=== PATIENT | male | born 1960 | race Caucasian/White ===

== ENCOUNTER 2021-09-08 14:36 | Inpatient (IN) ==
--- NOTE | 2021-09-08 15:16 | Emergency Department Note ---
History of Present Illness General Chief complaint: Shortness of Breath/Dyspnea Stated complaint: PAIN IN BACK AND NECK,SOB Time Seen by Provider: 09/08/21 14:50 Source: patient and family (Sister who is at the bed) Mode of arrival: ambulatory Limitations: no limitations History of Present Illness Maximum Pain Intensity: 8 This patient is a 60-year-old male who has a very complex medical history in the last year, comes in with continuing neck and back pain and weakness after having back surgery additionally he has felt short of breath over the last week. his sister is at the bedside and said that he had back surgery April 2020 and then in November 2020 and [facility]. Since the back surgery he has been weak and in a wheelchair and unable to use his legs. He said they wanted to operate on his neck as he has had weakness in his arms from his neck right greater than left this is been chronic. They have an appointment to see Dr. Chávez but is not till January. They have not yet seen Dr. Chávez. He says when he bends his neck down that causes his legs to get numb. This is been chronic. Prior to the surgery he was healthy and walking and since then he is in a wheelchair. He says that the last week he has felt a little more short of breath is sister says it seems like he has hard time talking because of breathing. 2 or 3 weeks ago was hospitalized and do boys for pneumonia. He never really fully recovered it sounds like. He was diagnosed with blood clots in his right leg and started on Eliquis 5 mg twice daily. He denies any chest pain. He has had a nonproductive cough at times no fever. He has not had the COVID vaccine. He has not had known Covid or exposure. No nausea vomiting diarrhea. He has no lower extremity edema beyond baseline. No history of cardiac disease or pulmonary disease prior. Home Medications Medication Instructions Recorded Confirmed Type apixaban 5 mg tablet (Eliquis) 5 mg PO BID 09/08/21 09/08/21 History Allergies Allergy/AdvReac Type Severity Reaction Status Date / Time No Known Allergies Allergy Unverified 09/08/21 16:28 Past Med/Surg History Social History Smoking Status: Former smoker Feels Safe at Home: Yes Immunizations: Past medical historyback surgeries and problems since. Denies cardiac disease, pulmonary disease, PE, diabetes. He does a history of DVT and is on Eliquis Social history he is not a smoker he has a history. He lives with his mother who takes care of him along with a friend. He is followed by Dr. Almendarez at [facility] Review of Systems A total of 10 systems reviewed and were otherwise negative Physical Exam Vital Signs Vital Signs - 24 hr 09/08/21 14:38 09/08/21 15:36 09/08/21 17:00 Temperature 36.8 C Temperature Source Temporal Artery Scan Pulse Rate 112 H Pulse Rate [Right Finger] 101 H Pulse Rhythm [Right Finger] Regular Pulse Strength [Right Finger] Normal Respiratory Rate 18 20 Respiratory Effort / Characteristics Non-Labored Respiratory Depth Normal Respiratory Pattern Regular Blood Pressure 187/89 H Blood Pressure Mean 121 Blood Pressure Position Sitting Pulse Oximetry 95 98 Oxygen Delivery Method Room Air Room Air Room Air Sepsis Recent Fever Within 48 Hours No Sepsis New/Unexplained Change in Mental Status No Sepsis Action Taken by Nursing No Action Required General: Well developed well nourished ill-appearing older male who appears in no acute distress, breathing comfortably on room air. Normal speech when he talks he does seem mildly short of breath HEENT: Normal cephalic atraumatic. Pupils are equal round and reactive to light. Extraocular movements are intact. Oropharynx is pink with moist mucous membranes. No swelling of the mouth lips or tongue. Neck: Supple with a midline trachea. No meningeal signs or stiffness, no JVD or bruits. No Stridor. Chest: Clear to auscultation bilaterally exception of some diminished breath sounds in the left base compared to the right. No wheezes or rhonchi. No increased work of breathing. Crackles or subcutaneous air. Heart: Regular rate and rhythm without murmurs or gallops. Abdomen: Soft nontender, nondistended without rebound guarding or rigidity. Extremities: No cyanosis clubbing. He does have bilateral lower extremity edema which he says is Spine/Back. Non tender to palpation. No CVA tenderness Skin: Good turgor without rashes. Neurologic exam: Cranial nerves two through 12 are intact. Does have weakness in the upper extremities which is very mild on the left and mild to moderate on the right. He tells me this has been this way for a long time. The lower extremities have weakness in both legs and he has minimal movement in the ankles and feet. Course Administered Medications Discontinued Medications Ioversol (Optiray 320 125ml) 120 ml IV ONCE ONE Stop: 09/08/21 16:57 Last Admin: 09/08/21 16:59 Dose: 120 ml Documented by: [id number] Medical Decision Making Differential Diagnosis Weakness, neurologic disorder, spinal stenosis or spinal disorder, PE, cardiac disease, infection, electrolyte or metabolic abnormality, postop complication Medical Records Attestation: I reviewed the patient's medical records. Home Medications Current Medication List: was personally reviewed by me Laboratory Data Attestation: I reviewed the patient's lab results. Result diagrams: 09/08/21 15:35 09/08/21 15:35 Lab Results 09/08/21 09/08/21 09/08/21 Range/Units 15:35 15:35 15:35 WBC 10.15 (4.8-10.8) K/uL RBC 5.37 (4.7-6.1) M/uL Hgb 15.0 (14.0-18.0) g/dL Hct 46.0 (42-52) % MCV 85.7 (80-100) fL MCH 27.9 (25-34) pg MCHC 32.6 (32-36) g/dL RDW Std Deviation 46.7 H (36.4-46.3) fL RDW Coeff of Daivna 14.9 H (11.5-14.5) % Plt Count 171 (130-400) K/uL MPV 12.2 H (7.4-10.4) fL Immature Gran % (Auto) 0.2 % Neut % (Auto) 86.3 % Lymph % (Auto) 7.6 % Blair % (Auto) 5.7 % Eos % (Auto) 0.1 % Baso % (Auto) 0.1 % Neut # (Auto) 8.76 H (1.4-6.5) K/uL Lymph # (Auto) 0.77 L (1.2-3.4) K/uL Blair # (Auto) 0.58 (0.11-0.59) K/uL Eos # (Auto) 0.01 (0-0.5) K/uL Baso # (Auto) 0.01 (0-0.2) K/uL Immature Gran # (Auto) 0.02 (0.00-0.02) K/uL PT 11.8 (9.0-12.0) Seconds INR 1.1 (0.9-1.1) APTT 32.2 H (21.0-31.0) Seconds PTT Ratio 1.2 Sodium 136 (136-145) mmol/L Potassium 4.0 (3.5-5.1) mmol/L Chloride 97 L (98-107) mmol/L Carbon Dioxide 28 (21-32) mmol/L Anion Gap 11 (3-11) BUN 6 (6-23) mg/dl Creatinine 0.30 L (0.6-1.4) mg/dl Est Cr Clr Drug Dosing Not Reportable Est GFR ( Amer) > 150.0 ml/min Est GFR (Non-Af Amer) 146.3 ml/min BUN/Creatinine Ratio 20.0 (10-20) Glucose 95 (70-99(Fasting)) mg/dl Lactate (0.4-2.0) mmol/L Calcium 9.5 (8.5-10.1) mg/dl Total Bilirubin 0.9 (0.2-1.0) mg/dl AST 13 (13-39) U/L ALT 12 (7-52) U/L Alkaline Phosphatase 113 H (34-104) U/L Troponin I < 0.03 (0-0.04) ng/ml B-Natriuretic Peptide (0-100) pg/ml Total Protein 7.9 (6.0-8.3) gm/dl Albumin 4.2 (3.4-5.0) gm/dl Globulin 3.7 (2.5-4.0) gm/dl Albumin/Globulin Ratio 1.1 (0.9-2) Lipase 5 L (11-82) U/L SARS-CoV-2, RNA, NAAT (NEGATIVE) 09/08/21 09/08/21 09/08/21 Range/Units 15:35 15:35 15:35 WBC (4.8-10.8) K/uL RBC (4.7-6.1) M/uL Hgb (14.0-18.0) g/dL Hct (42-52) % MCV (80-100) fL MCH (25-34) pg MCHC (32-36) g/dL RDW Std Deviation (36.4-46.3) fL RDW Coeff of Davina (11.5-14.5) % Plt Count (130-400) K/uL MPV (7.4-10.4) fL Immature Gran % (Auto) % Neut % (Auto) % Lymph % (Auto) % Blair % (Auto) % Eos % (Auto) % Baso % (Auto) % Neut # (Auto) (1.4-6.5) K/uL Lymph # (Auto) (1.2-3.4) K/uL Blair # (Auto) (0.11-0.59) K/uL Eos # (Auto) (0-0.5) K/uL Baso # (Auto) (0-0.2) K/uL Immature Gran # (Auto) (0.00-0.02) K/uL PT (9.0-12.0) Seconds INR (0.9-1.1) APTT (21.0-31.0) Seconds PTT Ratio Sodium (136-145) mmol/L Potassium (3.5-5.1) mmol/L Chloride (98-107) mmol/L Carbon Dioxide (21-32) mmol/L Anion Gap (3-11) BUN (6-23) mg/dl Creatinine (0.6-1.4) mg/dl Est Cr Clr Drug Dosing Est GFR ( Amer) ml/min Est GFR (Non-Af Amer) ml/min BUN/Creatinine Ratio (10-20) Glucose (70-99(Fasting)) mg/dl Lactate 0.8 (0.4-2.0) mmol/L Calcium (8.5-10.1) mg/dl Total Bilirubin (0.2-1.0) mg/dl AST (13-39) U/L ALT (7-52) U/L Alkaline Phosphatase (34-104) U/L Troponin I (0-0.04) ng/ml B-Natriuretic Peptide 34 (0-100) pg/ml Total Protein (6.0-8.3) gm/dl Albumin (3.4-5.0) gm/dl Globulin (2.5-4.0) gm/dl Albumin/Globulin Ratio (0.9-2) Lipase (11-82) U/L SARS-CoV-2, RNA, NAAT POSITIVE A* (NEGATIVE) Imaging Data Attestation: I personally reviewed and interpreted this imaging study as follows: My Impression: Chest x-ray-there is an effusion on the left face with likely infiltrate Radiologist's Impression: Chest X-Ray 09/08/21 15:07 SINGLE VIEW CHEST CLINICAL HISTORY: Atypical chest pain. Dyspnea. FINDINGS: An AP, portable, upright chest radiograph is obtained. No prior studies are available for comparison at the time of dictation. The examination is degraded by portable technique and patient rotation. The heart is top normal for projection noting atherosclerotic calcification of the thoracic aorta. There is a layering left pleural effusion with left basilar consolidation. Atelectasis is noted at the right lung base. No pneumothorax is seen. The bony thorax is grossly intact. IMPRESSION: Layering left pleural effusion with left basilar consolidation. ACT 112: Negative or not required by law. Electronically signed by: Jeremi Levy M.D. 09/08/2021 4:09 PM Chest CTA 09/08/21 15:08 CT ANGIOGRAM OF THE CHEST CLINICAL HISTORY: Atypical chest pain. COMPARISON STUDY: Chest x-ray dated 09/08/2021. TECHNIQUE: Following the IV administration of 120 cc of Optiray 320, CT an giogram of the chest was performed from the upper abdomen to the thoracic inlet utilizing the pulmonary embolus protocol. Images are reviewed in the axial, sagittal, and coronal planes. 3-D MIPS images are created and assessed. IV contrast was administered without complication. A dose lowering technique was utilized adhering to the principles of ALARA. There is streak artifact from the arms which could not elevated above the chest as well as motion artifact. CT DOSE: 772.71 mGy.cm FINDINGS: Thyroid: Imaged portions of the thyroid gland are normal in size and attenuation. Thoracic aorta: The thoracic aorta is normal in caliber and demonstrates standard 3-vessel arch anatomy. No dissection is seen. Pulmonary vasculature: The pulmonary trunk is normal in caliber. There are no filling defects identified in main, lobar, or segmental pulmonary branches to suggest pulmonary embolus. Heart: The heart is normal in size and without pericardial effusion. The coronary arteries are densely calcified. Lungs and pleural spaces: Mild emphysematous change is seen at the apices. There is dense airspace consolidation and volume loss throughout the left lower lobe. The left upper lobe is clear. Minimal patchy groundglass consolidation is seen in the right lower lobe. No pleural effusion is identified. Secretions are seen throughout the trachea and in the left mainstem bronchus. There is opacification of the left lower lobe airways. Mediastinum: There are mildly enlarged mediastinal nodes which measure up to 16 mm in short axis. Sybil: Enlarged left hilar nodes measure up to 14 mm in short axis. No right hilar adenopathy is seen. Axillae: There is no axillary lymphadenopathy. Upper abdomen: The pancreas is atrophic with evidence of chronic pancreatitis. Partially visualized upper abdominal viscera is within normal limits. Skeletal structures: No lytic or blastic bony lesions are seen. There are healed left-sided rib fractures. IMPRESSION: 1. There is no evidence of pulmonary embolus in the main, lobar, or segmental pulmonary arteries. 2. Emphysema. 3. There is dense airspace consolidation throughout the left lower lobe with mild volume loss and opacification of the left lower lobe airways. The appearance is typical for pneumonia/aspiration pneumonitis. Clinical correlation will be required and radiographic follow-up to resolution is recommended. 4. Minimal patchy groundglass consolidation is seen at the right lung base, also likely on an infectious/inflammatory basis. 5. No pleural effusion is identified. 6. Advanced coronary artery calcification. 7. Mildly enlarged mediastinal and hilar lymph nodes are likely reactive. 8. Additional findings as above. ACT 112: Negative or not required by law. Electronically signed by: Jeremi Levy M.D. 09/08/2021 5:43 PM ECG Data Attestation: I personally reviewed and interpreted this ECG as follows: Indication: + SOB/dyspnea Rate (beats per minute): 100 Rhythm: + normal sinus ECG Intervals/blocks: + Normal QRS, + Normal QT and + Normal [place] ECG [place]: + Normal ECG ST segments: + Normal ST segments ECG Findings: + Poor R wave progression; no PACs or no PVCs Comparison ECG Date: no prior available MDM Narrative This patient comes in as described above. He has a very complex past and no records available for evaluation acutely. I did attempt to get some old records from his recent [place] his hospitalization and have the executive secretary working on that. He has stable vital signs. I most concerned about his respiratory status today. I did a cardiac/pulmonary work-up. He does have a lot of weakness in his arms and legs which she has been chronic. It sounds like the thinking is this is a postop complication related spine but I am also concerned it could be an underlying neurologic disorder given the limited information I have. IV access was established multiple blood testing was obtained as well as chest x- ray and EKG. Also I did Covid testing. His EKG does not suggest acute coronary syndrome or arrhythmia. His chest x-ray does show likely effusion with an infiltrate in the left base. His white count is not elevated nor is his lactic acid elevated however. His Covid test did come back positive. The patient d enies that he has had a Covid test that was positive for Covid. I do think he needs to be admitted/observe for his respiratory issues. He also has ongoing issues with weakness that have been attributed to his neck and back but he may need further work-up without as well to rule out neurologic or other etiologies. We did manage to receive the discharge summary from 2 boys. The patient was in the hospital from July 22 to July 24. He was treated for community- acquired pneumonia with possible aspiration. He was negative for Covid. He had a DVT in the right femoral vein and was started on Eliquis. Apparently they also suspected a PE on his CT also did have obstruction of the main bronchus with fluid. This was thought to be from aspiration. He was started on Augmentin. CAT scan came back tonight with a findings consistent with pneumonia. I did give him Zosyn 4.5 g IV. I do think he needs to be admitted for further treatment and evaluation. I have consulted the [facility] hospitalist to see him in ER for these. Impression & Plan COVID, Pleural effusion, Weakness, SOB (shortness of breath), Pneumonia Discharge Plan Visit Data Chief Complaint: Shortness of Breath/Dyspnea Stated Complaint: PAIN IN BACK AND NECK,SOB ED Provider: Romero Schilling Discharge Problem: COVID, Pleural effusion, Weakness, SOB (shortness of breath), Pneumonia Forms Stand Alone Forms: My [facility] Prescriptions Prescriptions: No Action Eliquis 5 mg tablet 5 mg PO BID RF: 0 Referrals Referrals: PCP,NO [Physician] -
[2021-09-08 15:52] LABS: Basophils # (auto) 0.01 K/uL (0-0.2); Basophils % (auto) 0.1 %; Eosinophils # (auto) 0.01 K/uL (0-0.5); Eosinophils % (auto) 0.1 %; Immature Granulocytes # (auto) 0.02 K/uL (0.00-0.02); Immature Granulocytes % (auto) 0.2 %; Lymphocytes # (auto) 0.77 K/uL (1.2-3.4); Lymphocytes % (auto) 7.6 %; Mean Corpuscular Hemoglobin 27.9 pg (25-34); Mean Corpuscular Hgb Conc 32.6 g/dL (32-36); Mean Corpuscular Volume 85.7 fL (80-100); Mean Platelet Volume 12.2 fL (7.4-10.4); Monocytes # (auto) 0.58 K/uL (0.11-0.59); Monocytes % (auto) 5.7 %; Neutrophils # (auto) 8.76 K/uL (1.4-6.5); Neutrophils % (auto) 86.3 %; Platelet Count 171 K/uL (130-400); RDW Coefficient of Variation 14.9 % (11.5-14.5); RDW Standard Deviation 46.7 fL (36.4-46.3); Red Blood Count 5.37 M/uL (4.7-6.1); White Blood Count 10.15 K/uL (4.8-10.8)
[2021-09-08 16:04] LABS: INR 1.1 (0.9-1.1); Partial Thromboplastin Ratio 1.2; Partial Thromboplastin Time 32.2 Seconds (21.0-31.0); Prothrombin Time 11.8 Seconds (9.0-12.0)
--- NOTE | 2021-09-08 16:10 | XRay Report ---
SINGLE VIEW CHEST CLINICAL HISTORY: Atypical chest pain. Dyspnea. FINDINGS: An AP, portable, upright chest radiograph is obtained. No prior studies are available for c omparison at the time of dictation. The examination is degraded by portable technique and patient rot ation. The heart is top normal for projection noting atherosclerotic calcification of the thoracic a tigist. There is a layering left pleural effusion with left basilar consolidation. Atelectasis is noted at the right lung base. No pneumothorax is seen. The bony thorax is grossly intact. IMPRESSION: Layering left pleural effusion with left basilar consolidation. ACT 112: Negative or not required by law. Electronically signed by: Jeremi Levy M.D. 09/08/2021 4:09 PM
--- NOTE | 2021-09-08 16:11 | Electrocardiogram Report ---
Test Reason : Blood Pressure : / mmHG Vent. Rate : 100 BPM Atrial Rate : 100 BPM P-R Int : 190 ms QRS Dur : 108 ms QT Int : 362 ms P-R-T Axes : 058 011 055 degrees QTc Int : 466 ms Normal sinus rhythm Possible Left atrial enlargement Abnormal ECG No previous ECGs available Confirmed by Matti Barnes ([id number]) on 09/08/2021 4:10:45 PM Referred By: ER Confirmed By:Umer Barnes
[2021-09-08 16:16] LABS: Troponin I < 0.03 ng/ml (0-0.04)
[2021-09-08 16:29] LABS: Alanine Aminotransferase 12 U/L (7-52); Albumin Globulin Ratio 1.1 (0.9-2); Albumin Level 4.2 gm/dl (3.4-5.0); Alkaline Phosphatase 113 U/L (34-104); Anion Gap 11 (3-11); Aspartate Aminotransferase 13 U/L (13-39); Bilirubin,Total 0.9 mg/dl (0.2-1.0); Blood Urea Nitrogen 6 mg/dl (6-23); Calcium 9.5 mg/dl (8.5-10.1); Carbon Dioxide 28 mmol/L (21-32); Chloride 97 mmol/L (98-107); Est GFR (African American) > 150.0 ml/min; Est GFR (Non-African American) 146.3 ml/min; Globulin 3.7 gm/dl (2.5-4.0); Glucose 95 mg/dl (70-99(Fasting)); Lipase 5 U/L (11-82); Sodium 136 mmol/L (136-145); Total Protein 7.9 gm/dl (6.0-8.3)
[2021-09-08] MEDS ORDERED: OPTIRAY 320 125ml IV ONE (16:56)
--- NOTE | 2021-09-08 17:45 | CT Scan Report ---
CT ANGIOGRAM OF THE CHEST CLINICAL HISTORY: Atypical chest pain. COMPARISON STUDY: Chest x-ray dated 09/08/2021. TECHNIQUE: Following the IV administration of 120 cc of Optiray 320, CT angiogram of the chest was pe rformed from the upper abdomen to the thoracic inlet utilizing the pulmonary embolus protocol. Images are reviewed in the axial, sagittal, and coronal planes. 3-D MIPS images are created and assessed. I V contrast was administered without complication. A dose lowering technique was utilized adhering to the principles of ALARA. There is streak artifact from the arms which could not elevated above the c hest as well as motion artifact. CT DOSE: 772.71 mGy.cm FINDINGS: Thyroid: Imaged portions of the thyroid gland are normal in size and attenuation. Thoracic aorta: The thoracic aorta is normal in caliber and demonstrates standard 3-vessel arch anato my. No dissection is seen. Pulmonary vasculature: The pulmonary trunk is normal in caliber. There are no filling defects identif ied in main, lobar, or segmental pulmonary branches to suggest pulmonary embolus. Heart: The heart is normal in size and without pericardial effusion. The coronary arteries are densel y calcified. Lungs and pleural spaces: Mild emphysematous change is seen at the apices. There is dense airspace co nsolidation and volume loss throughout the left lower lobe. The left upper lobe is clear. Minimal pat len groundglass consolidation is seen in the right lower lobe. No pleural effusion is identified. Se cretions are seen throughout the trachea and in the left mainstem bronchus. There is opacification of the left lower lobe airways. Mediastinum: There are mildly enlarged mediastinal nodes which measure up to 16 mm in short axis. Sybil: Enlarged left hilar nodes measure up to 14 mm in short axis. No right hilar adenopathy is seen. Axillae: There is no axillary lymphadenopathy. Upper abdomen: The pancreas is atrophic with evidence of chronic pancreatitis. Partially visualized u pper abdominal viscera is within normal limits. Skeletal structures: No lytic or blastic bony lesions are seen. There are healed left-sided rib fract ures. IMPRESSION: 1. There is no evidence of pulmonary embolus in the main, lobar, or segmental pulmonary arteries. 2. Emphysema. 3. There is dense airspace consolidation throughout the left lower lobe with mild volume loss and opa cification of the left lower lobe airways. The appearance is typical for pneumonia/aspiration pneumon itis. Clinical correlation will be required and radiographic follow-up to resolution is recommended. 4. Minimal patchy groundglass consolidation is seen at the right lung base, also likely on an infecti ous/inflammatory basis. 5. No pleural effusion is identified. 6. Advanced coronary artery calcification. 7. Mildly enlarged mediastinal and hilar lymph nodes are likely reactive. 8. Additional findings as above. ACT 112: Negative or not required by law. Electronically signed by: Jeremi Levy M.D. 09/08/2021 5:43 PM
[2021-09-08] MEDS ORDERED: PIPERACILLIN/TAZOBACTAM 4.5 GM/120 ML BAG IV ONE (17:47)
[2021-09-08] MEDS ORDERED: PIPERACILL/TAZOBAC CONSULT ACTIVE PRN ×2 (17:47→21:03)
--- NOTE | 2021-09-08 18:11 | History & Physical Report ---
Date of Service September 08, 2021 Assessment & Plan (1) COVID: Plan: Patient tested positive for Covid there is some description of some mild groundglass opacities seen in the right lung base he is not hypoxic. First symptoms: ~09/01/2021 First tested: in our system 09/08/2021 Vaccinated: No CT scan shows some groundglass right lower lobe however it shows a lobar infiltrate left lower lobe which is more consistent with bacterial infection or aspiration Admission date: 09/08/2021 Admission O2 requirement: None Admission CRP: 12.66 Dexamethasone course started: 09/08/2021 Remdesivir Not indicated Remdesivir contraindication: Not with hypoxia (2) Pneumonia: Plan: Patient reportedly with aspiration pneumonitis during his last hospitalization where he was evaluated by speech therapy and felt not to be at risk, was discharged with 3 weeks of Augmentin therapy on July 24, 2021. CT report dictated in the discharge summary during that hospitalization suggest that the right mainstem bronchus showed air-fluid levels and opacified the entire bronchial tree on the right as well as portions of the upper and middle lobes with concern for aspiration. Now his issues are on the left which does not continue to rule out aspiration CT chest PE protocol 09/08/2021 shows no PE, emphysema is present, dense airspace consolidation throughout the left lower lobe with mild volume loss and opacification of the left lower lobe appearance is typical for pneumonia or even aspiration pneumonitis. There is mild groundglass opacification in the right lung base no pleural effusion mildly enlarged mediastinal and hilar lymph nodes are likely reactive per the CT read of Dr. Levy Given the lobar nature of this the patient was started on Zosyn by the emergency room physicians will be continued on the same however the groundglass opacities is also concerning for Covid viral pneumonia however the patient is not significantly hypoxic but will be monitored and considered for remdesivir therapy. Will be started on dexamethasone Patient given mucolytic's valve may consider doing some nif testing in case some of his weakness is cervical and his diaphragm is impaired in causing him inability to cough (3) Lower extremity weakness: Plan: Reportedly with spinal surgery in [facility] with Dr. Alvarado in April 2020 in November 2020 this was on his upper lumbar lower thoracic spine by the gauge of the scar. Will attempt to get records from [facility] Given patient's complete lack of ability to move his right leg and lack of reflexes concerned that this may be prolonged. Patient denies having sphincter issues or incontinence Given the upper and lower extremities being worse and then possibly some respiratory status being worsen with preserved sensation could be concern for something like ALS. Will have a neurology consultation. Pending TSH pending random cortisol. The patient does not feel he can lay flat for MRI of his neck we will get a CT scan of his neck and hopefully improve his pulmonary status to the point where he can lay flat safely or at least perform the test when there is more daytime support in case he becomes worsened with his respiratory status We will have neurology evaluation for neurological exam understanding he is Covid positive We will consult Dr. Chávez with orthopedic spine surgery (4) DVT prophylaxis: Plan: Patient with a history of recent superficial femoral vein DVT and pulmonary embolisms in July 2021 PEs were documented to be concerned with the left upper lobe segmented and subsegmental pulmonary artery as well as posteriorly directed right upper lobe subsegmental pulmonary artery branch Will transition temporarily to heparin from his apixaban in case lumbar puncture or neuro spine surgery is indicated Plan: Patient is a full code as confirmed by he and his sister in the room History of Present Illness Primary Care Provider: Roberto Carlos Quinonez DO 60-year-old male who presents to [facility] with shortness of breath exacerbated over the last week. Found to be Covid positive and the patient has not been vaccinated. Patient was recently discharged from [facility] July 24 after being treated for community-acquired pneumonia possibly aspiration. In our emergency department he has what appears to be a left lower lobe lobar pneumonia despite his Covid positive status. Patient denies any GI symptoms at home loss of taste or smell and denies any recent Covid exposures. During his previous admission he also developed a right superficial femoral vein DVT and is chronically anticoagulated with Eliquis. The family is present with him and the real concern from the family was progressive neck and back weakness after reportedly having spinal surgery April 2020 and then again in November 2020. Since that time the patient's been wheelchair-bound unable to use his legs to bear weight. Allergies Allergy/AdvReac Type Severity Reaction Status Date / Time No Known Allergies Allergy Unverified 09/08/21 16:28 Home Medications Medication Instructions Recorded Confirmed Type apixaban 5 mg tablet (Eliquis) 5 mg PO BID 09/08/21 09/08/21 History Past Med/Surg History Medical History (Updated 09/08/21 @ 18:06 by Tyshawn Garcia MD) DVT prophylaxis Lower extremity weakness Social History Smoking Status: Former smoker Feels Safe at Home: Yes Review of Systems Review of Systems: Moderate respiratory distress and fatigue no headache, no visual changes no speech or swallowing issues, denies coughing with eating is short of breath and has a weak cough no abdominal pain, nausea or vomiting, diarrhea or constipation no dysuria, hematuria or frequency no focal joint pain or swelling back pain with position at the apex of his previous scar, CVA tenderness or radicular pain no bruising, bleeding or rashes b/l leg weakness and are weakness, weak cough and sob, claims gross sensation is intact no complaints of anxiety or depression.. Physical Exam Physical Exam: The patient appeared chronically ill and in moderate respiratory discress Vital signs as documented. Head exam is normocephalic atraumatic Neck is without JVD, thyromegaly, or carotid bruits. Lungs are diminished throughout and absent at the left base Cardiac exam, Rhythm is regular.. No murmurs, rubs or gallops. Abdominal exam reveals normal bowel sounds, soft non tender, no masses Extremities are nonedematous and both pedal pulses are present Neurologic exam is alert and oriented x3 cannot raise elbows more than 45 degrees, right arm is weakened 3.5/5 left is 4/5, legs cannot lift or move right leg, left leg can raise off bed but cannot move toes, intrinsic hand muscles are weak R>L Skin is without bruises or rashes, sugical wound is tender Psychologically is without concerns for anxiety or depression.. Results & Data Results & Data ([facility]) Vital Signs (Past 12 Hours) Vital Signs Temp Pulse Pulse Resp BP Pulse Ox 09/08/21 17:00 101 H 20 98 09/08/21 14:38 98.2 F 112 H 18 187/89 H 95 PG Care Time/CCT Total # of Minutes Spent Total Time Spent with Patient: Total time spent is greater than 50% in coordination of care (as documented) at patient's floor/unit and/or counseling patient: Coding Level of Care Code 93778 Initial Inpt Care Lvl 3 Diagnoses COVID U07.1 Pneumonia J18.9 Laterality: left Lung location: lower lobe of lung Pneumonia type: due to unspecified organism DVT prophylaxis Z29.9 Lower extremity weakness R29.898 (1) Pneumonia Laterality: left Lung location: lower lobe of lung Pneumonia type: due to unspecified organism Qualified Code(s): J18.9 - Pneumonia, unspecified organism
[2021-09-08] MEDS ORDERED: ONDANSETRON INJ 2 MG/ML 2 ML VIAL IV PRN (21:03)
[2021-09-08] MEDS ORDERED: ALUMINUM/MAGNESIUM SUSP 30 ML UDC PO PRN (21:03)
[2021-09-08] MEDS ORDERED: ACETAMINOPHEN 325 MG TAB PO PRN (21:03)
[2021-09-08] MEDS ORDERED: Heparin IV Adult Wt-Based Standard *NO* Bolus Protocol IV SCH (21:03)
[2021-09-08 21:46] LABS: Eosinophils # (auto) 0.04 K/uL (0-0.5); Eosinophils % (auto) 0.5 %; Hematocrit (blood only) 41.7 % (42-52); Hemoglobin 13.8 g/dL (14.0-18.0); Immature Granulocytes # (auto) 0.02 K/uL (0.00-0.02); Immature Granulocytes % (auto) 0.3 %; Lymphocytes # (auto) 1.11 K/uL (1.2-3.4); Lymphocytes % (auto) 14.8 %; Mean Corpuscular Hemoglobin 28.2 pg (25-34); Mean Corpuscular Volume 85.1 fL (80-100); Monocytes # (auto) 0.72 K/uL (0.11-0.59); Monocytes % (auto) 9.6 %; Neutrophils # (auto) 5.62 K/uL (1.4-6.5); Neutrophils % (auto) 74.8 %; Platelet Count 168 K/uL (130-400); RDW Coefficient of Variation 14.8 % (11.5-14.5); RDW Standard Deviation 46.2 fL (36.4-46.3); White Blood Count 7.51 K/uL (4.8-10.8)
[2021-09-08 21:58] LABS: INR 1.1 (0.9-1.1); Partial Thromboplastin Ratio 1.2
[2021-09-08 22:28] LABS: Mean Corpuscular Hgb Conc 33.1 g/dL (32-36)
[2021-09-08] MEDS: guaiFENesin 600 MG TABCR PO SCH (23:15)
[2021-09-08] MEDS: HEPARIN SODIUM/DEXTROSE 25,000 UNITS/500 ML BAG IV SCH (23:15)
[2021-09-08] MEDS: PIPERACILLIN/TAZOBACTAM 3.375 GM in DEXTROSE 5% 100 ML IV SCH (23:15)
[2021-09-08] MEDS: dexAMETHasone 6 MG in SYRINGE 0 ML IV SCH (23:15)
[2021-09-09 06:10] LABS: Anion Gap 10 (3-11); BUN Creatinine Ratio 29.6 (10-20); Blood Urea Nitrogen 8 mg/dl (6-23); C Reactive Protein 15.85 mg/dl (0-0.5); Calcium 9.4 mg/dl (8.5-10.1); Carbon Dioxide 27 mmol/L (21-32); Chloride 99 mmol/L (98-107); Creatinine Clr Calc Pharmacy 313.8 ml/min; Est GFR (African American) > 150.0 ml/min; Est GFR (Non-African American) > 150.0 ml/min; Glucose 130 mg/dl (70-99(Fasting)); Partial Thromboplastin Ratio 1.8; Potassium 4.2 mmol/L (3.5-5.1); Sodium 136 mmol/L (136-145)
[2021-09-09 06:16] LABS: Partial Thromboplastin Time 49.4 Seconds (21.0-31.0)
[2021-09-09] MEDS: guaiFENesin 600 MG TABCR PO SCH (08:41)
[2021-09-09] MEDS: dexAMETHasone 6 MG in SYRINGE 0 ML IV SCH (08:41)
[2021-09-09] MEDS: PIPERACILLIN/TAZOBACTAM 3.375 GM in DEXTROSE 5% 100 ML IV SCH ×3 (08:41→23:30)
--- NOTE | 2021-09-09 09:21 | Neurology Consultation ---
Date of Consultation September 09, 2021 Assessment & Plan (1) Weakness: This patient has significant generalized weakness which has been present for at least the past 1 to 2 years and has been getting progressively worse per history. His legs are especially weak although he does have a mild to moderate degree of symmetric upper extremity weakness as well. He does have some distal atrophy of the hands. His deep tendon reflexes are markedly reduced throughout. He does not have any obvious myelopathic signs on examination. He does not have obvious bulbar findings such as ptosis, diplopia, dysarthria or dysphagia. I suspect this patient has a severe peripheral neuropathy which by history has been present for at least the past 1 to 2 years and has been getting progressively worse. 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 Motor neuron disease or ALS is possible although he does not have obvious bulbar signs or symptoms and does not have fasciculations or obvious upper motor neuron findings on examination. Likewise, a cervical spinal myelopathy is possible, but again, he does not have myelopathic findings such as hyperreflexia on examination and does not have associated sensory loss. Acquired myopathy as well as neuromuscular junction disorders such as myasthenia gravis could also be considered. He does not have muscle pain. Again, he does not have ptosis, ophthalmoplegia or other bulbar symptoms that would otherwise be typically seen in myasthenia gravis. Lambert-Eaton myasthenic syndrome may not be excluded. Would recommend inpatient imaging including MRI of the brain, cervical spine, thoracic spine, and lumbar spine. The study should be done with and without gadolinium enhancement. Additional labs such as CK, aldolase, acetylcholine receptor antibodies (binding, blocking, and modulating), and PQ type voltage- gated calcium channel antibodies (for Lambert-Eaton) should be obtained. Would also check Lyme, B12, RPR. Patient will need an outpatient for limb EMG with repetitive stimulation as well. Would consider obtaining a lumbar puncture after completion of the above imaging. Would look for albumin no cytologic dissociation which is often seen in patients with CIDP (as well as GBS all the patient's clinical history is more chronic rather than subacute.) History of Present Illness Reason for Consultation: Quadriparesis Requesting Physician: Tyshawn Garcia MD Attending Physician: Tyshawn Garcia MD History of Present Illness The patient is a 60-year-old male with a chief complaint of progressive generalized weakness beginning 1 to 2 years ago. Currently nonambulatory, barely able to move either lower limb. Denies experiencing any associated numbness. Has developed weakness and clumsiness of the hands and upper limbs as well. No associated ptosis, diplopia, dysphagia, or dysarthria. History notable for low back pain with radicular symptoms to the right lower extremity for which he underwent 2 spinal surgeries, one in April 2020, another in November 2020. The surgeries have been done at [facility].There is apparently some concern regarding whether or not he may have cervical spinal stenosis as well and has an appointment with Dr. Chávez [facility], this coming January. He denies significant neck pain or headache currently. He was hospitalized a few weeks ago at an outside facility for pneumonia. Looks like he has now tested positive for COVID-19 although symptoms probably began on September 01, 2021. He is currently receiving antimicrobial therapy although there is some concern for Covid viral pneumonia, yet he is not hypoxic. He was started on dexamethasone. Allergies Allergy/AdvReac Type Severity Reaction Status Date / Time No Known Allergies Allergy Unverified 09/08/21 16:28 Home Medications Medication Instructions Recorded Confirmed Type apixaban 5 mg tablet (Eliquis) 5 mg PO BID 09/08/21 09/08/21 History Patient History Medical History (Updated 09/08/21 @ 18:06 by Tyshawn Garcia MD) DVT prophylaxis Lower extremity weakness Social History Smoking Status: Former smoker Do You Dip or Chew Tobacco: Yes; Tobacco Cessation Education Requested by Patient: No Hx Alcohol Use: No Hx Substance Use: No Preferred Language: Irish Communication Ability: Impaired Fashion Artist Required: No Beliefs That Will Affect Care: None Current Living Situation: Parent Current Living Situation Comment: home with caregiver Other Information That Helps Us Care for You: No Feels Safe at Home: Yes Assistive Devices: None Review of Systems Constitutional: no fever and no chills Eyes: no blind spots and no diplopia Ear, Nose, Mouth, Throat: no ear pain and no hearing loss Respiratory: + cough Cardiovascular: no chest pain and no palpitations Gastrointestinal: no constipation and no diarrhea/loose stools Genitourinary: no urinary incontinence or no urinary urgency Musculoskeletal: no muscle weakness and no muscle atrophy Integumentary: no rash and no lesions Neurologic: as per Subjective / HPI, + gait abnormality and + generalized weakness; no loss of sensation, no tremor(s), no headache(s), no confusion and no memory loss Psychiatric: no behavioral changes, no depression, no abnormal sleep pattern and no anxiety Hematologic / Lymphatic: no easy bruising and no lymphadenopathy Exam (Neuro) Constitutional: well developed and well nourished; no acute distress Eyes: normal visual bobo by confrontation, PERRL, normal accommodation and EOM intact bilaterally; no fundoscopic abnormality, no nystagmus and no papilledema Cardiovascular: Vessels: normal carotid upstroke; no carotid bruit Neurologic: Oriented to:: Person, Place and Time Memory: Short Term Intact and Remote Intact Attention: Span Intact and Concentration Intact Language: Naming Objects and Repeating Phrases Speech Fluency: negative Dysarthria Speech Aphasia: negative Aphasia Fund of Knowledge: Current Events, Past History and Vocabulary Cranial Nerves: Normal II (Visual bobo full to confrontation, visual acuity normal), III, IV, (Pupils equal round reactive to light and accommodation, eye movements normal), V (Facial sensation intact), VII (There is no facial droop or weakness), VIII (Hearing intact), IX, X (Palate elevates to midline), XI (Shoulder shrug intact) and XII (Tongue protrudes to midline) Motor Strength: Quadripelgia (Legs much weaker than arms.); negative Normal Lower Extremities, Normal Upper Extremities or Pronator Drift Motor Tone: Normal Lower Extremities and Normal Upper Extremities Muscle Bulk/Involuntary Movements: No Involuntary Movements and Muscle Atrophy Sensation: Light Touch Intact, Pain/Temperature Intact, Vibration Intact and Proprioception Intact Coordination: Normal, Finger-Nose Abnormal and Heel- Jung Abnormal Deep Tendon Reflexes: Rt Triceps: 2+, Lt Triceps: 2+, Rt Biceps: 2+, Lt Biceps: 2+, Rt Brachioradialis: 1+, Lt Brachioradialis: 1+, Rt Patellar: 1+, Lt Patellar: 1+, Rt Ankle: 0 and Lt Ankle: 0 Special Tests: negative Babinski Present Details: Patient is profoundly weak in general, especially the legs, unable to lift either leg up out of the bed. Right leg does seem weaker than the left. He is able to grasp eating utensils and lift his arms out of the bed against gravity, nonetheless, does have at least moderate, symmetric upper extremity weakness. No obvious bulbar weakness observed. Results & Data ([facility]) Vital Signs (Past 12 Hours) Vital Signs Temp Pulse Resp BP Pulse Ox Pulse Ox 09/09/21 08:36 37.1 C 86 18 133/86 96 09/09/21 07:28 80 20 98 09/09/21 03:14 36.6 C 76 18 131/85 96 09/08/21 22:54 36.7 C 96 H 18 155/101 H 96 09/08/21 21:17 36.8 C 92 H 16 150/96 H 96 09/08/21 21:03 96 Laboratory Results WBC 7.51, hemoglobin 13.8, hematocrit 41.7, MCV 85.1, platelet count 168, sodium 136, potassium 4.2, BUN 8, creatinine 0.27, glucose 130, calcium 9.4, C-reactive protein 15.85, TSH 0.880. SARS-CoV-2 RNA positive. Diagnostic Findings CTA of the chest negative for pulmonary embolism. There is evidence of emphysema as well as opacification within the left lower lobe airways consistent with pneumonia/aspiration pneumonitis. Patchy groundglass consolidation seen at the right lung base. Electrocardiogram reveals sinus rhythm, possible left atrial enlargement. Coding Level of Care Code 16930 Initial Inpt Care Lvl 3 Diagnoses Weakness R53.1
[2021-09-09 11:02] LABS: Lyme Ab IgG w/WB Rflx Negative (Negative); Lyme Ab IgM w/WB Rflx Negative (Negative)
--- NOTE | 2021-09-09 13:25 | Hospitalist Progress Note ---
Date of Service September 09, 2021 Assessment & Plan (1) COVID: Plan: Acute hypoxic respiratory failure 2/2 Covid pneumonia with superimposed suspected aspiration pneumonia Covid positive 09/08/2021 First day of symptoms: Approximately 09/01/2021 Vaccination status: Unvaccinated Baseline kidney function: wnl <1 Admitting kidney function: wnl <1 AST/ALT: Normal on admission CXR:Layering left pleural effusion with left basilar consolidation. - CTA: There is no evidence of pulmonary embolus in the main, lobar, or segmental pulmonary arteries. Emphysema. There is dense airspace consolidation throughout the left lower lobe with mild volume loss and opacification of the left lower lobe airways. The appearance is typical for pneumonia/aspiration pneumonitis. Clinical correlation will be required and radiographic follow-up to resolution is recommended. Minimal patchy groundglass consolidation is seen at the right lung base, also likely on an infectious/inflammatory basis. No pleural effusion is identified. Advanced coronary artery calcification. Mildly enlarged mediastinal and hilar lymph nodes are likely reactive.. CRP: 12.66 on admission, uptrending to 15.85 next day Continue dexamethasone x10-day course Remdesivir: Not indicated at this time Baricitinib: Not indicated at this time,not on high flow (2) Pneumonia: Plan: Aspiration pneumonia Patient with history of aspiration pneumonitis, was evaluated by speech therapy with intact swallow mechanics at that time Did complete 3 weeks of Augmentin therapy 08/13/2021 Discharge summary indicating right mainstem bronchus with air-fluid levels and right tree opacification as well as portions of the upper and middle lobes with concern for aspiration. Findings above are left-sided CT PE as above Started on Zosyn for pneumonia coverage due to dense consolidation, patient has had progressed hypoxia today and will continue on aspirin dimension Continue guaifenesin 1200 mg twice daily Today's evening dose of guaifenesin held, converted to guaifenesin/codeine with Tessalon to help improve cough and hopefully allow patient to complete MRI as noted below Given strength concerns can consider negative inspiratory force testing if concern for diaphragmatic weakness - +Flutter, incentive karolyn (3) Lower extremity weakness: Plan: Progressive lower extremity weakness, bilateral Progressive 1-2 years of symptoms. report started in the right leg distally and moved proximally and then involved left leg. Has had 2 spinal surgeries at [facility] with Dr. Alvarado, first in April 2020 and second in November 2020. Records pending from [facility] Neurology consulted. CK, aldolase, ACTH, PQ calcium antibodies, Lyme, B12, RPR ordered and pending. MRI with contrast of brain and C/T/L-spine recommended and ordered. Patient has had difficulty tolerating this due to cough. Trial antitussives and see if tolerance improved, otherwise obtain this when respiratory status/cough permits. 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 Appreciate neurology recommendations Spine consulted on admission, also pending records from [facility] (4) DVT prophylaxis: Plan: History of femoral vein DVT and PE 07/2021. By report PE in the left upper lobe, subsegmental pulmonary artery, right upper lobe subsegmental pulmonary artery branch - CTA as above on admit. Repeat dopplers not performed at this time. Converted from apixaban to heparin GTT to help facilitate lumbar puncture/spinal procedure if gated during admission Plan: Patient is a full code as confirmed by he and his sister in the room Admission and Anticipated Discharge Date Admission Date: September 08, 2021 Subjective Patient is seen at the bedside. On initial visit in morning with neurology, on revisit at MRI, seen shortly after lunchtime. The time bedside assessment he reports he continues to have a dry nonproductive cough, but feels like he is able to bring sputum up a little bit higher than before, but still not spit out. He is not short of breath at rest. Is on 3 L nasal cannula oxygen. Denies fever, chills, sweats. Reports his Covid symptoms began a week and 1/2 to 2 weeks ago, cough is unchanged from yesterday. He denies chest pain, chest pressure overnight. Denies leg pain. Reports he gets some foot neuropathy which she was told was normal at prior doctor's visits. Does note an extended history of progressive lower extremity weakness. He notes this started in the right leg with foot drop and progressed to falls and proximal leg strength, and to his left leg. He has had 2 spinal surgeries related to this in his lumbar back performed at [facility]. He reports he was not sure if this initially helped with his symptoms on the right leg, second surgery did not help at all. He has been wheelchair-bound for the last year. He did not know any viral illness or prodrome before symptoms started. Denies family history of similar symptoms. Reports a sensation is intact. No deficits of his upper extremities/arms. Was taken for MRI, reports his cough is distant throughout the day and when laying flat, and limited his ability to have the MRI completed earlier. Review of Systems Review of Systems: All systems reviewed & are unremarkable except as noted in Subjective Physical Exam Physical Exam: General: A&Ox3. NAD. Cooperative. HEENT: Atraumatic, normocephalic. Pulm: CTAB A&P. -wheezes, -rales, -rhonchi. Symmetrical chest rise. No increase in work of breathing. No respiratory distress. Cardiac: RRR, -mrg. Radial pulses intact and symmetrical. Abdominal: Nontender, nondistended, soft. BS present. Extremities: Sensation intact to soft touch in upper and lower extremities bilaterally without deficit or asymmetry. 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 Significantly impaired lower extremity strength bilaterally. Unable to elevate leg to antigravity bilaterally, assisted st rength testing right leg with increased weakness compared to the left. PT and radial pulses intact and symmetrical. Results & Data Results & Data ([facility]) Vital Signs (Past 12 Hours) Vital Signs Temp Pulse Pulse Resp BP Pulse Ox 09/09/21 08:36 37.1 C 86 18 133/86 96 09/09/21 07:28 80 20 98 09/09/21 07:00 75 09/09/21 03:14 36.6 C 76 18 131/85 96 PG Care Time/CCT Total # of Minutes Spent Total Time Spent with Patient: Total time spent is greater than 50% in coordination of care (as documented) at patient's floor/unit and/or counseling patient: Coding Level of Care Code 00587 Subseq Hosp Care Lvl 3 Diagnoses COVID U07.1 Pneumonia J18.9 Laterality: left Lung location: lower lobe of lung Pneumonia type: due to unspecified organism Lower extremity weakness R29.898 DVT prophylaxis Z29.9 (1) Pneumonia Laterality: left Lung location: lower lobe of lung Pneumonia type: due to unspecified organism Qualified Code(s): J18.9 - Pneumonia, unspecified organism
[2021-09-09] MEDS: BENZONATATE 100 MG CAPSULE PO SCH ×2 (14:52→19:51)
[2021-09-09] MEDS: HEPARIN SODIUM/DEXTROSE 25,000 UNITS/500 ML BAG IV SCH (15:55)
[2021-09-09 23:20] LABS: Rapid Plasma Reagin Nonreactive (Nonreactive)
[2021-09-10 06:42] LABS: Basophils # (auto) 0.01 K/uL (0-0.2); Basophils % (auto) 0.1 %; Eosinophils # (auto) 0.02 K/uL (0-0.5); Eosinophils % (auto) 0.2 %; Hematocrit (blood only) 42.6 % (42-52); Hemoglobin 13.9 g/dL (14.0-18.0); Immature Granulocytes # (auto) 0.03 K/uL (0.00-0.02); Immature Granulocytes % (auto) 0.4 %; Lymphocytes # (auto) 1.37 K/uL (1.2-3.4); Lymphocytes % (auto) 17.1 %; Mean Corpuscular Hemoglobin 28.1 pg (25-34); Mean Corpuscular Hgb Conc 32.6 g/dL (32-36); Mean Corpuscular Volume 86.1 fL (80-100); Mean Platelet Volume 12.5 fL (7.4-10.4); Monocytes # (auto) 0.73 K/uL (0.11-0.59); Monocytes % (auto) 9.1 %; Neutrophils # (auto) 5.86 K/uL (1.4-6.5); Neutrophils % (auto) 73.1 %; Platelet Count 236 K/uL (130-400); RDW Coefficient of Variation 14.9 % (11.5-14.5); RDW Standard Deviation 46.9 fL (36.4-46.3); Red Blood Count 4.95 M/uL (4.7-6.1); White Blood Count 8.02 K/uL (4.8-10.8)
[2021-09-10 06:52] LABS: Partial Thromboplastin Ratio 1.5; Partial Thromboplastin Time 40.3 Seconds (21.0-31.0)
[2021-09-10 07:13] LABS: Alanine Aminotransferase 10 U/L (7-52); Albumin Level 3.7 gm/dl (3.4-5.0); Alkaline Phosphatase 85 U/L (34-104); Anion Gap 8 (3-11); Aspartate Aminotransferase 11 U/L (13-39); BUN Creatinine Ratio 35.1 (10-20); Bilirubin,Total 0.4 mg/dl (0.2-1.0); Blood Urea Nitrogen 13 mg/dl (6-23); C Reactive Protein 8.06 mg/dl (0-0.5); Calcium 9.4 mg/dl (8.5-10.1); Carbon Dioxide 31 mmol/L (21-32); Chloride 100 mmol/L (98-107); Est GFR (African American) > 150.0 ml/min; Est GFR (Non-African American) 134.2 ml/min; Globulin 3.6 gm/dl (2.5-4.0); Glucose 112 mg/dl (70-99(Fasting)); Potassium 3.9 mmol/L (3.5-5.1); Sodium 139 mmol/L (136-145); Total Protein 7.3 gm/dl (6.0-8.3)
[2021-09-10] MEDS: HEPARIN SODIUM/DEXTROSE 25,000 UNITS/500 ML BAG IV SCH ×3 (08:28→23:21)
[2021-09-10] MEDS: guaiFENesin 600 MG TABCR PO SCH ×2 (08:32→21:20)
[2021-09-10] MEDS: BENZONATATE 100 MG CAPSULE PO SCH ×3 (08:32→21:21)
[2021-09-10] MEDS: dexAMETHasone 6 MG in SYRINGE 0 ML IV SCH (08:32)
[2021-09-10] MEDS: PIPERACILLIN/TAZOBACTAM 3.375 GM in DEXTROSE 5% 100 ML IV SCH ×3 (08:38→23:14)
--- NOTE | 2021-09-10 10:36 | Neurology Progress Note ---
Date of Service September 10, 2021 Assessment & Plan (1) Weakness: Plan: Severe generalized weakness, especially the legs. 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 Motor neuron disease possible although does not have bulbar symptoms, fasciculations, or upper motor neuron findings on examination. Likewise, spinal myelopathy possible as well, although again, does not have hyperreflexia or significant sensory loss on examination. Would still recommend MRI of the brain and spine although this testing will need to wait until patient's coughing has improved. He will need an outpatient four limb EMG with repetitive stimulation. Await results of labs for myasthenia, Lambert-Eaton, etc. After completion of neuro imaging, would consider lumbar puncture to evaluate for albumino-cytologic dissociation. Patient's weakness is chronic, and again, he is currently admitted with COVID-19 pneumonia. Work-up of his underlying neuromuscular disease could be considered somewhat secondary in the context of his Covid infection. Nonetheless, I would still like him to have brain and spinal imaging completed during his current admission if possible. Admission and Anticipated Discharge Date Admission Date: September 08, 2021 Subjective Follow-up for weakness No significant change in patient's generalized weakness, legs much greater than arm, right leg greater than left. No significant associated sensory loss. Denies significant neck or spinal pain. Denies headache. Ongoing cough in the context of COVID-19 pneumonia. Unable to tolerate MRI due to persistent cough, unable to lie still. Continues to deny other symptoms such as headache, ptosis, diplopia, dysarthria, dysphagia. Review of Systems Eyes: no blind spots and no diplopia Respiratory: + cough Neurologic: + generalized weakness; no tremor(s), no headache(s) and no memory loss Results & Data ([facility]) Vital Signs (Past 12 Hours) Vital Signs Temp Pulse Pulse Resp BP Pulse Ox Pulse Ox 09/10/21 07:35 18 99 09/10/21 04:04 96 09/10/21 04:03 36.3 C L 82 20 120/73 98 09/10/21 01:46 82 09/10/21 00:05 36.5 C 78 18 120/81 95 Laboratory Results WBC 8.02, hemoglobin 13.9, hematocrit 42.6, MCV 86.1, platelet count 236, sodium 139, potassium 3.9, BUN 13, creatinine 0.37, glucose 112, calcium 9.4, AST 11, ALT 10, total CK 107, C-reactive protein 8.06, aldolase pending, vitamin B12 842, TSH 0.880, acetylcholine receptor blocking, binding, and modulating antibodies are pending, RPR nonreactive, Lyme disease screening negative, anti- PQ type voltage-gated calcium channel antibody testing pending. Exam (Neuro) Neurologic: Oriented to:: Person, Place and Time Attention: Span Intact and Concentration Intact Speech Fluency: negative Dysarthria or Dysfluency Fund of Knowledge: Current Events, Past History and Vocabulary Cranial Nerves: Normal II, III, IV, and VII Motor Strength: negative Normal Lower Extremities or Normal Upper Extremities Muscle Bulk/Involuntary Movements: No Involuntary Movements and Muscle Atrophy Coordination: Finger-Nose Abnormal and Heel-Jung Abnormal Coding Level of Care Code 45645 Subseq Hosp Care Lvl 2 Diagnoses Weakness R53.1
--- NOTE | 2021-09-10 12:57 | Hospitalist Progress Note ---
Date of Service September 10, 2021 Assessment & Plan (1) COVID: Plan: Acute hypoxic respiratory failure 2/2 Covid pneumonia with superimposed suspected aspiration pneumonia Covid positive 09/08/2021 First day of symptoms: Approximately 09/01/2021 Vaccination status: Unvaccinated Baseline kidney function: wnl <1 Admitting kidney function: wnl <1 AST/ALT: Normal on admission CXR:Layering left pleural effusion with left basilar consolidation. - CTA: There is no evidence of pulmonary embolus in the main, lobar, or segmental pulmonary arteries. Emphysema. There is dense airspace consolidation throughout the left lower lobe with mild volume loss and opacification of the left lower lobe airways. The appearance is typical for pneumonia/aspiration pneumonitis. Clinical correlation will be required and radiographic follow-up to resolution is recommended. Minimal patchy groundglass consolidation is seen at the right lung base, also likely on an infectious/inflammatory basis. No pleural effusion is identified. Advanced coronary artery calcification. Mildly enlarged mediastinal and hilar lymph nodes are likely reactive.. CRP: 12.66 on admission, uptrending to 15.85 next day downtrending Continue dexamethasone x10-day course Remdesivir: Not indicated at this time Baricitinib: Not indicated at this time,not on high flow Oxygen level downtrending slightly today, symptomatically slightly improved. Continue current management (2) Pneumonia: Plan: Aspiration pneumonia Patient with history of aspiration pneumonitis, was evaluated by speech therapy with intact swallow mechanics at that time Did complete 3 weeks of Augmentin therapy 08/13/2021 Discharge summary indicating right mainstem bronchus with air-fluid levels and right tree opacification as well as portions of the upper and middle lobes with concern for aspiration. Findings above are left-sided CT PE as above Started on Zosyn for pneumonia coverage due to dense consolidation, patient has had progressed hypoxia today and will continue on aspirin dimension Continue guaifenesin 1200 mg twice daily Continue Tessalon, codeine switch back to guaifenesin tablets twice daily Given strength concerns can consider negative inspiratory force testing if concern for diaphragmatic weakness - +Flutter, incentive karolyn (3) Lower extremity weakness: Plan: Progressive lower extremity weakness, bilateral Progressive 1-2 years of symptoms. report started in the right leg distally and moved proximally and then involved left leg. Has had 2 spinal surgeries at [facility] with Dr. Alvarado, first in April 2020 and second in November 2020. Records pending from [place] [facility] consulted. CK, aldolase, ACTH, PQ calcium antibodies, Lyme, B12, RPR ordered and pending. MRI with contrast of brain and C/T/L-spine recommended and ordered. Patient has had difficulty tolerating this due to cough. Trial anti tussives and see if tolerance improved, otherwise obtain this when respiratory status/cough permits. 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 Appreciate neurology recommendations 09/10: Patient unable to tolerate MRI due to cough. Given comorbidity would treat conservatively for Covid, if symptomatically improves would reassess and attempt MRI at that point. 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 By report PE in the left upper lobe, subsegmental pulmonary artery, right upper lobe subsegmental pulmonary artery branch - CTA as above on admit. Repeat dopplers not performed at this time. Converted from apixaban to heparin GTT to help facilitate lumbar puncture/spinal procedure if gated during admission Plan: Patient is a full code as confirmed by he and his sister in the room Admission and Anticipated Discharge Date Admission Date: September 08, 2021 Subjective Seen the bedside this morning.. Patient feels a little bit better, and oxygen levels have come down slightly from yesterday but overall remains fatigued with persistent cough. He continues with unchanged weakness from prior. Denies nausea, vomiting, diarrhea, constipation, difficulty breathing, chest pain, chest pressure. Is intermittently short of breath with cough. Finds the flutter valve very helpful in helping to expectorate sputum. Was not able to tolerate MRI last night, conservative treatment of Covid and may reattempt if patient symptomatically improves. Discussed with neurology, will defer LP at this time in lieu of wanting to pursue imaging prior, but if patient will likely be stable for discharge prior to MRI feasibly being able to be done could consider CT head followed by LP prior to discharge at that point. Review of Systems Review of Systems: All systems reviewed & are unremarkable except as noted in Subjective Physical Exam Physical Exam: General: A&Ox3. NAD. Cooperative. HEENT: Atraumatic, normocephalic. Pulm: CTAB A&P. -wheezes, -rales, -rhonchi. Symmetrical chest rise. No increase in work of breathing. No respiratory distress. Cardiac: RRR, -mrg. Radial pulses intact and symmetrical. Abdominal: Nontender, nondistended, soft. BS present. Extremities: Sensation intact to soft touch in upper and lower extremities bilaterally without deficit or asymmetry. Upper extremity strength to retail branch manager, finger flexion/extension, elbow flexion/extension, shoulder flexion/extension 4/5 and symmetrical. Significantly impaired lower extremity strength bilaterally. Unable to elevate legs to antigravity bilaterally, assisted strength testing right leg with increased weakness compared to the left. PT and radial pulses intact and symmetrical. Results & Data Results & Data ([facility]) Vital Signs (Past 12 Hours) Vital Signs Temp Pulse Pulse Resp BP Pulse Ox Pulse Ox 09/10/21 12:01 36.4 C L 94 H 16 157/104 H 96 09/10/21 07:35 18 99 09/10/21 07:00 87 09/10/21 04:04 96 09/10/21 04:03 36.3 C L 82 20 120/73 98 09/10/21 01:46 82 PG Care Time/CCT Total # of Minutes Spent Total Time Spent with Patient: Total time spent is greater than 50% in coordination of care (as documented) at patient's floor/unit and/or counseling patient: Coding Level of Care Code 65546 Subseq Hosp Care Lvl 3 Diagnoses COVID U07.1 Pneumonia J18.9 Laterality: left Lung location: lower lobe of lung Pneumonia type: due to unspecified organism Lower extremity weakness R29.898 DVT prophylaxis Z29.9 (1) Pneumonia Laterality: left Lung location: lower lobe of lung Pneumonia type: due to unspecified organism Qualified Code(s): J18.9 - Pneumonia, unspecified organism
[2021-09-10 15:04] LABS: Partial Thromboplastin Ratio 1.5; Partial Thromboplastin Time 40.7 Seconds (21.0-31.0)
[2021-09-10 23:00] LABS: Partial Thromboplastin Ratio 1.5; Partial Thromboplastin Time 42.1 Seconds (21.0-31.0)
[2021-09-11 06:43] LABS: Partial Thromboplastin Ratio 1.8
[2021-09-11 06:44] LABS: Alanine Aminotransferase 14 U/L (7-52); Albumin Globulin Ratio 1.1 (0.9-2); Albumin Level 3.7 gm/dl (3.4-5.0); Alkaline Phosphatase 77 U/L (34-104); Anion Gap 8 (3-11); Aspartate Aminotransferase 14 U/L (13-39); BUN Creatinine Ratio 43.3 (10-20); Bilirubin,Total 0.5 mg/dl (0.2-1.0); Blood Urea Nitrogen 13 mg/dl (6-23); Calcium 9.3 mg/dl (8.5-10.1); Carbon Dioxide 31 mmol/L (21-32); Chloride 101 mmol/L (98-107); Creatinine Clr Calc Pharmacy 282.4 ml/min; Est GFR (African American) > 150.0 ml/min; Est GFR (Non-African American) 146.3 ml/min; Globulin 3.4 gm/dl (2.5-4.0); Glucose 91 mg/dl (70-99(Fasting)); Potassium 4.2 mmol/L (3.5-5.1); Sodium 140 mmol/L (136-145); Total Protein 7.1 gm/dl (6.0-8.3)
[2021-09-11 06:49] LABS: Partial Thromboplastin Time 49.6 Seconds (21.0-31.0)
--- NOTE | 2021-09-11 07:40 | Hospitalist Progress Note ---
Date of Service September 11, 2021 Assessment & Plan (1) COVID: Plan: Acute hypoxic respiratory failure 2/2 Covid pneumonia with superimposed suspected aspiration pneumonia Covid positive 09/08/2021 First day of symptoms: Approximately 09/01/2021 Vaccination status: Unvaccinated Baseline kidney function: wnl <1 Admitting kidney function: wnl <1 AST/ALT: Normal on admission CXR:Layering left pleural effusion with left basilar consolidation. - CTA: There is no evidence of pulmonary embolus in the main, lobar, or segmental pulmonary arteries. Emphysema. There is dense airspace consolidation throughout the left lower lobe with mild volume loss and opacification of the left lower lobe airways. The appearance is typical for pneumonia/aspiration pneumonitis. Clinical correlation will be required and radiographic follow-up to resolution is recommended. Minimal patchy groundglass consolidation is seen at the right lung base, also likely on an infectious/inflammatory basis. No pleural effusion is identified. Advanced coronary artery calcification. Mildly enlarged mediastinal and hilar lymph nodes are likely reactive.. CRP: 12.66 on admission,downtrending Continue dexamethasone Remdesivir: Not indicated at this time Baricitinib: Not indicated at this time,not on high flow Oxygen level downtrending slightly today, symptomatically slightly improved. Continue current management (2) Pneumonia: Plan: Aspiration pneumonia dense left lower lobe lesion seen on CTA of chest Patient with history of aspiration pneumonitis, was re evaluated by speech therapy this admission with intact swallow mechanics at this time-recommend safe swallowing techiniques Started on Zosyn for pneumonia coverage due to dense consolidation, Continue guaifenesin 1200 mg twice daily Continue Tessalon, codeine switch back to guaifenesin tablets twice daily - +Flutter, incentive karolyn adding hypertonic saline nebulizers (3) Lower extremity weakness: Plan: Progressive lower extremity weakness, bilateral Progressive 1-2 years of symptoms. report started in the right leg distally and moved proximally and then involved left leg. Has had 2 spinal surgeries at [facility] with Dr. Alvarado, first in April 2020 and second in November 2020. Records pending from [place] [facility] consulted. CK, aldolase, ACTH, PQ calcium antibodies, Lyme, B12, RPR ordered and pending. MRI with contrast of brain and C/T/L-spine recommended and ordered. Patient has had difficulty tolerating this due to cough. 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 09/10: Patient unable to tolerate MRI due to cough. Given comorbidity would treat conservatively for Covid, if symptomatically improves would reassess and attempt MRI at that point. 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 By report PE in the left upper lob e, subsegmental pulmonary artery, right upper lobe subsegmental pulmonary artery branch - CTA negative for PE on admit. Repeat dopplers not performed at this time. Converted from apixaban to heparin GTT to help facilitate lumbar puncture/spinal procedure if gated during admission Plan: Patient is a full code as confirmed by he and his sister in the room Admission and Anticipated Discharge Date Admission Date: September 08, 2021 Subjective pt states he feels better overall, still with significant weakness, no respiratory comprimise despite covid infection at this time, continues on steroids, still coughing too much for MRI Review of Systems Review of Systems: Moderate distress and fatigue no headache, no visual changes no speech or swallowing issues was cleared by speech no chest pain, pressure or palpitations Has some shortness of breath with exertion excessive talking. Has nonproductive coughing feels he cannot get the mucus out no abdominal pain, nausea or vomiting, diarrhea or constipation no dysuria, hematuria or frequency no focal joint pain or swelling Prehospital reproducible back pain, without CVA tenderness or radicular pain no bruising, bleeding or rashes Patient has focal weakness which is significant with work-up for autoimmune neuropathy or cervical neuropathy currently pending no complaints of anxiety or depression.. Physical Exam Physical Exam: The patient appeared chronically ill and likely in a declining state Vital signs as documented. Head exam is normocephalic atraumatic Neck is without JVD, thyromegaly, or carotid bruits. Lungs are clear to auscultation, menaced effort no focal loss Cardiac exam, Rhythm is regular.. No murmurs, rubs or gallops. Abdominal exam reveals normal bowel sounds, soft non tender, no masses Extremities are nonedematous and both pedal pulses are present Neurologic exam is alert and oriented x3 unable to move right leg left leg with strength significantly decreased arms cannot be lifted above midline Skin is without bruises or rashes Psychologically is without concerns for anxiety or depression.. Results & Data Results & Data ([facility]) Vital Signs (Past 12 Hours) Vital Signs Temp Pulse Pulse Resp BP Pulse Ox Pulse Ox 09/11/21 05:42 87 09/11/21 04:07 97.7 F 77 20 161/89 H 96 09/11/21 04:00 94 09/10/21 23:23 97.5 F L 82 20 158/78 H 94 PG Care Time/CCT Total # of Minutes Spent Total Time Spent with Patient: Total time spent is greater than 50% in coordination of care (as documented) at patient's floor/unit and/or counseling patient: Coding Level of Care Code 38608 Subseq Hosp Care Lvl 3 Diagnoses COVID U07.1 Pneumonia J18.9 Laterality: left Lung location: lower lobe of lung Pneumonia type: due to unspecified organism Lower extremity weakness R29.898 DVT prophylaxis Z29.9 (1) Pneumonia Laterality: left Lung location: lower lobe of lung Pneumonia type: due to unspecified organism Qualified Code(s): J18.9 - Pneumonia, unspecified organism
[2021-09-11] MEDS: guaiFENesin 600 MG TABCR PO SCH ×2 (08:37→19:46)
[2021-09-11] MEDS: SACCHAROMYCES BOULARDII 250 MG CAP PO SCH (08:37)
[2021-09-11] MEDS: dexAMETHasone 6 MG in SYRINGE 0 ML IV SCH (08:37)
[2021-09-11] MEDS: PIPERACILLIN/TAZOBACTAM 3.375 GM in DEXTROSE 5% 100 ML IV SCH ×3 (08:37→23:43)
[2021-09-11] MEDS: BENZONATATE 100 MG CAPSULE PO SCH ×3 (10:16→19:44)
[2021-09-11] MEDS: HEPARIN SODIUM/DEXTROSE 25,000 UNITS/500 ML BAG IV SCH (15:54)
[2021-09-11] MEDS: SODIUM CHLOR 7% 4 ML NEB NEB SCH (19:47)
[2021-09-12] MEDS: HEPARIN SODIUM/DEXTROSE 25,000 UNITS/500 ML BAG IV SCH ×2 (03:47→18:17)
[2021-09-12 07:09] LABS: Basophils # (auto) 0.01 K/uL (0-0.2); Basophils % (auto) 0.1 %; Eosinophils # (auto) 0.03 K/uL (0-0.5); Eosinophils % (auto) 0.4 %; Hemoglobin 13.3 g/dL (14.0-18.0); Immature Granulocytes # (auto) 0.05 K/uL (0.00-0.02); Immature Granulocytes % (auto) 0.7 %; Lymphocytes # (auto) 1.94 K/uL (1.2-3.4); Lymphocytes % (auto) 26.5 %; Mean Corpuscular Hemoglobin 27.7 pg (25-34); Mean Corpuscular Hgb Conc 31.7 g/dL (32-36); Mean Corpuscular Volume 87.3 fL (80-100); Mean Platelet Volume 11.7 fL (7.4-10.4); Monocytes # (auto) 0.71 K/uL (0.11-0.59); Monocytes % (auto) 9.7 %; Neutrophils # (auto) 4.59 K/uL (1.4-6.5); Neutrophils % (auto) 62.6 %; Platelet Count 285 K/uL (130-400); RDW Coefficient of Variation 15.2 % (11.5-14.5); RDW Standard Deviation 48.5 fL (36.4-46.3); Red Blood Count 4.81 M/uL (4.7-6.1); White Blood Count 7.33 K/uL (4.8-10.8)
[2021-09-12] MEDS: SODIUM CHLOR 7% 4 ML NEB NEB SCH ×2 (07:10→19:52)
[2021-09-12 07:30] LABS: Alanine Aminotransferase 17 U/L (7-52); Albumin Globulin Ratio 1.1 (0.9-2); Albumin Level 3.6 gm/dl (3.4-5.0); Alkaline Phosphatase 73 U/L (34-104); Anion Gap 6 (3-11); Aspartate Aminotransferase 12 U/L (13-39); BUN Creatinine Ratio 34.4 (10-20); Bilirubin,Total 0.4 mg/dl (0.2-1.0); Blood Urea Nitrogen 11 mg/dl (6-23); Calcium 9.4 mg/dl (8.5-10.1); Carbon Dioxide 32 mmol/L (21-32); Chloride 100 mmol/L (98-107); Creatinine Clr Calc Pharmacy 264.7 ml/min; Est GFR (African American) > 150.0 ml/min; Est GFR (Non-African American) 142.5 ml/min; Globulin 3.2 gm/dl (2.5-4.0); Glucose 97 mg/dl (70-99(Fasting)); Potassium 4.3 mmol/L (3.5-5.1); Sodium 138 mmol/L (136-145); Total Protein 6.8 gm/dl (6.0-8.3)
[2021-09-12] MEDS: PIPERACILLIN/TAZOBACTAM 3.375 GM in DEXTROSE 5% 100 ML IV SCH (09:45)
[2021-09-12] MEDS: guaiFENesin 600 MG TABCR PO SCH ×2 (09:46→19:48)
[2021-09-12] MEDS: BENZONATATE 100 MG CAPSULE PO SCH ×3 (09:46→19:44)
[2021-09-12] MEDS: dexAMETHasone 6 MG in SYRINGE 0 ML IV SCH (09:46)
[2021-09-12] MEDS: SACCHAROMYCES BOULARDII 250 MG CAP PO SCH (09:47)
--- NOTE | 2021-09-12 18:32 | Hospitalist Progress Note ---
Date of Service September 12, 2021 Assessment & Plan (1) COVID: Plan: Acute hypoxic respiratory failure 2/2 Covid pneumonia with superimposed suspected aspiration pneumonia Covid positive 09/08/2021 First day of symptoms: Approximately 09/01/2021 Vaccination status: Unvaccinated CXR:Layering left pleural effusion with left basilar consolidation. - CTA: There is no evidence of pulmonary embolus in the main, lobar, or segmental pulmonary arteries. Emphysema. There is dense airspace consolidation throughout the left lower lobe with mild volume loss and opacification of the left lower lobe airways. The appearance is typical for pneumonia/aspiration pneumonitis. Clinical correlation will be required and radiographic follow-up to resolution is recommended. Minimal patchy groundglass consolidation is seen at the right lung base, also likely on an infectious/inflammatory basis. No pleural effusion is identified. Advanced coronary artery calcification. Mildly enlarged mediastinal and hilar lymph nodes are likely reactive.. CRP: 12.66 on admission,downtrending Continue dexamethasone Remdesivir: Not indicated at this time Baricitinib: Not indicated at this time,not on high flow Oxygen level downtrending slightly today, symptomatically slightly improved. Continue current management (2) Pneumonia: Plan: Aspiration pneumonia dense left lower lobe lesion seen on CTA of chest Patient with history of aspiration pneumonitis, was re evaluated by speech therapy this admission with intact swallow mechanics at this time-recommend safe swallowing techiniques Started on Zosyn for pneumonia coverage due to dense consolidation,transitioned to augmentin, will need imaging for follow up for resolution Continue guaifenesin 1200 mg twice daily Continue Tessalon, codeine switch back to guaifenesin tablets twice daily - +Flutter, incentive karolyn adding hypertonic saline nebulizers (3) Lower extremity weakness: Plan: Progressive lower extremity weakness, bilateral Progressive 1-2 years of symptoms. report started in the right leg distally and moved proximally and then involved left leg. Has had 2 spinal surgeries at [facility] with Dr. Alvarado, first in April 2020 and second in November 2020. Records pending from [place] [facility] consulted. CK, aldolase, ACTH, PQ calcium antibodies, Lyme, B12, RPR ordered and pending. MRI with contrast of brain and C/T/L-spine recommended and ordered. Patient has had difficulty tolerating this due to cough. 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 By report PE in the left upper lobe, subsegmental pulmonary artery, right upper lobe subsegmental pulmonary artery branch - CTA negative for PE on admit. Repeat dopplers not performed at this time. Converted from apixaban to heparin GTT to help facilitate lumbar puncture/spinal procedure if gated during admission Plan: Patient is a full code as confirmed by he and his sister in the room Admission and Anticipated Discharge Date Admission Date: September 08, 2021 Subjective pt continues to feel betterl, still with significant weakness, no respiratory compromise despite covid infection at this time, continues on steroids, still coughing too much for MRI, pt agrees to anesthesia for MRI as this may be information to determine course of treatment Review of Systems Review of Systems: Moderate distress and fatigue no headache, no visual changes no speech or swallowing issues was cleared by speech no chest pain, pressure or palpitations Has some shortness of breath with exertion excessive talking. continues with nonproductive coughing feels he cannot get the mucus out no abdominal pain, nausea or vomiting, diarrhea or constipation no dysuria, hematuria or frequency no focal joint pain or swelling Prehospital reproducible back pain, without CVA tenderness or radicular pain no bruising, bleeding or rashes Patient has focal weakness which is significant with work-up for autoimmune neuropathy or cervical neuropathy currently pending no complaints of anxiety or depression.. Physical Exam Physical Exam: The patient appeared chronically ill and likely in a declining state Vital signs as documented. Head exam is normocephalic atraumatic Neck is without JVD, thyromegaly, or carotid bruits. Lungs are clear to auscultation, menaced effort no focal loss Cardiac exam, Rhythm is regular.. No murmurs, rubs or gallops. Abdominal exam reveals normal bowel sounds, soft non tender, no masses Extremities are nonedematous and both pedal pulses are present Neurologic exam is alert and oriented x3 unable to move right leg left leg with strength significantly decreased arms cannot be lifted above midline Skin is without bruises or rashes Psychologically is without concerns for anxiety or depression.. Results & Data Results & Data ([facility]) Vital Signs (Past 12 Hours) Vital Signs Temp Pulse Resp BP Pulse Ox 09/12/21 16:55 98.4 F 86 20 147/98 H 97 09/12/21 11:53 98.1 F 88 19 157/94 H 90 09/12/21 07:57 97.9 F 87 20 158/91 H 2 L 09/12/21 07:10 84 22 95 PG Care Time/CCT Total # of Minutes Spent Total Time Spent with Patient: Total time spent is greater than 50% in coordination of care (as documented) at patient's floor/unit and/or counseling patient: Coding Level of Care Code 56576 Subseq Hosp Care Lvl 3 Diagnoses COVID U07.1 Pneumonia J18.9 Laterality: left Lung location: lower lobe of lung Pneumonia type: due to unspecified organism Lower extremity weakness R29.898 DVT prophylaxis Z29.9 (1) Pneumonia Laterality: left Lung location: lower lobe of lung Pneumonia type: due to unspecified organism Qualified Code(s): J18.9 - Pneumonia, unspecified organism
[2021-09-12] MEDS: AMOXICILLIN/CLAVULANATE 875 MG TAB PO SCH (19:47)
[2021-09-13] MEDS: SODIUM CHLOR 7% 4 ML NEB NEB SCH ×2 (07:32→19:58)
[2021-09-13 07:33] LABS: Partial Thromboplastin Ratio 1.9
[2021-09-13] MEDS: guaiFENesin 600 MG TABCR PO SCH ×2 (08:51→20:35)
[2021-09-13] MEDS: AMOXICILLIN/CLAVULANATE 875 MG TAB PO SCH ×2 (08:51→20:35)
[2021-09-13] MEDS: SACCHAROMYCES BOULARDII 250 MG CAP PO SCH (08:51)
[2021-09-13] MEDS: BENZONATATE 100 MG CAPSULE PO SCH ×3 (08:52→20:36)
[2021-09-13] MEDS: dexAMETHasone 6 MG in SYRINGE 0 ML IV SCH (08:58)
[2021-09-13] MEDS: HEPARIN SODIUM/DEXTROSE 25,000 UNITS/500 ML BAG IV SCH (10:28)
--- NOTE | 2021-09-13 13:37 | Hospitalist Progress Note ---
Date of Service September 13, 2021 Assessment & Plan (1) COVID: Plan: Acute hypoxic respiratory failure 2/2 Covid pneumonia with superimposed suspected aspiration pneumonia Covid positive 09/08/2021 First day of symptoms: Approximately 09/01/2021 Vaccination status: Unvaccinated CXR:Layering left pleural effusion with left basilar consolidation. - CTA: There is no evidence of pulmonary embolus in the main, lobar, or segmental pulmonary arteries. Emphysema. There is dense airspace consolidation throughout the left lower lobe with mild volume loss and opacification of the left lower lobe airways. The appearance is typical for pneumonia/aspiration pneumonitis. Clinical correlation will be required and radiographic follow-up to resolution is recommended. Minimal patchy groundglass consolidation is seen at the right lung base, also likely on an infectious/inflammatory basis. No pleural effusion is identified. Advanced coronary artery calcification. Mildly enlarged mediastinal and hilar lymph nodes are likely reactive.. CRP: 12.66 on admission,downtrending Continue dexamethasone Remdesivir: Not indicated at this time Baricitinib: Not indicated at this time,not on high flow Oxygen level downtrending slightly today, symptomatically slightly improved. Continue current management (2) Pneumonia: Plan: Aspiration pneumonia dense left lower lobe lesion seen on CTA of chest Patient with history of aspiration pneumonitis, was re evaluated by speech therapy this admission with intact swallow mechanics at this time-recommend safe swallowing techiniques Started on Zosyn for pneumonia coverage due to dense consolidation,transitioned to augmentin, will need imaging for follow up for resolution Continue guaifenesin 1200 mg twice daily Continue Tessalon, codeine switch back to guaifenesin tablets twice daily - +Flutter, incentive karolyn adding hypertonic saline nebulizers (3) Lower extremity weakness: Plan: Progressive lower extremity weakness, bilateral Progressive 1-2 years of symptoms. report started in the right leg distally and moved proximally and then involved left leg. Has had 2 spinal surgeries at [facility] with Dr. Alvarado, first in April 2020 and second in November 2020. Records pending from [facility] consulted. CK, aldolase, ACTH, PQ calcium antibodies, Lyme, B12, RPR ordered and pending. MRI with contrast of brain and C/T/L-spine recommended and ordered. Patient has had difficulty tolerating this due to cough. 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 By report PE in the left upper lobe, subsegmental pulmonary artery, right upper lobe subsegmental pulmonary artery branch - CTA negative for PE on admit. Repeat dopplers not performed at this time. Converted from apixaban to heparin GTT to help facilitate lumbar puncture/spinal procedure if gated during admission Plan: Patient is a full code as confirmed by he and his sister in the room Admission and Anticipated Discharge Date Admission Date: September 08, 2021 Subjective pt continues to feel better, still with significant weakness, weakened cough unable to clear secretions, weakened respiratory mechanics no respiratory compromise despite covid infection at this time, continues on steroids, still coughing too much for MRI, pt agrees to anesthesia for MRI as this may be information to determine course of treatment Review of Systems Review of Systems: Moderate distress and fatigue no headache, no visual changes no speech or swallowing issues was cleared by speech no chest pain, pressure or palpitations Has some shortness of breath with exertion excessive talking. continues with nonproductive coughing feels he cannot get the mucus out no abdominal pain, nausea or vomiting, diarrhea or constipation no dysuria, hematuria or frequency no focal joint pain or swelling Prehospital reproducible back pain, without CVA tenderness or radicular pain no bruising, bleeding or rashes Patient has focal weakness which is significant with work-up for autoimmune neuropathy or cervical neuropathy currently pending no complaints of anxiety or depression.. Physical Exam Physical Exam: The patient appeared chronically ill and likely in a declining state Vital signs as documented. Head exam is normocephalic atraumatic Neck is without JVD, thyromegaly, or carotid bruits. Lungs are clear to auscultation, menaced effort no focal loss Cardiac exam, Rhythm is regular.. No murmurs, rubs or gallops. Abdominal exam reveals normal bowel sounds, soft non tender, no masses Extremities are nonedematous and both pedal pulses are present Neurologic exam is alert and oriented x3 unable to move right leg left leg with strength significantly decreased arms cannot be lifted above midline Skin is without bruises or rashes Psychologically is without concerns for anxiety or depression.. Results & Data Results & Data ([facility]) Vital Signs (Past 12 Hours) Vital Signs Temp Pulse Pulse Resp BP BP Pulse Ox 09/13/21 12:02 97.9 F 93 H 22 148/97 H 91 09/13/21 07:33 97 H 18 94 09/13/21 07:30 97.9 F 83 24 151/102 H 96 09/13/21 07:21 76 09/13/21 04:00 97.9 F 74 18 149/92 H 98 Pulse Ox 09/13/21 12:02 09/13/21 07:33 09/13/21 07:30 09/13/21 07:21 09/13/21 04:00 92 PG Care Time/CCT Total # of Minutes Spent Total Time Spent with Patient: Total time spent is greater than 50% in coordination of care (as documented) at patient's floor/unit and/or counseling patient: Coding Level of Care Code 72004 Subseq Hosp Care Lvl 2 Diagnoses COVID U07.1 Pneumonia J18.9 Laterality: left Lung location: lower lobe of lung Pneumonia type: due to unspecified organism Lower extremity weakness R29.898 DVT prophylaxis Z29.9 (1) Pneumonia Laterality: left Lung location: lower lobe of lung Pneumonia type: due to unspecified organism Qualified Code(s): J18.9 - Pneumonia, unspecified organism
[2021-09-14] MEDS: HEPARIN SODIUM/DEXTROSE 25,000 UNITS/500 ML BAG IV SCH ×2 (01:45→17:34)
[2021-09-14 06:29] LABS: Basophils # (auto) 0.01 K/uL (0-0.2); Basophils % (auto) 0.1 %; Eosinophils # (auto) 0.04 K/uL (0-0.5); Eosinophils % (auto) 0.4 %; Hematocrit (blood only) 46.3 % (42-52); Hemoglobin 14.5 g/dL (14.0-18.0); Immature Granulocytes # (auto) 0.14 K/uL (0.00-0.02); Immature Granulocytes % (auto) 1.3 %; Lymphocytes # (auto) 2.24 K/uL (1.2-3.4); Lymphocytes % (auto) 21.3 %; Mean Corpuscular Hemoglobin 27.7 pg (25-34); Mean Corpuscular Hgb Conc 31.3 g/dL (32-36); Mean Corpuscular Volume 88.4 fL (80-100); Mean Platelet Volume 11.5 fL (7.4-10.4); Monocytes % (auto) 8.6 %; Neutrophils # (auto) 7.18 K/uL (1.4-6.5); Neutrophils % (auto) 68.3 %; Platelet Count 295 K/uL (130-400); RDW Coefficient of Variation 15.5 % (11.5-14.5); RDW Standard Deviation 49.6 fL (36.4-46.3); Red Blood Count 5.24 M/uL (4.7-6.1); White Blood Count 10.51 K/uL (4.8-10.8)
[2021-09-14 07:23] LABS: Partial Thromboplastin Ratio 2.1
[2021-09-14] MEDS: SODIUM CHLOR 7% 4 ML NEB NEB SCH ×2 (07:29→19:45)
[2021-09-14 07:40] LABS: Partial Thromboplastin Time 56.4 Seconds (21.0-31.0)
[2021-09-14] MEDS: SACCHAROMYCES BOULARDII 250 MG CAP PO SCH (08:48)
[2021-09-14] MEDS: AMOXICILLIN/CLAVULANATE 875 MG TAB PO SCH ×2 (08:48→19:57)
[2021-09-14] MEDS: guaiFENesin 600 MG TABCR PO SCH ×2 (08:48→19:57)
[2021-09-14] MEDS: dexAMETHasone 6 MG in SYRINGE 0 ML IV SCH (08:48)
[2021-09-14] MEDS: BENZONATATE 100 MG CAPSULE PO SCH (08:48)
[2021-09-14 11:09] LABS: Alanine Aminotransferase 27 U/L (7-52); Albumin Globulin Ratio 1.2 (0.9-2); Albumin Level 3.9 gm/dl (3.4-5.0); Alkaline Phosphatase 74 U/L (34-104); Anion Gap 8 (3-11); Aspartate Aminotransferase 18 U/L (13-39); BUN Creatinine Ratio 55.6 (10-20); Bilirubin,Total 0.5 mg/dl (0.2-1.0); Blood Urea Nitrogen 15 mg/dl (6-23); Calcium 9.8 mg/dl (8.5-10.1); Carbon Dioxide 30 mmol/L (21-32); Chloride 100 mmol/L (98-107); Creatinine Clr Calc Pharmacy 313.8 ml/min; Est GFR (African American) > 150.0 ml/min; Est GFR (Non-African American) > 150.0 ml/min; Globulin 3.2 gm/dl (2.5-4.0); Glucose 85 mg/dl (70-99(Fasting)); Magnesium 2.1 mg/dl (1.7-2.4); Potassium 4.2 mmol/L (3.5-5.1); Sodium 138 mmol/L (136-145); Total Protein 7.1 gm/dl (6.0-8.3)
--- NOTE | 2021-09-14 13:02 | Hospitalist Progress Note ---
Date of Service September 14, 2021 Assessment & Plan (1) COVID: Plan: Acute hypoxic respiratory failure 2/2 Covid pneumonia with superimposed left lower lobe bacterial pneumonia Covid positive 09/08/2021 First day of symptoms: Approximately 09/01/2021 Vaccination status: Unvaccinated With some mild hypoxia, requiring 2 L nasal cannula With very poor cough effort due to progressive weakness of neurological etiology as below CXR:Layering left pleural effusion with left basilar consolidation. - CTA: There is no evidence of pulmonary embolus in the main, lobar, or segmental pulmonary arteries. Emphysema. There is dense airspace consolidation throughout the left lower lobe with mild volume loss and opacification of the left lower lobe airways. The appearance is typical for pneumonia/aspiration pneumonitis. Clinical correlation will be required and radiographic follow-up to resolution is recommended. Minimal patchy groundglass consolidation is seen at the right lung base, also likely on an infectious/inflammatory basis. No pleural effusion is identified. Advanced coronary artery calcification. Mildly enlarged mediastinal and hilar lymph nodes are likely reactive.. CRP: 12.66 on admission,downtrending Continue dexamethasone x10-day course Remdesivir: Not indicated at this time-outside the window for treatment at the time of admission Baricitinib: Not indicated at this time,not on high flow Continue flutter valve, incentive spirometry, and chest physiotherapy (2) Pneumonia: Plan: Possible aspiration pneumonia dense left lower lobe lesion seen on CTA of chest Patient with history of aspiration pneumonitis, was re evaluated by speech therapy this admission with intact swallow mechanics at this time-recommend safe swallowing techniques and could ask for instrumental swallow evaluation if desired Started on Zosyn for pneumonia coverage due to dense consolidation,transitioned to Augmentin, will need imaging for follow up for resolution as he was a lifelong smoker and there could be underlying pulmonary malignancy Continue guaifenesin 1200 mg twice daily -Discontinue Tessalon Perles and codeine given respiratory suppression and difficulty with breathing due to generalized weakness - +Flutter, incentive karolyn, and add chest PT -Continue hypertonic saline nebulizers and add duo nebs to go in conjunction with hypertonic saline neb -Consult pulmonary to see if bronchoscopy would be beneficial to help clear him out as he is having great difficulty clearing all secretions and has complete left lower lobe collapse. (3) Lower extremity weakness: Plan: Progressive lower extremity and then upper extremity weakness, bilateral over the last year Progressive 1-2 years of symptoms. report started in the right leg distally and moved proximally and then involved left leg and now into the arms right greater than left Has had 2 spinal surgeries at [facility] with Dr. Alvarado, first in April 2020 and second in November 2020. Records pending from [facility] consulted. Thinks this could be a severe generalized peripheral neuropathy versus CIDP, ALS and spinal myelopathy possible but less likely as he is absence of upper motor neuron findings on examination, no hyperreflexia. Also could be myasthenia or Lambert-Eaton. If he has a lung cancer, he could have a paraneoplastic Lambert-Eaton syndrome CK negative, Lyme, B12, RPR all negative -Aldolase, ACTH, PQ calcium antibodies all pending. MRI with contrast of brain and C/T/L-spine recommended and ordered. Patient has had difficulty tolerating this due to cough. 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 once MRI is reviewed -Neurology also recommending 4 limb EMG with repetitive stimulation as an outpatient (4) Wound of foot: Plan: Multiple crusted yellow lesions with black necrotic centers on left dorsal foot With very cold feet bilaterally and barely palpable pulse in the left foot Arterial Doppler ordered and shows absence of flow distally in the peroneal artery and anterior tibial artery but flow everywhere else, consistent with diffuse PAD Check echocardiogram for thrombus or valvular vegetation Blood cultures are no growth to date since 09/08 (5) Tinea pedis: Plan: Start clotrimazole between toes and on toes twice daily (6) Cold feet: Plan: Related to neurologic process versus cardiovascular/PAD (7) Constipation: Plan: No bowel movement since admission Add MiraLAX and senna (8) COPD with emphysema: Plan: Not on inhalers at home Just quit smoking in 06/2021 Needs PFTs as an outpatient (9) Pulmonary embolism: Plan: Noted on outside reports when he was admitted to an outside hospital in 07/2021 along with his acute right superficial femoral vein DVT CT angiogram of the chest performed here negative for PE Nonetheless, he is on anticoagulation for his DVT Continue heparin drip for now while awaiting possible LP (10) Acute DVT (deep venous thrombosis): Plan: With acute DVT of the right SFV found at outside hospital on 07/2021 Was on Eliquis which is on hold while on heparin drip in case of LP Plan: Patient is a full code as confirmed by he and his sister in the room Disposition-continued stay He will definitely need rehab placement due to severe generalized weakness Admission and Anticipated Discharge Date Admission Date: September 08, 2021 Subjective Continues to have sensation of mucus needs to, but he is unable to force it with cough. He has a very weak cough frequently throughout the day. Denies pain anywhere. Reports that his feet are always cold when I noted that they felt like ice. He wishes that he was able to take a deep breath but feels like he cannot. I discussed his care with neurology and pulmonology. Telemetry with sinus arrhythmia with rates in the 60s to 80s Review of Systems Review of Systems: All systems reviewed & are unremarkable except as noted in HPI & below No bowel movement in 6 days Physical Exam Constitutional: WD/WN, vitals as above + ill appearing Eyes: PERRL, conjunctivae normal, anicteric sclerae ENMT: external ear and nose normal, oropharynx normal Neck: trachea midline, no thyromegaly Respiratory: + cough (Frequent weak cough); + abnormal respiratory effort (Takes shallow breaths) Auscultation: + diminished lung sounds (At left base); no crackles and no wheezes Cardiovascular: RRR, no murmur, no edema Vessels: dorsalis pedis pulses present (2+ on right, barely palpable on left) and popliteal pulses present (Bilaterally) Chest (Breasts): Chest: normal inspection of chest Gastrointestinal (Abdomen): normal bowel sounds, soft, nontender, no hepatosplenomegaly Musculoskeletal: Extremities: + clubbing; + extremities abnormal to inspection (Multiple black scabbed over crusted lesions on left dorsal foot) and no cyanosis Skin: + lesion (As above on left dorsal foot, also macerated white skin between all toes) Neurologic: + focal motor deficit (1/5 strength throughout all extremities except LUE 3/5 throughout) and awake Psychiatric: A+Ox3, euthymic affect Lymphatic: no lymphedema Results & Data Results & Data ([facility]) Vital Signs (Past 12 Hours) Vital Signs Temp Pulse Pulse Resp BP Pulse Ox Pulse Ox 09/14/21 12:00 36.8 C 78 20 146/97 H 92 09/14/21 07:56 36.7 C 91 H 24 154/104 H 90 09/14/21 07:34 93 H 18 97 09/14/21 07:03 64 09/14/21 04:34 36.6 C 78 24 157/96 H 95 09/14/21 04:00 92 Laboratory Results 09/14/21 09/14/21 09/14/21 Range/Units 14:10 14:10 13:55 WBC (4.8-10.8) K/uL RBC (4.7-6.1) M/uL Hgb (14.0-18.0) g/dL Hct (42-52) % MCV (80-100) fL MCH (25-34) pg MCHC (32-36) g/dL RDW Std Deviation (36.4-46.3) fL RDW Coeff of Davina (11.5-14.5) % Plt Count (130-400) K/uL MPV (7.4-10.4) fL Immature Gran % (Auto) % Neut % (Auto) % Lymph % (Auto) % [place] % (Auto) % Eos % (Auto) % Baso % (Auto) % Neut # (Auto) (1.4-6.5) K/uL Lymph # (Auto) (1.2-3.4) K/uL [place] # (Auto) (0.11-0.59) K/uL Eos # (Auto) (0-0.5) K/uL Baso # (Auto) (0-0.2) K/uL Immature Gran # (Auto) (0.00-0.02) K/uL APTT (21.0-31.0) Seconds PTT Ratio Sodium (136-145) mmol/L Potassium (3.5-5.1) mmol/L Chloride (98-107) mmol/L Carbon Dioxide (21-32) mmol/L Anion Gap (3-11) BUN (6-23) mg/dl Creatinine (0.6-1.4) mg/dl Est Cr Clr Drug Dosing ml/min Est GFR ( Amer) ml/min Est GFR (Non-Af Amer) ml/min BUN/Creatinine Ratio (10-20) Glucose (70-99(Fasting)) mg/dl Calcium (8.5-10.1) mg/dl Magnesium (1.7-2.4) mg/dl Total Bilirubin (0.2-1.0) mg/dl AST (13-39) U/L ALT (7-52) U/L Alkaline Phosphatase (34-104) U/L Lactate Dehydrogenase 115 (86-244) U/L Total Protein (6.0-8.3) gm/dl Albumin (3.4-5.0) gm/dl Globulin (2.5-4.0) gm/dl Albumin/Globulin Ratio (0.9-2) Procalcitonin < 0.05 (0-0.5) ng/ml Nasal Screen MRSA (PCR) Negative (Negative) 09/14/21 09/14/21 09/14/21 Range/Units 05:59 05:53 05:53 WBC 10.51 (4.8-10.8) K/uL RBC 5.24 (4.7-6.1) M/uL Hgb 14.5 (14.0-18.0) g/dL Hct 46.3 (42-52) % MCV 88.4 (80-100) fL MCH 27.7 (25-34) pg MCHC 31.3 L (32-36) g/dL RDW Std Deviation 49.6 H (36.4-46.3) fL RDW Coeff of Davina 15.5 H (11.5-14.5) % Plt Count 295 (130-400) K/uL MPV 11.5 H (7.4-10.4) fL Immature Gran % (Auto) 1.3 % Neut % (Auto) 68.3 % Lymph % (Auto) 21.3 % [place] % (Auto) 8.6 % Eos % (Auto) 0.4 % Baso % (Auto) 0.1 % Neut # (Auto) 7.18 H (1.4-6.5) K/uL Lymph # (Auto) 2.24 (1.2-3.4) K/uL [place] # (Auto) 0.90 H (0.11-0.59) K/uL Eos # (Auto) 0.04 (0-0.5) K/uL Baso # (Auto) 0.01 (0-0.2) K/uL Immature Gran # (Auto) 0.14 H (0.00-0.02) K/uL APTT 56.4 H* (21.0-31.0) Seconds PTT Ratio 2.1 Sodium 138 (136-145) mmol/L Potassium 4.2 (3.5-5.1) mmol/L Chloride 100 (98-107) mmol/L Carbon Dioxide 30 (21-32) mmol/L Anion Gap 8 (3-11) BUN 15 (6-23) mg/dl Creatinine 0.27 L (0.6-1.4) mg/dl Est Cr Clr Drug Dosing 313.8 ml/min Est GFR ( Amer) > 150.0 ml/min Est GFR (Non-Af Amer) > 150.0 ml/min BUN/Creatinine Ratio 55.6 H (10-20) Glucose 85 (70-99(Fasting)) mg/dl Calcium 9.8 (8.5-10.1) mg/dl Magnesium 2.1 (1.7-2.4) mg/dl Total Bilirubin 0.5 (0.2-1.0) mg/dl AST 18 (13-39) U/L ALT 27 (7-52) U/L Alkaline Phosphatase 74 (34-104) U/L Lactate Dehydrogenase (86-244) U/L Total Protein 7.1 (6.0-8.3) gm/dl Albumin 3.9 (3.4-5.0) gm/dl Globulin 3.2 (2.5-4.0) gm/dl Albumin/Globulin Ratio 1.2 (0.9-2) Procalcitonin (0-0.5) ng/ml Nasal Screen MRSA (PCR) (Negative) PG Care Time/CCT Total # of Minutes Spent Total Time Spent with Patient: Total time spent is greater than 50% in coordination of care (as documented) at patient's floor/unit and/or counseling patient: Coding Level of Care Code 40664 Subseq Hosp Care Lvl 3 Diagnoses COVID U07.1 Pneumonia J18.9 Laterality: left Lung location: lower lobe of lung Pneumonia type: due to unspecified organism Lower extremity weakness R29.898 Wound of foot S91.309A Tinea pedis B35.3 Cold feet R20.9 Constipation K59.00 COPD with emphysema J43.9 Pulmonary embolism I26.99 Acute DVT (deep venous thrombosis) I82.409 (1) Pneumonia Laterality: left Lung location: lower lobe of lung Pneumonia type: due to unspecified organism Qualified Code(s): J18.9 - Pneumonia, unspecified organism
--- NOTE | 2021-09-14 13:12 | Pulmonary Consultation ---
Date of Consultation September 14, 2021 Assessment & Plan (1) Pneumonia: Laterality: left Lung location: lower lobe of lung Pneumonia type: due to unspecified organism Qualified Code(s): J18.9 - Pneumonia, unspecified organism (2) SOB (shortness of breath): (3) Pulmonary embolism: (4) COPD with emphysema: (5) COVID: CT chest 09/08/2021 personally reviewed: Minimal scarring in the right upper lobe, minimal centrilobular emphysema Dense consolidative process of the left lower lobe, no pleural effusion Mediastinal lymphadenopathy appreciated especially station 10 L and station 7 --Left lower lobe pneumonia With almost complete collapse of the left lower lobe I do not see any foreign body which might be causing the left lower lobe collapse COVID-19 PCR positive09/08/2021 Possibility of malignancy is always there and the patient was a smoker but I would like to treat the patient with antibiotics for at least 10 days and repeat an imaging study in 4 weeks to see if there is any improvement --COVID-19 pneumonia I do not think that this consolidative process in the left lower lobe is from COVID-19 Okay to discontinue dexamethasone --Pulmonary emphysema Not on any inhalers at home Consider PFTs as an outpatient Addition of Spiriva prior to discharge from the caudal --Recently diagnosed PE July 2021 On apixaban at home Currently on heparin drip Plan: Follow-up procalcitonin, LDH Recommend swallow eval if not already done Continue with nebulized hypertonic saline as well as flutter valve We will consider addition of chest percussion therapy Follow nasal MRSA Please note the above document was generated using voice recognition software. It may contain grammatical, syntax or spelling errors.Any formal questions or concerns about the content, text or information contained within the body of this dictation should be directly addressed to the provider for clarification. History of Present Illness Attending Physician: Brenda Salas MD History of Present Illness 60-year old male was admitted to the hospital because of worsening shortness of breath for more than a week Past medical history: PE July 2021, on apixaban Patient was recently discharged from the hospital being treated for community- acquired pneumonia Pulmonary consulted because of dense left lower lobe consolidative process At the time of examination patient stated that he has been having issues with the cough which has been going on for approximately couple of months He denied any issues with his breathing right now He says he has been using incentive spirometry and the flutter valve. He does bring up phlegm but not in a big amount His cough effort is not that strong. Denies any fever or chills. He does complain of cough whenever he is eating. No headache, no blurry vision He has been having issues with weakness of bilateral lower extremities/p araplegia has been going on since more than a year and progressively getting worse Denies any history of trauma Social history: [id number] smoking history quit at the age of 59, still chews tobacco Allergies Allergy/AdvReac Type Severity Reaction Status Date / Time No Known Allergies Allergy Unverified 09/08/21 16:28 Home Medications Medication Instructions Recorded Confirmed Type apixaban 5 mg tablet (Eliquis) 5 mg PO BID 09/08/21 09/08/21 History Patient History Medical History (Updated 09/14/21 @ 18:34 by Brenda Salas MD) Acute DVT (deep venous thrombosis) DVT prophylaxis Lower extremity weakness Social History Smoking Status: Former smoker Do You Dip or Chew Tobacco: Yes; Tobacco Cessation Education Requested by Patient: No Hx Alcohol Use: No Hx Substance Use: No Preferred Language: Kazakh Communication Ability: Effective 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 Required: No Beliefs That Will Affect Care: None Current Living Situation: Parent Current Living Situation Comment: home with caregiver Other Information That Helps Us Care for You: No Feels Safe at Home: Yes Assistive Devices: Glasses and Oxygen - Continuous Review of Systems Review of Systems: All systems reviewed & are unremarkable except as noted in HPI & below Physical Exam Physical Exam: Constitutional: No acute distress HEENT: EOMI, PERRLA, soft hoarse voice Respiratory system: Decreased air entry on the left side, no wheeze, rhonchi, positive crackles left lower lobe CVS: S1-S2 positive, no murmurs or gallops Abdomen: Soft, nontender, nondistended, positive bowel sounds x4 Extremities: +2 pulses bilaterally radialis, +1 right DP, left DP not palpable, cold and distal cyanosis of the left toes, ankle edema bilateral lower extremity Neuro: Awake alert oriented x3 Psych: Normal mood and affect G/U: No Shea Skin: no rashes, warm and dry Lymphatic: no cervical or axillary lymphadenopathy Results & Data Results & Data ([facility]) Vital Signs (Past 12 Hours) Vital Signs Temp Pulse Pulse Resp BP Pulse Ox Pulse Ox 09/14/21 12:00 36.8 C 78 20 146/97 H 92 09/14/21 07:56 36.7 C 91 H 24 154/104 H 90 09/14/21 07:34 93 H 18 97 09/14/21 07:03 64 09/14/21 04:34 36.6 C 78 24 157/96 H 95 09/14/21 04:00 92 Laboratory Results 09/14/21 05:53 09/14/21 05:59 PG Care Time/CCT Total # of Minutes Spent Total Time Spent with Patient: Total time spent is greater than 50% in coordination of care (as documented) at patient's floor/unit and/or counseling patient: Coding Level of Care Code 68790 Initial Inpt Care Lvl 3 Diagnoses Pneumonia J18.9 Laterality: left Lung location: lower lobe of lung Pneumonia type: due to unspecified organism SOB (shortness of breath) R06.02 Pulmonary embolism I26.99 COPD with emphysema J43.9 COVID U07.1
[2021-09-14] MEDS: DOCUSATE SODIUM/SENNA 50/8.6MG TAB PO SCH (13:57)
[2021-09-14] MEDS: POLYETHYLENE (MIRALAX) 17 GM PACK PO SCH (13:57)
[2021-09-14] MEDS: DOXYCYCLINE HYCLATE 100 MG in DEXTROSE 5% 100 ML IV SCH (14:59)
[2021-09-14] MEDS: CLOTRIMAZOLE 1% CR 15 GM TUBE EXT SCH ×2 (14:59→19:55)
--- NOTE | 2021-09-14 16:13 | Ultrasound Report ---
US arterial duplex LE LT CLINICAL HISTORY: poor pulses left foot. COMPARISON: None. TECHNIQUE: Duplex sonography of left lower extremity arterial system was performed. Velocity measure ments provided are in centimeters per second FINDINGS: Barnard scale, Doppler spectral analysis, and color imaging performed. Left common femoral artery: Triphasic flow velocity. 72 Left profunda femoris artery: Biphasic flow velocity. 40 Left superficial femoral artery: Triphasic flow velocity. 86 Left popliteal artery: Biphasic flow velocity. 33 Left posterior tibial artery: Triphasic. flow velocity. 83 Left anterior tibial artery: Biphasic flow velocity. 59 proximally and 12 distally Left dorsalis pedis artery: Biphasic flow velocity. 29 Left peroneal artery: Biphasic flow velocity. 37 proximally with no flow demonstrated distally Left flow velocities: There is absence of flow within the distal peroneal artery and significantly d ecreased flow in the distal anterior tibial artery. No focal sites of flow elevation are demonstrated to suggest stenosis. IMPRESSION: 1. Absence of flow to the distal peroneal artery and significant decreased flow to the distal anterio r tibial artery. No sites of elevated flow velocities are seen to suggest stenosis. The findings are characteristic of diffuse peripheral arterial vascular disease. ACT 112: Negative or not required by law. Electronically signed by: Alejandro Jeffery M.D. 09/14/2021 4:10 PM
[2021-09-14] MEDS: ALBUT/IPRATROP 3MG/0.5MG NEB 3 ML VIAL NEB SCH (19:45)
[2021-09-15] MEDS: DOXYCYCLINE HYCLATE 100 MG in DEXTROSE 5% 100 ML IV SCH ×3 (01:32→21:54)
[2021-09-15] MEDS: ALBUT/IPRATROP 3MG/0.5MG NEB 3 ML VIAL NEB SCH ×2 (07:33→20:10)
[2021-09-15] MEDS: CLOTRIMAZOLE 1% CR 15 GM TUBE EXT SCH ×2 (08:45→20:21)
[2021-09-15] MEDS: AMOXICILLIN/CLAVULANATE 875 MG TAB PO SCH (08:45)
[2021-09-15] MEDS: dexAMETHasone 6 MG in SYRINGE 0 ML IV SCH (08:45)
[2021-09-15] MEDS: DOCUSATE SODIUM/SENNA 50/8.6MG TAB PO SCH (08:46)
[2021-09-15] MEDS: guaiFENesin 600 MG TABCR PO SCH ×2 (08:46→20:21)
[2021-09-15] MEDS: POLYETHYLENE (MIRALAX) 17 GM PACK PO SCH (08:46)
[2021-09-15] MEDS: SACCHAROMYCES BOULARDII 250 MG CAP PO SCH (08:47)
[2021-09-15] MEDS: HEPARIN SODIUM/DEXTROSE 25,000 UNITS/500 ML BAG IV SCH ×2 (09:10→23:53)
--- NOTE | 2021-09-15 10:00 | XCELERA ---
[id number] \\[id number]
[2021-09-15] MEDS ORDERED: PIPERACILL/TAZOBAC CONSULT ACTIVE PRN (10:22)
[2021-09-15] MEDS ORDERED: PIPERACILLIN/TAZOBACTAM 3.375 GM in DEXTROSE 5% 100 ML IV ONE (10:30)
[2021-09-15] MEDS: SODIUM CHLOR 7% 4 ML NEB NEB SCH ×2 (10:50→20:11)
--- NOTE | 2021-09-15 10:59 | Pulmonology Progress Note ---
Date of Service September 15, 2021 Assessment & Plan (1) Pneumonia: Laterality: left Lung location: lower lobe of lung Pneumonia type: due to unspecified organism Qualified Code(s): J18.9 - Pneumonia, unspecified organism (2) SOB (shortness of breath): (3) Pulmonary embolism: (4) COPD with emphysema: (5) COVID: Plan: CT chest 09/08/2021 personally reviewed: Minimal scarring in the right upper lobe, minimal centrilobular emphysema Dense consolidative process of the left lower lobe, no pleural effusion Mediastinal lymphadenopathy appreciated especially station 10 L and station 7 --Left lower lobe pneumonia With almost complete collapse of the left lower lobe I do not see any foreign body which might be causing the left lower lobe collapse Patient has very poor cough effort [id number]-hwaj smoking history. Quit approximately year ago. Still chews tobacco COVID-19 PCR positive 09/08/2021 Nasal MRSA negative Procalcitonin negative LDH 115 Possibility of malignancy is always there and the patient was a smoker but I would like to treat the patient with antibiotics for at least 10 days and repeat an imaging study in 4 weeks to see if there is any improvement --COVID-19 pneumonia I do not think that this consolidative process in the left lower lobe is from COVID-19 Can consider discontinuing dexamethasone --Pulmonary emphysema Not on any inhalers at home Consider PFTs as an outpatient Addition of Spiriva prior to discharge from the caudal --Recently diagnosed PE July 2021 On apixaban at home Currently on heparin drip Plan: Change amoxicillin to Zosyn for pseudomonal coverage Continue with doxycycline for atypical coverage Given the procalcitonin negative and severe consolidative process of the left lower lobe possibility of malignancy is there Patient is supposed to have MRI done under anesthesia tomorrow. Tentatively plan to have bronchoscopy done Thursday Dr. Medina is going to take over pulmonary service as of tomorrow Case discussed with Dr. Salas Please note the above document was generated using voice recognition software. It may contain grammatical, syntax or spelling errors.Any formal questions or concerns about the content, text or information contained within the body of this dictation should be directly addressed to the provider for clarification. Admission and Anticipated Discharge Date Admission Date: September 08, 2021 Subjective Patient seen and family bedside. No acute distress, no events overnight Patient was saturating 97% on room air at time of examination with heart rate of 93-94 Denied any chest pain He states he is coughing but he has difficulty bringing up the phlegm Minimally been that the phlegm is mostly clear Has been using incentive spirometry as well as flutter valve. Also has chest vest therapy Review of Systems Review of Systems: All systems reviewed & are unremarkable except as noted in Subjective Physical Exam Physical Exam: Constitutional: No acute distress HEENT: EOMI, PERRLA, soft hoarse voice Respiratory system: Decreased air entry on the left side, no wheeze, rhonchi, positive crackles left lower lobe CVS: S1-S2 positive, no murmurs or gallops Abdomen: Soft, nontender, nondistended, positive bowel sounds x4 Extremities: +2 pulses bilaterally radialis, +1 right DP, left DP not palpable, cold and distal cyanosis of the left toes, ankle edema bilateral lower extremity Neuro: Awake alert oriented x3 Psych: Normal mood and affect G/U: No Shea Skin: no rashes, warm and dry Lymphatic: no cervical or axillary lymphadenopathy Results & Data Results & Data ([facility]) Vital Signs (Past 12 Hours) Vital Signs Temp Pulse Pulse Resp BP Pulse Ox Pulse Ox 09/15/21 08:38 36.6 C 93 H 20 124/79 95 09/15/21 07:37 76 20 100 09/15/21 04:00 95 09/15/21 03:54 36.5 C 80 18 145/89 H 98 09/14/21 23:49 69 09/14/21 23:07 36.5 C 77 18 141/94 H 99 Laboratory Results 09/14/21 05:53 09/14/21 05:59 PG Care Time/CCT Total # of Minutes Spent Total Time Spent with Patient: Total time spent is greater than 50% in coordination of care (as documented) at patient's floor/unit and/or counseling patient: Coding Level of Care Code 85210 Subseq Hosp Care Lvl 3 Diagnoses Pneumonia J18.9 Laterality: left Lung location: lower lobe of lung Pneumonia type: due to unspecified organism SOB (shortness of breath) R06.02 Pulmonary embolism I26.99 COPD with emphysema J43.9 COVID U07.1
[2021-09-15] MEDS: PIPERACILLIN/TAZOBACTAM 3.375 GM in DEXTROSE 5% 100 ML IV SCH ×2 (16:27→23:57)
--- NOTE | 2021-09-15 18:18 | Hospitalist Progress Note ---
Date of Service September 15, 2021 Assessment & Plan (1) Pneumonia: Plan: Possible aspiration pneumonia dense left lower lobe lesion seen on CTA of chest Patient with history of aspiration pneumonitis requiring hospitalization at outside hospital on 07/2021 Was re evaluated by speech therapy this admission with intact swallow mechanics at this time-recommend safe swallowing techniques and could ask for instrumental swallow evaluation if desired-ordered FEES for Thursday Cough is much improved today and lungs sound a bit clearer since starting scheduled nebulizers with his tonic saline nebulized treatments Started on Zosyn for pneumonia coverage due to dense consolidation,transitioned to Augmentin, but now pulmonology recommending restarting Zosyn for pseudomonal coverage -Also added doxycycline for atypical coverage on 09/14 -He will need imaging for follow up for resolution of pneumonia as he was a lifelong smoker and there could be underlying pulmonary malignancy Continue guaifenesin 1200 mg twice daily -Discontinued Tessalon Perles and codeine given respiratory suppression and difficulty with breathing due to generalized weakness - +Flutter, incentive karolyn, and add chest PT -Continue hypertonic saline nebulizers and duo nebs twice daily -Consult pulmonary appreciated-we will likely have bronchoscopy on Thursday to help clear him out as he is having great difficulty clearing all secretions and has complete left lower lobe collapse. (2) COVID: Plan: Acute hypoxic respiratory failure 2/2 Covid pneumonia with superimposed left lower lobe bacterial pneumonia Covid positive 09/08/2021 First day of symptoms: Approximately 09/01/2021 Vaccination status: Unvaccinated With some mild hypoxia, requiring 2 L nasal cannula With very poor cough effort due to progressive weakness of neurological etiology as below CXR:Layering left pleural effusion with left basilar consolidation. - CTA: There is no evidence of pulmonary embolus in the main, lobar, or segmental pulmonary arteries. Emphysema. There is dense airspace consolidation throughout the left lower lobe with mild volume loss and opacification of the left lower lobe airways. The appearance is typical for pneumonia/aspiration pneumonitis. Clinical correlation will be required and radiographic follow-up to resolution is recommended. Minimal patchy groundglass consolidation is seen at the right lung base, also likely on an infectious/inflammatory basis. No pleural effusion is identified. Advanced coronary artery calcification. Mildly enlarged mediastinal and hilar lymph nodes are likely reactive.. CRP: 12.66 on admission,downtrending Now weaned off oxygen Pneumonia on imaging not secondary to Covid Received dexamethasone x 7 days and will now discontinue Remdesivir: Not indicated at this time-outside the window for treatment at the time of admission Baricitinib: Not indicated at this time,not on high flow Continue flutter valve, incentive spirometry, and chest physiotherapy (3) Lower extremity weakness: Plan: Progressive lower extremity and then upper extremity weakness, bilateral over the last year Progressive 1-2 years of symptoms. report started in the right leg distally and moved proximally and then involved left leg and now into the arms right greater than left Has had 2 spinal surgeries at [facility] with Dr. Alvarado, first in April 2020 and second in November 2020. Records pending from [facility] consulted. Thinks this could be a severe generalized peripheral neuropathy versus CIDP, ALS and spinal myelopathy possible but less likely as he is absence of upper motor neuron findings on examination, no hyperreflexia. Also could be myasthenia or Lambert-Eaton. If he has a lung cancer, he could have a paraneoplastic Lambert-Eaton syndrome CK negative, Lyme, B12, RPR all negative -Aldolase, ACTH, PQ calcium antibodies all pending. MRI with contrast of brain and C/T/L-spine recommended and ordered. Patient has had difficulty tolerating this due to cough. 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 once MRI is reviewed -Neurology also recommending 4 limb EMG with repetitive stimulation as an outpatient (4) Wound of foot: Plan: Multiple crusted yellow lesions with black necrotic centers on left dorsal foot With very cold feet bilaterally and barely palpable pulse in the left foot Arterial Doppler ordered and shows absence of flow distally in the peroneal artery and anterior tibial artery but flow everywhere else, consistent with diffuse PAD Check echocardiogram for thrombus or valvular vegetation-negative Blood cultures are no growth to date since 09/08 Consult vascular-awaiting opinion -We will continue heparin drip for now -Would not start antiplatelet until after bronchoscopy as per pulmonology recommendation (5) Tinea pedis: Plan: Started clotrimazole between toes and on toes twice daily (6) Cold feet: Plan: Related to neurologic process versus cardiovascular/PAD (7) Constipation: Plan: No bowel movement since admission Added MiraLAX and senna If no bowel movement by tomorrow, would add bisacodyl suppository (8) COPD with emphysema: Plan: Not on inhalers at home Just quit smoking in 06/2021 Needs PFTs as an outpatient (9) Pulmonary embolism: Plan: Noted on outside reports when he was admitted to an outside hospital in 07/2021 along with his acute right superficial femoral vein DVT CT angiogram of the chest performed here negative for PE Nonetheless, he is on anticoagulation for his DVT Continue heparin drip for now while awaiting possible LP (10) Acute DVT (deep venous thrombosis): Plan: With acute DVT of the right SFV found at outside hospital on 07/2021 Was on Eliquis which is on hold while on heparin drip in case of LP Plan: Patient is a full code as confirmed by he and his sister in the room Disposition-continued stay He will definitely need rehab placement due to severe generalized weakness Admission and Anticipated Discharge Date Admission Date: September 08, 2021 Subjective Feels a little better today, less cough and feels a little less short of breath. No nausea or vomiting, is tolerating p.o. Still no bowel movement since admission. Telemetry with normal sinus rhythm with rates in the 60s to 70s. I discussed his case with pulmonology as well as speech therapy. Review of Systems Review of Systems: All systems reviewed & are unremarkable except as noted in HPI & below Physical Exam Constitutional: WD/WN, vitals as above + ill appearing Eyes: + anicteric sclerae ENMT: external ear and nose normal, oropharynx normal (Hoarse voice) Neck: trachea midline, no thyromegaly Respiratory: + abnormal respiratory effort (Takes shallow breaths) and no cough Auscultation: + diminished lung sounds (At left base); no crackles and no wheezes Cardiovascular: RRR, no murmur, no edema Vessels: dorsalis pedis pulses present (2+ on right, barely palpable on left) and popliteal pulses present (Bilaterally) Extremities: + abnormal capillary refill (Delayed refill, purpleish feet, feet freezing cold to the touch) Chest (Breasts): Chest: normal inspection of chest Gastrointestinal (Abdomen): normal bowel sounds, soft, nontender, no hepatosplenomegaly Musculoskeletal: Extremities: + clubbing; + extremities abnormal to inspection (Multiple black scabbed over crusted lesions on left dorsal foot) and no cyanosis Skin: + lesion (As above on left dorsal foot, also macerated white skin between all toes) Neurologic: + focal motor deficit (1/5 strength throughout all extremities except LUE 3/5 throughout) and awake Psychiatric: A+Ox3, euthymic affect Lymphatic: no lymphedema Results & Data Results & Data ([facility]) Vital Signs (Past 12 Hours) Vital Signs Temp Pulse Resp BP Pulse Ox 09/15/21 16:26 36.6 C 76 18 143/87 H 94 09/15/21 11:56 37 C 97 H 20 145/78 H 97 09/15/21 08:38 36.6 C 93 H 20 124/79 95 09/15/21 07:37 76 20 100 Laboratory Results 09/15/21 Range/Units 06:32 APTT 55.0 H* (21.0-31.0) Seconds PTT Ratio 2.0 PG Care Time/CCT Total # of Minutes Spent Total Time Spent with Patient: Total time spent is greater than 50% in coordination of care (as documented) at patient's floor/unit and/or counseling patient: Coding Level of Care Code 04979 Subseq Hosp Care Lvl 3 Diagnoses COVID U07.1 Pneumonia J18.9 Laterality: left Lung location: lower lobe of lung Pneumonia type: due to unspecified organism Lower extremity weakness R29.898 Wound of foot S91.309A Tinea pedis B35.3 Cold feet R20.9 Constipation K59.00 COPD with emphysema J43.9 Pulmonary embolism I26.99 Acute DVT (deep venous thrombosis) I82.409 (1) Pneumonia Laterality: left Lung location: lower lobe of lung Pneumonia type: due to unspecified organism Qualified Code(s): J18.9 - Pneumonia, unspecified organism
[2021-09-16] MEDS: SODIUM CHLOR 7% 4 ML NEB NEB SCH ×2 (07:27→19:13)
[2021-09-16] MEDS: ALBUT/IPRATROP 3MG/0.5MG NEB 3 ML VIAL NEB SCH ×2 (07:27→19:13)
[2021-09-16] MEDS: DOCUSATE SODIUM/SENNA 50/8.6MG TAB PO SCH (08:57)
[2021-09-16] MEDS: guaiFENesin 600 MG TABCR PO SCH ×2 (08:58→19:58)
[2021-09-16] MEDS: POLYETHYLENE (MIRALAX) 17 GM PACK PO SCH (08:58)
--- NOTE | 2021-09-16 08:58 | Neurology Progress Note ---
Date of Service September 16, 2021 Assessment & Plan (1) Progressive focal motor weakness: (2) Lhermitte's sign positive: (3) Cervical spine pain: (4) Lumbar spine pain: Plan: This is a complicated patient neurologically and has progressive a symmetrical weakness that initiated about 18 months ago, starting with the right lower extremity and is post 2 lumbar spine surgeries ( of uncertain type). Over the last 9 months he has had progressive weakness in both legs and then both arms always right greater than left side. Interestingly, he has no sensory symptoms including no numbness or tingling or pain. He does have cervical and lumbar spine pain and has a positive Lhermitte sign with neck flexion. Etiology of this patient's weakness is not readily apparent: although I cannot exclude a central nervous system problem ( such as a rapidly progressive dem yelinating disease ) he does not have any sensory deficits or cranial nerve/bulbar deficits or symptoms. With his asymmetrical weakness and progression, accompanied by cervical spine pain and a Lhermitte sign, a cervical spinal stenosis / cervical cord lesion is possible. Any lesion lower than the cervical spine (such as thoracic or lumbar spine) would not explain his his severe quadriparesis. An inflammatory myopathy is not likely given his weakness both proximally and distally, as well as lack of other skin or joint issues. However, inclusion body myositis is certainly possible ( as it can cause proximal and distal weakness presenting in a symmetrical pattern. ALS is considered less likely as there are no upper motor neuron signs present. Although a polyneuropathy could mask upper motor neuron signs, he does not seem to have a significant sensory neuropathy. A progressive pure motor neuropathy is a possibility. Myasthenia gravis is a possibility but without cranial nerve or bulbar deficits I think this is less likely in a primary progressive condition. Certainly, Lambert-Eaton myasthenic syndrome is a possibility in this patient. However, the patient did not have any suggestion of improvement with repetitive strength testing. The patient has very cold feet which is likely vascular and may be autoimmune related. Recommendations: 1. needs MRI of the brain and cervical spine with and without contrast. Thoracic and lumbar spine have been ordered as well. 2. Continue physical therapy. 3. Awaiting VGCC and acetylcholine receptor antibody titers 4. BECKA 12 5. consider lumbar puncture if MRIs are not helpful In making a significant diagnosis. 6. Very we may consider a muscle biopsy as well. 7. I might consider some empiric treatment (? Steroids or other), depending on his test results and clinical course Overall, I spent a total of 120 minutes with this case including review of records, direct evaluation the patient at bedside, and discussion of the case with the patient and RN at bedside, and Dr. Salas, including differential diagnosis and treatment options. Admission and Anticipated Discharge Date Admission Date: September 08, 2021 Subjective Patient history has been reviewed. In the early fall of 2019 he noted the onset of right foot drop. He still worked although it was [place] for [place] with [place]. 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 He is not exposed any specific toxins or chemicals that he is aware. He ended up seeing Dr. Manpreet Alvarado, orthopedic spine surgeon in [place], [place], who performed some sort of lumbar spine surgery in April 2020, which gave him no change in his clinical condition. Following this, he used a cane to get around. He did not go back to work. Patient did about the same over the ensuing months although he fell sometime in the spring. he ended up getting a no other lumbar spine surgery by Dr. Alvarado in November of 2020. this surgery did not make any difference in his clinical condition either. Following this surgery he began having progressive weakness in the right leg and then in the left lower extremity. The right leg was always worse than the left. He then needed a wheelchair has been in a wheelchair ever since, cared for by his 81-year-old mother. About 5 months ago, both arms became weak although the right was worse than the left. Physical therapy was of some help for his arms. Patient is not had any numbness, tingling, or loss of sensation in his face arms or legs. He has had chronic intermittent low back pain at times but no radicular pain into the legs. For the last several months he has had cervical spine pain with no radicular pain into the arms. He denies muscle soreness, joint pain, rashes, or dry mouth except since he has been in the hospital this past month. In addition, he has noted recently that if he flexes his neck he has a traveling sensation down through both legs to the feet bilaterally. It is like a tingling. He remains profoundly weak right greater than left side, legs greater than arms. Additionally, the patient is not had any droopy eyelids, double vision, trouble swallowing, or trouble breathing (until he had diagnosis of pneumonia back in July of 2021). CBC has been largely unremarkable. chemistry profile shows normal electrolytes, renal function, and hepatic function. C reactive protein was elevated at 15.8 on admission. B12 and TSH were unremarkable. An aldolase is pending and Lyme antibody titers were unremarkable. He was Covid-19 positive and his RPR was negative. Acetylcholine receptor antibody titers and voltage gated calcium channel antibodies are pending. Blood cultures have been negative. Review of Systems Constitutional: + fatigue and + weakness; no fever Eyes: no diplopia, no eye pain and no worsening vision Ear, Nose, Mouth, Throat: no ear pain, no tinnitus, no hearing loss, no dizziness, no hoarseness and no dysphagia Respiratory: + cough and + dyspnea Cardiovascular: no chest pain, no palpitations and no lightheadedness Gastrointestinal: no abdominal pain, no nausea and no vomiting Musculoskeletal: + back pain and + neck pain; no radicular pain, no joint pain and no myalgia Integumentary: no rash and no lesions Neurologic: + localized weakness and + generalized weakness; no gait abnormality, no tingling, no numbness, no tremor(s), no abnormal movements, no headache(s), no abnormal speech, no confusion and no memory loss Psychiatric: no depression, no irritability, no anxiety, no difficulty concentrating, no confusion and no hallucinations Endocrine: no fatigue and no flushing Hematologic / Lymphatic: no easy bleeding and no easy bruising Allergy / Immunological: no urticaria and no problem reported Results & Data ([facility]) Vital Signs (Past 12 Hours) Vital Signs Temp Pulse Pulse Resp BP Pulse Ox Pulse Ox 09/16/21 07:54 36.5 C 84 20 157/84 H 93 09/16/21 07:28 90 18 94 09/16/21 07:00 36.5 C 86 18 140/69 93 09/16/21 04:29 36.7 C 78 16 135/59 L 97 09/16/21 04:00 97 09/16/21 00:33 71 09/15/21 23:58 36.6 C 70 16 148/94 H 94 Exam (Neuro) Physical Exam: The patient is right-handed. The patient is awake, alert, and attentive. Speech is hoarse without any aphasia or dysarthria. The patient can name objects, repeat phrases, and has normal spontaneous speech. Mentation and thought processes are intact, with orientation to person, place and time, and normal fund of knowledge. Attention and concentration are normal. Mood and affect are normal and appropriate. G eneral appearance and grooming are normal. Short and long-term memory are intact. Pupils are 3 mm bilaterally and reactive to light. Extraocular eye muscles are intact without nystagmus. Visual acuity and visual bobo seem normal grossly to confrontation. There are no deficits to sensation in the face in all 3 distributions of the fifth cranial nerve bilaterally. Corneal reflexes are positive bilaterally. Facial strength and symmetry was normal bilaterally. Hearing seems normal bilaterally. Palate moves well without asymmetry. There is normal sternocleidomastoid and trapezius (shoulder shrug) strength bilaterally. Tongue is midline with good strength bilaterally. Neck has a full range of motion without discomfort. Cervical spine was nontender to palpation. Was very difficult for him to sit up in bed because of low back pain. There are no resting, postural, or action tremors. There is no ataxia with finger to nose testing, but testing was difficult right upper extremity. There i s decreased facility in right greater than. No other abnormal involuntary movements are noted. Motor strength is 4/5 diffusely in the left upper extremity both proximally and distally. He was fairly weak but he was better than gravity. Motor strength was 3 to 4-/5 proximally in the right upper extremity including deltoid, biceps, and triceps. Distal muscles including wrist, sandwich counter attendant, and intrinsic hand muscles were closer to 2/5. He had atrophy in the intrinsic hand muscles in both median and ulnar distribution right greater than left side. Motor strength is 1/5 diffusely both proximally and distally in the left lower extremity. Motor strength is 0/5 diffusely in the whole right lower extremity. Tone was probably decreased in both legs Sensory examination is intact to touch and pin throughout all 4 limbs diffusely. position sense testing was reasonable in great toes bilaterally. Reflexes are 1/4 in the biceps, triceps, and brachioradialis tendons bilaterally. The left quadriceps tendon was 1/4 and the right was 0/4. Both Achilles tendon reflexes were 0/4. There is no clonus bilaterally. Toes are Neutral/no movement with plantar stimulation bilaterally. Peripheral pulses are present and of normal quality distally in all 4 limbs. PG Care Time/CCT Total # of Minutes Spent Total Time Spent with Patient: Total time spent is greater than 50% in coordination of care (as documented) at patient's floor/unit and/or counseling patient: Coding Level of Care Code 64255 Subseq Hosp Care Lvl 3 Diagnoses Progressive focal motor weakness R53.1 Lhermitte's sign positive R29.818 Cervical spine pain M54.2 Lumbar spine pain M54.50 Time Spent (min) 120 Comment Add modifiers as able.
[2021-09-16 09:04] LABS: Partial Thromboplastin Ratio 1.9
[2021-09-16] MEDS: CLOTRIMAZOLE 1% CR 15 GM TUBE EXT SCH ×2 (09:04→19:59)
[2021-09-16] MEDS: PIPERACILLIN/TAZOBACTAM 3.375 GM in DEXTROSE 5% 100 ML IV SCH ×2 (09:05→15:40)
[2021-09-16 09:15] LABS: Partial Thromboplastin Time 52.7 Seconds (21.0-31.0)
--- NOTE | 2021-09-16 10:04 | Consultation ---
Date of Consultation September 16, 2021 Assessment & Plan (1) Peripheral arterial disease: Pt with mild diffuse PAD on US, and palpable pulses in BLE. Wounds on foot appear very superficial and will likely heal with proper local care. These are possibly due to trauma, as pt is unable to dorsiflex his feet when moving his wheelchair forward. Pt discussed with Dr Li. No indications for vascular surgical intervention at this time. Pt aware. Please call if needed. History of Present Illness Reason for Consultation: PAD Attending Physician: Brenda Salas MD History of Present Illness 60 yo m with hx of HTN, DVT/PE, COPD, and spinal problems, admitted with pneumonia and COVID infection, seen in consultation today for PAD noted on US and L dorsal foot lesions. Pt states he has had progressive weakness of his extremities ever since he had 2 spinal surgeries at an outside facility 1-2 yr ago. Has been in a wheelchair for months. Pt denies any prior hx of calf claudication, nonhealing ulcers, or rest pain. States numbness of extremities adn is unable to move toes or dorsiflex foot. Per notes, his extremities are also very cold to touch and has a few black spots on L dorsal foot. Per pt, he states these could have been caused by his foot getting caught under his wheelchair, as this happens frequently. Pt denies any hx of PAD. Pt admits fatigue, malaise, and PHILIP. Denies KELLER, fever, chest pain, SOB at rest, abd pain, N/V, other complaints. Arterial US of LLE demonstrates mild diffuse disease. Allergies Allergy/AdvReac Type Severity Reaction Status Date / Time No Known Allergies Allergy Unverified 09/08/21 16:28 Home Medications Medication Instructions Recorded Confirmed Type apixaban 5 mg tablet (Eliquis) 5 mg PO BID 09/08/21 09/08/21 History Patient History Medical History (Updated 09/16/21 @ 10:01 by Laure Read PA-C) Acute DVT (deep venous thrombosis) DVT prophylaxis Lower extremity weakness Peripheral arterial disease Social History Smoking Status: Former smoker Do You Dip or Chew Tobacco: Yes; Tobacco Cessation Education Requested by Patient: No Hx Alcohol Use: No Hx Substance Use: No Preferred Language: Mexican Communication Ability: Effective Slag Mixer Required: No Beliefs That Will Affect Care: None Current Living Situation: Parent Current Living Situation Comment: home with caregiver Other Information That Helps Us Care for You: No Feels Safe at Home: Yes Assistive Devices: Glasses and Oxygen - Continuous Review of Systems Review of Systems: All systems reviewed & are unremarkable except as noted in HPI & below Physical Exam Constitutional: WD/WN, vitals as above cooperative; not in distress ENMT: Ears: no hearing impairment Neck: trachea midline Respiratory: normal respiratory effort; no respiratory distress Auscultation: lungs clear to auscultation bilaterally and + diminished lung sounds Cardiovascular: Rate/Rhythm: regular rate and regular rhythm Vessels: femoral pulses present, posterior tibial pulses present (RLE +2, LLE +1), dorsalis pedis pulses present (LLE +1, RLE +2) and radial pulses present; + abnormal peripheral pulses Extremities: + abnormal capillary refill (feet cold, cap refill at 5 seconds) Gastrointestinal (Abdomen): Inspection/Auscultation: abdomen normal to ins pection and normal bowel sounds Percussion/Palpation: abdomen soft; abdomen nontender Musculoskeletal: Extremities: + abnormal strength Skin: + wound (few superficial scabs/eschars L dorsal foot, no erythema); no erythema Neurologic: awake; not confused Psychiatric: A+Ox3, euthymic affect Results & Data ([facility]) Vital Signs (Past 12 Hours) Vital Signs Temp Pulse Pulse Resp BP Pulse Ox Pulse Ox 09/16/21 07:54 36.5 C 84 20 157/84 H 93 09/16/21 07:28 90 18 94 09/16/21 07:00 36.5 C 86 18 140/69 93 09/16/21 04:29 36.7 C 78 16 135/59 L 97 09/16/21 04:00 97 09/16/21 00:33 71 09/15/21 23:58 36.6 C 70 16 148/94 H 94
[2021-09-16] MEDS ORDERED: fentaNYL citrate 100 MCG/2 ML VIAL ONE (11:25)
[2021-09-16] MEDS ORDERED: MIDAZOLAM HCL 1 MG/ML 2ML VIAL ONE (11:25)
[2021-09-16] MEDS: SACCHAROMYCES BOULARDII 250 MG CAP PO SCH (12:11)
--- NOTE | 2021-09-16 15:30 | Procedure Note ---
Procedure Note Date of Service September 16, 2021 Note CENTRAL LINE PROCEDURE NOTE: Procedure: Central Line Placement Provider: Claudio Medina MD Indication: Central Drug Administration, Poor Venous Access, Multiple Lab Draws Necessary, etc. Anesthesia: 5 mL lidocaine 1% Site: Left subclavian Consent was signed and placed on the chart prior to procedure. Indication, risks, and benefits were explained at length. A time-out was completed verifying correct patient, procedure, site, positioning, and implants(s) or special equipment if applicable. Patients left clavicular area was cleansed and draped in the typical sterile fashion using Chloraprep. The Internal Jugular Vein and Carotid Artery were identified using ultrasound. The superficial tissue was anesthetized using 5mL of 1% lidocaine without epinephrine. adequate anesthetization was achieved, the left subclavian vein was cannulated under using an introducer needle on a syringe. Good venous blood return was maintained prior to removal of syringe from introducer needle. Using Seldinger Technique, a guide wire was advanced through the introducer needle without resistance. The introducer needle was removed. A small incision was made in penetrating fashion at the guide wire insertion site utilizing an 11 blade scalpel. The dilator was advanced to the vessel without resistance. The dilator was exchanged for the triple lumen catheter which was advanced into the vessel without resistance. The guide wire was removed intact from the catheter without issue. Claves were placed on each catheter tip with confirmation of good blood flow from each lumen. Each port was easily flushed with sterile saline. The catheter was placed at the hub and sutured in place. BioPatch was applied to the catheter and a sterile Tegaderm dressing was applied over the catheter with careful attention to sterility. Patient tolerated procedure well. No immediate complications were met. Post procedure x-ray was completed, placement was appropriate and no pneumothorax was noted. Estimated blood loss: 5 mL Coding CPT Codes Tubes, Drains, and Vasc Access - Tubes, Drains, and Vasc Access: [id number] Place catheter in vein superior or inferior vena cava ([id number]) Tubes, Drains, and Vasc Access - Tubes, Drains, and Vasc Access: [id number] Ultrasound Guidance For Vascular ([id number]) [facility] [place] Procedure Codes (Charges) Tubes, Drains, and Vasc Access Procedure 1: Tubes, Drains, and Vasc Access: [id number] Place catheter in vein superior or inferior vena cava Procedure 2: Tubes, Drains, and Vasc Access: [id number] Ultrasound Guidance For Vascular
--- NOTE | 2021-09-16 15:33 | XRay Report ---
XR chest 1V portable CLINICAL HISTORY: line placement TECHNIQUE: Single frontal radiograph of the chest was obtained. Comparison: Comparison is made to chest one view 09/08/2021 FINDINGS: Left subclavian catheter is seen terminating in the mid SVC. The cardiomediastinal silhouette is norm al. There is a airspace opacity in the left lung base. A left effusion cannot be excluded. IMPRESSION: Airspace opacity in the left lung base compatible with atelectasis, although superimposed aspiration/ pneumonia cannot be excluded. A small left effusion cannot be excluded. Overall findings are improved from 09/08/2021. ACT 112: Negative or not required by law. Electronically signed by: Oscar Oneill M.D. 09/16/2021 3:31 PM
--- NOTE | 2021-09-16 15:34 | Pulmonology Progress Note ---
Date of Service September 16, 2021 Assessment & Plan (1) Pulmonary embolism: (2) COVID: (3) Pneumonia: Laterality: left Lung location: lower lobe of lung Pneumonia type: due to unspecified organism Qualified Code(s): J18.9 - Pneumonia, unspecified organism (4) Abnormal CT scan of lung: Plan: Impression: 60-year-old male admitted with progressive shortness of breath and pain. He is undergoing evaluation for neuromuscular weakness. He has evidence of left lower lobe consolidation which is new compared to a report from last month where the majority of his infiltrates appear to be located on the right side. I suspect he is having difficulty clearing secretions. He was incidentally found to be positive for Covid. Recommendations: 1. Atelectasis/consolidation of the left lower lobe. Continue pulmonary clearance techniques. Would like to avoid bronchoscopy unless the patient should clinically deteriorate given his Covid positive status. Would defer bronchoscopy until the patient is 21 days out and cleared from isolation procedures. Continue hypertonic saline as well as vest therapy, flutter valve, incentive spirometry. 2. Neuromuscular weakness: Will have respiratory therapy check respiratory muscle strength parameters including NIF and FVC on a daily basis. 3. Asked by hospitalist service to place central line for IV access. Apparently IV team could not get access. Central line was placed. Position was verified. Management of the central line will be deferred to the patient's primary admitting service. 4. Patient is currently on doxycycline and Zosyn. He has been afebrile. His white count is normal. Procalcitonin was negative. I think antibiotics can be stopped at this point in time. Speech therapy does plan to complete F EES evaluation which given the patient's migratory infiltrates appears appropriate. We will continue to follow with you. If the patient had previous Covid testing during his prior hospitalization, this may facilitate getting him out of isolation. Records from his prior hospitalization would be invaluable. Admission and Anticipated Discharge Date Admission Date: September 08, 2021 Subjective Patient seen and examined. EMR reviewed. Imaging studies were reviewed. Discussed with off going client sales and service officer. Patient reports continued issues with pulmonary clearance. He is using flutter valve and incentive spirometry but his cough is so weak he is unable to expectorate phlegm. He is not had fevers chills or night sweats. His neuro evaluation is ongoing. He is pending MRI but was unable to have it performed today due to lack of IV access. Review of Systems Review of Systems: All systems reviewed & are unremarkable except as noted in Subjective Physical Exam Constitutional: WD/WN, vitals as above + ill appearing Eyes: + anicteric sclerae Neck: trachea midline, no thyromegaly Respiratory: + abnormal respiratory effort (Takes shallow breaths) and no cough Auscultation: + diminished lung sounds (At left base); no crackles and no wheezes Cardiovascular: RRR, no murmur, no edema Chest (Breasts): Chest: normal inspection of chest Gastrointestinal (Abdomen): normal bowel sounds, soft, nontender, no hepatosplenomegaly Musculoskeletal: Extremities: + clubbing; + extremities abnormal to inspection (Multiple black scabbed over crusted lesions on left dorsal foot) and no cyanosis Skin: + lesion (As above on left dorsal foot, also macerated white skin between all toes) Neurologic: + focal motor deficit (1/5 strength throughout all extremities except LUE 3/5 throughout) and awake Psychiatric: A+Ox3, euthymic affect Lymphatic: no lymphedema Results & Data Results & Data ([facility]) Vital Signs (Past 12 Hours) Vital Signs Temp Pulse Resp BP Pulse Ox Pulse Ox 09/16/21 12:00 36.8 C 88 18 130/68 96 09/16/21 07:54 36.5 C 84 20 157/84 H 93 09/16/21 07:28 90 18 94 09/16/21 07:00 36.5 C 86 18 140/69 93 09/16/21 04:29 36.7 C 78 16 135/59 L 97 09/16/21 04:00 97 Laboratory Results 09/14/21 05:53 09/14/21 05:59 Diagnostic Findings Imaging independently reviewed. No new imaging available PG Care Time/CCT Total # of Minutes Spent Total Time Spent with Patient: Total time spent is greater than 50% in coordination of care (as documented) at patient's floor/unit and/or counseling patient: Coding Level of Care Code 15898 Subseq Hosp Care Lvl 3 Diagnoses Pulmonary embolism I26.99 COVID U07.1 Pneumonia J18.9 Laterality: left Lung location: lower lobe of lung Pneumonia type: due to unspecified organism Abnormal CT scan of lung R91.8
[2021-09-16] MEDS: DOXYCYCLINE HYCLATE 100 MG in DEXTROSE 5% 100 ML IV SCH (15:38)
[2021-09-16 16:03] LABS: Oxygen Saturation VBG 70.3 %; pH VBG 7.44 (7.36-7.41)
--- NOTE | 2021-09-16 16:22 | Anesthesiology Consultation ---
Date of Service September 16, 2021 Assessment & Plan (1) Encounter for pre-operative examination: Chart Review Chart Review: Patient NOT seen in Pre Admission Testing Consults Requested none Additional Notes Patient was originally scheduled for MRI with anesthesia last Thursday, but patient was not appropriately NPO. Pt was rescheduled for MRI with anesthesia today, but he lost IV access and had to have a central line placed, resulting in the case being delayed. He is now rescheduled for 09/17/21. He will need to be evaluated by the attending anesthesiologist at that time to determine his acceptability to proceed. During this admission, he initially presented with aspiration pneumonia in the setting of being COVID positive with respiratory failure. Therefore, whether he is acceptable for anesthesia and the level of sedation that will be possible are significantly impacted by his respiratory status on the day of procedure. History Surgery Operation Date: 09/17/21 12:00 Proposed Procedures p MRI with Anesthesia Sedation Brain and Spine with and without - Tyshawn Garcia MD Height/Weight Height: 5 ft 11 in Weight: 76.2 kg Allergies Allergy/AdvReac Type Severity Reaction Status Date / Time No Known Allergies Allergy Unverified 09/08/21 16:28 Medications Home Medications Medication Instructions Recorded Confirmed Last Taken apixaban 5 mg tablet (Eliquis) 5 mg PO BID 09/08/21 09/08/21 09/08/21 Active Medications Generic Name Dose Route Start Last Admin Trade Name Freq PRN Reason Stop Dose Admin Albuterol 3 ml 09/14/21 19:00 09/16/21 07:27 Albut/Ipratrop 3mg/0.5mg Neb 3 Ml Vial NEB 10/14/21 18:59 3 ml BIDR ALFREDO Administration Protocol Clotrimazole 1 appln 09/14/21 13:00 09/16/21 09:04 Clotrimazole 1% Cr 15 Gm Tube EXT 10/14/21 12:59 1 appln BID ALFREDO Administration Guaifenesin 1,200 mg 09/10/21 09:00 09/16/21 08:58 Guaifenesin 600 Mg Tabcr PO 10/10/21 08:59 Not Given Q12 ALFREDO Heparin Sodium/Dextrose 25,000 units in 500 mls @ 0 mls/hr 09/08/21 21:03 09/16/21 10:30 Heparin Sodium/Dextrose IV 10/08/21 21:02 0 units/hr .Q0M ALFREDO 0 mls/hr Titration Protocol 0 UNITS/HR Polyethylene Glycol 17 gm 09/14/21 12:45 09/16/21 08:58 Polyethylene (Miralax) 17 Gm Pack PO 10/14/21 12:44 Not Given DAILY ALFREDO Saccharomyces Boulardii 250 mg 09/11/21 09:00 09/16/21 12:11 Saccharomyces Boulardii 250 Mg Cap PO 10/11/21 08:59 250 mg DAILY ALFREDO Administration Senna/Docusate Sodium 1 tab 09/14/21 12:45 09/16/21 08:57 Docusate Sodium/Senna 50/8.6mg Tab PO 10/14/21 12:44 Not Given QAM ALFREDO Sodium Chloride 4 ml 09/11/21 19:00 09/16/21 07:27 Sodium Chlor 7% 4 Ml Neb NEB 10/11/21 18:59 4 ml BIDR ALFREDO Administration Past Medical History Medical History Acute DVT (deep venous thrombosis) DVT prophylaxis Lower extremity weakness Peripheral arterial disease Social History Smoking Status: Former smoker tobacco type: smokeless tobacco Do You Dip or Chew Tobacco: Yes Hx Alcohol Use: No Hx Substance Use: No Physical Exam Vital Signs Last Vital Signs Temp 36.8 C 09/16/21 16:00 Pulse 74 09/16/21 16:00 Resp 20 09/16/21 16:00 BP 135/66 09/16/21 16:00 Pulse Ox 95 09/16/21 16:00 Testing Laboratory Results 09/14/21 05:53 09/14/21 05:59 PT 12.0 Seconds (9.0-12.0) 09/08/21 21:39 INR 1.1 (0.9-1.1) 09/08/21 21:39 APTT 52.7 Seconds (21.0-31.0) H* 09/16/21 08:26 09/08/21 15:32 Aerobic Blood Culture - Final Blood No growth in Aerobic bottle after 5 days. Anaerobic Blood Culture - Final No growth in Anaerobic bottle after 5 days. 09/08/21 15:35 Aerobic Blood Culture - Final Blood No growth in Aerobic bottle after 5 days. Anaerobic Blood Culture - Final No growth in Anaerobic bottle after 5 days. Electrocardiogram Date: 09/08/21 Findings: + NSR @ (100) Possible left atrial enlargement Echocardiogram Date: 09/14/21 EF: 55-60% LV Function: normal RWMA: + none Other Findings: + LVH (mild, concentric) Valvular Disease: + no significant valvular disease
[2021-09-16] MEDS ORDERED: bisacodyL 10 MG SUPP PR STA (19:15)
--- NOTE | 2021-09-16 19:16 | Hospitalist Progress Note ---
Date of Service September 16, 2021 Assessment & Plan (1) Pneumonia: Plan: Most likely aspiration pneumonia dense left lower lobe lesion seen on CTA of chest Patient with history of aspiration pneumonitis requiring hospitalization at outside hospital on 07/2021 on the right side Was re evaluated by speech therapy this admission with intact swallow mechanics at this time-recommend safe swallowing techniques and could ask for instrumental swallow evaluation if desired-ordered FEES which will be completed after MRI is completed as per speech Cough is much improved nowand lungs sound a bit clearer since starting scheduled nebulizers with his tonic saline nebulized treatments Started on Zosyn for pneumonia coverage due to dense consolidation,transitioned to Augmentin, but then pulmonology recommending restarting Zosyn for pseudomonal coverage -Also added doxycycline for atypical coverage on 09/14 -Pulmonology on 09/16 decided to discontinue all antibiotics as he had received a week of antibiotics and procalcitonin was normal, no leukocytosis or fevers -He will need imaging for follow up for resolution of pneumonia as he was a lifelong smoker and there could be underlying pulmonary malignancy -Bronchoscopy will be done after 21 days of having Covid when Covid is cleared Continue guaifenesin 1200 mg twice daily -Discontinued Tessalon Perles and codeine given respiratory suppression and difficulty with breathing due to generalized weakness - +Flutter, incentive karolyn, and chest PT -Continue hypertonic saline nebulizers and duo nebs twice daily -Consult pulmonary appreciated -Now has left subclavian central line as he had no other IV access able to be placed by IV team (2) COVID: Plan: Acute hypoxic respiratory failure 2/2 Covid pneumonia with superimposed left lower lobe bacterial pneumonia Covid positive 09/08/2021 First day of symptoms: Approximately 09/01/2021 Vaccination status: Unvaccinated With some mild hypoxia, requiring 2 L nasal cannula With very poor cough effort due to progressive weakness of neurological etiology as below CXR:Layering left pleural effusion with left basilar consolidation. - CTA: There is no evidence of pulmonary embolus in the main, lobar, or segmental pulmonary arteries. Emphysema. There is dense airspace consolidation throughout the left lower lobe with mild volume loss and opacification of the left lower lobe airways. The appearance is typical for pneumonia/aspiration pneumonitis. Clinical correlation will be required and radiographic follow-up to resolution is recommended. Minimal patchy groundglass consolidation is seen at the right lung base, also likely on an infectious/inflammatory basis. No pleural effusion is identified. Advanced coronary artery calcification. Mildly enlarged mediastinal and hilar lymph nodes are likely reactive.. CRP: 12.66 on admission,downtrending Now weaned off oxygen Pneumonia on imaging not secondary to Covid Received dexamethasone x 7 days and then discontinued Remdesivir: Not indicated at this time-outside the window for treatment at the time of admission Baricitinib: Not indicated at this time,not on high flow Continue flutter valve, incentive spirometry, and chest physiotherapy (3) Lower extremity weakness: Plan: Progressive lower extremity and then upper extremity weakness, bilateral over the last year Progressive 1-2 years of symptoms. report started in the right leg distally and moved proximally and then involved left leg and now into the arms right greater than left Has had 2 spinal surgeries at [facility] with Dr. Alvarado, first in April 2020 and second in November 2020. Records pending from [facility] consulted. Thinks this could be a severe generalized peripheral neuropathy versus CIDP, ALS and spinal myelopathy possible but less likely as he is absence of upper motor neuron findings on examination, no hyperreflexia. Also could be myasthenia or Lambert-Eaton. If he has a lung cancer, he could have a paraneoplastic Lambert-Eaton syndrome CK negative, Lyme, B12, RPR all negative -Aldolase myasthenia, PQ calcium antibodies all pending. -Neuro recommends adding on BECKA MRI with contrast of brain and C/T/L-spine recommended and ordered. Patient has had difficulty tolerating this due to cough. agreeable to anesthesia MRI to pursue diagnosis MRIs were delayed again on 09/16 as he lost all IV access-rescheduled for 09/17 but will only be able to do brain and C-spine Can do T-spine and L-spine at a later date or even as an outpatient Highly suspect he will have significant cervical myelopathy as he now reports that he was told a year ago that he needed urgent cervical spine decompression Hopefully it is not too late for him to recover any kind of neurological function if he were to have cervical spine decompression - Symptoms are potentially consistent with demyelinating polymyopathy, if above evaluation unremarkable can proceed to lumbar puncture for evaluation of CIDP. once MRI is reviewed -Neurology also recommending 4 limb EMG with repetitive stimulation as an outpatient (4) Wound of foot: Plan: Multiple crusted yellow lesions with black necrotic centers on left dorsal foot With very cold feet bilaterally and barely palpable pulse in the left foot Arterial Doppler ordered and shows absence of flow distally in the peroneal artery and anterior tibial artery but flow everywhere else, consistent with diffuse PAD Check echocardiogram for thrombus or valvular vegetation-negative Blood cultures are no growth to date since 09/08 Consult vascular-reports this is diffuse disease and no need for intervention -We will continue heparin drip for now -Would not start antiplatelet until after bronchoscopy as per pulmonology recommendation (5) Tinea pedis: Plan: Started clotrimazole between toes and on toes twice daily (6) Cold feet: Plan: Related to neurologic process versus cardiovascular/PAD (7) Constipation: Plan: No bowel movement since admission Added MiraLAX and senna Still no bowel movement-add bisacodyl suppository x1 today (8) COPD with emphysema: Plan: Not on inhalers at home Just quit smoking in 06/2021 Needs PFTs as an outpatient (9) Pulmonary embolism: Plan: Noted on outside reports when he was admitted to an outside hospital in 07/2021 along with his acute right superficial femoral vein DVT CT angiogram of the chest performed here negative for PE Nonetheless, he is on anticoagulation for his DVT Continue heparin drip for now while awaiting possible LP (10) Acute DVT (deep venous thrombosis): Plan: With acute DVT of the right SFV found at outside hospital on 07/2021 Was on Eliquis which is on hold while on heparin drip in case of LP Plan: Patient is a full code as confirmed by he and his sister in the room Disposition-continued stay He will definitely need rehab placement due to severe generalized weakness-he is agreeable to this, will consult PT/OT Admission and Anticipated Discharge Date Admission Date: September 08, 2021 Subjective Patient was n.p.o. for MRIs today but then he lost all IV access and was unable to obtain it prior to the time scheduled for anesthesia so MRIs were rescheduled for tomorrow. He had to have a central line placed in the left subclavian by the engineering specialist technician. He tolerated that well. He is frustrated with his whole process. He reports that last year he was told he needed urgent cervical spine decompression but he then lost his health insurance and was unable to have it done. Suspect he will certainly have evidence of cervical myelopathy on MRI Discussed his care with neurology, pulmonology Otherwise he still feels about the same, no bowel movement. Starting to have some lower abdominal discomfort Telemetry with normal sinus rhythm normal rates, few PVCs Review of Systems Review of Systems: All systems reviewed & are unremarkable except as noted in HPI & below Physical Exam Constitutional: WD/WN, vitals as above + ill appearing Eyes: + anicteric sclerae ENMT: external ear and nose normal, oropharynx normal (Hoarse voice) Neck: trachea midline, no thyromegaly Respiratory: + abnormal respiratory effort (Takes shallow breaths) and no cough Auscultation: + diminished lung sounds (At left base); no crackles and no wheezes Cardiovascular: RRR, no murmur, no edema Vessels: dorsalis pedis pulses present (2+ on right, barely palpable on left) and popliteal pulses present (Bilaterally) Extremities: + abnormal capillary refill (Delayed refill, purpleish feet, feet freezing cold to the touch) Chest (Breasts): Chest: normal inspection of chest Gastrointestinal (Abdomen): normal bowel sounds, soft, nontender, no hepatosplenomegaly Musculoskeletal: Extremities: + clubbing; + extremities abnormal to inspection (Multiple black scabbed over crusted lesions on left dorsal foot) and no cyanosis Skin: + lesion (As above on left dorsal foot, also macerated white skin between all toes) Neurologic: + focal motor deficit (1/5 strength throughout all extremities except LUE 3/5 throughout) and awake Psychiatric: A+Ox3, euthymic affect Lymphatic: no lymphedema Results & Data Results & Data ([facility]) Vital Signs (Past 12 Hours) Vital Signs Temp Pulse Resp BP Pulse Ox 09/16/21 16:00 36.8 C 74 20 135/66 95 09/16/21 12:00 36.8 C 88 18 130/68 96 09/16/21 07:54 36.5 C 84 20 157/84 H 93 09/16/21 07:28 90 18 94 Laboratory Results 09/16/21 09/16/21 Range/Units 15:54 08:26 APTT 52.7 H* (21.0-31.0) Seconds PTT Ratio 1.9 VBG pH 7.44 H (7.36-7.41) VBG pCO2 45 (38-50) mmHg VBG pO2 37 mmHg VBG HCO3 30 mmol/L VBG O2 Saturation 70.3 % VBG Base Excess 5.0 mEq/L Barometric Pressure 731.7 mm/Hg PG Care Time/CCT Total # of Minutes Spent Total Time Spent with Patient: Total time spent is greater than 50% in coordination of care (as documented) at patient's floor/unit and/or counseling patient: Coding Level of Care Code 38664 Subseq Hosp Care Lvl 3 Diagnoses Pneumonia J18.9 Laterality: left Lung location: lower lobe of lung Pneumonia type: due to unspecified organism COVID U07.1 Lower extremity weakness R29.898 Wound of foot S91.309A Tinea pedis B35.3 Cold feet R20.9 Constipation K59.00 COPD with emphysema J43.9 Pulmonary embolism I26.99 Acute DVT (deep venous thrombosis) I82.409 (1) Pneumonia Laterality: left Lung location: lower lobe of lung Pneumonia type: due to unspecified organism Qualified Code(s): J18.9 - Pneumonia, unspecified organism
[2021-09-16] MEDS: HEPARIN SODIUM/DEXTROSE 25,000 UNITS/500 ML BAG IV SCH (22:09)
[2021-09-16 23:54] LABS: Partial Thromboplastin Ratio 1.7
[2021-09-17 00:10] LABS: Partial Thromboplastin Time 47.6 Seconds (21.0-31.0)
[2021-09-17 06:21] LABS: Basophils # (auto) 0.03 K/uL (0-0.2); Basophils % (auto) 0.2 %; Eosinophils # (auto) 0.07 K/uL (0-0.5); Eosinophils % (auto) 0.5 %; Hematocrit (blood only) 49.6 % (42-52); Hemoglobin 15.8 g/dL (14.0-18.0); Immature Granulocytes # (auto) 0.12 K/uL (0.00-0.02); Immature Granulocytes % (auto) 0.9 %; Lymphocytes # (auto) 1.63 K/uL (1.2-3.4); Lymphocytes % (auto) 12.3 %; Mean Corpuscular Hgb Conc 31.9 g/dL (32-36); Mean Corpuscular Volume 87.8 fL (80-100); Mean Platelet Volume 12.1 fL (7.4-10.4); Monocytes # (auto) 1.48 K/uL (0.11-0.59); Monocytes % (auto) 11.2 %; Neutrophils # (auto) 9.88 K/uL (1.4-6.5); Neutrophils % (auto) 74.9 %; Platelet Count 309 K/uL (130-400); RDW Coefficient of Variation 16.4 % (11.5-14.5); RDW Standard Deviation 51.7 fL (36.4-46.3); Red Blood Count 5.65 M/uL (4.7-6.1); White Blood Count 13.21 K/uL (4.8-10.8)
[2021-09-17 06:47] LABS: Partial Thromboplastin Ratio 1.9
[2021-09-17 06:50] LABS: Anion Gap 8 (3-11); BUN Creatinine Ratio 63.3 (10-20); Blood Urea Nitrogen 19 mg/dl (6-23); Calcium 9.8 mg/dl (8.5-10.1); Carbon Dioxide 32 mmol/L (21-32); Chloride 100 mmol/L (98-107); Creatinine Clr Calc Pharmacy 274.5 ml/min; Est GFR (African American) > 150.0 ml/min; Est GFR (Non-African American) 146.3 ml/min; Glucose 95 mg/dl (70-99(Fasting)); Potassium 4.4 mmol/L (3.5-5.1); Sodium 140 mmol/L (136-145)
[2021-09-17 07:01] LABS: Partial Thromboplastin Time 52.7 Seconds (21.0-31.0)
[2021-09-17] MEDS: SODIUM CHLOR 7% 4 ML NEB NEB SCH ×2 (07:10→20:17)
[2021-09-17] MEDS: ALBUT/IPRATROP 3MG/0.5MG NEB 3 ML VIAL NEB SCH ×2 (07:10→19:32)
[2021-09-17] MEDS: CLOTRIMAZOLE 1% CR 15 GM TUBE EXT SCH ×2 (09:30→20:21)
[2021-09-17] MEDS: guaiFENesin 600 MG TABCR PO SCH ×2 (09:30→20:22)
[2021-09-17] MEDS: SACCHAROMYCES BOULARDII 250 MG CAP PO SCH (09:30)
[2021-09-17] MEDS: POLYETHYLENE (MIRALAX) 17 GM PACK PO SCH (09:31)
[2021-09-17] MEDS: DOCUSATE SODIUM/SENNA 50/8.6MG TAB PO SCH (09:31)
[2021-09-17] MEDS ORDERED: MIDAZOLAM HCL 1 MG/ML 2ML VIAL ONE (11:36)
[2021-09-17] MEDS ORDERED: fentaNYL citrate 100 MCG/2 ML VIAL ONE (11:36)
[2021-09-17] MEDS ORDERED: GADOBUTROL 65ML VIAL IV ONE (13:26)
--- NOTE | 2021-09-17 13:58 | Magnetic Resonance Report ---
MR brain wo/w con CLINICAL HISTORY: quadraplegia TECHNIQUE: Multiplanar and multisequence MR images of the brain were obtained prior to and following administration of gadolinium contrast. Comparison: None available at the time of this dictation. FINDINGS: No abnormal restricted diffusion is identified. The white matter is unremarkable. The ventricular sys tem is normal in appearance. There are no masses, mass effect, or midline shift. No abnormal enhancem ent is seen. There is no evidence of acute intraparenchymal hemorrhage. No extra axial fluid collecti ons are seen. The corpus callosum, pituitary gland, and cerebellar tonsils appear grossly unremarkabl e. Flow voids of the major intracranial arterial vessels are identified. The imaged portions of the para nasal sinuses, mastoid air cells, and orbits are unremarkable. IMPRESSION: No acute abnormalities. ACT 112: Negative or not required by law. Electronically signed by: Oscar Oneill M.D. 09/17/2021 1:57 PM
--- NOTE | 2021-09-17 14:19 | Magnetic Resonance Report ---
MRI OF THE CERVICAL SPINE COMBO CLINICAL HISTORY: Quadriplegia. Upper and lower extremity weakness. COMPARISON STUDY: No priors. TECHNIQUE: MRI of the cervical spine is performed utilizing various T1 and T2-weighted sequences in t he axial and sagittal planes. Contrast-enhanced sequences are acquired following the IV administratio n of 8 cc of Gadavist. FINDINGS: Cervical spine: Vertebral body height and alignment are maintained throughout the cervical spine. The re is straightening of the cervical lordosis. Anterior osteophytes are seen throughout. The atlantode ntal articulation appears maintained. The spinous processes are intact. Multilevel degenerative endpl ate change is seen at all cervical levels. There is significant endplate edema at C3-C4 and C7-T1. Mi lder endplate edema is noted at C2-C3. Intervertebral discs: Degenerative disc desiccation and loss of height is seen throughout the cervica l spine. Loss of height is severe at C5-C6 and C6-C7. Spinal cord: There is thinning of the cervical cord at C5-C6 with approximately 8 mm focus of myeloma lacia. This is best seen on sagittal image #11. The remainder of the cervical cord demonstrates gaby l signal intensity. No syrinx is identified. No abnormal postcontrast enhancement is identified. C2-C3: A posterior disc osteophyte complex abuts the ventral cord. Uncovertebral and facet arthropath y contributes to severe left and moderate to severe right neural frontal stenosis. C3-C4: A posterior disc osteophyte complex effaces the ventral cord. Uncovertebral and facet arthropa thy contributes to severe left and moderate right neural foraminal stenosis. C4-C5: A posterior disc osteophyte complex effaces the ventral cord. There is right lateral disc extr usion seen on axial image #48. In conjunction with facet arthropathy this contributes to severe neura l foraminal stenosis and impinges on the exiting right C5 nerve root. Uncovertebral and facet arthrop athy contribute to moderate neural foraminal narrowing on the left. C5-C6: A posterior disc osteophyte complex abuts the ventral cord. Uncovertebral and facet arthropath y contribute to severe left greater than right neural foraminal stenosis. There is impingement on the exiting left C6 nerve root. C6-C7: There is posterior disc bulge eccentric to the right. This effaces the ventral subarachnoid sp carola. Right lateral disc extrusion in conjunction with facet arthropathy contributes to severe right-s ided neural foraminal stenosis. There is moderate to severe neural foraminal narrowing on the left. T his impinges on the exiting right C7 nerve root. C7-T1: There is minimal posterior disc bulge. This effaces the ventral subarachnoid space. There is s evere right and moderate to severe left neural foraminal stenosis. This likely impinges on the exitin g right C8 nerve root. Soft tissues: The prevertebral and paraspinous soft tissues are normal as visualized. Brain parenchyma: The imaged brain parenchyma at the skull base is normal as visualized. IMPRESSION: 1. There is thinning of the cervical cord with focal myelomalacia at C6-C7. No abnormal postcontrast enhancement is identified. 2. The remainder of the cervical cord is normal in morphology and signal intensity. No syrinx is seen . 3. Advanced multilevel cervical spondylosis as above. See discussion for detailed level by level anal ysis. 4. Multilevel degenerative disc disease with significant chronic endplate change and endplate edema. 5. No destructive bony process is identified. Dictated: 09/17/2021 1:49 PM Transcribed: 09/17/2021 2:06 PM [id number] [email or web address] Electronically signed by: Jeremi Levy M.D. 09/17/2021 2:17 PM
[2021-09-17] MEDS: HEPARIN SODIUM/DEXTROSE 25,000 UNITS/500 ML BAG IV SCH (14:36)
--- NOTE | 2021-09-17 14:58 | Anesthesiology Progress Note ---
Date of Service September 17, 2021 Anesthesia Post Procedure Vital Signs Vital Signs: Temp Pulse Pulse Resp BP BP Pulse Ox 09/17/21 14:17 36.5 C 99 H 19 120/86 98 09/17/21 07:34 36.6 C 87 18 146/97 H 97 09/17/21 07:20 118 H 22 97 09/17/21 07:14 118 H 24 97 09/17/21 04:00 36.5 C 98 H 18 154/95 H 96 09/17/21 00:11 124 H 09/16/21 22:00 36.6 C 95 H 18 158/99 H 97 09/16/21 20:12 36.5 C 97 H 16 149/102 H 96 09/16/21 19:23 67 14 95 09/16/21 19:22 67 14 95 09/16/21 16:00 36.8 C 74 20 135/66 95 Pulse Ox 09/17/21 14:17 09/17/21 07:34 09/17/21 07:20 09/17/21 07:14 09/17/21 04:00 97 09/17/21 00:11 09/16/21 22:00 09/16/21 20:12 09/16/21 19:23 09/16/21 19:22 09/16/21 16:00 Transfer of Care Handoff Completed per policy Notes Mental Status: alert / awake / arousable and participated in evaluation Patient Amnestic to Procedure: Yes Nausea / Vomiting: adequately controlled Pain: adequately controlled Airway Patency, RR, SpO2: stable & adequate BP & HR: stable & adequate Hydration State: stable & adequate Anesthetic Complications: no major complications apparent
--- NOTE | 2021-09-17 16:45 | Pulmonology Progress Note ---
Date of Service September 17, 2021 Assessment & Plan (1) Pulmonary embolism: (2) COVID: (3) Pneumonia: Laterality: left Lung location: lower lobe of lung Pneumonia type: due to unspecified organism Qualified Code(s): J18.9 - Pneumonia, unspecified organism (4) Abnormal CT scan of lung: Plan: Impression: 60-year-old male admitted with progressive shortness of breath and pain. He is undergoing evaluation for neuromuscular weakness. He has evidence of left lower lobe consolidation which is new compared to a report from last month where the majority of his infiltrates appear to be located on the right side. I suspect he is having difficulty clearing secretions. He was incidentally found to be positive for Covid. Recommendations: 1. Atelectasis/consolidation of the left lower lobe. Continue pulmonary clearance techniques. Would like to avoid bronchoscopy unless the patient should clinically deteriorate given his Covid positive status. Would defer bronchoscopy until the patient is 21 days out and cleared from isolation procedures. Continue hypertonic saline as well as vest therapy, flutter valve, incentive spirometry. It appears according to the discharge summary that the patient was Covid negative during his hospitalization at [facility]. He will likely require 21 days of isolation. 2. Neuromuscular weakness: NIF is acceptable. We will continue to track NIF and FVC. 3. Central line per hospitalist 4. Off antibiotics. Again suspect that the atelectasis noted is related to poor pulmonary toilet as this was a new finding compared to prior CT scans from a few weeks ago. Aeration on the chest x-ray from yesterday looked improved compared to the CT scan from 09/08 and the chest x-ray from 09/08. We will continue to follow with you. Admission and Anticipated Discharge Date Admission Date: September 08, 2021 Subjective No new complaints. Completed MRI scans with results noted below. Respiratory therapy has been tracking negative inspiratory force which is varied anywhere between -30 -40. His cough remains somewhat ineffectual Review of Systems Review of Systems: All systems reviewed & are unremarkable except as noted in Subjective Physical Exam Constitutional: WD/WN, vitals as above + ill appearing Eyes: + anicteric sclerae Neck: trachea midline, no thyromegaly Respiratory: + abnormal respiratory effort (Takes shallow breaths) and no cough Auscultation: + diminished lung sounds (At left base); no crackles and no wheezes Cardiovascular: RRR, no murmur, no edema Chest (Breasts): Chest: normal inspection of chest Gastrointestinal (Abdomen): normal bowel sounds, soft, nontender, no hepatosplenomegaly Musculoskeletal: Extremities: + clubbing; + extremities abnormal to inspection (Multiple black scabbed over crusted lesions on left dorsal foot) and no cyanosis Skin: + lesion (As above on left dorsal foot, also macerated white skin between all toes) Neurologic: + focal motor deficit (1/5 strength throughout all extremities except LUE 3/5 throughout) and awake Psychiatric: A+Ox3, euthymic affect Lymphatic: no lymphedema Results & Data Results & Data ([facility]) Vital Signs (Past 12 Hours) Vital Signs Temp Pulse Resp BP BP Pulse Ox 09/17/21 14:17 36.5 C 99 H 19 120/86 98 09/17/21 07:34 36.6 C 87 18 146/97 H 97 09/17/21 07:20 118 H 22 97 09/17/21 07:14 118 H 24 97 Laboratory Results 09/17/21 05:27 09/17/21 05:27 Diagnostic Findings No new imaging PG Care Time/CCT Total # of Minutes Spent Total Time Spent with Patient: Total time spent is greater than 50% in coordination of care (as documented) at patient's floor/unit and/or counseling patient: Coding Level of Care Code 33323 Subseq Hosp Care Lvl 2 Diagnoses Pulmonary embolism I26.99 COVID U07.1 Pneumonia J18.9 Laterality: left Lung location: lower lobe of lung Pneumonia type: due to unspecified organism Abnormal CT scan of lung R91.8
--- NOTE | 2021-09-17 17:05 | Hospitalist Progress Note ---
Date of Service September 17, 2021 Assessment & Plan (1) Pneumonia: Plan: Most likely aspiration pneumonia dense left lower lobe lesion seen on CTA of chest Patient with history of aspiration pneumonitis requiring hospitalization at outside hospital on 07/2021 on the right side Was evaluated by speech therapy this admission with intact swallow mechanics at this time on bedside evaluation-recommend safe swallowing techniques and could ask for instrumental swallow evaluation if desired-ordered FEES which will be completed after MRI is completed as per speech Cough is much improved now and lungs sound a bit clearer since starting scheduled nebulizers with his tonic saline nebulized treatments Repeat chest x-ray on 09/16 shows continued atelectasis of the left lower lobe but does appear clearer than previous as far as superimposed pneumonia Started on Zosyn for pneumonia coverage due to dense consolidation,transitioned to Augmentin, but then pulmonology recommending restarting Zosyn for pseudomonal coverage and doxycycline on 09/14 -Pulmonology on 09/16 decided to discontinue all antibiotics as he had received a week of antibiotics and procalcitonin was normal, no leukocytosis or fevers -He will need imaging for follow up for resolution of pneumonia as he was a lifelong smoker and there could be underlying pulmonary malignancy -Bronchoscopy will be done after 21 days of having Covid when Covid is cleared if still has atelectasis of left lower lobe Continue guaifenesin 1200 mg twice daily -Discontinued Tessalon Perles and codeine given respiratory suppression and difficulty with breathing due to generalized weakness - +Flutter, incentive akrolyn, and chest PT NIFs are normal -Continue hypertonic saline nebulizers and duo nebs twice daily -Consult pulmonary appreciated -Now has left subclavian central line as he had no other IV access able to be placed by IV team (2) COVID: Plan: Acute hypoxic respiratory failure 2/2 Covid pneumonia with superimposed left lower lobe bacterial pneumonia Covid positive 09/08/2021 First day of symptoms: Approximately 09/01/2021 Vaccination status: Unvaccinated With some mild hypoxia, requiring 2 L nasal cannula and now weaned off With very poor cough effort due to progressive weakness of neurological etiology as below CXR:Layering left pleural effusion with left basilar consolidation. - CTA: There is no evidence of pulmonary embolus in the main, lobar, or segmental pulmonary arteries. Emphysema. There is dense airspace consolidation throughout the left lower lobe with mild volume loss and opacification of the left lower lobe airways. The appearance is typical for pneumonia/aspiration pneumonitis. Clinical correlation will be required and radiographic follow-up to resolution is recommended. Minimal patchy groundglass consolidation is seen at the right lung base, also likely on an infectious/inflammatory basis. No pleural effusion is identified. Advanced coronary artery calcification. Mildly enlarged mediastinal and hilar lymph nodes are likely reactive.. CRP: 12.66 on admission,downtrending Pneumonia on imaging not secondary to Covid Received dexamethasone x 7 days and then discontinued Remdesivir: Not indicated at this time-outside the window for treatment at the time of admission Baricitinib: Not indicated at this time,not on high flow Continue flutter valve, incentive spirometry, and chest physiotherapy (3) Lower extremity weakness: Plan: Progressive lower extremity and then upper extremity weakness, bilateral over the last year Progressive 1-2 years of symptoms. report started in the right leg distally and moved proximally and then involved left leg and now into the arms right g reater than left [facility], first in April 2020 and second in November 2020. Records pending from [facility] consulted. Thinks this could be a severe generalized peripheral neuropathy versus CIDP, ALS and spinal myelopathy possible but less likely as he is absence of upper motor neuron findings on examination, no hyperreflexia. Al so could be myasthenia or Lambert-Eaton. If he has a lung cancer, he could have a paraneoplastic Lambert-Eaton syndrome CK negative, Lyme, B12, RPR all negative -Aldolase myasthenia, PQ calcium antibodies, BECKA all pending. MRI with contrast of brain and C/T/L-spine recommended and had somewhat of a delay as had to arrange for MRIs to be done under anesthesia as patient has had difficulty tolerating this due to cough. Finally had brain and cervical spine MRIs on 09/17-shows significant cervical spine stenosis and myelomalacia which is most likely the cause of his significant quadriparesis Can do T-spine and L-spine at a later date or even as an outpatient if still deemed necessary in the future Hopefully it is not too late for him to recover any kind of neurological function if he were to have cervical spine decompression - Symptoms are potentially consistent with demyelinating polymyopathy, if above evaluation unremarkable can proceed to lumbar puncture for evaluation of CIDP. o nce MRI is reviewed -Neurology also recommending 4 limb EMG with repetitive stimulation as an outpatient Consult orthopedic spine surgery-discussed the case with Dr. Chávez on 09/17 who will review the MRIs -Plan tentatively for cervical spine decompression early next week -If definitely having surgery, he will need an IVC filter as he will have to be off all anticoagulation and has a known right lower extremity extensive SFV DVT- Will discuss with vascular surgery (4) Cervical myelopathy: Plan: As above (5) Wound of foot: Plan: Multiple crusted yellow lesions with black necrotic centers on left dorsal foot With very cold feet bilaterally and barely palpable pulse in the left foot Arterial Doppler ordered and shows absence of flow distally in the peroneal artery and anterior tibial artery but flow everywhere else, consistent with diffuse PAD Check echocardiogram for thrombus or valvular vegetation-negative Blood cultures are no growth to date since 09/08 Consult vascular-reports this is diffuse disease and no need for intervention -We will continue heparin drip for now -Would not start antiplatelet until after spine surgery (6) Tinea pedis: Plan: Started clotrimazole between toes and on toes twice daily (7) Cold feet: Plan: Related to neurologic process versus cardiovascular/PAD (8) Acute DVT (deep venous thrombosis): Plan: With acute extensive proximal to distal DVT of the right SFV found at outside hospital on 07/2021 Was on Eliquis which is on hold while on heparin drip in case of LP and now for spine surgery He will need IVC filter if going to proceed with cervical spine surgery so he can come off the heparin drip temporarily (9) Pulmonary embolism: Plan: Noted on outside reports when he was admitted to an outside hospital in 07/2021 along with his acute right superficial femoral vein DVT CT angiogram of the chest performed here negative for PE Nonetheless, he is on anticoagulation for his DVT Continue heparin drip for now (10) Constipation: Plan: No bowel movement since admission x8 days-finally had one on 09/16 Continue MiraLAX and senna bisacodyl suppository as needed (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: Plan: Not on inhalers at home Just quit smoking in 06/2021 Needs PFTs as an outpatient (12) Peripheral arterial disease: Plan: As above Wait to start antiplatelet till after spine surgery He already quit smoking Should also be on a statin as an outpatient Plan: Disposition-continued stay He will definitely need rehab placement due to severe generalized weakness-he is agreeable to this, will consult PT/OT, however will be ready for discharge after recovery from cervical spine surgery likely another week from now Full code Admission and Anticipated Discharge Date Admission Date: September 08, 2021 Subjective Patient had his MRIs under sedation today. He is now eating his dinner. Still with mild weak cough. He denies pain anywhere. We reviewed the results of his MRIs. I discussed his care at length with neurology as well as with orthopedic spine surgery. Telemetry with normal sinus rhythm with rates in the 70s to 110s Review of Systems Review of Systems: All systems reviewed & are unremarkable except as noted in HPI & below Physical Exam Constitutional: WD/WN, vitals as above Eyes: + anicteric sclerae ENMT: external ear and nose normal, oropharynx normal (Hoarse voice) Neck: trachea midline, no thyromegaly Respiratory: + abnormal respiratory effort (Takes shallow breaths) and no cough Auscultation: + diminished lung sounds (At left base); no crackles and no wheezes Cardiovascular: RRR, no murmur, no edema Vessels: dorsalis pedis pulses present (2+ on right, barely palpable on left) and popliteal pulses present (Bilaterally) Extremities: + abnormal capillary refill (Delayed refill, purpleish feet, feet freezing cold to the touch) Chest (Breasts): Chest: normal inspection of chest Gastrointestinal (Abdomen): normal bowel sounds, soft, nontender, no hepatosplenomegaly Musculoskeletal: Extremities: + clubbing; + extremities abnormal to inspection (Multiple black scabbed over crusted lesions on left dorsal foot) and no cyanosis Skin: + lesion (As above on left dorsal foot, also macerated white skin between all toes) Neurologic: + focal motor deficit (1/5 strength throughout all extremities except LUE 3/5 throughout) and awake Psychiatric: A+Ox3, euthymic affect Genitourinary: Condom catheter in place draining tea colored clear urine Lymphatic: no lymphedema Results & Data Results & Data ([facility]) Vital Signs (Past 12 Hours) Vital Signs Temp Pulse Resp BP BP Pulse Ox 09/17/21 16:42 36.5 C 102 H 17 118/84 98 09/17/21 14:17 36.5 C 99 H 19 120/86 98 09/17/21 07:34 36.6 C 87 18 146/97 H 97 09/17/21 07:20 118 H 22 97 09/17/21 07:14 118 H 24 97 Laboratory Results 09/17/21 09/17/21 09/17/21 Range/Units 05:27 05:27 05:27 WBC (4.8-10.8) K/uL RBC (4.7-6.1) M/uL Hgb (14.0-18.0) g/dL Hct (42-52) % MCV (80-100) fL MCH (25-34) pg MCHC (32-36) g/dL RDW Std Deviation (36.4-46.3) fL RDW Coeff of Davina (11.5-14.5) % Plt Count (130-400) K/uL MPV (7.4-10.4) fL Immature Gran % (Auto) % Neut % (Auto) % Lymph % (Auto) % [place]bers[place] % (Auto) % Eos % (Auto) % Baso % (Auto) % Neut # (Auto) (1.4-6.5) K/uL Lymph # (Auto) (1.2-3.4) K/uL [place]on # (Auto) (0.11-0.59) K/uL Eos # (Auto) (0-0.5) K/uL Baso # (Auto) (0-0.2) K/uL Immature Gran # (Auto) (0.00-0.02) K/uL ESR (0-20) mm/hr APTT 52.7 H* (21.0-31.0) Seconds PTT Ratio 1.9 Sodium 140 (136-145) mmol/L Potassium 4.4 (3.5-5.1) mmol/L Chloride 100 (98-107) mmol/L Carbon Dioxide 32 (21-32) mmol/L Anion Gap 8 (3-11) BUN 19 (6-23) mg/dl Creatinine 0.30 L (0.6-1.4) mg/dl Est Cr Clr Drug Dosing 274.5 ml/min Est GFR ( Amer) > 150.0 ml/min Est GFR (Non-Af Amer) 146.3 ml/min BUN/Creatinine Ratio 63.3 H (10-20) Glucose 95 (70-99(Fasting)) mg/dl Calcium 9.8 (8.5-10.1) mg/dl Magnesium 2.0 (1.7-2.4) mg/dl C-Reactive Protein 2.70 H (0-0.5) mg/dl BECKA Screen Pending 09/17/21 09/17/21 09/16/21 Range/Units 05:27 05:27 23:10 WBC 13.21 H (4.8-10.8) K/uL RBC 5.65 (4.7-6.1) M/uL Hgb 15.8 (14.0-18.0) g/dL Hct 49.6 (42-52) % MCV 87.8 (80-100) fL MCH 28.0 (25-34) pg MCHC 31.9 L (32-36) g/dL RDW Std Deviation 51.7 H (36.4-46.3) fL RDW Coeff of Davina 16.4 H (11.5-14.5) % Plt Count 309 (130-400) K/uL MPV 12.1 H (7.4-10.4) fL Immature Gran % (Auto) 0.9 % Neut % (Auto) 74.9 % Lymph % (Auto) 12.3 % Culberson % (Auto) 11.2 % Eos % (Auto) 0.5 % Baso % (Auto) 0.2 % Neut # (Auto) 9.88 H (1.4-6.5) K/uL Lymph # (Auto) 1.63 (1.2-3.4) K/uL [place] # (Auto) 1.48 H (0.11-0.59) K/uL Eos # (Auto) 0.07 (0-0.5) K/uL Baso # (Auto) 0.03 (0-0.2) K/uL Immature Gran # (Auto) 0.12 H (0.00-0.02) K/uL ESR 23 H (0-20) mm/hr APTT 47.6 H* (21.0-31.0) Seconds PTT Ratio 1.7 Sodium (136-145) mmol/L Potassium (3.5-5.1) mmol/L Chloride (98-107) mmol/L Carbon Dioxide (21-32) mmol/L Anion Gap (3-11) BUN (6-23) mg/dl Creatinine (0.6-1.4) mg/dl Est Cr Clr Drug Dosing ml/min Est GFR ( Amer) ml/min Est GFR (Non-Af Amer) ml/min BUN/Creatinine Ratio (10-20) Glucose (70-99(Fasting)) mg/dl Calcium (8.5-10.1) mg/dl Magnesium (1.7-2.4) mg/dl C-Reactive Protein (0-0.5) mg/dl BECKA Screen PG Care Time/CCT Total # of Minutes Spent Total Time Spent with Patient: Total time spent is greater than 50% in coordination of care (as documented) at patient's floor/unit and/or counseling patient: Coding Level of Care Code 43685 Subseq Hosp Care Lvl 3 Diagnoses Pneumonia J18.9 Laterality: left Lung location: lower lobe of lung Pneumonia type: due to unspecified organism COVID U07.1 Lower extremity weakness R29.898 Wound of foot S91.309A Tinea pedis B35.3 Cold feet R20.9 Constipation K59.00 COPD with emphysema J43.9 Pulmonary embolism I26.99 Acute DVT (deep venous thrombosis) I82.409 Cervical myelopathy G95.9 Peripheral arterial disease I73.9 (1) Pneumonia Laterality: left Lung location: lower lobe of lung Pneumonia type: due to unspecified organism Qualified Code(s): J18.9 - Pneumonia, unspecified organism
[2021-09-18] MEDS: ALBUT/IPRATROP 3MG/0.5MG NEB 3 ML VIAL NEB SCH ×2 (07:30→20:41)
[2021-09-18] MEDS: SODIUM CHLOR 7% 4 ML NEB NEB SCH ×2 (07:31→20:42)
[2021-09-18] MEDS: DOCUSATE SODIUM/SENNA 50/8.6MG TAB PO SCH (08:03)
[2021-09-18] MEDS: POLYETHYLENE (MIRALAX) 17 GM PACK PO SCH (08:04)
[2021-09-18] MEDS: CLOTRIMAZOLE 1% CR 15 GM TUBE EXT SCH ×2 (08:08→21:22)
[2021-09-18] MEDS: HEPARIN SODIUM/DEXTROSE 25,000 UNITS/500 ML BAG IV SCH ×2 (08:52→21:13)
[2021-09-18 09:35] LABS: Partial Thromboplastin Ratio 1.8
[2021-09-18 09:36] LABS: Partial Thromboplastin Time 49.8 Seconds (21.0-31.0)
[2021-09-18] MEDS: guaiFENesin 600 MG TABCR PO SCH ×2 (10:50→21:24)
[2021-09-18] MEDS: SACCHAROMYCES BOULARDII 250 MG CAP PO SCH (10:50)
--- NOTE | 2021-09-18 12:00 | Pulmonology Progress Note ---
Date of Service September 18, 2021 Assessment & Plan (1) Pulmonary embolism: (2) COVID: (3) Pneumonia: Laterality: left Lung location: lower lobe of lung Pneumonia type: due to unspecified organism Qualified Code(s): J18.9 - Pneumonia, unspecified organism (4) Abnormal CT scan of lung: Plan: Impression: 60-year-old male admitted with progressive shortness of breath and pain. He is undergoing evaluation for neuromuscular weakness. He has evidence of left lower lobe consolidation which is new compared to a report from last month where the majority of his infiltrates appear to be located on the right side. I suspect he is having difficulty clearing secretions. He was incidentally found to be positive for Covid. Recommendations: 1. Atelectasis/consolidation of the left lower lobe. Continue pulmonary clearance techniques. Would recommend repeating the patient's chest x-ray in 3 to [address] scan if the chest x-ray remained abnormal. If atelectasis was confirmed at that time, could consider outpatient bronchoscopy. Not suspicious of a sinister diagnosis given reports that this lung was clear on a CT scan performed 4 weeks ago. 2. Neuromuscular weakness: Respiratory muscle strength appears improving. 3. Central line placed per hospital request. This will need to be discontinued under the direction of the hospitalist. 4. Off antibiotics. Again suspect that the atelectasis noted is related to poor pulmonary toilet as this was a new finding compared to prior CT scans from a few weeks ago. Aeration on the chest x-ray from yesterday looked improved compared to the CT scan from 09/08 and the chest x-ray from 09/08. 5. DVT with PE: The patient can come off anticoagulation in 6 weeks if ortho/spine surgery is required. Would not recommend IVC filter. Would recommend duplex ultrasound of the lower extremity in a few weeks to ensure that the clot is not propagating. If clot remains persistent, could have a discussion regarding therapeutic options at that point in time with vascular surgery and hematology. From a lung standpoint, the patient appears to be doing well. Follow-up as noted above. Pulmonary will sign off at this point time. Feel free to contact us if we can be of additional assistance. Admission and Anticipated Discharge Date Admission Date: September 08, 2021 Subjective Patient seen and examined. EMR reviewed. The patient feels that he is doing better. His breathing is less problematic. He feels he is able to clear phlegm and coughing up to his throat but not quite able to expectorate it. He feels he is swallowing some of it down. He is not having any shortness of breath. No chest pain or palpitations. No fevers chills or night sweats. Physical Exam Constitutional: WD/WN, vitals as above Eyes: + anicteric sclerae Neck: trachea midline, no thyromegaly Respiratory: no cough Auscultation: no crackles and no wheezes Cardiovascular: RRR, no murmur, no edema Chest (Breasts): Chest: normal inspection of chest Gastrointestinal (Abdomen): normal bowel sounds, soft, nontender, no hepatosplenomegaly Musculoskeletal: Extremities: + clubbing; + extremities abnormal to inspection (Multiple black scabbed over crusted lesions on left dorsal foot) and no cyanosis Skin: + lesion (As above on left dorsal foot, also macerated white skin between all toes) Neurologic: + focal motor deficit (1/5 strength throughout all extremities except LUE 3/5 throughout) and awake Psychiatric: A+Ox3, euthymic affect Lymphatic: no lymphedema Results & Data Results & Data ([facility]) Vital Signs (Past 12 Hours) Vital Signs Temp Pulse Pulse Resp BP Pulse Ox Pulse Ox 09/18/21 08:03 36.4 C L 102 H 20 150/92 H 96 09/18/21 07:35 93 H 20 09/18/21 07:32 93 H 20 97 09/18/21 06:15 80 09/18/21 04:22 36.7 C 83 18 129/84 95 09/18/21 04:00 98 Laboratory Results 09/17/21 05:27 09/17/21 05:27 Diagnostic Findings No new chest imaging PG Care Time/CCT Total # of Minutes Spent Total Time Spent with Patient: Total time spent is greater than 50% in coordination of care (as documented) at patient's floor/unit and/or counseling patient: Coding Level of Care Code 56413 Subseq Hosp Care Lvl 2 Diagnoses Pulmonary embolism I26.99 COVID U07.1 Pneumonia J18.9 Laterality: left Lung location: lower lobe of lung Pneumonia type: due to unspecified organism Abnormal CT scan of lung R91.8
[2021-09-18 12:06] LABS: Anti Nuclear Antibody Screen NEGATIVE (NEGATIVE)
--- NOTE | 2021-09-18 14:48 | Orthopedic Consultation ---
Date of Consultation September 18, 2021 Assessment & Plan (1) Myelopathy concurrent with and due to spinal stenosis of cervical region: Assessment cervical spinal stenosis with myelopathy. Plan I had a lengthy discussion today with the patient reviewing his cervical spine MRI and clinical presentation. There is evidence of cord damage myelomalacia noted on the cervical MRI. This could be a contributing factor to the dense weakness to lower extremities and upper extremities. He may have had aggressive myelopathic symptoms over the past year that is put him in his current condition. Emphasized any surgery at this time would be to stabilize the cervical spine and prevent further decline. I cannot state that he did have any return to function to lower extremities with a cervical spine surgery. In light of his grossly meets phenomenon certainly wear the to pursue surgery. We need to make sure he is medically stable. He is currently anticoagulated most likely need a Francisca filter so he can be properly anticoagulated for a cervical procedure. Patient stands agrees. I discussed this with his treating physicians and neurologist. History of Present Illness Reason for Consultation: Stenosis Attending Physician: Macario Coronel MD History of Present Illness This is a very pleasant 60-year-old male with a lengthy history involving significant neurologic decline over the past year. He states she has a history of undergoing 2 lumbar procedures. Initially it was for a right foot drop however his symptoms progressed to a point where he was wheelchair-bound and now it is affecting the strength of the upper extremities. He denies any significant trauma fall or event that preceded this decline. He does live at home with his 81-year-old mother. He is has been undergoing home physical therapy. He states he has shocklike symptoms down his arms and legs with cervical flexion. He has full sensation the upper lower extremities per his description. Complains of intermittent cervicalgia only. Allergies Allergy/AdvReac Type Severity Reaction Status Date / Time No Known Allergies Allergy Unverified 09/08/21 16:28 Home Medications Medication Instructions Recorded Confirmed Type apixaban 5 mg tablet (Eliquis) 5 mg PO BID 09/08/21 09/08/21 History Patient History Medical History (Updated 09/18/21 @ 14:47 by Claudio Chávez DO) Acute DVT (deep venous thrombosis) Cervical myelopathy COPD with emphysema DVT prophylaxis Lower extremity weakness Peripheral arterial disease Pulmonary embolism Social History Smoking Status: Former smoker Do You Dip or Chew Tobacco: Yes; Tobacco Cessation Education Requested by Patient: No Hx Alcohol Use: No Hx Substance Use: No Preferred Language: Trinidadian Communication Ability: Effective Change Management Analyst Required: No Beliefs That Will Affect Care: None Current Living Situation: Parent Current Living Situation Comment: home with caregiver Other Information That Helps Us Care for You: No Feels Safe at Home: Yes Assistive Devices: None Physical Exam Physical Exam: On exam he has some evidence of dorsiflexion to the left foot and a 3/5 at best. Has complete paralysis of the right lower extremity. Sensory is intact. He is swollen. Upper extremities demonstrate 3+/5 biceps triceps deltoids hand grasp. Sensory is intact. He does have Lhermitte's phenomenon testing. There is a bilateral Luz sign. Results & Data ([facility]) Vital Signs (Past 12 Hours) Vital Signs Temp Pulse Pulse Resp BP BP Pulse Ox 09/18/21 11:58 37.1 C 112 H 20 135/90 95 09/18/21 08:03 36.4 C L 102 H 20 150/92 H 96 09/18/21 07:35 93 H 20 09/18/21 07:32 93 H 20 97 09/18/21 06:15 80 09/18/21 04:22 36.7 C 83 18 129/84 95 09/18/21 04:00 Pulse Ox 09/18/21 11:58 09/18/21 08:03 09/18/21 07:35 09/18/21 07:32 09/18/21 06:15 09/18/21 04:22 09/18/21 04:00 98
--- NOTE | 2021-09-18 16:31 | Hospitalist Progress Note ---
Date of Service September 18, 2021 Assessment & Plan (1) Pneumonia: Plan: Most likely aspiration pneumonia dense left lower lobe lesion seen on CTA of chest Patient with history of aspiration pneumonitis requiring hospitalization at outside hospital on 07/2021 on the right side Was evaluated by speech therapy this admission with intact swallow mechanics at this time on bedside evaluation-recommend safe swallowing techniques and could ask for instrumental swallow evaluation if desired-ordered FEES which will be completed after MRI is completed as per speech Cough is much improved now and lungs sound a bit clearer since starting scheduled nebulizers with his tonic saline nebulized treatments Repeat chest x-ray on 09/16 shows continued atelectasis of the left lower lobe but does appear clearer than previous as far as superimposed pneumonia Started on Zosyn for pneumonia coverage due to dense consolidation,transitioned to Augmentin, but then pulmonology recommending restarting Zosyn for pseudomonal coverage and doxycycline on 09/14 -Pulmonology on 09/16 decided to discontinue all antibiotics as he had received a week of antibiotics and procalcitonin was normal, no leukocytosis or fevers -Recommended for repeat chest x-ray in 3 to 4 weeks with follow-up CT after abnormal. Suspicion for underlying malignancy given normal CT scan 4 weeks -Bronchoscopy will be done after 21 days of having Covid when Covid is cleared if still has atelectasis of left lower lobe Continue guaifenesin 1200 mg twice daily -Discontinued Tessalon Perles and codeine given respiratory suppression and difficulty with breathing due to generalized weakness - +Flutter, incentive karolyn, and chest PT - NIFs are normal -Continue hypertonic saline nebulizers and duo nebs twice daily -Pulmonary recommendations appreciated. - left subclavian central line as he had no other IV access able to be placed by IV team (2) COVID: Plan: Acute hypoxic respiratory failure 2/ Covid pneumonia with superimposed left lo wer lobe bacterial pneumonia Covid positive 09/08/2021 First day of symptoms: Approximately 09/01/2021 Vaccination status: Unvaccinated With some mild hypoxia, requiring 2 L nasal cannula and now weaned off With very poor cough effort due to progressive weakness of neurological etiology as below CXR:Layering left pleural effusion with left basilar consolidation. - CTA: There is no evidence of pulmonary embolus in the main, lobar, or segmental pulmonary arteries. Emphysema. There is dense airspace consolidation throughout the left lower lobe with mild volume loss and opacification of the left lower lobe airways. The appearance is typical for pneumonia/aspiration pneumonitis. Clinical correlation will be required and radiographic follow-up to resolution is recommended. Minimal patchy groundglass consolidation is seen at the right lung base, also likely on an infectious/inflammatory basis. No pleural effusion is identified. Advanced coronary artery calcification. Mildly enlarged mediastinal and hilar lymph nodes are likely reactive.. CRP: 12.66 on admission,downtrending Pneumonia on imaging not secondary to Covid Received dexamethasone x 7 days and then discontinued Remdesivir: Not indicated at this time-outside the window for treatment at the time of admission Baricitinib: Not indicated at this time,not on high flow Continue flutter valve, incentive spirometry, and chest physiotherapy (3) Lower extremity weakness: Plan: Progressive lower extremity and then upper extremity weakness, bilateral over the last year Progressive 1-2 years of symptoms. report started in the right leg distally and moved proximally and then involved left leg and now into the arms right greater than left Has had 2 lumbar spinal surgeries at [facility] with Dr. Alvarado, first in April 2020 and second in November 2020. Records pending from [facility] consulted. Thinks this could be a severe generalized peripheral neuropathy versus CIDP, ALS and spinal myelopathy possible but less likely as he is absence of upper motor neuron findings on examination, no hyperreflexia. Also could be myasthenia or Lambert-Eaton. If he has a lung cancer, he could have a paraneoplastic Lambert-Eaton syndrome CK negative, Lyme, B12, RPR all negative -Aldolase myasthenia, PQ calcium antibodies, BECKA all pending. MRI with contrast of brain and C/T/L-spine recommended and had somewhat of a delay as had to arrange for MRIs to be done under anesthesia as patient has had difficulty tolerating this due to cough. MRIbrain/C-spine 09/17-shows significant cervical spine stenosis and myelomalacia which is most likely the cause of his significant quadriparesis Can do T-spine and L-spine at a later date or even as an outpatient if still deemed necessary in the future -CIDP evaluation/lumbar puncture deferred in the setting of cervical myelopathy and work-up as noted below -Neurology also recommending 4 limb EMG with repetitive stimulation as an outpatient [facility] consulted. Case discussed with Dr. Chávez 09/18. Evidence of cord damage myelomalacia on cervical MRI contributing to his upper and lower extremity weakness. Consult orthopedic spine surgery-discussed the case with Dr. Chávez on 09/17 who will review the MRIs -Plan tentatively for cervical spine decompression early next week, tentatively Thursday Lower extremity Dopplers pending to reassess for clot burden. If clot resolved, may proceed without filter placement. If residual clot patient is unable to wait for extended period of time due to the urgency of decompression, and will need vascular evaluation for filter at that point. (4) Cervical myelopathy: Plan: As above (5) Wound of foot: Plan: -Multiple crusted yellow lesions with black necrotic centers on left dorsal foot - With very cold feet bilaterally and barely palpable pulse in the left foot - Arterial Doppler ordered and shows absence of flow distally in the peroneal artery and anterior tibial artery but flow everywhere else, consistent with diffuse PAD -TTE did not show thrombus/valvular vegetation - Blood cultures are no growth to date since 09/08 - Vascular consulted-reports this is diffuse disease and no need for intervention -We will continue heparin drip for now -Would not start antiplatelet until after spine surgery 09/18 feet warm, nontender, pink (6) Tinea pedis: Plan: Started clotrimazole between toes and on toes twice daily (7) Cold feet: Plan: Related to neurologic process versus cardiovascular/PAD (8) Acute DVT (deep venous thrombosis): Plan: With acute extensive proximal to distal DVT of the right SFV found at outside hospital on 07/2021 Was on Eliquis which is on hold while on heparin drip in case of LP and now for spine surgery He will need IVC filter if going to proceed with cervical spine surgery so he can come off the heparin drip temporarily (9) Pulmonary embolism: Plan: Noted on outside reports when he was admitted to an outside hospital in 07/2021 along with his acute right superficial femoral vein DVT CT angiogram of the chest performed here negative for PE Nonetheless, he is on anticoagulation for his DVT Continue heparin drip for now (10) Constipation: Plan: No bowel movement since admission x8 days-finally had one on 09/16 Continue MiraLAX and senna bisacodyl suppository as needed (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: Plan: Not on inhalers at home Just quit smoking in 06/2021 May have PFTs as an outpatient for comfort (12) Peripheral arterial disease: Plan: As above Wait to start antiplatelet till after spine surgery He already quit smoking Should also be on a statin as an outpatient Plan: Disposition-continued stay, pending cervical spine surgical evaluation/treatment as above Full code Admission and Anticipated Discharge Date Admission Date: September 08, 2021 Subjective Seen the bedside this morning. Patient reports his breathing is substantially improved over the previous week, and his cough is improving. Intermittent cough, nonproductive this morning. No fever, chills, sweats. No pain in his feet, continues to be weak with the right leg greater than left. Does have sensation in his feet bilaterally although somewhat diminished, denies pain in his lower extremities today. Does have pain with neck flexion Discussed with Ortho, see below Review of Systems Review of Systems: All systems reviewed & are unremarkable except as noted in Subjective Physical Exam Physical Exam: General: A&Ox3. NAD. Cooperative. HEENT: Atraumatic, normocephalic./Hearing grossly intact. Pulm: Diminished, no overt wheezes/rales/rhonchi. Symmetrical chest rise. No increase in work of breathing. No respiratory distress. Cardiac: RRR, -mrg. Radial pulses intact and symmetrical. Abdominal: Nontender, nondistended, soft. BS present. Extremities: Diffuse upper and lower extremity weakness, most prominent in the right lower extremity. Right and left lower extremity with edema, left foot with dry scabbed over lesions. Right foot with mild erythema/warmth, nontender. Results & Data Results & Data ([facility]) Vital Signs (Past 12 Hours) Vital Signs Temp Pulse Pulse Resp BP BP Pulse Ox 09/18/21 15:54 37.1 C 105 H 20 125/70 93 09/18/21 14:20 115 H 09/18/21 11:58 37.1 C 112 H 20 135/90 95 09/18/21 08:03 36.4 C L 102 H 20 150/92 H 96 09/18/21 07:35 93 H 20 09/18/21 07:32 93 H 20 97 09/18/21 06:15 80 PG Care Time/CCT Total # of Minutes Spent Total Time Spent with Patient: Total time spent is greater than 50% in coordination of care (as documented) at patient's floor/unit and/or counseling patient: Coding Level of Care Code 23250 Subseq Hosp Care Lvl 3 Diagnoses Pneumonia J18.9 Laterality: left Lung location: lower lobe of lung Pneumonia type: due to unspecified organism COVID U07.1 Lower extremity weakness R29.898 Cervical myelopathy G95.9 Wound of foot S91.309A Tinea pedis B35.3 Cold feet R20.9 Acute DVT (deep venous thrombosis) I82.409 Pulmonary embolism I26.99 Constipation K59.00 COPD with emphysema J43.9 Peripheral arterial disease I73.9 (1) Pneumonia Laterality: left Lung location: lower lobe of lung Pneumonia type: due to unspecified organism Qualified Code(s): J18.9 - Pneumonia, unspecified organism
--- NOTE | 2021-09-19 00:48 | Communication Note ---
Date of Service: September 19, 2021 Called by STAT rad at 12:45 - patient found to have partially occlusive thrombus of the right mid superficial femoral and popliteal veins. No DVT present on LLE. Per hospitalist note - patient found with extensive proximal to distal DVT of the right SFV found at outside hospital on 07/2021. He was previously on Eliquis which is on hold while on heparin gtt. He will most likely need an IVC filter prior to proceeding with cervical spine surgery. Has Covid-19 infection, ongoing thrombophilia Will place Vascular surgery consultation
[2021-09-19 06:17] LABS: Alanine Aminotransferase 16 U/L (7-52); Albumin Globulin Ratio 1.1 (0.9-2); Albumin Level 3.3 gm/dl (3.4-5.0); Alkaline Phosphatase 76 U/L (34-104); Anion Gap 6 (3-11); Aspartate Aminotransferase 11 U/L (13-39); Bilirubin,Total 0.7 mg/dl (0.2-1.0); Blood Urea Nitrogen 15 mg/dl (6-23); Calcium 8.9 mg/dl (8.5-10.1); Carbon Dioxide 28 mmol/L (21-32); Chloride 99 mmol/L (98-107); Creatinine Clr Calc Pharmacy 328.5 ml/min; Est GFR (African American) > 150.0 ml/min; Est GFR (Non-African American) > 150.0 ml/min; Globulin 2.9 gm/dl (2.5-4.0); Glucose 101 mg/dl (70-99(Fasting)); Sodium 133 mmol/L (136-145); Total Protein 6.2 gm/dl (6.0-8.3)
[2021-09-19 06:32] LABS: Partial Thromboplastin Ratio 2.3
[2021-09-19 06:33] LABS: Partial Thromboplastin Time 62.4 Seconds (21.0-31.0)
[2021-09-19 06:45] LABS: Basophils # (auto) 0.02 K/uL (0-0.2); Basophils % (auto) 0.2 %; Eosinophils # (auto) 0.12 K/uL (0-0.5); Eosinophils % (auto) 1.4 %; Hematocrit (blood only) 38.8 % (42-52); Hemoglobin 12.8 g/dL (14.0-18.0); Immature Granulocytes # (auto) 0.05 K/uL (0.00-0.02); Immature Granulocytes % (auto) 0.6 %; Lymphocytes # (auto) 2.11 K/uL (1.2-3.4); Lymphocytes % (auto) 24.5 %; Mean Corpuscular Hemoglobin 28.6 pg (25-34); Mean Corpuscular Volume 86.8 fL (80-100); Mean Platelet Volume 11.8 fL (7.4-10.4); Monocytes # (auto) 0.97 K/uL (0.11-0.59); Monocytes % (auto) 11.3 %; Neutrophils # (auto) 5.33 K/uL (1.4-6.5); Platelet Count 224 K/uL (130-400); RDW Coefficient of Variation 16.5 % (11.5-14.5); RDW Standard Deviation 51.9 fL (36.4-46.3); Red Blood Count 4.47 M/uL (4.7-6.1)
--- NOTE | 2021-09-19 07:47 | Ultrasound Report ---
US venous doppler LE BI CLINICAL HISTORY: Bilateral leg swelling and open wounds COMPARISON: None available at the time of this dictation. TECHNIQUE: Bilateral lower extremity real-time compression venous ultrasound with Color Doppler imagi ng. Utilizing real-time ultrasonic imaging multiple real time high-resolution ultrasonic images with comp ression and noncompression maneuvers of the deep venous system in addition to color doppler imaging w ere performed from the common femoral vein through the proximal calf veins. FINDINGS: On the right side, the common femoral vein and proximal superficial femoral vein are patent. However, the mid to distal superficial femoral vein and popliteal veins are not fully compressible. The findi ngs are suspicious for chronic clot. There is very limited visualization of the calf vessels with no definite thrombus seen below the knee. On the left side, there is no definite evidence for deep venous thrombosis. However, there is limited evaluation of the calf vessels. Impression: 1. No evidence for acute deep venous thrombosis. 2. However, there is evidence for chronic DVT involving the right mid superficial femoral vein throug h the popliteal vein. ACT 112: Negative or not required by law. Electronically signed by: Alejandro Jeffery M.D. 09/19/2021 7:45 AM
[2021-09-19] MEDS: ALBUT/IPRATROP 3MG/0.5MG NEB 3 ML VIAL NEB SCH ×2 (07:48→19:59)
[2021-09-19] MEDS: SODIUM CHLOR 7% 4 ML NEB NEB SCH ×2 (07:49→20:09)
[2021-09-19] MEDS: POLYETHYLENE (MIRALAX) 17 GM PACK PO SCH (08:31)
[2021-09-19] MEDS: DOCUSATE SODIUM/SENNA 50/8.6MG TAB PO SCH (08:31)
[2021-09-19] MEDS: SACCHAROMYCES BOULARDII 250 MG CAP PO SCH (08:33)
[2021-09-19] MEDS: guaiFENesin 600 MG TABCR PO SCH ×2 (08:33→20:20)
[2021-09-19] MEDS: CLOTRIMAZOLE 1% CR 15 GM TUBE EXT SCH ×2 (08:33→20:21)
--- NOTE | 2021-09-19 10:42 | Communication Note ---
Date of Service: September 19, 2021 Patient seen earlier this admission. Chart reviewed. In view of cervical neck surgery would recommend placement of vena cava filter prior to the surgical procedure being that he will need to be off his anticoagulation for this surgery. We will plan on placing the filter on Thursday.
[2021-09-19] MEDS: HEPARIN SODIUM/DEXTROSE 25,000 UNITS/500 ML BAG IV SCH (12:01)
--- NOTE | 2021-09-19 12:28 | Hospitalist Progress Note ---
Date of Service September 19, 2021 Assessment & Plan (1) Pneumonia: Plan: Most likely aspiration pneumonia dense left lower lobe lesion seen on CTA of chest Patient with history of aspiration pneumonitis requiring hospitalization at outside hospital on 07/2021 on the right side Was evaluated by speech therapy this admission with intact swallow mechanics at this time on bedside evaluation-recommend safe swallowing techniques and could ask for instrumental swallow evaluation if desired-ordered FEES which will be completed after MRI is completed as per speech Cough is much improved now and lungs sound a bit clearer since starting scheduled nebulizers with his tonic saline nebulized treatments Repeat chest x-ray on 09/16 shows continued atelectasis of the left lower lobe but does appear clearer than previous as far as superimposed pneumonia Started on Zosyn for pneumonia coverage due to dense consolidation,transitioned to Augmentin, but then pulmonology recommending restarting Zosyn for pseudomonal coverage and doxycycline on 09/14 -Pulmonology on 09/16 decided to discontinue all antibiotics as he had received a week of antibiotics and procalcitonin was normal, no leukocytosis or fevers -Recommended for repeat chest x-ray in 3 to 4 weeks with follow-up CT after abnormal. Suspicion for underlying malignancy given normal CT scan 4 weeks -Bronchoscopy will be done after 21 days of having Covid when Covid is cleared if still has atelectasis of left lower lobe Continue guaifenesin 1200 mg twice daily -Discontinued Tessalon Perles and codeine given respiratory suppression and difficulty with breathing due to generalized weakness - +Flutter, incentive karolyn, and chest PT - NIFs are normal -Continue hypertonic saline nebulizers and duo nebs twice daily -Pulmonary recommendations appreciated. - left subclavian central line as he had no other IV access able to be placed by IV team Stable, on room air. Patient is anticipated for IVC filter placement Thursday, followed by cervical decompression surgery. Discussed with pulmonology, will plan on performing bronc while patient is intubated (2) COVID: Plan: Acute hypoxic respiratory failure 2/2 Covid pneumonia with superimposed left lower lobe bacterial pneumonia Covid positive 09/08/2021 First day of symptoms: Approximately 09/01/2021 Vaccination status: Unvaccinated With some mild hypoxia, requiring 2 L nasal cannula and now weaned off With very poor cough effort due to progressive weakness of neurological etiology as below CXR:Layering left pleural effusion with left basilar consolidation. - CTA: There is no evidence of pulmonary embolus in the main, lobar, or segmental pulmonary arteries. Emphysema. There is dense airspace consolidation throughout the left lower lobe with mild volume loss and opacification of the left lower lobe airways. The appearance is typical for pneumonia/aspiration pneumonitis. Clinical correlation will be required and radiographic follow-up to resolution is recommended. Minimal patchy groundglass consolidation is seen at the right lung base, also likely on an infectious/inflammatory basis. No pleural effusion is identified. Advanced coronary artery calcification. Mildly enlarged mediastinal and hilar lymph nodes are likely reactive.. CRP: 12.66 on admission,downtrending Pneumonia on imaging not secondary to Covid Received dexamethasone x 7 days and then discontinued Remdesivir: Not indicated at this time-outside the window for treatment at the time of admission Baricitinib: Not indicated at this time,not on high flow Continue flutter valve, incentive spirometry, and chest physiotherapy (3) Lower extremity weakness: Plan: Progressive lower extremity and then upper extremity weakness, bilateral over the last year Progressive 1-2 years of symptoms. report started in the right leg distally and moved proximally and then involved left leg and now into the arms right greater than left Has had 2 lumbar spinal surgeries at [facility] with Dr. Alvarado, first in April 2020 and second in November 2020. Records pending from [facility] consulted. Thinks this could be a severe generalized peripheral neuropathy versus CIDP, ALS and spinal myelopathy possible but less likely as he is absence of upper motor neuron findings on examination, no hyperreflexia. Also could be myasthenia or Lambert-Eaton. If he has a lung cancer, he could have a paraneoplastic Lambert-Eaton syndrome CK negative, Lyme, B12, RPR all negative -Aldolase myasthenia, PQ calcium antibodies, BECKA all pending. MRI with contrast of brain and C/T/L-spine recommended and had somewhat of a delay as had to arrange for MRIs to be done under anesthesia as patient has had difficulty tolerating this due to cough. MRIbrain/C-spine 09/17-shows significant cervical spine stenosis and myelomalacia which is most likely the cause of his significant quadriparesis Can do T-spine and L-spine at a later date or even as an outpatient if still deemed necessary in the future -CIDP evaluation/lumbar puncture deferred in the setting of cervical myelopathy and work-up as noted below -Neurology also recommending 4 limb EMG with repetitive stimulation as an outpatient [facility] consulted. Case discussed with Dr. Chávez 09/18. Evidence of cord damage myelomalacia on cervical MRI contributing to his upper and lower extremity weakness. Consult orthopedic spine surgery-discussed the case with Dr. Chávez on 09/17 who will review the MRIs -Plan tentatively for cervical spine decompression early next week, tentatively Thursday Lower extremity Doppler: Partially occlusive thrombus of the right mid superficial femoral/popliteal veins with reduced compressibility. Previously with DVT of right SFV 07/2021 for which he was on Eliquis converted to heparin GTT while inpatient. Recommended for IVC filter prior to cervical spine decompression. Vascular consulted overnight. Dissipate IVC filter placement Thursday. [facility] notified. (4) Cervical myelopathy: Plan: As above (5) Wound of foot: Plan: -Multiple crusted yellow lesions with black necrotic centers on left dorsal foot - With very cold feet bilaterally and barely palpable pulse in the left foot - Arterial Doppler ordered and shows absence of flow distally in the peroneal artery and anterior tibial artery but flow everywhere else, consistent with diffuse PAD -TTE did not show thrombus/valvular vegetation - Blood cultures are no growth to date since 09/08 - Vascular consulted-reports this is diffuse disease and no need for intervention -We will continue heparin drip for now -Would not start antiplatelet until after spine surgery 09/18 feet warm, nontender, pink (6) Tinea pedis: Plan: Started clotrimazole between toes and on toes twice daily (7) Cold feet: Plan: Related to neurologic process versus cardiovascular/PAD (8) Acute DVT (deep venous thrombosis): Plan: With acute extensive proximal to distal DVT of the right SFV found at outside hospital on 07/2021 Was on Eliquis which is on hold while on heparin drip in case of LP and now for spine surgery IVC filter planned as above (9) Pulmonary embolism: Plan: Noted on outside reports when he was admitted to an outside hospital in 07/2021 along with his acute right superficial femoral vein DVT CT angiogram of the chest performed here negative for PE DVT as noted above, pending filter placement Thursday Continue heparin drip for now (10) Constipation: Plan: No bowel movement since admission x8 days-finally had one on 09/16 Continue MiraLAX and senna bisacodyl suppository as needed (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 Continues to have an intermittent residual cough, feels his breathing is doing okay and unchanged from prior. Remains on room air. Denies fever, chills, sweats, leg pain, abdominal pain. Continues to have persistent weakness unchanged. Patient is aware that his repeat ultrasound shows residual DVT, and that he is anticipated for a filter placement Thursday and follow-up for surgical decompression surgery. Guarded prognosis given weakness of over 1 year and difficulty with minimal activation of the lower extremity right greater than left, patient is hopeful to get through procedure. Aware bronchus anticipated while he is intubated. No questions or concerns otherwise at time of bedside Review of Systems Review of Systems: All systems reviewed & are unremarkable except as noted in Subjective Physical Exam Physical Exam: General: A&Ox3. NAD. Cooperative. HEENT: Atraumatic, normocephalic./Hearing grossly intact. Pulm: Diminished, no overt wheezes/rales/rhonchi. Symmetrical chest rise. No increase in work of breathing. No respiratory distress. Cardiac: RRR, -mrg. Radial pulses intact and symmetrical. Abdominal: Nontender, nondistended, soft. BS present. Extremities: Unchanged diffuse upper and lower extremity weakness, most prominent in the right lower extremity. Lower extremity edema persists unchanged, slight warmth of right foot Results & Data Results & Data ([facility]) Vital Signs (Past 12 Hours) Vital Signs Temp Pulse Pulse Resp BP Pulse Ox Pulse Ox 09/19/21 11:45 37 C 99 H 16 172/76 H 92 09/19/21 08:22 36.9 C 84 22 140/78 97 09/19/21 07:49 90 18 92 09/19/21 07:24 79 09/19/21 03:57 96 09/19/21 03:32 37.0 C 82 16 127/80 95 PG Care Time/CCT Total # of Minutes Spent Total Time Spent with Patient: Total time spent is greater than 50% in coordination of care (as documented) at patient's floor/unit and/or counseling patient: Coding Level of Care Code 10890 Subseq Hosp Care Lvl 3 Diagnoses Pneumonia J18.9 Laterality: left Lung location: lower lobe of lung Pneumonia type: due to unspecified organism COVID U07.1 Lower extremity weakness R29.898 Cervical myelopathy G95.9 Wound of foot S91.309A Tinea pedis B35.3 Cold feet R20.9 Acute DVT (deep venous thrombosis) I82.409 Pulmonary embolism I26.99 Constipation K59.00 COPD with emphysema J43.9 Peripheral arterial disease I73.9 (1) Pneumonia Laterality: left Lung location: lower lobe of lung Pneumonia type: due to unspecified organism Qualified Code(s): J18.9 - Pneumonia, unspecified organism
[2021-09-20] MEDS: HEPARIN SODIUM/DEXTROSE 25,000 UNITS/500 ML BAG IV SCH ×2 (02:07→17:12)
[2021-09-20 06:22] LABS: Basophils # (auto) 0.01 K/uL (0-0.2); Basophils % (auto) 0.1 %; Eosinophils # (auto) 0.12 K/uL (0-0.5); Eosinophils % (auto) 1.7 %; Hematocrit (blood only) 38.3 % (42-52); Hemoglobin 11.9 g/dL (14.0-18.0); Immature Granulocytes # (auto) 0.05 K/uL (0.00-0.02); Immature Granulocytes % (auto) 0.7 %; Lymphocytes # (auto) 1.67 K/uL (1.2-3.4); Mean Corpuscular Hemoglobin 27.5 pg (25-34); Mean Corpuscular Hgb Conc 31.1 g/dL (32-36); Mean Corpuscular Volume 88.7 fL (80-100); Monocytes # (auto) 0.86 K/uL (0.11-0.59); Monocytes % (auto) 11.9 %; Neutrophils # (auto) 4.54 K/uL (1.4-6.5); Neutrophils % (auto) 62.6 %; Platelet Count 179 K/uL (130-400); RDW Coefficient of Variation 16.8 % (11.5-14.5); RDW Standard Deviation 54.7 fL (36.4-46.3); Red Blood Count 4.32 M/uL (4.7-6.1); White Blood Count 7.25 K/uL (4.8-10.8)
[2021-09-20 06:39] LABS: Alanine Aminotransferase 15 U/L (7-52); Albumin Globulin Ratio 1.1 (0.9-2); Albumin Level 3.1 gm/dl (3.4-5.0); Alkaline Phosphatase 74 U/L (34-104); Anion Gap 5 (3-11); Aspartate Aminotransferase 11 U/L (13-39); Bilirubin,Total 0.6 mg/dl (0.2-1.0); Blood Urea Nitrogen 12 mg/dl (6-23); Calcium 8.5 mg/dl (8.5-10.1); Carbon Dioxide 29 mmol/L (21-32); Chloride 102 mmol/L (98-107); Est GFR (African American) > 150.0 ml/min; Est GFR (Non-African American) > 150.0 ml/min; Globulin 2.7 gm/dl (2.5-4.0); Glucose 91 mg/dl (70-99(Fasting)); Potassium 3.7 mmol/L (3.5-5.1); Sodium 136 mmol/L (136-145); Total Protein 5.8 gm/dl (6.0-8.3)
[2021-09-20 07:02] LABS: Partial Thromboplastin Ratio 2.4
[2021-09-20] MEDS: guaiFENesin 600 MG TABCR PO SCH ×2 (07:25→20:24)
[2021-09-20] MEDS: CLOTRIMAZOLE 1% CR 15 GM TUBE EXT SCH ×2 (07:26→20:23)
[2021-09-20] MEDS: SODIUM CHLOR 7% 4 ML NEB NEB SCH ×2 (07:30→19:14)
[2021-09-20] MEDS: ALBUT/IPRATROP 3MG/0.5MG NEB 3 ML VIAL NEB SCH ×2 (07:30→19:14)
[2021-09-20] MEDS: DOCUSATE SODIUM/SENNA 50/8.6MG TAB PO SCH (07:37)
[2021-09-20] MEDS: POLYETHYLENE (MIRALAX) 17 GM PACK PO SCH (07:37)
--- NOTE | 2021-09-20 08:27 | Neurology Progress Note ---
Date of Service September 20, 2021 Assessment & Plan (1) Myelopathy concurrent with and due to spinal stenosis of cervical region: (2) Progressive focal motor weakness: (3) Lhermitte's sign positive: (4) Cervical spine pain: (5) Lumbar spine pain: Plan: This is a complicated patient neurologically and has progressive, asymmetrical weakness that initiated about 18 months ago, starting with the right lower extremity and is post 2 lumbar spine surgeries ( of uncertain type). Over the last 9 months he has had progressive weakness in both legs and then both arms, always right greater than left side. He was wheelchair bound prior to this hospitalization. Interestingly, he has no sensory symptoms including no numbness or tingling or pain , but he does have some decreases pinprick in the feet suggesting a peripheral sensory polyneuropathy. He does have cervical and lumbar spine pain and has a positive Lhermitte sign with neck flexion. MRI of the brain was unremarkable. MRI of the cervical spine showed advanced spondylosis and degenerative changes of disc and bone with significant spinal stenosis and myelomalacia at C6-7. Suspect a cervical myelopathy contributing to the weakness of all 4 limbs , but especially his arms. Etiology of this patient's weakness is therefore likely stemming from cervical spinal stenosis. He also has a history of lumbar spinal stenosis with progressive leg weakness to near plegia. The lack of upper motor neuron signs in the lower extremities (which we would expect with a cervical myelopathy ) are likely due to his previous lumbar spine surgery and the sensory polyneuropathy creating peripheral damage which would mask upper motor neuron signs. An inflammatory myopathy is not likely given his weakness both proximally and distally, as well as lack of other skin or joint issues. However, inclusion body myositis can cause proximal and distal weakness presenting in an asymmetrical pattern. ALS is also considered less likely as there are no upper motor neuron signs present. Myasthenia gravis is a possibility but without cranial nerve or bulbar deficits I think this is less likely. in addition, the progressive weakness without fluctuation speaks against a neuromuscular junction disorder. Lambert-Eaton myasthenic syndrome is not present as his VGCC antibody titer is normal. The patient had very cold feet on September 16, which is likely vascular and may be autoimmune related. today he does not have cold distal extremities. Recommendations: 1. Patient is scheduled for cervical spine decompressive surgery by Dr. Chávez next week. Unfortunately, much of the weakness damage has been done so it is uncertain much he will improved postoperatively. 2. Continue physical therapy. 3. Awaiting acetylcholine receptor antibody titers 4. Francisca filter will be placed next week 5. we considered MRI of the thoracic and lumbar spine earlier this week. These could be obtained before his surgery next week. 6. Depending on his clinical course he may need a muscle biopsy and/or EMG of all 4 limbs (as an outpatient). Overall, I spent a total of 60 minutes with this case including review of records, Review of MRI films, direct evaluation the patient at bedside, and discussion of the case with the patient and RN at bedside, and Dr. Driscoll, including differential diagnosis and treatment options. Admission and Anticipated Discharge Date Admission Date: September 08, 2021 Subjective Patient has no pain in the limbs. He does have some intermittent neck pain p articularly when he flexes his neck and he will traveling pain down his spine into both legs and both feet. The patient does not have any actual numbness or lack of feeling- just weakness in the legs, right greater than left, and both arms right greater than Left. He denies any incontinence of bowel or bladder. Patient has a negative VGCC antibody titer. Acetylcholine receptor antibody titers are pending. Recent laboratory studies today showed mild anemia. His sed rate was 23 but his CRP was 2.70. Chem profile was largely unremarkable and an BECKA was negative. MRI of the brain was remarkable for a few tiny, nonspecific white matter spots of an old nature. There was no enhancement with contrast. I reviewed these films. MRI of the cervical spine showed significant spondylosis diffusely with degenerative changes of disc in bone and significant spinal stenosis. There was myelomalacia at C6-7. These films were reviewed Results & Data ([facility]) Vital Signs (Past 12 Hours) Vital Signs Temp Pulse Pulse Resp BP Pulse Ox Pulse Ox 09/20/21 07:37 69 09/20/21 07:35 76 20 94 09/20/21 06:39 36.8 C 78 17 135/82 94 09/20/21 04:00 97 09/20/21 03:39 37.1 C 78 18 124/72 95 09/19/21 23:41 86 09/19/21 22:23 36.9 C 91 H 18 123/76 97 Exam (Neuro) Physical Exam: he is awake and alert. Speech is without aphasia or dysarthria. Mood is normal and affect is appropriate. Thought process seems intact with good memory to conversation. Extraocular eye muscles are intact without nystagmus. There is no ptosis. Pupils are 3 mm bilaterally reactive to light. There is no facial droop. Tongue is midline with good strength. There is normal sensation of the face bilaterally. neck has some discomfort with movement and he has a positive Lhermitte sign with neck flexion. No abnormal involuntary movements are noted and there is no ataxia with [id number] testing on the left. There is no tremor. Strength is 3-4/5 on the right diffusely both proximally and distally. Strength is 4/5 diffusely in the left upper extremity ( noticeably better than the right ). Right lower extremity strength is 0/5 diffusely and left lower extremity strength is 1/5. There is decreased sensation to pin in the feet to the mid lower legs bilaterally. Sensory is spared in the hands. Reflexes are 2/4 in the left quadriceps brachioradialis, biceps and triceps tendons. The right brachioradialis was 1/4 and the right triceps, biceps, Achilles, and quadriceps tendons were 0/4. Left Achilles was 0/4 also. Toes are neutral to plantar stimulation bilaterally. PG Care Time/CCT Total # of Minutes Spent Total Time Spent with Patient: Total time spent is greater than 50% in coordination of care (as documented) at patient's floor/unit and/or counseling patient: Coding Level of Care Code 03425 Subseq Hosp Care Lvl 3 Diagnoses Progressive focal motor weakness R53.1 Lhermitte's sign positive R29.818 Cervical spine pain M54.2 Lumbar spine pain M54.50 Myelopathy concurrent with and due to spinal stenosis of cervical region M48.02; G99.2 Time Spent (min) 60 Comment add modifiers as able
--- NOTE | 2021-09-20 15:14 | Hospitalist Progress Note ---
Date of Service September 20, 2021 Assessment & Plan (1) Pneumonia: Plan: Most likely aspiration pneumonia dense left lower lobe lesion seen on CTA of chest Patient with history of aspiration pneumonitis requiring hospitalization at outside hospital on 07/2021 on the right side Was evaluated by speech therapy this admission with intact swallow mechanics at this time on bedside evaluation-recommend safe swallowing techniques and could ask for instrumental swallow evaluation if desired-ordered FEES which will be completed after MRI is completed as per speech Cough is much improved now and lungs sound a bit clearer since starting scheduled nebulizers with his tonic saline nebulized treatments Repeat chest x-ray on 09/16 shows continued atelectasis of the left lower lobe but does appear clearer than previous as far as superimposed pneumonia Started on Zosyn for pneumonia coverage due to dense consolidation,transitioned to Augmentin, but then pulmonology recommending restarting Zosyn for pseudomonal coverage and doxycycline on 09/14 -Pulmonology on 09/16 decided to discontinue all antibiotics as he had received a week of antibiotics and procalcitonin was normal, no leukocytosis or fevers -Recommended for repeat chest x-ray in 3 to 4 weeks with follow-up CT after abnormal. Suspicion for underlying malignancy given normal CT scan 4 weeks -Bronchoscopy will be done after 21 days of having Covid when Covid is cleared if still has atelectasis of left lower lobe Continue guaifenesin 1200 mg twice daily -Discontinued Tessalon Perles and codeine given respiratory suppression and difficulty with breathing due to generalized weakness - +Flutter, incentive karolyn, and chest PT - NIFs are normal -Continue hypertonic saline nebulizers and duo nebs twice daily -Pulmonary recommendations appreciated. - left subclavian central line as he had no other IV access able to be placed by IV team Stable, on room air. Patient is anticipated for IVC filter placement Thursday, followed by cervical decompression surgery. Discussed with pulmonology, will plan on performing bronc while patient is intubated (2) COVID: Plan: Acute hypoxic respiratory failure 2/2 Covid pneumonia with superimposed left lower lobe bacterial pneumonia Covid positive 09/08/2021 First day of symptoms: Approximately 09/01/2021 Vaccination status: Unvaccinated With some mild hypoxia, requiring 2 L nasal cannula and now weaned off With very poor cough effort due to progressive weakness of neurological etiology as below CXR:Layering left pleural effusion with left basilar consolidation. - CTA: There is no evidence of pulmonary embolus in the main, lobar, or segmental pulmonary arteries. Emphysema. There is dense airspace consolidation throughout the left lower lobe with mild volume loss and opacification of the left lower lobe airways. The appearance is typical for pneumonia/aspiration pneumonitis. Clinical correlation will be required and radiographic follow-up to resolution is recommended. Minimal patchy groundglass consolidation is seen at the right lung base, also likely on an infectious/inflammatory basis. No pleural effusion is identified. Advanced coronary artery calcification. Mildly enlarged mediastinal and hilar lymph nodes are likely reactive.. CRP: 12.66 on admission,downtrending Pneumonia on imaging not secondary to Covid Received dexamethasone x 7 days and then discontinued Remdesivir: Not indicated at this time-outside the window for treatment at the time of admission Baricitinib: Not indicated at this time,not on high flow Continue flutter valve, incentive spirometry, and chest physiotherapy Discussed with infection control. First symptoms 09/01, Covid +09/08. Is a candidate for downgrade this weekend. Discussed that patient does have ongoing respiratory symptoms, but is also been treated for secondary pneumonia and dense consolidation of the lung. Overall clinical picture patient is okay for downgrade from Covid isolation on 09/23/2021. (3) Lower extremity weakness: Plan: Progressive lower extremity and then upper extremity weakness, bilateral over the last year Progressive 1-2 years of symptoms. report started in the right leg distally and moved proximally and then involved left leg and now into the arms right greater than left Has had 2 lumbar spinal surgeries at [facility] with Dr. Alvarado, first in April 2020 and second in November 2020. Records pending from [facility] consulted. Thinks this could be a severe generalized peripheral neuropathy versus CIDP, ALS and spinal myelopathy possible but less likely as he is absence of upper motor neuron findings on examination, no hyperreflexia. Followup testing as below CK negative, Lyme, B12, RPR all negative -Aldolase myasthenia, PQ calcium antibodies pending - BECKA negative MRI with contrast of brain and C/T/L-spine recommended and had somewhat of a delay as had to arrange for MRIs to be done under anesthesia as patient has had difficulty tolerating this due to cough. MRIbrain/C-spine 09/17-shows significant cervical spine stenosis and myelomalacia which is most likely the cause of his significant quadriparesis Can do T-spine and L-spine at a later date or even as an outpatient if still deemed necessary in the future [facility] normal -CIDP evaluation/lumbar puncture deferred in the setting of cervical myelopathy and work-up as noted below -Neurology also recommending 4 limb EMG with repetitive stimulation as an outpatient, possible muscle biopsy [facility] consulted. Case discussed with Dr. Chávez 09/18. Evidence of cord damage myelomalacia on cervical MRI contributing to his upper and lower extremity weakness. -Plan tentatively for cervical spine decompression early next week, tentatively Thursday Lower extremity Doppler: Partially occlusive thrombus of the right mid superficial femoral/popliteal veins with reduced compressibility. Previously with DVT of right SFV 07/2021 for which he was on Eliquis converted to heparin GTT while inpatient. -Anticipate IVC filter placement on Thursday prior to cervical decompression on Thursday Patient does have absence of upper motor neuron findings in legs with a history of multiple back interventions. Upper motor neuron findings may be being masked by lower back spinal involvement, given his risk it is recommended that he have MRI of the thoracic spine without contrast and of the lumbar spine with and without. This was discussed with neurology. Unfortunately patient does require anesthesia with mild sedation to complete MRI due to his cough and respiratory symptoms. This was discussed with anesthesia and with Dr. Chávez today. If unable to get this before cervical decompression Thursday would not delay decompression at that time for this, but would still recommend getting MRI in the near future. Fortunately this was also discussed with vascular who have concerns regarding MRI shortly after filter placement, and ideally this would be deferred for several weeks. Will attempt to get the MRIs completed prior to filter placement on Thursday. Tentatively scheduled for 7:30 AM on Thursday. (4) Cervical myelopathy: Plan: As above (5) Wound of foot: Plan: -Multiple crusted yellow lesions with black necrotic centers on left dorsal foot - With very cold feet bilaterally and barely palpable pulse in the left foot - Arterial Doppler ordered and shows absence of flow distally in the peroneal artery and anterior tibial artery but flow everywhere else, consistent with diffuse PAD -TTE did not show thrombus/valvular vegetation - Blood cultures are no growth to date since 09/08 - Vascular consulted-reports this is diffuse disease and no need for intervention -We will continue heparin drip for now -Would not start antiplatelet until after spine surgery (6) Tinea pedis: Plan: clotrimazole between toes and on toes twice daily (7) Cold feet: Plan: Related to neurologic process versus cardiovascular/PAD (8) Acute DVT (deep venous thrombosis): Plan: With acute extensive proximal to distal DVT of the right SFV found at outside hospital on 07/2021 Was on Eliquis which is on hold while on heparin drip in case of LP and now for spine surgery IVC filter planned as above (9) Pulmonary embolism: Plan: Noted on outside reports when he was admitted to an outside hospital in 07/2021 along with his acute right superficial femoral vein DVT CT angiogram of the chest performed here negative for PE DVT as noted above, pending filter placement Thursday Continue heparin drip for now (10) Constipation: Plan: No bowel movement since admission x8 days-finally had one on 09/16 Continue MiraLAX and senna bisacodyl suppository as needed (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 Patient without fever, chills, sweats. No change in strength or sensation in arms or legs. No chest pain, chest pressure, difficulty breathing. Did discuss lumbar MRI with patient. He does not feel that he will be able to tolerate an MRI with just oral lorazepam, while his breathing and cough is better he does note that he has a persistent cough intermittently and worsened when lying down and does not feel that he will be able to tolerate the MRI. Discussed with anesthesia, see below for further. Otherwise no acute questions or concerns today. Review of Systems Review of Systems: All systems reviewed & are unremarkable except as noted in Subjective Physical Exam Physical Exam: General: A&Ox3. NAD. Cooperative. HEENT: Atraumatic, normocephalic./Hearing grossly intact. Pulm: Diminished, no overt wheezes/rales/rhonchi. Symmetrical chest rise. No increase in work of breathing. No respiratory distress. Cardiac: RRR, -mrg. Radial pulses intact and symmetrical. Abdominal: Nontender, nondistended, soft. BS present. Extremities: Unchanged diffuse upper and lower extremity weakness, most prominent in the right lower extremity. Lower extremity edema persists unchanged, slight warmth of right foot Results & Data Results & Data ([facility]) Vital Signs (Past 12 Hours) Vital Signs Temp Pulse Pulse Resp BP Pulse Ox Pulse Ox 09/20/21 14:50 84 09/20/21 12:08 36.9 C 92 H 20 127/82 94 09/20/21 07:37 69 09/20/21 07:35 76 20 94 09/20/21 06:39 36.8 C 78 17 135/82 94 09/20/21 04:00 97 09/20/21 03:39 37.1 C 78 18 124/72 95 PG Care Time/CCT Total # of Minutes Spent Total Time Spent with Patient: Total time spent is greater than 50% in coordination of care (as documented) at patient's floor/unit and/or counseling patient: Coding Level of Care Code 33460 Subseq Hosp Care Lvl 3 Diagnoses Pneumonia J18.9 Laterality: left Lung location: lower lobe of lung Pneumonia type: due to unspecified organism COVID U07.1 Lower extremity weakness R29.898 Cervical myelopathy G95.9 Wound of foot S91.309A Tinea pedis B35.3 Cold feet R20.9 Acute DVT (deep venous thrombosis) I82.409 Pulmonary embolism I26.99 Constipation K59.00 COPD with emphysema J43.9 Peripheral arterial disease I73.9 (1) Pneumonia Laterality: left Lung location: lower lobe of lung Pneumonia type: due to unspecified organism Qualified Code(s): J18.9 - Pneumonia, unspecified organism
[2021-09-21 06:23] LABS: Basophils # (auto) 0.01 K/uL (0-0.2); Basophils % (auto) 0.1 %; Eosinophils # (auto) 0.12 K/uL (0-0.5); Eosinophils % (auto) 1.6 %; Hematocrit (blood only) 37.5 % (42-52); Hemoglobin 12.1 g/dL (14.0-18.0); Immature Granulocytes # (auto) 0.02 K/uL (0.00-0.02); Immature Granulocytes % (auto) 0.3 %; Lymphocytes # (auto) 1.53 K/uL (1.2-3.4); Lymphocytes % (auto) 20.4 %; Mean Corpuscular Hemoglobin 28.3 pg (25-34); Mean Corpuscular Hgb Conc 32.3 g/dL (32-36); Mean Corpuscular Volume 87.6 fL (80-100); Monocytes % (auto) 10.7 %; Neutrophils # (auto) 5.02 K/uL (1.4-6.5); Neutrophils % (auto) 66.9 %; Platelet Count 166 K/uL (130-400); RDW Coefficient of Variation 16.9 % (11.5-14.5); RDW Standard Deviation 53.9 fL (36.4-46.3); Red Blood Count 4.28 M/uL (4.7-6.1)
[2021-09-21 06:50] LABS: Alanine Aminotransferase 15 U/L (7-52); Albumin Globulin Ratio 1.1 (0.9-2); Albumin Level 3.3 gm/dl (3.4-5.0); Alkaline Phosphatase 83 U/L (34-104); Anion Gap 6 (3-11); Aspartate Aminotransferase 11 U/L (13-39); BUN Creatinine Ratio 41.7 (10-20); Bilirubin,Total 0.6 mg/dl (0.2-1.0); Blood Urea Nitrogen 10 mg/dl (6-23); Calcium 8.8 mg/dl (8.5-10.1); Carbon Dioxide 28 mmol/L (21-32); Chloride 101 mmol/L (98-107); Est GFR (African American) > 150.0 ml/min; Est GFR (Non-African American) > 150.0 ml/min; Globulin 2.9 gm/dl (2.5-4.0); Glucose 95 mg/dl (70-99(Fasting)); Partial Thromboplastin Time 56.2 Seconds (21.0-31.0); Sodium 135 mmol/L (136-145); Total Protein 6.2 gm/dl (6.0-8.3)
[2021-09-21] MEDS: ALBUT/IPRATROP 3MG/0.5MG NEB 3 ML VIAL NEB SCH ×2 (07:20→19:34)
[2021-09-21] MEDS: SODIUM CHLOR 7% 4 ML NEB NEB SCH ×3 (07:21→19:34)
[2021-09-21] MEDS: guaiFENesin 600 MG TABCR PO SCH ×2 (08:32→20:17)
[2021-09-21] MEDS: POLYETHYLENE (MIRALAX) 17 GM PACK PO SCH (08:32)
[2021-09-21] MEDS: CLOTRIMAZOLE 1% CR 15 GM TUBE EXT SCH ×2 (08:32→20:16)
[2021-09-21] MEDS: DOCUSATE SODIUM/SENNA 50/8.6MG TAB PO SCH (08:32)
[2021-09-21] MEDS: HEPARIN SODIUM/DEXTROSE 25,000 UNITS/500 ML BAG IV SCH ×2 (09:00→23:02)
--- NOTE | 2021-09-21 11:34 | Hospitalist Progress Note ---
Date of Service September 21, 2021 Assessment & Plan (1) Pneumonia: Plan: Most likely aspiration pneumonia dense left lower lobe lesion seen on CTA of chest Patient with history of aspiration pneumonitis requiring hospitalization at outside hospital on 07/2021 on the right side Was evaluated by speech therapy this admission with intact swallow mechanics at this time on bedside evaluation-recommend safe swallowing techniques and could ask for instrumental swallow evaluation if desired-ordered FEES which will be completed after MRI is completed as per speech Cough is much improved now and lungs sound a bit clearer since starting scheduled nebulizers with his tonic saline nebulized treatments Repeat chest x-ray on 09/16 shows continued atelectasis of the left lower lobe but does appear clearer than previous as far as superimposed pneumonia Started on Zosyn for pneumonia coverage due to dense consolidation,transitioned to Augmentin, but then pulmonology recommending restarting Zosyn for pseudomonal coverage and doxycycline on 09/14 -Pulmonology on 09/16 decided to discontinue all antibiotics as he had received a week of antibiotics and procalcitonin was normal, no leukocytosis or fevers -Recommended for repeat chest x-ray in 3 to 4 weeks with follow-up CT after abnormal. Suspicion for underlying malignancy given normal CT scan 4 weeks Continue guaifenesin 1200 mg twice daily -Discontinued Tessalon Perles and codeine given respiratory suppression and d ifficulty with breathing - +Flutter, incentive karolyn, and chest PT - NIFs are normal -Continue hypertonic saline nebulizers and duo nebs twice daily -Pulmonary recommendations appreciated. - left subclavian central line as he had no other IV access able to be placed by IV team. Probiotic discontinued as contraindicated in the setting of central line. Remains on room air, serial XR tomorrow. Patient is anticipated for IVC filter placement Thursday, followed by cervical decompression surgery. Discussed with pulmonology, will plan on performing bronc while patient is intubated (2) COVID: Plan: Acute hypoxic respiratory failure 2/2 Covid pneumonia with superimposed left lower lobe bacterial pneumonia Covid positive 09/08/2021 First day of symptoms: Approximately 09/01/2021 Vaccination status: Unvaccinated With some mild hypoxia, requiring 2 L nasal cannula and now weaned off With very poor cough effort due to progressive weakness of neurological etiology as below CXR:Layering left pleural effusion with left basilar consolidation. - CTA: There is no evidence of pulmonary embolus in the main, lobar, or segmental pulmonary arteries. Emphysema. There is dense airspace consolidation throughout the left lower lobe with mild volume loss and opacification of the left lower lobe airways. The appearance is typical for pneumonia/aspiration pneumonitis. Clinical correlation will be required and radiographic follow-up to resolution is recommended. Minimal patchy groundglass consolidation is seen at the right lung base, also likely on an infectious/inflammatory basis. No pleural effusion is identified. Advanced coronary artery calcification. Mildly enlarged mediastinal and hilar lymph nodes are likely reactive.. CRP: 12.66 on admission,downtrending Pneumonia on imaging not secondary to Covid Received dexamethasone x 7 days and then discontinued Remdesivir: Not indicated at this time-outside the window for treatment at the time of admission Baricitinib: Not indicated at this time,not on high flow Continue flutter valve, incentive spirometry, and chest physiotherapy Discussed with infection control. First symptoms 09/01, Covid +09/08. Is a candidate for downgrade this weekend. Discussed that patient does have ongoing respiratory symptoms, but is also been treated for secondary pneumonia and dense consolidation of the lung. Overall clinical picture patient is okay for downgrade from Covid isolation on 09/23/2021. (3) Lower extremity weakness: Plan: Progressive lower extremity and then upper extremity weakness, bilateral over the last year Progressive 1-2 years of symptoms. report started in the right leg distally and moved proximally and then involved left leg and now into the arms right greater than left Has had 2 lumbar spinal surgeries at [facility] with Dr. Alvarado, first in April 2020 and second in November 2020. Records pending from [facility] consulted. Thinks this could be a severe generalized peripheral neuropathy versus CIDP, ALS and spinal myelopathy possible but less likely as he is absence of upper motor neuron findings on examination, no hyperreflexia. Followup testing as below CK negative, Lyme, B12, RPR all negative -Aldolase myasthenia, PQ calcium antibodies pending - BECKA negative MRI with contrast of brain and C/T/L-spine recommended and had somewhat of a delay as had to arrange for MRIs to be done under anesthesia as patient has had difficulty tolerating this due to cough. MRIbrain/C-spine 09/17-shows significant cervical spine stenosis and myelomal acia which is most likely the cause of his significant quadriparesis Can do T-spine and L-spine at a later date or even as an outpatient if still deemed necessary in the future [facility] normal -CIDP evaluation/lumbar puncture deferred in the setting of cervical myelopathy and work-up as noted below -Neurology also recommending 4 limb EMG with repetitive stimulation as an outpatient, possible muscle biopsy [facility] consulted. Case discussed with Dr. Chávez 09/18. Evidence of cord damage myelomalacia on cervical MRI contributing to his upper and lower extremity weakness. -Plan tentatively for cervical spine decompression early next week, tentatively Thursday Lower extremity Doppler: Partially occlusive thrombus of the right mid superficial femoral/popliteal veins with reduced compressibility. Previously with DVT of right SFV 07/2021 for which he was on Eliquis converted to heparin GTT while inpatient. Patient does have absence of upper motor neuron findings in legs with a history of multiple back interventions. Upper motor neuron findings may be being masked by lower back spinal involvement, given his risk it is recommended that he have MRI of the thoracic spine without contrast and of the lumbar spine with and without. This was discussed with neurology. Unfortunately patient does require anesthesia with mild sedation to complete MRI due to his cough and respiratory symptoms. This was discussed with anesthesia and with Dr. Chávez today. If unable to get this before cervical decompression Thursday would not delay decompression at that time for this, but would still recommend getting MRI in the near future. Fortunately this was also discussed with vascular who have concerns regarding MRI shortly after filter placement, and ideally this would be deferred for several weeks. Scheduled to have MRIs performed in the early interventionist Thursday prior to filter placement, filter placed on Thursday, followed by cervical decompression on Thursday with broch as noted above. (4) Cervical myelopathy: Plan: As above (5) Wound of foot: Plan: -Multiple crusted yellow lesions with black necrotic centers on left dorsal foot - With very cold feet bilaterally and barely palpable pulse in the left foot - Arterial Doppler ordered and shows absence of flow distally in the peroneal artery and anterior tibial artery but flow everywhere else, consistent with diffuse PAD -TTE did not show thrombus/valvular vegetation - Blood cultures are no growth to date since 09/08 - Vascular consulted-reports this is diffuse disease and no need for intervention -We will continue heparin drip for now -Would not start antiplatelet until after spine surgery (6) Tinea pedis: Plan: clotrimazole between toes and on toes twice daily (7) Cold feet: Plan: Related to neurologic process versus cardiovascular/PAD (8) Acute DVT (deep venous thrombosis): Plan: With acute extensive proximal to distal DVT of the right SFV found at outside hospital on 07/2021 Was on Eliquis which is on hold while on heparin drip in case of LP and now for spine surgery IVC filter planned as above (9) Pulmonary embolism: Plan: Noted on outside reports when he was admitted to an outside hospital in 07/2021 along with his acute right superficial femoral vein DVT CT angiogram of the chest performed here negative for PE DVT as noted above, pending filter placement Thursday Continue heparin drip for now (10) Constipation: Plan: No bowel movement since admission x8 days-finally had one on 09/16 Continue MiraLAX and senna bisacodyl suppository as needed (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 Feels clinically unchanged from yesterday. Does not event intermittent persistent cough without shortness of breath, no change in sensation/weakness in upper or lower extremities. Denies pain at time of assessment. No chest pain/chest pressure. Still breathing currently on room air, feels like his cough is "almost productive, but it stuck right before coming out ". Aware is pending MRI Thursday morning, shoulder placement following, and spinal decompression on Thursday. No additional questions or concerns at time of bedside visit Review of Systems Review of Systems: All systems reviewed & are unremarkable except as noted in Subjective Physical Exam Physical Exam: General: A&Ox3. NAD. Cooperative. Fatigued. HEENT: Atraumatic, normocephalic./Hearing grossly intact. Pulm: Diminished. Symmetrical chest rise. No increase in work of breathing. No respiratory distress. Cardiac: RRR, -mrg. Radial pulses intact and symmetrical. Abdominal: Nontender, nondistended, soft. BS present. Extremities: Unchanged diffuse upper and lower extremity weakness, most prominent in the right lower extremity with near absent activation Lower extremity edema persists unchanged. Results & Data Results & Data ([facility]) Vital Signs (Past 12 Hours) Vital Signs Temp Pulse Resp BP Pulse Ox Pulse Ox 09/21/21 09:00 36.8 C 84 18 123/72 96 09/21/21 07:23 78 16 97 09/21/21 04:25 36.7 C 77 18 129/82 96 09/21/21 04:00 99 09/20/21 23:42 36.9 C 79 18 126/79 95 PG Care Time/CCT Total # of Minutes Spent Total Time Spent with Patient: Total time spent is greater than 50% in coordination of care (as documented) at patient's floor/unit and/or counseling patient: Coding Level of Care Code 80886 Subseq Hosp Care Lvl 3 Diagnoses Pneumonia J18.9 Laterality: left Lung location: lower lobe of lung Pneumonia type: due to unspecified organism COVID U07.1 Lower extremity weakness R29.898 Cervical myelopathy G95.9 Wound of foot S91.309A Tinea pedis B35.3 Cold feet R20.9 Acute DVT (deep venous thrombosis) I82.409 Pulmonary embolism I26.99 Constipation K59.00 COPD with emphysema J43.9 Peripheral arterial disease I73.9 (1) Pneumonia Laterality: left Lung location: lower lobe of lung Pneumonia type: due to unspecified organism Qualified Code(s): J18.9 - Pneumonia, unspecified organism
[2021-09-21 16:55] LABS: Acetylcholine Recep Modulating 11; Acetylcholine Recept Blocking <15 (<15); Aldolase 5.8 U/L (< OR = 8.1); Receptor Binding Ab <0.30 nmol/L
[2021-09-22 06:35] LABS: Basophils # (auto) 0.01 K/uL (0-0.2); Basophils % (auto) 0.1 %; Eosinophils # (auto) 0.15 K/uL (0-0.5); Eosinophils % (auto) 1.9 %; Hematocrit (blood only) 39.5 % (42-52); Hemoglobin 12.4 g/dL (14.0-18.0); Immature Granulocytes # (auto) 0.03 K/uL (0.00-0.02); Immature Granulocytes % (auto) 0.4 %; Lymphocytes # (auto) 1.21 K/uL (1.2-3.4); Lymphocytes % (auto) 15.7 %; Mean Corpuscular Hemoglobin 27.9 pg (25-34); Mean Corpuscular Hgb Conc 31.4 g/dL (32-36); Mean Platelet Volume 11.7 fL (7.4-10.4); Monocytes # (auto) 0.72 K/uL (0.11-0.59); Monocytes % (auto) 9.3 %; Neutrophils # (auto) 5.61 K/uL (1.4-6.5); Neutrophils % (auto) 72.6 %; Platelet Count 172 K/uL (130-400); RDW Coefficient of Variation 16.8 % (11.5-14.5); RDW Standard Deviation 54.7 fL (36.4-46.3); Red Blood Count 4.44 M/uL (4.7-6.1); White Blood Count 7.73 K/uL (4.8-10.8)
[2021-09-22 06:54] LABS: Alanine Aminotransferase 16 U/L (7-52); Albumin Globulin Ratio 1.1 (0.9-2); Albumin Level 3.4 gm/dl (3.4-5.0); Alkaline Phosphatase 91 U/L (34-104); Anion Gap 7 (3-11); Aspartate Aminotransferase 11 U/L (13-39); BUN Creatinine Ratio 42.3 (10-20); Bilirubin,Total 0.4 mg/dl (0.2-1.0); Blood Urea Nitrogen 11 mg/dl (6-23); Calcium 8.9 mg/dl (8.5-10.1); Carbon Dioxide 28 mmol/L (21-32); Chloride 100 mmol/L (98-107); Creatinine Clr Calc Pharmacy 325.8 ml/min; Est GFR (African American) > 150.0 ml/min; Est GFR (Non-African American) > 150.0 ml/min; Glucose 100 mg/dl (70-99(Fasting)); Potassium 4.3 mmol/L (3.5-5.1); Sodium 135 mmol/L (136-145); Total Protein 6.4 gm/dl (6.0-8.3)
[2021-09-22 07:12] LABS: Partial Thromboplastin Ratio 2.1
[2021-09-22 07:18] LABS: Partial Thromboplastin Time 58.1 Seconds (21.0-31.0)
[2021-09-22] MEDS: ALBUT/IPRATROP 3MG/0.5MG NEB 3 ML VIAL NEB SCH ×2 (07:38→19:43)
[2021-09-22] MEDS: SODIUM CHLOR 7% 4 ML NEB NEB SCH ×2 (07:41→19:44)
[2021-09-22] MEDS: POLYETHYLENE (MIRALAX) 17 GM PACK PO SCH (08:21)
[2021-09-22] MEDS: ATORVASTATIN 20 MG TAB PO SCH (08:22)
[2021-09-22] MEDS: DOCUSATE SODIUM/SENNA 50/8.6MG TAB PO SCH (08:22)
[2021-09-22] MEDS: guaiFENesin 600 MG TABCR PO SCH ×2 (08:22→20:34)
[2021-09-22] MEDS: CLOTRIMAZOLE 1% CR 15 GM TUBE EXT SCH ×2 (08:23→20:34)
--- NOTE | 2021-09-22 12:09 | Hospitalist Progress Note ---
Date of Service September 22, 2021 Assessment & Plan (1) Pneumonia: Plan: Most likely aspiration pneumonia dense left lower lobe lesion seen on CTA of chest Patient with history of aspiration pneumonitis requiring hospitalization at outside hospital on 07/2021 on the right side Was evaluated by speech therapy this admission with intact swallow mechanics at this time on bedside evaluation-recommend safe swallowing techniques and could ask for instrumental swallow evaluation if desired-ordered FEES which will be completed after MRI is completed as per speech Cough is much improved now and lungs sound a bit clearer since starting scheduled nebulizers with his tonic saline nebulized treatments Repeat chest x-ray on 09/16 shows continued atelectasis of the left lower lobe but does appear clearer than previous as far as superimposed pneumonia Started on Zosyn for pneumonia coverage due to dense consolidation,transitioned to Augmentin, but then pulmonology recommending restarting Zosyn for pseudomonal coverage and doxycycline on 09/14 -Pulmonology on 09/16 decided to discontinue all antibiotics as he had received a week of antibiotics and procalcitonin was normal, no leukocytosis or fevers -Recommended for repeat chest x-ray in 3 to 4 weeks with follow-up CT after abnormal. Suspicion for underlying malignancy given normal CT scan 4 weeks Continue guaifenesin 1200 mg twice daily -Discontinued Tessalon Perles and codeine given respiratory suppression and d ifficulty with breathing - +Flutter, incentive karolyn, and chest PT - NIFs are normal -Continue hypertonic saline nebulizers and duo nebs twice daily -Pulmonary recommendations appreciated. - left subclavian central line as he had no other IV access able to be placed by IV team. Probiotic discontinued as contraindicated in the setting of central line. Remains on room air. Patient is anticipated for MRI then IVC filter placement tomorrow, followed by cervical decompression surgery. Discussed with pulmonology, will plan on performing bronc while patient is intubated. Hold has been placed on heparin for 0200 hrs. (2) COVID: Plan: Acute hypoxic respiratory failure 2/2 Covid pneumonia with superimposed left lower lobe bacterial pneumonia Covid positive 09/08/2021 First day of symptoms: Approximately 09/01/2021 Vaccination status: Unvaccinated With some mild hypoxia, requiring 2 L nasal cannula and now weaned off With very poor cough effort due to progressive weakness of neurological etiology as below CXR:Layering left pleural effusion with left basilar consolidation. - CTA: There is no evidence of pulmonary embolus in the main, lobar, or segmental pulmonary arteries. Emphysema. There is dense airspace consolidation throughout the left lower lobe with mild volume loss and opacification of the left lower lobe airways. The appearance is typical for pneumonia/aspiration pneumonitis. Clinical correlation will be required and radiographic follow-up to resolution is recommended. Minimal patchy groundglass consolidation is seen at the right lung base, also likely on an infectious/inflammatory basis. No pleural effusion is identified. Advanced coronary artery calcification. Mildly enlarged mediastinal and hilar lymph nodes are likely reactive.. CRP: 12.66 on admission,downtrended Pneumonia on imaging not secondary to Covid Received dexamethasone x 7 days and then discontinued Remdesivir: Not indicated at this time-outside the window for treatment at the time of admission Baricitinib: Not indicated at this time,not on high flow Continue flutter valve, incentive spirometry, and chest physiotherapy Discussed with infection control. First symptoms 09/01, Covid +09/08. Is a candidate for downgrade this weekend. Discussed that patient does have ongoing respiratory symptoms, but is also been treated for secondary pneumonia and dense consolidation of the lung. Overall clinical picture patient is okay for downgrade from Covid isolation on 09/23/2021. (3) Lower extremity weakness: Plan: Progressive lower extremity and then upper extremity weakness, bilateral over the last year Progressive 1-2 years of symptoms. report started in the right leg distally and moved proximally and then involved left leg and now into the arms right greater than left Has had 2 lumbar spinal surgeries at [facility] with Dr. Alvarado, first in April 2020 and second in November 2020. Records pending from [facility] consulted. Thinks this could be a severe generalized peripheral neuropathy versus CIDP, ALS and spinal myelopathy possible but less likely as he is absence of upper motor neuron findings on examination, no hyperreflexia. Followup testing as below CK negative, Lyme, B12, RPR all negative -Aldolase myasthenia, PQ calcium antibodies pending - BECKA negative MRI with contrast of brain and C/T/L-spine recommended and had somewhat of a delay as had to arrange for MRIs to be done under anesthesia as patient has had difficulty tolerating this due to cough. MRIbrain/C-spine 09/17-shows significant cervical spine stenosis and myelomalacia which is most likely the cause of his significant quadriparesis Can do T-spine and L-spine at a later date or even as an outpatient if still deemed necessary in the future [facility] normal -CIDP evaluation/lumbar puncture deferred in the setting of cervical myelopathy and work-up as noted below -Neurology also recommending 4 limb EMG with repetitive stimulation as an outpatient, possible muscle biopsy [facility] consulted. Case discussed with Dr. Chávez 09/18. Evidence of cord damage myelomalacia on cervical MRI contributing to his upper and lower extremity weakness. -Plan tentatively for cervical spine decompression early next week, tentatively Thursday Lower extremity Doppler: Partially occlusive thrombus of the right mid superficial femoral/popliteal veins with reduced compressibility. Previously with DVT of right SFV 07/2021 for which he was on Eliquis converted to heparin GTT while inpatient. Patient does have absence of upper motor neuron findings in legs with a history of multiple back interventions. Upper motor neuron findings may be being masked by lower back spinal involvement, given his risk it is recommended that he have MRI of the thoracic spine without contrast and of the lumbar spine with and without. This was discussed with neurology. Unfortunately patient does require anesthesia with mild sedation to complete MRI due to his cough and respiratory symptoms. This was discussed with anesthesia and with Dr. Chávez today. If unable to get this before cervical decompression Thursday would not delay decompression at that time for this, but would still recommend getting MRI in the near future. Fortunately this was also discussed with vascular who have concerns regarding MRI shortly after filter placement, and ideally this would be deferred for several weeks. Scheduled to have MRIs performed in the guest history clerk Thursday prior to filter placement, filter placed on Thursday, followed by cervical decompression on Thursday with broch as noted above. - Hold heparin gtt ~0200 in anticipation of filter placement (4) Cervical myelopathy: Plan: As above (5) Wound of foot: Plan: -Multiple crusted yellow lesions with black necrotic centers on left dorsal foot - With very cold feet bilaterally and barely palpable pulse in the left foot - Arterial Doppler ordered and shows absence of flow distally in the peroneal artery and anterior tibial artery but flow everywhere else, consistent with diffuse PAD -TTE did not show thrombus/valvular vegetation - Blood cultures are no growth to date since 09/08 - Vascular consulted-reports this is diffuse disease and no need for intervention - on hep gtt as otherwise noted -Would not start antiplatelet until after spine surgery (6) Tinea pedis: Plan: clotrimazole between toes and on toes twice daily (7) Cold feet: Plan: Related to neurologic process versus cardiovascular/PAD (8) Acute DVT (deep venous thrombosis): Plan: With acute extensive proximal to distal DVT of the right SFV found at outside hospital on 07/2021 Was on Eliquis which is on hold while on heparin drip in case of LP and now for spine surgery IVC filter planned as above to be held as above (9) Pulmonary embolism: Plan: Noted on outside reports when he was admitted to an outside hospital in 07/2021 along with his acute right superficial femoral vein DVT CT angiogram of the chest performed here negative for PE DVT as noted above, pending filter placement Thursday Continue heparin drip as noted (10) Constipation: Plan: No bowel movement since admission x8 days-finally had one on 09/16 Continue MiraLAX and senna bisacodyl suppository as needed (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 Reports he is in good spirits, and hopeful that the procedure for the next 2 days ago well. He continues to have an intermittent cough which she is not able to get to be productive. Does have some intermittent low back pain laying in the bed. Denies shortness of breath/difficulty breathing/chest pain/chest pressure at time of bedside visit. Reports he is just relaxing and watching the race on TV at 3, and notes that he enjoys collecting [employer] cars at home which she would like to get out of the hospital for. Otherwise no questions or concerns Review of Systems Review of Systems: All systems reviewed & are unremarkable except as noted in Subjective Physical Exam Physical Exam: General: A&Ox3. NAD. Cooperative. Fatigued, appears chronically weak. HEENT: Atraumatic, normocephalic. Vision and hearing grossly intact. Pulm: Diminished. Symmetrical chest rise. No increase in work of breathing. No respiratory distress. Cardiac: RRR, -mrg. Radial pulses intact and symmetrical. Abdominal: Nontender, nondistended, soft. BS present. Extremities: Unchanged diffuse upper and lower extremity weakness, most prominent in the right lower extremity with near absent activation Lower extremity edema persists unchanged. Results & Data Results & Data ([facility]) Vital Signs (Past 12 Hours) Vital Signs Temp Pulse Pulse Resp BP Pulse Ox Pulse Ox 09/22/21 07:38 77 18 99 09/22/21 07:00 36.5 C 70 79 18 148/69 H 96 09/22/21 04:00 97 09/22/21 03:30 36.8 C 89 18 146/91 H 96 PG Care Time/CCT Total # of Minutes Spent Total Time Spent with Patient: Total time spent is greater than 50% in coordination of care (as documented) at patient's floor/unit and/or counseling patient: Coding Level of Care Code 05477 Subseq Hosp Care Lvl 3 Diagnoses Pneumonia J18.9 Laterality: left Lung location: lower lobe of lung Pneumonia type: due to unspecified organism COVID U07.1 Lower extremity weakness R29.898 Cervical myelopathy G95.9 Wound of foot S91.309A Tinea pedis B35.3 Cold feet R20.9 Acute DVT (deep venous thrombosis) I82.409 Pulmonary embolism I26.99 Constipation K59.00 COPD with emphysema J43.9 Peripheral arterial disease I73.9 (1) Pneumonia Laterality: left Lung location: lower lobe of lung Pneumonia type: due to unspecified organism Qualified Code(s): J18.9 - Pneumonia, unspecified organism
[2021-09-22] MEDS: HEPARIN SODIUM/DEXTROSE 25,000 UNITS/500 ML BAG IV SCH (14:00)
[2021-09-23 05:43] LABS: Basophils # (auto) 0.01 K/uL (0-0.2); Basophils % (auto) 0.1 %; Eosinophils # (auto) 0.16 K/uL (0-0.5); Eosinophils % (auto) 2.1 %; Hematocrit (blood only) 38.1 % (42-52); Hemoglobin 12.6 g/dL (14.0-18.0); Immature Granulocytes # (auto) 0.04 K/uL (0.00-0.02); Immature Granulocytes % (auto) 0.5 %; Lymphocytes # (auto) 1.27 K/uL (1.2-3.4); Lymphocytes % (auto) 16.4 %; Mean Corpuscular Hemoglobin 28.8 pg (25-34); Mean Corpuscular Hgb Conc 33.1 g/dL (32-36); Mean Platelet Volume 11.8 fL (7.4-10.4); Monocytes # (auto) 0.71 K/uL (0.11-0.59); Monocytes % (auto) 9.2 %; Neutrophils # (auto) 5.55 K/uL (1.4-6.5); Neutrophils % (auto) 71.7 %; Platelet Count 188 K/uL (130-400); RDW Coefficient of Variation 16.8 % (11.5-14.5); RDW Standard Deviation 54.1 fL (36.4-46.3); Red Blood Count 4.38 M/uL (4.7-6.1); White Blood Count 7.74 K/uL (4.8-10.8)
[2021-09-23 05:53] LABS: INR 1.1 (0.9-1.1); Partial Thromboplastin Ratio 1.2; Partial Thromboplastin Time 32.9 Seconds (21.0-31.0); Prothrombin Time 11.4 Seconds (9.0-12.0)
[2021-09-23 06:05] LABS: Alanine Aminotransferase 16 U/L (7-52); Albumin Globulin Ratio 1.1 (0.9-2); Albumin Level 3.5 gm/dl (3.4-5.0); Alkaline Phosphatase 92 U/L (34-104); Anion Gap 8 (3-11); Aspartate Aminotransferase 11 U/L (13-39); BUN Creatinine Ratio 46.9 (10-20); Bilirubin,Total 0.5 mg/dl (0.2-1.0); Blood Urea Nitrogen 15 mg/dl (6-23); Calcium 9.1 mg/dl (8.5-10.1); Carbon Dioxide 27 mmol/L (21-32); Chloride 99 mmol/L (98-107); Creatinine Clr Calc Pharmacy 264.7 ml/min; Est GFR (African American) > 150.0 ml/min; Est GFR (Non-African American) 142.5 ml/min; Globulin 3.1 gm/dl (2.5-4.0); Glucose 94 mg/dl (70-99(Fasting)); Potassium 4.4 mmol/L (3.5-5.1); Sodium 134 mmol/L (136-145); Total Protein 6.6 gm/dl (6.0-8.3)
[2021-09-23] MEDS: SODIUM CHLOR 7% 4 ML NEB NEB SCH ×2 (07:40→19:07)
[2021-09-23] MEDS: ALBUT/IPRATROP 3MG/0.5MG NEB 3 ML VIAL NEB SCH ×2 (07:40→19:07)
[2021-09-23] MEDS ORDERED: MIDAZOLAM HCL 1 MG/ML 2ML VIAL ONE ×2 (07:49→09:26)
[2021-09-23] MEDS ORDERED: fentaNYL citrate 100 MCG/2 ML VIAL ONE ×2 (07:49→09:26)
[2021-09-23] MEDS ORDERED: ceFAZolin 2000MG 2,000 MG/15 ML SYR IV SCH (08:00)
--- NOTE | 2021-09-23 08:07 | History & Physical Bridge Note ---
Date of Service September 23, 2021 History & Physical Bridge Note Patient for insertion of vena cava filter. I have discussed the risks options and benefits of the procedure with the patient. The patient understands the risks options and benefits and agrees to the procedure. I have examined the patient, reviewed the History & Physical and in the interval since the performance of the History & Physical I have noted the following changes of clinical significance: no changes noted
[2021-09-23] MEDS: ATORVASTATIN 20 MG TAB PO SCH (09:00)
[2021-09-23] MEDS: DOCUSATE SODIUM/SENNA 50/8.6MG TAB PO SCH (09:00)
[2021-09-23] MEDS: POLYETHYLENE (MIRALAX) 17 GM PACK PO SCH (09:00)
[2021-09-23] MEDS: guaiFENesin 600 MG TABCR PO SCH ×2 (09:00→20:05)
[2021-09-23] MEDS ORDERED: GADOBUTROL 65ML VIAL IV ONE (09:13)
--- NOTE | 2021-09-23 10:10 | Magnetic Resonance Report ---
THORACIC SPINE MRI HISTORY: General weakness in arms and legs. TECHNIQUE: Multiplanar multisequence MRI of the thoracic spine was performed without the use of contr ast. COMPARISON: Cervical spine MRI 09/17/2021. FINDINGS: Degenerative changes again noted within the cervical spine. There is mild S-shaped scoliosis of the t horacolumbar spine. There is an old moderate super endplate compression deformity at T12 demonstratin g up to 50% loss of height. There is straightening of the thoracic spine. No acute fracture or sublux ation within the thoracic spine. Disc spaces are relatively preserved for age. No disc herniations id entified. Small broad-based posterior disc bulge at T11-T12 resulting in mild central canal narrowing . The remaining central canal and bilateral neural foramen are widely patent. Linear density at the b ase of the left lower lobe is again noted. Paravertebral soft tissues are unremarkable. The thoracic spinal cord is normal in course, caliber, and signal intensity. No epidural or paraspinal fluid colle ctions identified. A 9 mm sebaceous cyst at the mid back. Small hemangioma within the left posterior fourth rib. IMPRESSION: 1. Mild S-shaped scoliosis of the thoracolumbar spine. 2. Old moderate superior endplate compression deformity at T12. No acute fracture or subluxation. 3. Small broad-based posterior disc bulge at T11-T12 resulting in mild central canal narrowing. 4. Redemonstration of the focal consolidation within the base of the left lower lobe posteriorly. Thi s may represent atelectasis or pneumonia. 1-2 month chest x-ray follow-up recommended to ensure resol ution. ACT 112: Negative or not required by law. Electronically signed by: Evens Moyer M.D. 09/23/2021 10:08 AM
[2021-09-23] MEDS ORDERED: LIDOCAINE 1% LOCAL 20 ML VIAL INJ ONE (10:36)
[2021-09-23] MEDS ORDERED: VISIPAQUE IV PRN (10:36)
--- NOTE | 2021-09-23 10:43 | Procedure Note ---
Angiogram Post Procedure Fluoroscopy Time (minutes): 1.7 Radiation (mGy): 22.07 Contrast: 15cc Post Operative Report Pre & Post Diagnosis Operation Date: 09/17/21 12:00 <No data on this case meets the specified criteria> Operation Date: 09/23/21 10:15 Pre-Op Diagnosis: DVT ,contraindication anticoagulation Post-Op Diagnosis: DVT ,contraindication anticoagulation Operation Date: 09/24/21 07:45 <No data on this case meets the specified criteria> I identified the patient and participated in the time-out.: Yes Procedure Operation Date: 09/17/21 12:00 <No data on this case meets the specified criteria> Operation Date: 09/23/21 10:15 Actual Procedures p Insertion of Vena Cava Filter, Right Internal Jugular Approach, Fluoroscopy for Positioning, Moderate Sedation [id number] (Right) - Preet Li MD Operation Date: 09/24/21 07:45 <No data on this case meets the specified criteria> Surgeon Preet Li MD Critical Care Unit Nurse Tamie Livingston MD Estimated Blood Loss 5 Findings Consistent with Post-Op Diagnosis Specimens none Complications none immediate Disposition Accompanied Patient To Recovery: No Disposition: Recovery Room Indications This is a 60 year old gentleman who has lower extremity deep venous thrombosis. He is currently on anticoagulation. He will be undergoing surgery on his cervical spine. As such his anticoagulation needs to be held. He presents for inferior vena cava filter placement. Description of Procedure The patient was brought to the angio suite and placed in the supine position. The right side of the neck was prepped and draped in the usual fashion. A team timeout was performed. The right internal jugular vein was located with ultrasound. It was patent, compressed easily, and had no filling defects. The vein was then punctured under ultrasound visualization. A guidewire was then passed centrally into the inferior vena cava under fluoroscopic guidance. The puncture site was then dilated and the filter sheath inserted. It was passed to the infra renal vena cava. A venacavagram was done which showed no cava clot and an acceptable size. The renal veins were identified. The filter (A cook celect filter) was then passed through the sheath and deployed in the infra renal vena cava in an upright position. Satisfied with the positioning of the filter, the sheath was removed. Pressure was applied to the puncture site. Adequate hemostasis was obtained and a sterile dressing was applied. The patient left the angio suite in good condition and tolerated the procedure well. Dr. Li was present and scrubbed for the entirety of the procedure. I attest to the content of the Intraoperative Record and any orders documented therein. Any exceptions are noted below.
--- NOTE | 2021-09-23 10:45 | Post Operative Brief Note ---
Immediate Post Op Note v1 Date of Surgery September 23, 2021 Pre & Post Diagnosis Operation Date: 09/17/21 12:00 <No data on this case meets the specified criteria> Operation Date: 09/23/21 10:15 Pre-Op Diagnosis: DVT ,contraindication anticoagulation Post-Op Diagnosis: DVT ,contraindication anticoagulation Operation Date: 09/24/21 07:45 <No data on this case meets the specified criteria> I identified the patient and participated in the time-out.: Yes Procedure Operation Date: 09/17/21 12:00 <No data on this case meets the specified criteria> Operation Date: 09/23/21 10:15 Actual Procedures p Insertion of Vena Cava Filter, Right Internal Jugular Approach, Fluoroscopy for Positioning, Moderate Sedation [id number](Right) - Preet Li MD Operation Date: 09/24/21 07:45 <No data on this case meets the specified criteria> Surgeon Preet Li MD Engineering Instructor Tamie Livingston MD Estimated Blood Loss 5 Findings Consistent with Post-Op Diagnosis Anesthesia Type RN Sedation Complications none Disposition Accompanied Patient To Recovery: No Disposition: Recovery Room
--- NOTE | 2021-09-23 10:58 | Anesthesiology Consultation ---
Date of Service September 23, 2021 Assessment & Plan Chart Review Chart Review: Acceptable Risk for Surgery Consults Requested none History Surgery Operation Date: 09/17/21 12:00 Proposed Procedures p MRI with Anesthesia Sedation Brain and Spine with and without - Tyshawn Garcia MD Operation Date: 09/23/21 10:15 Proposed Procedures p Inferior Vena Cava Filter Placement - Preet Li MD Operation Date: 09/24/21 07:45 Proposed Procedures p Anterior Cervical Discectomy C6-C7, Corpectomy C5, Fusion C4-C6 - Claudio Chávez DO Height/Weight Height: 5 ft 11 in Weight: 84 kg Allergies Allergy/AdvReac Type Severity Reaction Status Date / Time No Known Allergies Allergy Unverified 09/08/21 16:28 Medications Home Medications Medication Instructions Recorded Confirmed Last Taken apixaban 5 mg tablet (Eliquis) 5 mg PO BID 09/08/21 09/08/21 09/08/21 Active Medications Generic Name Dose Route Start Last Admin Trade Name Freq PRN Reason Stop Dose Admin Albuterol 3 ml 09/14/21 19:00 09/23/21 07:40 Albut/Ipratrop 3mg/0.5mg Neb 3 Ml Vial NEB 10/14/21 18:59 Not Given BIDR [facility] Protocol Atorvastatin Calcium 20 mg 09/22/21 09:00 09/23/21 09:00 Atorvastatin 20 Mg Tab PO 10/22/21 08:59 Not Given QAM ALFREDO Clotrimazole 1 appln 09/14/21 13:00 09/22/21 20:34 Clotrimazole 1% Cr 15 Gm Tube EXT 10/14/21 12:59 1 appln BID ALFREDO Administration Guaifenesin 1,200 mg 09/10/21 09:00 09/23/21 09:00 Guaifenesin 600 Mg Tabcr PO 10/10/21 08:59 Not Given Q12 ALFREDO Heparin Sodium (Beef Lung) 5 ml 09/17/21 13:21 09/18/21 21:23 Heparin 10 Unit/Ml 5 Ml Flush FLUSH 10/17/21 13:20 5 ml PRN PRN Administration Flush Heparin Sodium/Dextrose 25,000 units in 500 mls @ 0 mls/hr 09/18/21 08:30 09/23/21 02:11 Heparin Sodium/Dextrose IV 10/08/21 08:29 0 units/hr .Q0M ALFREDO 0 mls/hr Titration Protocol 0 UNITS/HR Cefazolin Sodium 2,000 mg in 15 mls @ 2.5 mls/min 09/23/21 08:00 09/23/21 09:00 Ancef 2000mg IV 09/23/21 12:00 Not Given PREOP ALFREDO Iodixanol 15 ml 09/23/21 10:36 09/23/21 10:40 Visipaque IV 09/27/21 10:35 15 ml UD PRN Administration Interaction Checking Polyethylene Glycol 17 gm 09/14/21 12:45 09/23/21 09:00 Polyethylene (Miralax) 17 Gm Pack PO 10/14/21 12:44 Not Given DAILY ALFREDO Senna/Docusate Sodium 1 tab 09/14/21 12:45 09/23/21 09:00 Docusate Sodium/Senna 50/8.6mg Tab PO 10/14/21 12:44 Not Given QAM ALFREDO Sodium Chloride 4 ml 09/11/21 19:00 09/23/21 07:40 Sodium Chlor 7% 4 Ml Neb NEB 10/11/21 18:59 Not Given BIDR ALFREDO NPO Date Last Intake of Fluids: 09/17/21 Time Last Intake of Fluids: 07:00 Date Last Intake of Solids: 08/19/21 Time Last Intake of Solids: 22:00 Past Medical History Medical History (Updated 09/18/21 @ 14:47 by Claudio Chávez DO) Acute DVT (deep venous thrombosis) Cervical myelopathy COPD with emphysema DVT prophylaxis Lower extremity weakness Peripheral arterial disease Pulmonary embolism Social History Smoking Status: Former smoker tobacco type: smokeless tobacco Do You Dip or Chew Tobacco: Yes Hx Alcohol Use: No Hx Substance Use: No substance use type: does not use Physical Exam Vital Signs Last Vital Signs Temp 36.7 C 09/23/21 07:30 Pulse 84 09/23/21 10:44 Resp 16 09/23/21 10:44 BP 155/94 H 09/23/21 10:44 Pulse Ox 100 09/23/21 10:44 Testing Laboratory Results 09/23/21 05:18 09/23/21 05:18 PT 11.4 Seconds (9.0-12.0) 09/23/21 05:18 INR 1.1 (0.9-1.1) 09/23/21 05:18 APTT 32.9 Seconds (21.0-31.0) H 09/23/21 05:18 09/08/21 15:32 Aerobic Blood Culture - Final Blood No growth in Aerobic bottle after 5 days. Anaerobic Blood Culture - Final No growth in Anaerobic bottle after 5 days. 09/08/21 15:35 Aerobic Blood Culture - Final Blood No growth in Aerobic bottle after 5 days. Anaerobic Blood Culture - Final No growth in Anaerobic bottle after 5 days.
--- NOTE | 2021-09-23 11:00 | Anesthesiology Progress Note ---
Date of Service September 23, 2021 Anesthesia Post Procedure Vital Signs Vital Signs: Temp Pulse Pulse Resp BP Pulse Ox Pulse Ox 09/23/21 10:44 84 16 155/94 H 100 09/23/21 10:39 79 16 133/90 100 09/23/21 10:37 82 16 137/74 100 09/23/21 10:32 82 16 126/81 100 09/23/21 10:27 80 16 149/82 H 100 09/23/21 10:22 78 16 141/86 H 100 09/23/21 10:17 83 16 130/83 100 09/23/21 10:12 83 16 115/79 100 09/23/21 10:10 82 16 119/92 100 09/23/21 07:40 70 09/23/21 07:30 36.7 C 80 16 121/80 96 09/23/21 04:00 96 09/23/21 03:39 36.8 C 54 L 18 155/79 H 96 09/23/21 00:35 105 H 09/22/21 23:42 37.0 C 78 18 129/80 97 09/22/21 19:51 36.9 C 95 H 18 128/71 96 09/22/21 19:45 95 H 20 96 09/22/21 17:00 80 09/22/21 15:48 37.0 C 73 20 144/77 H 96 Transfer of Care Handoff Completed per policy Notes Mental Status: alert / awake / arousable and participated in evaluation Patient Amnestic to Procedure: Yes Nausea / Vomiting: adequately controlled Pain: adequately controlled Airway Patency, RR, SpO2: stable & adequate BP & HR: stable & adequate Hydration State: stable & adequate Anesthetic Complications: no major complications apparent
[2021-09-23] MEDS: CLOTRIMAZOLE 1% CR 15 GM TUBE EXT SCH ×2 (11:07→20:06)
--- NOTE | 2021-09-23 11:13 | Hospitalist Progress Note ---
Date of Service September 23, 2021 Assessment & Plan (1) Pneumonia: Plan: Most likely aspiration pneumonia dense left lower lobe lesion seen on CTA of chest Patient with history of aspiration pneumonitis requiring hospitalization at outside hospital on 07/2021 on the right side Was evaluated by speech therapy this admission with intact swallow mechanics at this time on bedside evaluation-recommend safe swallowing techniques and could ask for instrumental swallow evaluation if desired-ordered FEES which will be completed after MRI is completed as per speech Cough is much improved now and lungs sound a bit clearer since starting scheduled nebulizers with his tonic saline nebulized treatments Repeat chest x-ray on 09/16 shows continued atelectasis of the left lower lobe but does appear clearer than previous as far as superimposed pneumonia Started on Zosyn for pneumonia coverage due to dense consolidation,transitioned to Augmentin, but then pulmonology recommending restarting Zosyn for pseudomonal coverage and doxycycline on 09/14 -Pulmonology on 09/16 decided to discontinue all antibiotics as he had received a week of antibiotics and procalcitonin was normal, no leukocytosis or fevers -Recommended for repeat chest x-ray in 3 to 4 weeks with follow-up CT after abnormal. Suspicion for underlying malignancy given normal CT scan 4 weeks Continue guaifenesin 1200 mg twice daily -Discontinued Tessalon Perles and codeine given respiratory suppression and d ifficulty with breathing - +Flutter, incentive karolyn, and chest PT - NIFs are normal -Continue hypertonic saline nebulizers and duo nebs twice daily -Pulmonary recommendations appreciated. - left subclavian central line as he had no other IV access able to be placed by IV team. Probiotic discontinued as contraindicated in the setting of central line. Remains on room air. Patient is anticipated for MRI then IVC filter placement tomorrow, followed by cervical decompression surgery. Discussed with pulmonology, will plan on performing bronc while patient is intubated. 09/23: Heparin stopped at 0200 for filter placement. MRI as below. s/p IVC filter placement. Tolerated well, no signs of hematoma. Continue to follow. May have diet today, n.p.o. at midnight (2) COVID: Plan: Acute hypoxic respiratory failure 2/2 Covid pneumonia with superimposed left lower lobe bacterial pneumonia Covid positive 09/08/2021 First day of symptoms: Approximately 09/01/2021 Vaccination status: Unvaccinated With some mild hypoxia, requiring 2 L nasal cannula and now weaned off With very poor cough effort due to progressive weakness of neurological etiology as below CXR:Layering left pleural effusion with left basilar consolidation. - CTA: There is no evidence of pulmonary embolus in the main, lobar, or segmental pulmonary arteries. Emphysema. There is dense airspace consolidation throughout the left lower lobe with mild volume loss and opacification of the left lower lobe airways. The appearance is typical for pneumonia/aspiration pneumonitis. Clinical correlation will be required and radiographic follow-up to resolution is recommended. Minimal patchy groundglass consolidation is seen at the right lung base, also likely on an infectious/inflammatory basis. No pleural effusion is identified. Advanced coronary artery calcification. Mildly enlarged mediastinal and hilar lymph nodes are likely reactive.. CRP: 12.66 on admission,downtrended Pneumonia on imaging not secondary to Covid Received dexamethasone x 7 days and then discontinued Remdesivir: Not indicated at this time-outside the window for treatment at the time of admission Baricitinib: Not indicated at this time,not on high flow Continue flutter valve, incentive spirometry, and chest physiotherapy Discussed with infection control. First symptoms 09/01, Covid +09/08. Is a candidate for downgrade this weekend. Discussed that patient does have ongoing respiratory symptoms, but is also been treated for secondary pneumonia and dense consolidation of the lung. - COVID downgraded 09/23/2021. (3) Lower extremity weakness: Plan: Progressive lower extremity and then upper extremity weakness, bilateral over the last year Progressive 1-2 years of symptoms. report started in the right leg distally and moved proximally and then involved left leg and now into the arms right greater than left Has had 2 lumbar spinal surgeries at [facility] with Dr. Alvarado, first in April 2020 and second in November 2020. Records pending from [place] [facility] consulted. Thinks this could be a severe generalized peripheral neuropathy versus CIDP, ALS and spinal myelopathy possible but less likely as he is absence of upper motor neuron findings on examination, no hyperreflexia. Followup testing as below CK negative, Lyme, B12, RPR all negative -Aldolase normal - BECKA negative MRI with contrast of brain and C/T/L-spine recommended and had somewhat of a delay as had to arrange for MRIs to be done under anesthesia as patient has had difficulty tolerating this due to cough. MRIbrain/C-spine 09/17-shows significant cervical spine stenosis and myelomalacia which is most likely the cause of his significant quadriparesis Can do T-spine and L-spine at a later date or even as an outpatient if still deemed necessary in the future [facility] normal -CIDP evaluation/lumbar puncture deferred in the setting of cervical myelopathy and work-up as noted below -Neurology also recommending 4 limb EMG with repetitive stimulation as an outpatient, possible muscle biopsy [facility] consulted. Case discussed with Dr. Chávez 09/18. Evidence of cord damage myelomalacia on cervical MRI contributing to his upper and lower extremity weakness. -Plan tentatively for cervical spine decompression early next week, tentatively Thursday Lower extremity Doppler: Partially occlusive thrombus of the right mid superficial femoral/popliteal veins with reduced compressibility. Previously with DVT of right SFV 07/2021 for which he was on Eliquis converted to heparin GTT while inpatient. Patient does have absence of upper motor neuron findings in legs with a history of multiple back interventions. Upper motor neuron findings may be being masked by lower back spinal involvement, given his risk it is recommended that he have MRI of the thoracic spine without contrast and of the lumbar spine with and without. This was discussed with neurology. Unfortunately patient does require anesthesia with mild sedation to complete MRI due to his cough and respiratory symptoms. This was discussed with anesthesia and with Dr. Chávez today. If unable to get this before cervical decompression Thursday would not delay decompression at that time for this, but would still recommend getting MRI in the near future. Fortunately this was also discussed with vascular who have concerns regarding MRI shortly after filter placement, and ideally this would be deferred for several weeks. 09/23: MRI T Spine: Mild S-shaped scoliosis of the thoracolumbar spine. Old moderate superior endplate compression deformity at T12. No acute fracture or subluxation. Small broad-based posterior disc bulge at T11-T12 resulting in mild central canal narrowing. Redemonstration of the focal consolidation within the base of the left lower lobe posteriorly. This may represent atelectasis or pneumonia. 1-2 month chest x-ray follow-up recommended to ensure resolution. MRI L Spine: FINDINGS: Partial visualization of wedge deformity of T12, please see MRI thorax performed same day. Degenerative changes are seen throughout and sclerosis is seen in the adjacent vertebrae most prominently at L4-L5. L1-L2: Broad-based posterior disc bulge is seen with mild canal stenosis. L2-L3: Broad-based posterior disc bulge is seen with moderate canal stenosis. No significant neuroforaminal stenosis is seen. L3-L4: Bilateral facet arthropathy and posterior disc bulge with resulting moderate left and mild right neural foraminal stenosis and mild canal stenosis. L4-S1: Postsurgical changes of laminectomy and decompression are seen. No canal or neural foraminal stenosis is seen. The spinal ligaments are intact, without evidence of disruption or abnormal signal intensity. The spinal cord is normal in signal intensity and there is no evidence of cord contusion. There is no evidence of an extradural, intradural, extramedullary or intramedullary lesion. Visualized soft tissues are normal apart from expected postsurgical appearance. IMPRESSION: Multilevel degenerative changes and postsurgical changes as above. There is up to moderate left, mild right, and moderate canal stenosis. - Pending spinal decompression tomorrow. NPO at 0000 (4) Cervical myelopathy: Plan: As above (5) Wound of foot: Plan: -Multiple crusted yellow lesions with black necrotic centers on left dorsal foot - With very cold feet bilaterally and barely palpable pulse in the left foot - Arterial Doppler ordered and shows absence of flow distally in the peroneal artery and anterior tibial artery but flow everywhere else, consistent with diffuse PAD -TTE did not show thrombus/valvular vegetation - Blood cultures are no growth to date since 09/08 - Vascular consulted-reports this is diffuse disease and no need for intervention - hep gtt stopped post filter placement -Defer antiplatelet until after spine surgery (6) Tinea pedis: Plan: clotrimazole between toes and on toes twice daily (7) Cold feet: Plan: Related to neurologic process versus cardiovascular/PAD (8) Acute DVT (deep venous thrombosis): Plan: With acute extensive proximal to distal DVT of the right SFV found at outside hospital on 07/2021 Was on Eliquis which is on hold while on heparin drip in case of LP and now for spine surgery IVC filter planned as above to be held as above Right foot with pedal edema, worsened in toes with elastic band from truncated sock at midfoot. Keep elastic band distal to MCP. 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 Patient is awake, alert, and in no acut e distress. He reports he feels well, and is hopeful for the neck steps moving forward. Reports they use neck access, which is not painful or swollen to him at this time. Continues to have a weak and nonproductive cough intermittently, about the same as prior. Remains on room air. Denies chest pain, chest pressure, shortness of breath at bedside visit. Sensation and strength in extremities has not changed. Does have some swelling his right lower extremity, increased swelling in the toes with socks forming a line at the midfoot. Physical Exam Physical Exam: General: A&Ox3. NAD. Cooperative. Fatigued, appears chronically weak. HEENT: Atraumatic, normocephalic. Vision and hearing grossly intact. Pulm: Diminished. Coarse with diminished air movement, reduced breath sounds in left lower lobe, no overt rales symmetrical chest rise. No increase in work of breathing. No respiratory distress. Cardiac: RRR, -mrg. Radial pulses intact and symmetrical. Abdominal: Nontender, nondistended, soft. BS present. Extremities: Unchanged diffuse upper and lower extremity weakness, most prominent in the right lower extremity with near absent activation . Right foot with increased toe edema, sock with elastic band at the midfoot contributing. Sock pulled down so elastic band is distal to MCP. Results & Data Results & Data ([facility]) Vital Signs (Past 12 Hours) Vital Signs Temp Pulse Pulse Resp BP Pulse Ox Pulse Ox 09/23/21 10:44 84 16 155/94 H 100 09/23/21 10:39 79 16 133/90 100 09/23/21 10:37 82 16 137/74 100 09/23/21 10:32 82 16 126/81 100 09/23/21 10:27 80 16 149/82 H 100 09/23/21 10:22 78 16 141/86 H 100 09/23/21 10:17 83 16 130/83 100 09/23/21 10:12 83 16 115/79 100 09/23/21 10:10 82 16 119/92 100 09/23/21 07:40 70 09/23/21 07:30 36.7 C 80 16 121/80 96 09/23/21 04:00 96 09/23/21 03:39 36.8 C 54 L 18 155/79 H 96 09/23/21 00:35 105 H 09/22/21 23:42 37.0 C 78 18 129/80 97 PG Care Time/CCT Total # of Minutes Spent Total Time Spent with Patient: Total time spent is greater than 50% in coordination of care (as documented) at patient's floor/unit and/or counseling patient: Coding Level of Care Code 73056 Subseq Hosp Care Lvl 3 Diagnoses Pneumonia J18.9 Laterality: left Lung location: lower lobe of lung Pneumonia type: due to unspecified organism COVID U07.1 Lower extremity weakness R29.898 Cervical myelopathy G95.9 Wound of foot S91.309A Tinea pedis B35.3 Cold feet R20.9 Acute DVT (deep venous thrombosis) I82.409 Pulmonary embolism I26.99 Constipation K59.00 COPD with emphysema J43.9 Peripheral arterial disease I73.9 (1) Pneumonia Laterality: left Lung location: lower lobe of lung Pneumonia type: due to unspecified organism Qualified Code(s): J18.9 - Pneumonia, unspecified organism
--- NOTE | 2021-09-23 14:53 | Magnetic Resonance Report ---
MR lumbar spine wo/w con CLINICAL HISTORY: weakness, hx of sx. Lumbar w wo, thoracic wo. General weakness in arms and legs. History of lumbar surgery 12/03/2020 TECHNIQUE: 3 plane localizer images, sagittal T2, sagittal T1, sagittal STIR, axial T1, axial T2 howard g with postcontrast axial T1 and sagittal T1 fat-saturated sequences were obtained of the lumbar spin e, before and after intravenous administration of 12 mL of MultiHance. Comparison: None available at the time of this dictation. FINDINGS: Partial visualization of wedge deformity of T12, please see MRI thorax performed same day. Degenerati ve changes are seen throughout and sclerosis is seen in the adjacent vertebrae most prominently at L4 -L5. L1-L2: Broad-based posterior disc bulge is seen with mild canal stenosis. L2-L3: Broad-based posterior disc bulge is seen with moderate canal stenosis. No significant neurofor aminal stenosis is seen. L3-L4: Bilateral facet arthropathy and posterior disc bulge with resulting moderate left and mild rig ht neural foraminal stenosis and mild canal stenosis. L4-S1: Postsurgical changes of laminectomy and decompression are seen. No canal or neural foraminal s tenosis is seen. The spinal ligaments are intact, without evidence of disruption or abnormal signal intensity. The spi nal cord is normal in signal intensity and there is no evidence of cord contusion. There is no eviden ce of an extradural, intradural, extramedullary or intramedullary lesion. Visualized soft tissues are normal apart from expected postsurgical appearance. IMPRESSION: Multilevel degenerative changes and postsurgical changes as above. There is up to moderate left, mild right, and moderate canal stenosis. ACT 112: Negative or not required by law. Electronically signed by: Oscar Oneill M.D. 09/23/2021 2:52 PM
[2021-09-24] MEDS ORDERED: PROPOFOL IV EMULSION 10 MG/ML 20 ML VIAL IV ONE (06:40)
[2021-09-24] MEDS ORDERED: GLYCOPYRROLATE 0.2 MG/ML VIAL ONE (06:40)
[2021-09-24] MEDS ORDERED: fentaNYL citrate 100 MCG/2 ML VIAL ONE (06:40)
[2021-09-24] MEDS ORDERED: ROCURONIUM BROMIDE 10 MG/ML 5 ML VIAL IV ONE (06:40)
[2021-09-24] MEDS ORDERED: ONDANSETRON INJ 2 MG/ML 2 ML VIAL ONE ×2 (06:40→09:31)
[2021-09-24] MEDS ORDERED: LIDOCAINE 2% 2 ML VIAL/AMP(20MG/ML) INFIL ONE (06:40)
[2021-09-24] MEDS ORDERED: DEXAMETHASONE SOD INJ 4 MG/ML VIAL ONE (06:40)
[2021-09-24] MEDS ORDERED: LARYING-O-JET KIT (LTA) ONE (06:43)
[2021-09-24] MEDS ORDERED: ALBUTEROL HFA INHALER 8.5 GM ONE (06:43)
[2021-09-24] MEDS ORDERED: HYDROmorphone INJ 1 MG/ML SYRINGE IV PRN ×2 (06:53→12:01)
[2021-09-24] MEDS ORDERED: ATROPINE SULFATE 0.1 MG/ML 10ML SYR IV PRN (06:53)
[2021-09-24] MEDS ORDERED: ONDANSETRON INJ 2 MG/ML 2 ML VIAL IV PRN ×2 (06:53→12:01)
[2021-09-24] MEDS ORDERED: ePHEDrine sulfate 50 MG/ML AMP IV PRN (06:53)
[2021-09-24] MEDS ORDERED: fentaNYL citrate 100 MCG/2 ML VIAL IV PRN (06:53)
[2021-09-24] MEDS ORDERED: SUGAMMADEX SODIUM 200 MG/2 ML VIAL IV ONE (06:54)
[2021-09-24] MEDS ORDERED: ceFAZolin 330 MG/ML 1 GM VIAL ONE (06:59)
[2021-09-24] MEDS: ALBUT/IPRATROP 3MG/0.5MG NEB 3 ML VIAL NEB SCH ×2 (07:05→19:36)
[2021-09-24] MEDS: SODIUM CHLOR 7% 4 ML NEB NEB SCH ×2 (07:06→19:36)
[2021-09-24] MEDS ORDERED: ceFAZolin 2,000 MG/15 ML IV PUSH IV ONE (07:08)
[2021-09-24 07:28] LABS: Basophils # (auto) 0.01 K/uL (0-0.2); Basophils % (auto) 0.1 %; Eosinophils # (auto) 0.11 K/uL (0-0.5); Eosinophils % (auto) 1.3 %; Hemoglobin 13.8 g/dL (14.0-18.0); Immature Granulocytes # (auto) 0.04 K/uL (0.00-0.02); Immature Granulocytes % (auto) 0.5 %; Lymphocytes # (auto) 1.08 K/uL (1.2-3.4); Lymphocytes % (auto) 12.8 %; Mean Corpuscular Hemoglobin 28.2 pg (25-34); Mean Corpuscular Hgb Conc 32.1 g/dL (32-36); Mean Corpuscular Volume 87.9 fL (80-100); Mean Platelet Volume 11.6 fL (7.4-10.4); Monocytes # (auto) 0.72 K/uL (0.11-0.59); Monocytes % (auto) 8.5 %; Neutrophils % (auto) 76.8 %; Platelet Count 202 K/uL (130-400); RDW Coefficient of Variation 17.1 % (11.5-14.5); Red Blood Count 4.89 M/uL (4.7-6.1); White Blood Count 8.46 K/uL (4.8-10.8)
--- NOTE | 2021-09-24 07:30 | Anesthesiology Consultation ---
Date of Service September 24, 2021 Assessment & Plan (1) Encounter for pre-operative examination: Chart Review Chart Review: Acceptable Risk for Surgery and Patient NOT seen in Pre Admission Testing Consults Requested none History Surgery Operation Date: 09/17/21 12:00 Proposed Procedures p MRI with Anesthesia Sedation Brain and Spine with and without - Tyshawn Garcia MD Operation Date: 09/23/21 10:15 Proposed Procedures p Inferior Vena Cava Filter Placement - Preet Li MD Operation Date: 09/24/21 07:50 Proposed Procedures p Anterior Cervical Discectomy C6-C7, Corpectomy C5, Fusion C4-C6 - Claudio Chávez DO Height/Weight Height: 5 ft 11 in Weight: 84 kg Allergies Allergy/AdvReac Type Severity Reaction Status Date / Time No Known Allergies Allergy Unverified 09/08/21 16:28 Medications Home Medications Medication Instructions Recorded Confirmed Last Taken apixaban 5 mg tablet (Eliquis) 5 mg PO BID 09/08/21 09/08/21 09/08/21 Active Medications Generic Name Dose Route Start Last Admin Trade Name Freq PRN Reason Stop Dose Admin Albuterol 3 ml 09/14/21 19:00 09/24/21 07:05 Albut/Ipratrop 3mg/0.5mg Neb 3 Ml Vial NEB 10/14/21 18:59 3 ml BIDR ALFREDO Administration Protocol Atorvastatin Calcium 20 mg 09/22/21 09:00 09/23/21 09:00 Atorvastatin 20 Mg Tab PO 10/22/21 08:59 Not Given QAM ALFREDO Clotrimazole 1 appln 09/14/21 13:00 09/23/21 20:06 Clotrimazole 1% Cr 15 Gm Tube EXT 10/14/21 12:59 1 appln BID ALFREDO Administration Guaifenesin 1,200 mg 09/10/21 09:00 09/23/21 20:05 Guaifenesin 600 Mg Tabcr PO 10/10/21 08:59 1,200 mg Q12 ALFREDO Administration Heparin Sodium (Beef Lung) 5 ml 09/17/21 13:21 09/23/21 15:34 Heparin 10 Unit/Ml 5 Ml Flush FLUSH 10/17/21 13:20 5 ml PRN PRN Administration Flush Heparin Sodium/Dextrose 25,000 units in 500 mls @ 0 mls/hr 09/18/21 08:30 04/04/22 02:11 Heparin Sodium/Dextrose IV 10/08/21 08:29 0 units/hr .Q0M ALFREDO 0 mls/hr Titration Protocol 0 UNITS/HR Iodixanol 15 ml 09/23/21 10:36 09/23/21 10:40 Visipaque IV 09/27/21 10:35 15 ml UD PRN Administration Interaction Checking Polyethylene Glycol 17 gm 09/14/21 12:45 09/23/21 09:00 Polyethylene (Miralax) 17 Gm Pack PO 10/14/21 12:44 Not Given DAILY ALFREDO Senna/Docusate Sodium 1 tab 09/14/21 12:45 09/23/21 09:00 Docusate Sodium/Senna 50/8.6mg Tab PO 10/14/21 12:44 Not Given QAM ALFREDO Sodium Chloride 4 ml 09/11/21 19:00 09/24/21 07:06 Sodium Chlor 7% 4 Ml Neb NEB 10/11/21 18:59 4 ml BIDR ALFREDO Administration Past Medical History Medical History (Updated 09/24/21 @ 07:28 by Lloyd Gilman MD) Acute DVT (deep venous thrombosis) Cervical myelopathy Cervical spine pain COPD with emphysema DVT prophylaxis Lower extremity weakness Lumbar spine pain Peripheral arterial disease Progressive focal motor weakness Pulmonary embolism Past Surgical History sedated MRI's x2. Social History Smoking Status: Former smoker tobacco type: smokeless tobacco Do You Dip or Chew Tobacco: Yes Hx Alcohol Use: No Hx Substance Use: No substance use type: does not use Physical Exam Vital Signs Last Vital Signs Temp 36.7 C 09/24/21 04:13 Pulse 89 09/24/21 07:06 Resp 20 09/24/21 07:06 BP 120/83 09/24/21 04:13 Pulse Ox 94 09/24/21 07:06 Testing Laboratory Results 09/23/21 05:18 PT 11.4 Seconds (9.0-12.0) 09/23/21 05:18 INR 1.1 (0.9-1.1) 09/23/21 05:18 APTT 32.9 Seconds (21.0-31.0) H 09/23/21 05:18 Blood Type A Positive 09/23/21 15:20 Antibody Screen NEGATIVE 09/23/21 15:09/08/21 15:32 Aerobic Blood Culture - Final Blood No growth in Aerobic bottle after 5 days. Anaerobic Blood Culture - Final No growth in Anaerobic bottle after 5 days. 09/08/21 15:35 Aerobic Blood Culture - Final Blood No growth in Aerobic bottle after 5 days. Anaerobic Blood Culture - Final No growth in Anaerobic bottle after 5 days. Electrocardiogram Date: 09/08/21 Findings: + NSR @ (100) Possible left atrial enlargement Chest X-Ray Date: 09/16/21 XR chest 1V portable CLINICAL HISTORY: line placement TECHNIQUE: Single frontal radiograph of the chest was obtained. Comparison: Comparison is made to chest one view 09/08/2021 FINDINGS: Left subclavian catheter is seen terminating in the mid SVC. The cardiomediastinal silhouette is normal. There is a airspace opacity in the left lung base. A left effusion cannot be excluded. IMPRESSION: Airspace opacity in the left lung base compatible with atelectasis, although superimposed aspiration/pneumonia cannot be excluded. A small left effusion cannot be excluded. Overall findings are improved from 09/08/2021 Echocardiogram Date: 09/14/21 EF: 55-60% LV Function: normal RWMA: + none Other Findings: + LVH (mild, concentric) Valvular Disease: + no significant valvular disease
--- NOTE | 2021-09-24 07:35 | History & Physical Bridge Note ---
Date of Service September 24, 2021 History & Physical Bridge Note I have examined the patient, reviewed the History & Physical and in the interval since the performance of the History & Physical I have noted the following changes of clinical significance: no changes noted C5 corpectomy, anterior cervical discectomy and fusion C6-C7, C4 C6 fusion
[2021-09-24 07:47] LABS: Alanine Aminotransferase 16 U/L (7-52); Albumin Globulin Ratio 1.1 (0.9-2); Albumin Level 3.8 gm/dl (3.4-5.0); Alkaline Phosphatase 118 U/L (34-104); Anion Gap 8 (3-11); Aspartate Aminotransferase 10 U/L (13-39); BUN Creatinine Ratio 53.8 (10-20); Bilirubin,Total 0.5 mg/dl (0.2-1.0); Blood Urea Nitrogen 14 mg/dl (6-23); Calcium 9.5 mg/dl (8.5-10.1); Carbon Dioxide 28 mmol/L (21-32); Chloride 100 mmol/L (98-107); Creatinine Clr Calc Pharmacy 325.8 ml/min; Est GFR (African American) > 150.0 ml/min; Est GFR (Non-African American) > 150.0 ml/min; Globulin 3.4 gm/dl (2.5-4.0); Glucose 106 mg/dl (70-99(Fasting)); Potassium 4.4 mmol/L (3.5-5.1); Sodium 136 mmol/L (136-145); Total Protein 7.2 gm/dl (6.0-8.3)
[2021-09-24] MEDS ORDERED: ePHEDrine sulfate 50 MG/ML SYR ONE (08:25)
[2021-09-24] MEDS ORDERED: PHENYLEPHRINE 100MCG/ML 5ML SYR ONE (08:25)
[2021-09-24] MEDS ORDERED: FLOSEAL HEMOSTATIC MATRIX 10ML TOP ONE (08:58)
--- NOTE | 2021-09-24 10:02 | Operative Report ---
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 #2 anterior cervical arthrodesis C4-C5, C5-C6 and C6-C7. #3 placement of 8 mm spiral cage at C for C5, 7 mm at C5-C6 and 7 mm at C6-7. All cages filled with I factor. #4 application of allen plate and screws from C4-C7. 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 Subsequently is here for surgical decompression stabilization. Description of Procedure Patient was met with identified informed consent obtained. Patient was then taken to the operative suite underwent ablation placed in a supine position injectable head [employer] [place] head of it. All bony prominences well-padded eyes inspected to ensure no external pressure placed upon the. This point the anterior cervical spine was prepped and draped in normal sterile fashion. I then placed incision along the right anterior aspect of the cervical spine extending from C4-C6. Blunt dissection was then carried out down to and exposing the anterior cervical spine from C4-C7. Self-retaining retractors placed. Then performed a complete discectomy of C4-C5 out to the uncovertebral's bilaterally. I did elect to proceed with discectomies versus corpectomy secondary to bone quality and trying to achieve as many fixation points as possible. Complete discectomy of C4-5 was performed to the uncovertebral joints bilaterally. Maidens distractor pins utilized. Removed all posterior annular fibers longitudinal ligament bilateral foraminotomy performed. Endplates burred to subcortically bone and 8 mm spiral cage filled with I factor tapped in position. Then proceeded to see 5 C6. Again complete discectomy performed out to the uncovertebral joints bilaterally including removal of an posterior annular fibers and longitudinal ligament bilateral foraminotomies. Endplates burred to subcortical being bone and 7 mm spiral cage filled I factor tapped in position. Lastly presented to C6-C7. Again complete discectomy performed out to the uncovertebral joints bilaterally. Removed all posterior fibers longitudinal ligament bilateral foraminotomies performed. Endplates burred to subcortically bone and again a 7 mm spiral cage filled with I factor tapped in position. Distracting apparatus was removed all in periostitis burred to smooth cortical surface and a allen plate and screws applied with the assistance of fluoroscopy. The incision was then copiously irrigated explored to ensure no demonstrate surrounding structures remaining bleeding. 10 round JOHNATHAN drain inserted. The incision was then closed with 2 Vicryl in a fashion of 4 Monocryl for final skin closure. Steri-Strip sterile dressings placed. Patient waken taken to PACU stable condition. Please note spinal cord monitoring was utilized at the procedure no changes noted. I attest to the content of the Intraoperative Record and any orders documented therein. Any exceptions are noted below.
[2021-09-24] MEDS ORDERED: MAGNESIUM HYDROXIDE SUSP 30 ML UDC PO PRN (12:01)
[2021-09-24] MEDS ORDERED: ACETAMINOPHEN 500 MG TAB PO PRN (12:01)
[2021-09-24] MEDS ORDERED: ALUMINUM/MAGNESIUM SUSP 30 ML UDC PO PRN (12:01)
[2021-09-24] MEDS ORDERED: bisacodyL 10 MG SUPP PR PRN (12:01)
[2021-09-24] MEDS ORDERED: diphenhydrAMINE Capsule 25 MG CAP PO PRN (12:01)
[2021-09-24] MEDS ORDERED: DO NOT ADMINISTER PNEUMOCOCCAL VACCINE PRN (12:01)
[2021-09-24] MEDS ORDERED: LORazepam 2 MG/1 ML VIAL IV PRN (12:01)
[2021-09-24] MEDS ORDERED: SOD PHOSPHATE/SOD BIPHOSPHATE ENEMA 132 ML BTL PR PRN (12:01)
[2021-09-24] MEDS ORDERED: HYDROmorphone INJ 0.5 MG/0.5 ML SYR IV PRN (12:01)
[2021-09-24] MEDS ORDERED: LORazepam 0.5 MG TAB PO PRN (12:01)
[2021-09-24] MEDS ORDERED: DO NOT ADMINISTER FLU VACCINE PRN (12:01)
[2021-09-24] MEDS ORDERED: FAMOTIDINE 20 MG TAB PO PRN (12:01)
[2021-09-24] MEDS ORDERED: ONDANSETRON 4 MG OD TAB PO PRN (12:01)
[2021-09-24] MEDS ORDERED: dexAMETHasone 8 MG in SYRINGE 0 ML IV PRN (12:01)
[2021-09-24] MEDS ORDERED: hydrOXYzine HCl 25 MG TAB PO PRN (12:01)
[2021-09-24] MEDS ORDERED: ACETAMINOPHEN 1,000 MG/100 ML VIAL IV PRN (12:01)
[2021-09-24] MEDS ORDERED: traMADol HCL 50 MG TABLET PO PRN (12:01)
[2021-09-24] MEDS ORDERED: oxyCODONE HCL IR 5 MG TAB (IMMEDIATE RELEASE) PO PRN (12:01)
[2021-09-24] MEDS ORDERED: PROMETHAZINE HCL 12.5 MG in SODIUM CHLORIDE 0.9% 50 ML IV PRN (12:01)
[2021-09-24] MEDS ORDERED: METOCLOPRAMIDE HCL INJ 5 MG/ML 2 ML VIAL IV PRN (12:01)
[2021-09-24] MEDS ORDERED: NALOXONE HCL 0.4 MG/1 ML VIAL/CARP IV PRN (12:01)
[2021-09-24] MEDS ORDERED: RACEPINEPHRINE 2.25% NEBU SOLN 0.5 ML VIAL INH PRN (12:01)
[2021-09-24] MEDS: guaiFENesin 600 MG TABCR PO SCH ×2 (12:21→21:08)
[2021-09-24] MEDS: ATORVASTATIN 20 MG TAB PO SCH (12:21)
[2021-09-24] MEDS: DOCUSATE SODIUM/SENNA 50/8.6MG TAB PO SCH ×2 (12:21→21:07)
[2021-09-24] MEDS: POLYETHYLENE (MIRALAX) 17 GM PACK PO SCH (12:22)
[2021-09-24] MEDS: CLOTRIMAZOLE 1% CR 15 GM TUBE EXT SCH ×2 (12:41→21:07)
[2021-09-24] MEDS: SODIUM CHLORIDE 0.9% 1000ML 1,000 ML IV SCH ×2 (12:43→22:51)
[2021-09-24] MEDS: dexAMETHasone 6 MG in SYRINGE 0 ML IV SCH ×2 (13:15→22:51)
--- NOTE | 2021-09-24 14:59 | Anesthesiology Progress Note ---
Date of Service September 24, 2021 Anesthesia Post Procedure Vital Signs Vital Signs: Temp Pulse Pulse Pulse Resp BP Pulse Ox 09/24/21 13:17 90 16 135/85 95 09/24/21 12:04 36.2 C L 92 H 16 152/92 H 93 09/24/21 12:01 09/24/21 11:30 93 H 21 149/89 H 93 09/24/21 11:20 36.2 C L 93 H 22 151/91 H 93 09/24/21 11:09 36.2 C L 89 19 146/94 H 92 09/24/21 11:00 91 H 20 147/88 H 94 09/24/21 10:50 93 H 20 165/95 H 93 09/24/21 10:40 96 H 21 186/97 H 94 09/24/21 10:30 95 H 21 162/100 H 94 09/24/21 10:20 99 H 23 161/95 H 93 09/24/21 10:11 36.2 C L 97 H 16 169/99 H 95 09/24/21 07:54 36.7 C 100 H 22 134/81 91 09/24/21 07:06 89 20 94 09/24/21 07:00 85 09/24/21 04:13 36.7 C 93 H 18 120/83 95 09/23/21 22:52 36.8 C 101 H 18 115/80 92 09/23/21 22:20 101 H 09/23/21 19:08 117 H 18 100 09/23/21 19:00 36.6 C 115 H 20 152/98 H 92 Pulse Ox 09/24/21 13:17 09/24/21 12:04 09/24/21 12:01 96 09/24/21 11:30 09/24/21 11:20 09/24/21 11:09 09/24/21 11:00 09/24/21 10:50 09/24/21 10:40 09/24/21 10:30 09/24/21 10:20 09/24/21 10:11 09/24/21 07:54 09/24/21 07:06 09/24/21 07:00 09/24/21 04:13 09/23/21 22:52 09/23/21 22:20 09/23/21 19:08 09/23/21 19:00 Transfer of Care Handoff Completed per policy Notes Mental Status: alert / awake / arousable and participated in evaluation Patient Amnestic to Procedure: Yes Nausea / Vomiting: adequately controlled Pain: adequately controlled Airway Patency, RR, SpO2: stable & adequate BP & HR: stable & adequate Hydration State: stable & adequate Anesthetic Complications: no major complications apparent and Pt Satisfied with anesthetic care
[2021-09-24] MEDS: ceFAZolin 2000MG 2,000 MG/15 ML SYR IV SCH (17:27)
--- NOTE | 2021-09-24 17:47 | Hospitalist Progress Note ---
Date of Service September 24, 2021 Assessment & Plan (1) Lower extremity weakness: Plan: Progressive lower extremity and then upper extremity weakness, bilateral over the last year Progressive 1-2 years of symptoms. report started in the right leg distally and moved proximally and then involved left leg and now into the arms right greater than left Has had 2 lumbar spinal surgeries at [facility] with Dr. Alvarado, first in April 2020 and second in November 2020. Records pending from [place] CK negative, Lyme, B12, RPR all negative -Aldolase normal - BECKA negative MRI with contrast of brain and C/T/L-spine recommended and had somewhat of a delay as had to arrange for MRIs to be done under anesthesia as patient has had difficulty tolerating this due to cough. MRIbrain/C-spine 09/17-shows significant cervical spine stenosis and myelomalacia which is most likely the cause of his significant quadriparesis [facility] normal -CIDP evaluation/lumbar puncture deferred in the setting of cervical myelopathy and work-up as noted below -Neurology also recommending 4 limb EMG with repetitive stimulation as an outpatient, possible muscle biopsy [facility] consulted. Case discussed with Dr. Chávez 09/18. Evidence of cord damage myelomalacia on cervical MRI contributing to his upper and lower extremity weakness. -Plan tentatively for cervical spine decompression early next week, tentatively Thursday Lower extremity Doppler: Partially occlusive thrombus of the right mid superficial femoral/popliteal veins with reduced compressibility. Previously with DVT of right SFV 07/2021 for which he was on Eliquis converted to heparin GTT while inpatient. -MRI T Spine/L SPine reviewed by ortho. No need for additional intervention at this time. Mild/moderate canal stenosis is noted. 09/24/21. S/p cervical discectomy, decompression with placement of spiral cage, plate, and screws. Sensation improved, pain has resolved but remains with no activation of muscles in the feet, and greatly reduce strength proximally. (2) Pneumonia: Plan: Most likely aspiration pneumonia dense left lower lobe lesion seen on CTA of chest Patient with history of aspiration pneumonitis requiring hospitalization at outside hospital on 07/2021 on the right side Was evaluated by speech therapy this admission with intact swallow mechanics at this time on bedside evaluation-recommend safe swallowing techniques Started on Zosyn for pneumonia coverage due to dense consolidation,transitioned to Augmentin, but then pulmonology recommending restarting Zosyn for pseudomonal coverage and doxycycline on 09/14 -Pulmonology on 09/16 discontinue all antibiotics as he had received a week of antibiotics and procalcitonin was normal, no leukocytosis or fevers -Recommended for repeat chest x-ray in 3 to 4 weeks with follow-up CT after abnormal. Suspicion for underlying malignancy given normal CT scan 4 weeks Continue guaifenesin 1200 mg twice daily -Discontinued Tessalon Perles and codeine given respiratory suppression and difficulty with breathing - +Flutter, incentive karolyn, and chest PT - NIFs are normal -Continue hypertonic saline nebulizers and duo nebs twice daily -Pulmonary recommendations appreciated. - left subclavian central line as he had no other IV access able to be placed by IV team. Probiotic discontinued as contraindicated in the setting of central line. Breathing stable, f/u with pulm likely as outpt, XR in 3-4 weeks and ?bronch based on results/eval (3) COVID: Plan: Acute hypoxic respiratory failure 2/2 Covid pneumonia with superimposed left lower lobe bacterial pneumonia Covid positive 09/08/2021 First day of symptoms: Approximately 09/01/2021 Vaccination status: Unvaccinated With some mild hypoxia, requiring 2 L nasal cannula and now weaned off With very poor cough effort due to progressive weakness of neurological etiology as below CXR:Layering left pleural effusion with left basilar consolidation. - CTA: There is no evidence of pulmonary embolus in the main, lobar, or segmental pulmonary arteries. Emphysema. There is dense airspace consolidation throughout the left lower lobe with mild volume loss and opacification of the left lower lobe airways. The appearance is typical for pneumonia/aspiration pneumonitis. Clinical correlation will be required and radiographic follow-up to resolution is recommended. Minimal patchy groundglass consolidation is seen at the right lung base, also likely on an infectious/inflammatory basis. No pleural effusion is identified. Advanced coronary artery calcification. Mildly enlarged mediastinal and hilar lymph nodes are likely reactive.. CRP: 12.66 on admission,downtrended Pneumonia on imaging not secondary to Covid Received dexamethasone x 7 days and then discontinued Remdesivir: Not indicated at this time-outside the window for treatment at the time of admission Baricitinib: Not indicated at this time,not on high flow Continue flutter valve, incentive spirometry, and chest physiotherapy Discussed with infection control. First symptoms 09/01, Covid +09/08. Symptoms reviewed. COVID downgraded 09/23/2021. (4) Cervical myelopathy: Plan: As above (5) Wound of foot: Plan: -Multiple crusted yellow lesions with black necrotic centers on left dorsal foot - With very cold feet bilaterally and barely palpable pulse in the left foot - Arterial Doppler ordered and shows absence of flow distally in the peroneal artery and anterior tibial artery but flow everywhere else, consistent with diffuse PAD -TTE did not show thrombus/valvular vegetation - Blood cultures are no growth to date since 09/08 - Vascular consulted-reports this is diffuse disease and no need for intervention - hep gtt stopped post filter placement -Antiplatelet held for spinal decompression (6) Tinea pedis: Plan: clotrimazole between toes and on toes twice daily (7) Cold feet: Plan: Related to neurologic process versus cardiovascular/PAD (8) Acute DVT (deep venous thrombosis): Plan: With acute extensive proximal to distal DVT of the right SFV found at outside hospital on 07/2021 Was on Eliquis which is on hold while on heparin drip in case of LP and now for spine surgery IVC filter planned as above to be held as above R>L pedal edema persists (9) Pulmonary embolism: Plan: Noted on outside reports when he was admitted to an outside hospital in 07/2021 along with his acute right superficial femoral vein DVT CT angiogram of the chest performed here negative for PE DVT as noted above, filter in place (10) Constipation: Plan: No bowel movement since admission x8 days-finally had one on 09/16 Continue MiraLAX and senna bisacodyl suppository as needed (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 Reports his pain is completely gone, feels stronger in his hands, but has no strength return in his legs. Collar in place, drain JOHNATHAN in place. Patient reports he feels tired from the eventful day, no other questions or concerns at bedside. No shortness of breath at time of bedside assessment, breathing is unchanged from prior. Denies chest pain/chest pressure. Physical Exam Physical Exam: General: A&Ox3. NAD. Cooperative. Fatigued, appears chronically weak. HEENT: Atraumatic, normocephalic. Vision and hearing grossly intact. Pulm: Diminished week inspiration although adequate NIF testing previously. coarse with diminished air movement, reduced breath sounds in left lower lobe, no rales. No respiratory distress. Cardiac: RRR, -mrg. Radial pulses intact and symmetrical. Abdominal: Nontender, nondistended, soft. BS present. Extremities: Sensation intact to soft touch in hands and feet bilaterally that asymmetry. right foot continues with pedal edema. Patient is unable to flex/extend at the ankles, no toe activation of movement bilaterally at time of bedside assessment. Weak attempted hip flexion while in the bed. Results & Data Results & Data ([facility]) Vital Signs (Past 12 Hours) Vital Signs Temp Pulse Pulse Pulse Resp BP Pulse Ox 09/24/21 16:57 97 09/24/21 15:10 36.4 C L 89 16 137/89 95 09/24/21 15:00 100 H 16 92 09/24/21 13:17 90 16 135/85 95 09/24/21 12:04 36.2 C L 92 H 16 152/92 H 93 09/24/21 12:01 09/24/21 11:30 93 H 21 149/89 H 93 09/24/21 11:20 36.2 C L 93 H 22 151/91 H 93 09/24/21 11:09 36.2 C L 89 19 146/94 H 92 09/24/21 11:00 91 H 20 147/88 H 94 09/24/21 10:50 93 H 20 165/95 H 93 09/24/21 10:40 96 H 21 186/97 H 94 09/24/21 10:30 95 H 21 162/100 H 94 09/24/21 10:20 99 H 23 161/95 H 93 09/24/21 10:11 36.2 C L 97 H 16 169/99 H 95 09/24/21 07:54 36.7 C 100 H 22 134/81 91 09/24/21 07:06 89 20 94 09/24/21 07:00 85 Pulse Ox 09/24/21 16:57 09/24/21 15:10 09/24/21 15:00 09/24/21 13:17 09/24/21 12:04 09/24/21 12:01 96 09/24/21 11:30 09/24/21 11:20 09/24/21 11:09 09/24/21 11:00 09/24/21 10:50 09/24/21 10:40 09/24/21 10:30 09/24/21 10:20 09/24/21 10:11 09/24/21 07:54 09/24/21 07:06 09/24/21 07:00 PG Care Time/CCT Total # of Minutes Spent Total Time Spent with Patient: Total time spent is greater than 50% in coordination of care (as documented) at patient's floor/unit and/or counseling patient: Coding Level of Care Code 39396 Subseq Hosp Care Lvl 2 Diagnoses Pneumonia J18.9 Laterality: left Lung location: lower lobe of lung Pneumonia type: due to unspecified organism COVID U07.1 Lower extremity weakness R29.898 Cervical myelopathy G95.9 Wound of foot S91.309A Tinea pedis B35.3 Cold feet R20.9 Acute DVT (deep venous thrombosis) I82.409 Pulmonary embolism I26.99 Constipation K59.00 COPD with emphysema J43.9 Peripheral arterial disease I73.9 (1) Pneumonia Laterality: left Lung location: lower lobe of lung Pneumonia type: due to unspecified organism Qualified Code(s): J18.9 - Pneumonia, unspecified organism
--- NOTE | 2021-09-24 18:32 | Fluoroscopy Report ---
FL cervical 2-3V CLINICAL HISTORY: ACDF C6-C7/CORPECTOMY C5/FUSION C4-C6 TECHNIQUE: 2 views were obtained with the C-arm in the OR with the above procedure. Total fluoroscopy time was 11.2 seconds. Total skin dose was 0.97 mGy. Comparison: None available at the time of this dictation. FINDINGS/IMPRESSION: Intraoperative images were obtained of anterior cervical fusion hardware placeme nt. Please correlate with intraoperative fluoroscopy and operative report. ACT 112: Negative or not required by law. Electronically signed by: Oscar Oneill M.D. 09/24/2021 6:31 PM
[2021-09-25] MEDS: ceFAZolin 2000MG 2,000 MG/15 ML SYR IV SCH (00:57)
[2021-09-25] MEDS: ALBUT/IPRATROP 3MG/0.5MG NEB 3 ML VIAL NEB SCH ×2 (07:15→19:44)
[2021-09-25] MEDS: SODIUM CHLOR 7% 4 ML NEB NEB SCH ×2 (07:16→19:45)
[2021-09-25 08:04] LABS: Hematocrit (blood only) 42.1 % (42-52); Hemoglobin 13.2 g/dL (14.0-18.0); Immature Granulocytes # (auto) 0.02 K/uL (0.00-0.02); Immature Granulocytes % (auto) 0.3 %; Lymphocytes # (auto) 0.54 K/uL (1.2-3.4); Lymphocytes % (auto) 9.3 %; Mean Corpuscular Hemoglobin 28.1 pg (25-34); Mean Corpuscular Hgb Conc 31.4 g/dL (32-36); Mean Corpuscular Volume 89.6 fL (80-100); Mean Platelet Volume 12.1 fL (7.4-10.4); Monocytes # (auto) 0.29 K/uL (0.11-0.59); Neutrophils # (auto) 4.98 K/uL (1.4-6.5); Neutrophils % (auto) 85.4 %; Platelet Count 202 K/uL (130-400); RDW Coefficient of Variation 16.3 % (11.5-14.5); RDW Standard Deviation 53.7 fL (36.4-46.3); White Blood Count 5.83 K/uL (4.8-10.8)
[2021-09-25 08:27] LABS: Alanine Aminotransferase 11 U/L (7-52); Albumin Globulin Ratio 1.1 (0.9-2); Albumin Level 3.7 gm/dl (3.4-5.0); Alkaline Phosphatase 108 U/L (34-104); Anion Gap 6 (3-11); Aspartate Aminotransferase 9 U/L (13-39); BUN Creatinine Ratio 44.8 (10-20); Bilirubin,Total 0.4 mg/dl (0.2-1.0); Blood Urea Nitrogen 13 mg/dl (6-23); Calcium 9.6 mg/dl (8.5-10.1); Carbon Dioxide 30 mmol/L (21-32); Chloride 101 mmol/L (98-107); Creatinine Clr Calc Pharmacy 292.1 ml/min; Est GFR (African American) > 150.0 ml/min; Est GFR (Non-African American) 148.4 ml/min; Globulin 3.5 gm/dl (2.5-4.0); Glucose 116 mg/dl (70-99(Fasting)); Potassium 4.6 mmol/L (3.5-5.1); Sodium 137 mmol/L (136-145); Total Protein 7.2 gm/dl (6.0-8.3)
[2021-09-25] MEDS: ATORVASTATIN 20 MG TAB PO SCH (08:45)
[2021-09-25] MEDS: CLOTRIMAZOLE 1% CR 15 GM TUBE EXT SCH ×2 (08:46→21:12)
[2021-09-25] MEDS: POLYETHYLENE (MIRALAX) 17 GM PACK PO SCH (08:47)
[2021-09-25] MEDS: DOCUSATE SODIUM/SENNA 50/8.6MG TAB PO SCH ×2 (08:48→21:13)
[2021-09-25] MEDS: guaiFENesin 600 MG TABCR PO SCH (08:48)
[2021-09-25] MEDS: SODIUM CHLORIDE 0.9% 1000ML 1,000 ML IV SCH ×2 (09:29→21:12)
[2021-09-25] MEDS: dexAMETHasone 6 MG in SYRINGE 0 ML IV SCH (11:09)
--- NOTE | 2021-09-25 11:39 | Hospitalist Progress Note ---
Date of Service September 25, 2021 Assessment & Plan (1) Lower extremity weakness: Plan: Progressive lower extremity and then upper extremity weakness, bilateral over the last year Progressive 1-2 years of symptoms. report started in the right leg distally and moved proximally and then involved left leg and now into the arms right greater than left Has had 2 lumbar spinal surgeries at [facility] with Dr. Alvarado, first in April 2020 and second in November 2020. Records pending from [place] CK negative, Lyme, B12, RPR all negative -Aldolase normal - BECKA negative MRI with contrast of brain and C/T/L-spine recommended and had somewhat of a delay as had to arrange for MRIs to be done under anesthesia as patient has had difficulty tolerating this due to cough. MRIbrain/C-spine 09/17-shows significant cervical spine stenosis and myelomalacia which is most likely the cause of his significant quadriparesis [facility] normal -CIDP evaluation/lumbar puncture deferred in the setting of cervical myelopathy and work-up as noted below -Neurology also recommending 4 limb EMG with repetitive stimulation as an outpatient, possible muscle biopsy [facility] consulted. Evidence of cord damage myelomalacia on cervical MRI contributing to his upper and lower extremity weakness. -09/24/21 cervical spine decompression with placement of spiral cage, plate, and screws Lower extremity Doppler: Partially occlusive thrombus of the right mid superficial femoral/popliteal veins with reduced compressibility. Previously with DVT of right SFV 07/2021 for which he was on Eliquis converted to heparin GTT while inpatient., pre op had IVD filter as cannot have AC until heals from Cervical spine surgery -MRI T Spine/L SPine reviewed by ortho. No need for additional intervention at this time. Mild/moderate canal stenosis is noted. (2) Pneumonia: Plan: Most likely aspiration pneumonia dense left lower lobe lesion seen on CTA of chest Patient with history of aspiration pneumonitis requiring hospitalization at outside hospital on 07/2021 on the right side Was evaluated by speech therapy this admission with intact swallow mechanics at this time on bedside evaluation-recommend safe swallowing techniques Started on Zosyn for pneumonia coverage due to dense consolidation,transitioned to Augmentin, but then pulmonology recommending restarting Zosyn for pseudomonal coverage and doxycycline on 09/14 -Pulmonology on 09/16 discontinue all antibiotics as he had received a week of antibiotics and procalcitonin was normal, no leukocytosis or fevers -Recommended for repeat chest x-ray in 3 to 4 weeks with follow-up CT after abnormal. Suspicion for underlying malignancy given normal CT scan 4 weeks Continue guaifenesin -Discontinued Tessalon Perles and codeine given respiratory suppression and difficulty with breathing - +Flutter, incentive karolyn, and chest PT - NIFs are normal -Continue hypertonic saline nebulizers and duo nebs twice daily - - left subclavian central line as he had no other IV access able to be placed by IV team. Probiotic discontinued as contraindicated in the setting of central line. Breathing stable, f/u with pulm likely as outpt, XR in 3-4 weeks and ?bronch based on results/eval (3) COVID: Plan: Acute hypoxic respiratory failure 2/2 Covid pneumonia with superimposed left lower lobe bacterial pneumonia Covid positive 09/08/2021 First day of symptoms: Approximately 09/01/2021 Vaccination status: Unvaccinated With some mild hypoxia, requiring 2 L nasal cannula With very poor cough effort due to progressive weakness of neurological etiology as below CXR:Layering left pleural effusion with left basilar consolidation. - CTA: There is no evidence of pulmonary embolus in the main, lobar, or segmental pulmonary arteries. Emphysema. There is dense airspace consolidation throughout the left lower lobe with mild volume loss and opacification of the left lower lobe airways. The appearance is typical for pneumonia/aspiration pneumonitis. Clinical correlation will be required and radiographic follow-up to resolution is recommended. Minimal patchy groundglass consolidation is seen at the right lung base, also likely on an infectious/inflammatory basis. No pleural effusion is identified. Advanced coronary artery calcification. Mildly enlarged mediastinal and hilar lymph nodes are likely reactive.. CRP: 12.66 on admission,downtrended Pneumonia on imaging not secondary to Covid Received dexamethasone x 7 days and then discontinued Remdesivir: Not indicated at this time-outside the window for treatment at the time of admission Baricitinib: Not indicated at this time,not on high flow Continue flutter valve, incentive spirometry, and chest physiotherapy Discussed with infection control. First symptoms 09/01, Covid +09/08. Symptoms reviewed. COVID downgraded 09/23/2021. (4) Cervical myelopathy: Plan: As above (5) Wound of foot: Plan: -Multiple crusted yellow lesions with black necrotic centers on left dorsal foot - With very cold feet bilaterally and barely palpable pulse in the left foot - Arterial Doppler ordered and shows absence of flow distally in the peroneal artery and anterior tibial artery but flow everywhere else, consistent with diffuse PAD -TTE did not show thrombus/valvular vegetation - Blood cultures are no growth to date since 09/08 - Vascular consulted-reports this is diffuse disease and no need for intervention - hep gtt stopped post filter placement -Antiplatelet held for spinal decompression (6) Tinea pedis: Plan: clotrimazole between toes and on toes twice daily (7) Cold feet: Plan: Related to neurologic process versus cardiovascular/PAD (8) Acute DVT (deep venous thrombosis): Plan: With acute extensive proximal to distal DVT of the right SFV found at outside hospital on 07/2021 Was on Eliquis which is on hold while on heparin drip in case of LP and now for spine surgery IVC filter R>L pedal edema persists (9) Pulmonary embolism: Plan: Noted on outside reports when he was admitted to an outside hospital in 07/2021 along with his acute right superficial femoral vein DVT CT angiogram of the chest performed here negative for PE DVT as noted above, filter in place (10) Constipation: Plan: No bowel movement since admission x8 days-finally had one on 09/16 Continue MiraLAX and senna bisacodyl suppository as needed (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 he has a kristina drain from his neck with serous drainage, no real improvement in myopathy with no movement or right leg and weakness of right arm > left Review of Systems Review of Systems: Moderate distress and fatigue no headache, no visual changes no speech, some mild swallowing issues no chest pain, pressure or palpitations persistent shortness of breath, weakened cough slight wheezes no abdominal pain, nausea or vomiting, diarrhea or constipation no dysuria, hematuria or frequency no focal joint pain or swelling no back pain, CVA tenderness or radicular pain no bruising, bleeding or rashes focal signs of weakness but no numbness no complaints of anxiety or depression. but maybe looking depressed as time wears on Physical Exam Physical Exam: The patient appeared chronically ill and not improving much Vital signs as documented. Head exam is normocephalic atraumatic Neck is without JVD, thyromegaly, or carotid bruits. Lungs are diminished Cardiac exam, Rhythm is regular.. No murmurs, rubs or gallops. Abdominal exam reveals normal bowel sounds, soft non tender, no masses Extremities are nonedematous and both pedal pulses are present Neurologic exam is alert and oriented x3 unable to move right leg left leg with strength significantly decreased arms cannot be lifted above midline Skin is without bruises or rashes Psychologically is without concerns for anxiety or depression.. Results & Data Results & Data ([facility]) Vital Signs (Past 12 Hours) Vital Signs Temp Pulse Resp BP Pulse Ox Pulse Ox 09/25/21 10:22 100 H 20 90 09/25/21 07:17 78 20 93 09/25/21 07:16 78 20 93 09/25/21 05:13 97.7 F 79 17 160/110 H 95 09/25/21 04:00 94 09/25/21 03:19 97.7 F 81 17 172/112 H 95 09/25/21 03:03 67 16 93 09/25/21 00:58 97.7 F 86 17 159/107 H 97 PG Care Time/CCT Total # of Minutes Spent Total Time Spent with Patient: Total time spent is greater than 50% in coordination of care (as documented) at patient's floor/unit and/or counseling patient: Coding Level of Care Code 12117 Subseq Hosp Care Lvl 2 Diagnoses Lower extremity weakness R29.898 Pneumonia J18.9 Laterality: left Lung location: lower lobe of lung Pneumonia type: due to unspecified organism COVID U07.1 Cervical myelopathy G95.9 Wound of foot S91.309A Tinea pedis B35.3 Cold feet R20.9 Acute DVT (deep venous thrombosis) I82.409 Pulmonary embolism I26.99 Constipation K59.00 COPD with emphysema J43.9 Peripheral arterial disease I73.9 (1) Pneumonia Laterality: left Lung location: lower lobe of lung Pneumonia type: due to unspecified organism Qualified Code(s): J18.9 - Pneumonia, unspecified organism
--- NOTE | 2021-09-25 13:47 | Orthopedic Progress Note ---
Date of Service September 25, 2021 Assessment & Plan (1) Myelopathy concurrent with and due to spinal stenosis of cervical region: Plan: This time he may remove the collar to eat. We will maintain the JOHNATHAN drain another 24 hours. We will encourage him continue with a soft diet. Admission and Anticipated Discharge Date Admission Date: September 08, 2021 Subjective Patient's not complaining of neck pain. Denies any Lhermitte's symptoms. Physical Exam Physical Exam: On exam he is able to forward flex his head without Lhermitte's phenomenon. There is no significant change in these upper or lower lower extremity function. Results & Data ([facility]) Vital Signs (Past 12 Hours) Vital Signs Temp Pulse Resp BP Pulse Ox Pulse Ox 09/25/21 12:00 36.9 C 106 H 18 161/102 H 94 09/25/21 10:22 100 H 20 90 09/25/21 07:17 78 20 93 09/25/21 07:16 78 20 93 09/25/21 05:13 36.5 C 79 17 160/110 H 95 09/25/21 04:00 94 09/25/21 03:19 36.5 C 81 17 172/112 H 95 09/25/21 03:03 67 16 93
[2021-09-25] MEDS ORDERED: amLODIPine BESYLATE 5 MG TAB PO ONE (13:50)
[2021-09-25] MEDS ORDERED: guaiFENesin SUGAR FREE 100 MG/5 ML UDC PO SCH (14:00)
[2021-09-25] MEDS: guaiFENesin SUGAR FREE 200 MG/10 ML UDC PO SCH ×2 (16:20→21:13)
[2021-09-26] MEDS: SODIUM CHLORIDE 0.9% 1000ML 1,000 ML IV SCH ×2 (05:56→15:14)
[2021-09-26] MEDS: SODIUM CHLOR 7% 4 ML NEB NEB SCH ×2 (07:54→19:32)
[2021-09-26] MEDS: ALBUT/IPRATROP 3MG/0.5MG NEB 3 ML VIAL NEB SCH ×2 (07:54→19:31)
[2021-09-26] MEDS ORDERED: amLODIPine BESYLATE 5 MG TAB PO SCH (09:00)
[2021-09-26] MEDS: CLOTRIMAZOLE 1% CR 15 GM TUBE EXT SCH (09:05)
[2021-09-26] MEDS: DOCUSATE SODIUM/SENNA 50/8.6MG TAB PO SCH (09:05)
[2021-09-26] MEDS: guaiFENesin SUGAR FREE 200 MG/10 ML UDC PO SCH ×2 (09:05→15:14)
[2021-09-26] MEDS: POLYETHYLENE (MIRALAX) 17 GM PACK PO SCH (09:06)
[2021-09-26] MEDS: ATORVASTATIN 20 MG TAB PO SCH (12:36)
--- NOTE | 2021-09-26 17:34 | Hospitalist Progress Note ---
Date of Service September 26, 2021 Assessment & Plan (1) Lower extremity weakness: Plan: Progressive lower extremity and then upper extremity weakness, bilateral over the last year Progressive 1-2 years of symptoms. report started in the right leg distally and moved proximally and then involved left leg and now into the arms right greater than left Has had 2 lumbar spinal surgeries at [facility] with Dr. Alvarado, first in April 2020 and second in November 2020. Records pending from [place] CK negative, Lyme, B12, RPR all negative -Aldolase normal - BECKA negative MRI with contrast of brain and C/T/L-spine recommended and had somewhat of a delay as had to arrange for MRIs to be done under anesthesia as patient has had difficulty tolerating this due to cough. MRIbrain/C-spine 09/17-shows significant cervical spine stenosis and myelomalacia which is most likely the cause of his significant quadriparesis [facility] normal -CIDP evaluation/lumbar puncture deferred in the setting of cervical myelopathy and work-up as noted below -Neurology also recommending 4 limb EMG with repetitive stimulation as an outpatient, possible muscle biopsy [facility] consulted. Evidence of cord damage myelomalacia on cervical MRI contributing to his upper and lower extremity weakness. -09/24/21 cervical spine decompression with placement of spiral cage, plate, and screws Lower extremity Doppler: Partially occlusive thrombus of the right mid superficial femoral/popliteal veins with reduced compressibility. Previously with DVT of right SFV 07/2021 for which he was on Eliquis converted to heparin GTT while inpatient., pre op had IVD filter as cannot have AC until heals from Cervical spine surgery -MRI T Spine/L SPine reviewed by ortho. No need for additional intervention at this time. Mild/moderate canal stenosis is noted. (2) Pneumonia: Plan: Most likely aspiration pneumonia dense left lower lobe lesion seen on CTA of chest Patient with history of aspiration pneumonitis requiring hospitalization at outside hospital on 07/2021 on the right side Was evaluated by speech therapy this admission with intact swallow mechanics at this time on bedside evaluation-recommend safe swallowing techniques Started on Zosyn for pneumonia coverage due to dense consolidation,transitioned to Augmentin, but then pulmonology recommending restarting Zosyn for pseudomonal coverage and doxycycline on 09/14 -Pulmonology on 09/16 discontinue all antibiotics as he had received a week of antibiotics and procalcitonin was normal, no leukocytosis or fevers -Recommended for repeat chest x-ray in 3 to 4 weeks with follow-up CT after abnormal. Suspicion for underlying malignancy given normal CT scan 4 weeks Continue guaifenesin -Discontinued Tessalon Perles and codeine given respiratory suppression and difficulty with breathing - +Flutter, incentive karolyn, and chest PT - NIFs are normal -Continue hypertonic saline nebulizers and duo nebs twice daily - - left subclavian central line as he had no other IV access able to be placed by IV team. Probiotic discontinued as contraindicated in the setting of central line. Breathing stable, f/u with pulm likely as outpt, XR in 3-4 weeks and ?bronch based on results/eval (3) COVID: Plan: Acute hypoxic respiratory failure 2/2 Covid pneumonia with superimposed left lower lobe bacterial pneumonia Covid positive 09/08/2021 First day of symptoms: Approximately 09/01/2021 Vaccination status: Unvaccinated With some mild hypoxia, requiring 2 L nasal cannula With very poor cough effort due to progressive weakness of neurological etiology as below CXR:Layering left pleural effusion with left basilar consolidation. - CTA: There is no evidence of pulmonary embolus in the main, lobar, or segmental pulmonary arteries. Emphysema. There is dense airspace consolidation throughout the left lower lobe with mild volume loss and opacification of the left lower lobe airways. The appearance is typical for pneumonia/aspiration pneumonitis. Clinical correlation will be required and radiographic follow-up to resolution is recommended. Minimal patchy groundglass consolidation is seen at the right lung base, also likely on an infectious/inflammatory basis. No pleural effusion is identified. Advanced coronary artery calcification. Mildly enlarged mediastinal and hilar lymph nodes are likely reactive.. CRP: 12.66 on admission,downtrended Pneumonia on imaging not secondary to Covid Received dexamethasone x 7 days and then discontinued Remdesivir: Not indicated at this time-outside the window for treatment at the time of admission Baricitinib: Not indicated at this time,not on high flow Continue flutter valve, incentive spirometry, and chest physiotherapy Discussed with infection control. First symptoms 09/01, Covid +09/08. Symptoms reviewed. COVID downgraded 09/23/2021. (4) Cervical myelopathy: Plan: As above (5) Wound of foot: Plan: -Multiple crusted yellow lesions with black necrotic centers on left dorsal foot - With very cold feet bilaterally and barely palpable pulse in the left foot - Arterial Doppler ordered and shows absence of flow distally in the peroneal artery and anterior tibial artery but flow everywhere else, consistent with diffuse PAD -TTE did not show thrombus/valvular vegetation - Blood cultures are no growth to date since 09/08 - Vascular consulted-reports this is diffuse disease and no need for intervention - hep gtt stopped post filter placement -Antiplatelet held for spinal decompression (6) Tinea pedis: Plan: clotrimazole between toes and on toes twice daily (7) Cold feet: Plan: Related to neurologic process versus cardiovascular/PAD (8) Acute DVT (deep venous thrombosis): Plan: With acute extensive proximal to distal DVT of the right SFV found at outside hospital on 07/2021 Was on Eliquis which is on hold while on heparin drip in case of LP and now for spine surgery IVC filter R>L pedal edema persists (9) Pulmonary embolism: Plan: Noted on outside reports when he was admitted to an outside hospital in 07/2021 along with his acute right superficial femoral vein DVT CT angiogram of the chest performed here negative for PE DVT as noted above, filter in place (10) Constipation: Plan: No bowel movement since admission x8 days-finally had one on 09/16 Continue MiraLAX and senna bisacodyl suppository as needed (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: Plan: Not on inhalers at home Just quit smoking in 06/2021 May have PFTs as an outpatient for comfort (12) Peripheral arterial disease: Plan: As above Wait to start antiplatelet till after spine surgery He already quit smoking continue atorvastatin Plan: Full code Admission and Anticipated Discharge Date Admission Date: September 08, 2021 Subjective pt has no focal complaints, still not great neurologic improvement Review of Systems Review of Systems: Moderate distress and fatigue no headache, no visual changes no speech, some mild swallowing issues no chest pain, pressure or palpitations persistent shortness of breath, weakened cough slight wheezes no abdominal pain, nausea or vomiting, diarrhea or constipation no dysuria, hematuria or frequency no focal joint pain or swelling no back pain, CVA tenderness or radicular pain no bruising, bleeding or rashes focal signs of weakness but no numbness no complaints of anxiety or depression. but maybe looking depressed as time wears on Physical Exam Physical Exam: The patient appeared chronically ill and not improving much Vital signs as documented. Head exam is normocephalic atraumatic Neck is with rigid c collar in place, kristina drain in place, no stridor Lungs are diminished Cardiac exam, Rhythm is regular.. No murmurs, rubs or gallops. Abdominal exam reveals normal bowel sounds, soft non tender, no masses Extremities are nonedematous and both pedal pulses are present Neurologic exam is alert and oriented x3 unable to move right leg left leg with strength significantly decreased arms cannot be lifted above midline Skin is without bruises or rashes Psychologically is without concerns for anxiety or depression.. Results & Data Results & Data ([facility]) Vital Signs (Past 12 Hours) Vital Signs Temp Pulse Resp BP Pulse Ox 09/26/21 15:52 98.1 F 79 22 120/70 96 09/26/21 15:04 99 H 20 95 09/26/21 11:27 97.5 F L 92 H 20 145/92 H 95 09/26/21 11:00 105 H 20 96 09/26/21 07:57 97.5 F L 86 21 179/84 H 95 09/26/21 07:00 88 18 96 PG Care Time/CCT Total # of Minutes Spent Total Time Spent with Patient: Total time spent is greater than 50% in coordination of care (as documented) at patient's floor/unit and/or counseling patient: Coding Level of Care Code 48899 Subseq Hosp Care Lvl 2 Diagnoses Lower extremity weakness R29.898 Pneumonia J18.9 Laterality: left Lung location: lower lobe of lung Pneumonia type: due to unspecified organism COVID U07.1 Cervical myelopathy G95.9 Wound of foot S91.309A Tinea pedis B35.3 Cold feet R20.9 Acute DVT (deep venous thrombosis) I82.409 Pulmonary embolism I26.99 Constipation K59.00 COPD with emphysema J43.9 Peripheral arterial disease I73.9 (1) Pneumonia Laterality: left Lung location: lower lobe of lung Pneumonia type: due to unspecified organism Qualified Code(s): J18.9 - Pneumonia, unspecified organism
--- NOTE | 2021-09-26 21:18 | XRay Report ---
XR chest 1V portable HISTORY: hypoxia COMPARISON: Chest 09/16/2021. FINDINGS: The heart is normal in size. As a left subclavian central venous catheter terminus at the S VC. No significant midline shift. There is a small left pleural effusion. There are old, healed lower rib fractures. Moderate to large right basilar pneumothorax with a pleural gap of 7.5 cm. IMPRESSION: 1. Moderate to large right basilar pneumothorax. 2. Small left pleural effusion. 3. This was communicated to the patient's supervisor front, Romero Barahona, at 9:07 PM on 09/26/2021. ACT 112: Negative or not required by law. Electronically signed by: Evens Moyer M.D. 09/26/2021 9:16 PM
[2021-09-26] MEDS ORDERED: RAPID SEQUENCE INDUCTION BAG ONE (23:01)
[2021-09-26 23:11] LABS: iSTAT Allen Test Pass; iSTAT Art Bld Gas pCO2 Correct 101 mmHg (35-46); iSTAT Art Bld Gas pH Corrected 7.099 (7.35-7.45); iSTAT Arterial Blood Gas HCO3 31 meg/L (19-24); iSTAT Arterial Blood Gas pCO2 101 mmHg (35-46); iSTAT Arterial Blood Gas pO2 58 mmHg (80-95); iSTAT Arterial Blood Gas pO2 C 58; iSTAT Carbon Dioxide 34 mmol/L (24-31); iSTAT FiO2 100 %; iSTAT Hematocrit 44 % (42-52); iSTAT Potassium 4.1 mmol/L (3.3-5.0); iSTAT Site L Radial; iSTAT Sodium 140 mmol/L (135-144)
[2021-09-26] MEDS ORDERED: VECURONIUM BROMIDE 10 MG VIAL IV ONE (23:20)
[2021-09-26] MEDS ORDERED: NOREPINEPHRINE/D5W 8 MG/508 ML IV ONE (23:39)
[2021-09-26] MEDS ORDERED: fentaNYL citrate 2,500 MCG/250 ML BAG IV ONE (23:44)
[2021-09-26] MEDS ORDERED: MIDAZOLAM HCL 125MG/250ML D5W ONE (23:45)
--- NOTE | 2021-09-26 23:51 | Communication Note ---
Date of Service: September 26, 2021 In brief, patient is a 60yo male admitted on 09/08/21 with Covid-19 infection, PNA and LE weakness. He was unable to move his right leg and had absent refle xes on arrival. He had a recent superficial femoral DVT and PEs in July 2021 documented from an outside hospital. Patient had a portable CXR performed this evening for hypoxia. Found to have a moderate to large right basilar pneumothorax with small left pleural effusion. Overnight resident notified of results and in turn notified me. Assessed patient at the bedside in 233. At that time he was awake and alert, hemodynamically stable. He was on 11L NRB saturating 99-100%. Systolic blood pressure of [address] on right lateral neck, clean/dry/intact Trachea midline +S1/S2, regular Coarse breath sounds anteriorly with absent breath sounds in right base. +moist cough, weak +BS, soft, NT/ND Patient ordered 100% non-rebreather, STAT non-contrast CT of the chest and t ransfer to the MICU for continued monitoring Notified by floor nurse that patient's saturations were 86-88%, instructed him to commence with transfer to the MICU and obtain CT of the chest later Saturations continue to decline and "Code Purple" called for hypoxic respiratory failure ABG obtained from the Code with 7.009/101.2/58 and 76% saturation. MICU attending notified by MARIE Patient arrived in the MICU and saturations continue to decline into the upper 60's while on NRB Began to bag-mask ventilate patient with improvement in saturations to mid 80's Anesthesia called for intubation Emergency chest decompression and chest tube placement completed by MICU Patient had a Code Blue - appeared to be briefly VF then PEA. He received chest compressions, HCO3 x 3 amps and epinephrine x 1.5 with ROSC
--- NOTE | 2021-09-27 00:03 | Procedure Note ---
Procedure Note Date of Service September 26, 2021 Note Called for emergent intubation on patient due to hypercarbia, acidosis and a newly identified pneumothorax. On arrival to the bedside, the patient was being actively bagged by ICU staff. Patient was oxygenated and then induced with 4mg of midazolam and 100 mg of succinylcholine. Immediately after induction, a 7.5 ETT was placed easily utilizing glidescope on the first attempt to 24 cm. [address]acement confirmed via etCO2 detection with color change and b/l chest rise. After intubation, airway handed over to respiratory therapy. Sariah Cat MD, PhD Anesthesiologist Coding
--- NOTE | 2021-09-27 00:08 | Critical Care Consultation ---
Date of Consultation September 26, 2021 Assessment & Plan (1) Cardiac arrest: Reason Critically Ill: 60-year-old male with complex medical history of progressive neuromuscular weakness, recent DVT with PE requiring IVC filter secondary to need for cervical decompression given progressive myelopathy with spinal stenosis, and a cardiac arrest PLAN: Neuro: Analgesia: Fentanyl Sedation: Versed Myelopathy concurrent with and due to spinal stenosis of cervical region: - POD#2 #1 anterior cervical discectomy with bilateral foraminotomies C4-C5, C5-C6 and C6-C7. #2 anterior cervical arthrodesis C4-C5, C5-C6 and C6-C7. #3 placement of 8 mm spiral cage at C for C5, 7 mm at C5-C6 and 7 mm at C6-7. All cages filled with I factor. #4 application of allen plate and screws from C4-C7. Progressive 1-2 years of symptoms. report started in the right leg distally and moved proximally and then involved left leg and now into the arms right greater than left Has had 2 lumbar spinal surgeries at [facility] with Dr. Alvarado, first in April 2020 and second in November 2020. Records pending from [place] - CK negative, Lyme, B12, RPR all negative -Aldolase normal - BECKA negative - MRI with contrast of brain and C/T/L-spine done under anesthesia as patient has had difficulty tolerating due to cough. - significant cervical spine stenosis and myelomalacia which is most likely the cause of his significant quadriparesis - VGCC normal - CIDP evaluation/lumbar puncture deferred in the setting of cervical myelopathy - Neurology also recommending 4 limb EMG with repetitive stimulation as an outpatient, possible muscle biopsy Resp: Acute hypoxic respiratory failure with hypercapnia -At risk for aspiration - evaluated by speech therapy this admission with intact swallow mechanics at this time on bedside evaluation-recommend safe swallowing techniques - Was tolerating flutter valve, incentive karolyn, and chest PT - NIFs previously normal Recent pneumonia - Initial Acute hypoxic respiratory failure 2/2 Covid pneumonia with superimposed left lower lobe bacterial pneumonia history of aspiration pneumonitis requiring hospitalization at outside hospital on 07/2021 on the right side Was on Zosyn for pneumonia coverage due to dense consolidation,transitioned to Augmentin - Was later restarted on Zosyn for pseudomonal coverage and doxycycline on 09/14 -09/16 discontinued all antibiotics as he had received a week of antibiotics and procalcitonin was normal, no leukocytosis or fevers Right Sided Pneumothorax (Basilar) - Emergent Chest tube 09/26 - Continue Suction COVID Covid positive 09/08/2021 First day of symptoms: Approximately 09/01/2021 Vaccination status: Unvaccinated Received dexamethasone x 7 days and then discontinued Remdesivir: Not indicated at this time-outside the window for treatment at the time of admission Baricitinib: Not indicated at this time,not on high flow - Per infection control: First symptoms 09/01, Covid +09/08. Symptoms reviewed. COVID downgraded 09/23/2021. 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 -Quit smoking on 07/13 CV: Cardiac Arrest with return of spontaneous circulation -Patient was becoming awake and required sedation, no indication to undergo therapeutic hypothermia Ventricular tachycardia/ventricular fibrillation -Suspect acute metabolic disturbances, possible demand ischemia Peripheral arterial disease -Vascular surgery consulted - Local wound care - Reviewed arterial duplex scan -Repeat limited echo with bubble study, to exclude PFO -Antiplatelet medication on hold until cleared by spine surgery -Atorvastatin 20 mg daily Hypertension - Amlodipine 5mg daily: Hold Fluids/Renal: Hyperkalemia -Suspect secondary to acidosis and acute events -Medically treated and will recheck with morning labs Normosol 125 mL's per hour ID: Blood Cultures: Negative 09/08 Tinea pedis: -clotrimazole between toes and on toes twice daily GI/Nutrition: NPO Constipation: resolved - last BM 09/26 Pepcid 20mg BID -Previously as needed for dyspepsia now for mechanical ventilation Heme: Acute DVT - Partially occlusive thrombus of the right mid superficial femoral/popliteal veins with reduced compressibility. -Previously with DVT of right SFV 07/2021 for which he was on Eliquis converted to heparin GTT while inpatient. - 09/23 IVC filter as cannot have anticoagulation until heals from Cervical spine surgery Probable pulmonary embolism -Diagnosed as possible/probable pulmonary embolism on imaging obtained at [facility] DVT prophylaxis: - Chemoprophylaxis contraindicated in postoperative period - Mechanical prophylaxis contraindicated his pre-existing VTE in lower extremities -IVC filter present Endocrine: ICU hyperglycemia protocol TSH adequate MSK: Wound of foot - Wound care nurse following Vascular access: - Left Subclavian 09/16/21 - Left radial Aterial Line 09/27/21 - Shea 09/27/21 Code Status: Full Disposition: ICU (2) Progressive focal motor weakness: (3) Myelopathy concurrent with and due to spinal stenosis of cervical region: (4) Pulmonary embolism: (5) Peripheral arterial disease: (6) Acute DVT (deep venous thrombosis): (7) Acute respiratory failure with hypoxia and hypercapnia: (8) Pneumothorax on right: Supervising Physician Co-Signing Physician Notes I have personally spent 130 minutes of critical care time in the direct ma nagement of this patient. This is a life/limb threatening event. This includes time spent evaluating patient, direct bedside care, chart review, placing orders, interpretation of diagnostic studies, discussion with consultants, patient, and/or family members regarding treatment decisions, as well as other required patient management activities. This time is exclusive of all separately billable procedures, and teaching time and separate from and in addition to any other critical care service time. History of Present Illness Reason for Consultation: Acute hypoxic respiratory failure with acute encephalopathy Requesting Physician: Nidia Barahona Attending Physician: Tyshawn Garcia MD History of Present Illness History is obtained from prior records as patient was experiencing acute encephalopathy and acuity of clinical condition. Notes indicate patient had been admitted to [facility] on July 22, 2021 and was discharged on July 24, 2021 with a diagnosis of acute hypoxic respiratory failure secondary to community-acquired pneumonia, possible aspiration, occlusive thrombus right superficial femoral vein from distal to proximal on Eliquis, pulmonary embolism: Suspected anemia, chronic wounds, chronic upper and lower extremity weakness, severe spinal stenosis. Subsequent hospitalization revealed he had back surgery in April 2020 in November 2020 and has had to rely on a wheelchair since approximately that time. As of September 08, 2021 he did not have Covid immunizations; however, he was unfortunately diagnosed with COVID pneumonia at that time. He was seen by neurology during that admission. He underwent an echocardiogram on 09/15/2021 which was largely unremarkable. He was also seen by vascular surgery and diagnosed with pe ripheral arterial disease which have likely resulted in lower extremity wounds. On 09/16/2021 a left subclavian central line was placed for poor vascular access, need for central drug administration and multiple lab draws. On 09/17/2021 patient underwent sedation with anesthesia to obtain MRIs. He underwent orthopedic evaluation and had a IVC filter placed on 09/23/2021 secondary to need for cervical stabilization and inability to systemically anticoagulate the patient during this procedure. Neurology has been continuing to follow the patient. On September 24, 2021 the patient underwent anterior cervical discectomy and fusion. The patient was convalescing postoperatively. I was first notified by the hospitalist team of the patient having a right basilar pneumothorax, and agreed with transfer to the ICU for monitoring. It was reported the patient was alert saturating well with supplemental oxygen. I was later contacted that the patient became progressively hypoxemic and was experiencing an acute encephalopathy. I presented to the hospital for further evaluation and management of possible need for intubation and possible difficult airway. When I presented to bedside anesthesia was at the bedside as well. Per report the patient's mental status had slightly improved with manual bagging, his oxygen saturations had improved into the 90s and they reviewed the chest x- ray which demonstrated a moderate to large basilar pneumothorax. Patient was then obvious extremitas, experience acute hypoxic and hypercapnic respiratory failure, the decision was made to proceed with emergent endotracheal intubation with prompt placement of a chest tube. Patient was successfully intubated by anesthesia without any evidence of airway displacement on video laryngoscope. As I was preparing the chest for emergent chest tube insertion, the patient's rhythm appeared to change into ventricular tachycardia and promptly ventricular fibrillation. Provider bedside did not detect a pulse, I immediately aborted the formal chest tube and proceeded with an emergent needle decompression of the right chest with a Angiocath in the fifth intercostal space mid axillary line. This was chosen given the findings on radiography and the concurrent placement of pacing defibrillator pads by medical staff. I gave the patient a precordial thump and CPR was immediately started. 1 mg of epinephrine was administered and followed by 3 Amps of bicarb. CPR was continued. Please see CPR flowsheet for further details. The patient had return of spontaneous circulation. At this point I placed a formal tube thoracostomy in the right chest. Anesthesia proceeded with an emergent radial arterial line. Hospitalist staff was contacting the patient's sister and additional laboratory studies and imagin g studies were ordered. Allergies Allergy/AdvReac Type Severity Reaction Status Date / Time No Known Allergies Allergy Unverified 09/08/21 16:28 Home Medications Medication Instructions Recorded Confirmed Type apixaban 5 mg tablet (Eliquis) 5 mg PO BID 09/08/21 09/08/21 History Patient History Medical History Acute DVT (deep venous thrombosis) Cervical myelopathy Cervical spine pain COPD with emphysema DVT prophylaxis Lower extremity weakness Lumbar spine pain Peripheral arterial disease Progressive focal motor weakness Pulmonary embolism Social History Smoking Status: Former smoker Hx Alcohol Use: No Hx Substance Use: No Preferred Language: Yakut Communication Ability: Effective Airplane Pilot Helper Required: No Beliefs That Will Affect Care: None Current Living Situation: Parent Current Living Situation Comment: home with caregiver Feels Safe at Home: Yes Assistive Devices: Oxygen - Continuous Review of Systems Review of Systems: Unobtainable due to endotracheal tube Physical Exam Physical Exam: General: Patient was able to open eyes to painful stimuli prior to intubation. Skin: Wounds to left lower extremity Head: Atraumatic Ears, nose, mouth and throat: Exam limited, obscured by endotracheal tube Neck: Cervical collar present Cardiovascular: Decreased capillary refill Respiratory: Respirations being assisted with [id number]-[id number] ventilation Gastrointestinal: Non distended Musculoskeletal: 1+ pitting edema bilateral lower extremities Results & Data Results & Data ([facility]) Vital Signs (Past 12 Hours) Vital Signs Temp Pulse Resp BP Pulse Ox 09/26/21 22:40 89 30 H 82 L 09/26/21 20:02 36.4 C L 101 H 24 158/90 H 97 09/26/21 19:33 95 H 24 90 09/26/21 15:52 36.7 C 79 22 120/70 96 09/26/21 15:04 99 H 20 95 Critical Care Results & Data Vital Signs (Past 12 Hours) Vital Signs Temp Pulse Resp BP Pulse Ox 09/26/21 22:40 89 30 H 82 L 09/26/21 20:02 36.4 C L 101 H 24 158/90 H 97 09/26/21 19:33 95 H 24 90 09/26/21 15:52 36.7 C 79 22 120/70 96 09/26/21 15:04 99 H 20 95 Lab & Micro Results (Past 24 Hours) No Data to Display Direct Bilirubin Pending 09/26/21 Prothromb Time International Ratio 1.1 (0.9-1.1) 09/26/21 23:35 09/26/21 Nitesh Test Pass 09/26/21 23:53 09/26/21 Diagnostic Findings (Past 24 Hours) Chest X-Ray 09/26/21 19:45 XR chest 1V portable HISTORY: hypoxia COMPARISON: Chest 09/16/2021. FINDINGS: The heart is normal in size. As a left subclavian central venous catheter terminus at the SVC. No significant midline shift. There is a small left pleural effusion. There are old, healed lower rib fractures. Moderate to large right basilar pneumothorax with a pleural gap of 7.5 cm. IMPRESSION: 1. Moderate to large right basilar pneumothorax. 2. Small left pleural effusion. 3. This was communicated to the patient's glass bead maker, Romero Barahona, at 9:07 PM on 09/26/2021. ACT 112: Negative or not required by law. Electronically signed by: Evens Moyer M.D. 09/26/2021 9:16 PM I & O Totals 24 Hours 09/25/21 09/26/21 09/27/21 06:59 06:59 06:59 Intake Total 2250 / 2250 2873.333 / 2873.333 1170 / 1170 Output Total 810 / 810 1183 / 1183 615 / 615 Balance 1440 / 1440 1690.333 / 1690.333 555 / 555 Cumulative 09/08/21 14:36 thru 09/26/21 15:44 Intake Total 21970.480 Output Total 37033 Balance 2064.480 RT Ventilator Mngmt (Last Documented) Ventilator Ordered Settings Respiratory Rate 30 09/26/21 22:40 Fraction of Inspired Oxygen 98 09/18/21 07:35 Ventilator - PT Measurements Respiratory Rate 30 Coding Level of Care Code Critical Care ea addt'l 30 min Diagnoses Progressive focal motor weakness R53.1 Myelopathy concurrent with and due to spinal stenosis of cervical region M48.02; G99.2 Pulmonary embolism I26.99 Peripheral arterial disease I73.9 Acute DVT (deep venous thrombosis) I82.409 Cardiac arrest I46.9 Acute respiratory failure with hypoxia and hypercapnia J96.01; J96.02 Pneumothorax on right J93.9
--- NOTE | 2021-09-27 00:12 | Procedure Note ---
Procedure Note Date of Service September 27, 2021 Note Radial arterial line placed in ICU bed 3 while patient was being actively coded due to arrest. Left wrist prepped with chlorhexidine. 20 G angiocath placed emergently using clean but not sterile technique and under ultrasound guidance. Catheter threaded using seldinger technique with return of pulsatile, bright red blood. Site covered with occlusive dressing and taped in place. Waveform consistent with correct arterial placement. After placement, fingers of procedural hand had normal perfusion. Patient tolerated procedure well without complications. Sariah Cat MD, PhD Anesthesiologist Coding
[2021-09-27 00:18] LABS: iSTAT Allen Test Pass; iSTAT Art Bld Gas pCO2 Correct 61 mmHg (35-46); iSTAT Art Bld Gas pH Corrected 7.369 (7.35-7.45); iSTAT Arterial Blood Gas HCO3 36 meg/L (19-24); iSTAT Arterial Blood Gas pCO2 62 mmHg (35-46); iSTAT Arterial Blood Gas pH 7.36 (7.35-7.45); iSTAT Arterial Blood Gas pO2 51 mmHg (80-95); iSTAT Arterial Blood Gas pO2 C 50; iSTAT Carbon Dioxide 37 mmol/L (24-31); iSTAT FiO2 100 %; iSTAT Hematocrit 39 % (42-52); iSTAT Hemoglobin 13.3 g/dl (14.0-18.0); iSTAT Potassium 3.6 mmol/L (3.3-5.0); iSTAT Site Art Line; iSTAT Sodium 143 mmol/L (135-144)
[2021-09-27 00:25] LABS: INR 1.1 (0.9-1.1); Prothrombin Time 12.1 Seconds (9.0-12.0)
[2021-09-27 00:41] LABS: Basophils # (auto) 0.05 K/uL (0-0.2); Basophils % (auto) 0.3 %; Eosinophils # (auto) 0.14 K/uL (0-0.5); Eosinophils % (auto) 0.7 %; Hematocrit (blood only) 41.9 % (42-52); Hemoglobin 12.8 g/dL (14.0-18.0); Immature Granulocytes # (auto) 0.44 K/uL (0.00-0.02); Immature Granulocytes % (auto) 2.3 %; Lymphocytes # (auto) 3.79 K/uL (1.2-3.4); Mean Corpuscular Hemoglobin 27.9 pg (25-34); Mean Corpuscular Hgb Conc 30.5 g/dL (32-36); Mean Corpuscular Volume 91.3 fL (80-100); Mean Platelet Volume 12.2 fL (7.4-10.4); Monocytes # (auto) 1.37 K/uL (0.11-0.59); Monocytes % (auto) 7.2 %; Neutrophils # (auto) 13.17 K/uL (1.4-6.5); Neutrophils % (auto) 69.5 %; Nucleated RBC # (auto) 0.06 K/uL (0-0); Nucleated RBC % (auto) 0.3 %; Platelet Count 283 K/uL (130-400); RDW Coefficient of Variation 16.3 % (11.5-14.5); RDW Standard Deviation 55.1 fL (36.4-46.3); Red Blood Count 4.59 M/uL (4.7-6.1); White Blood Count 18.96 K/uL (4.8-10.8)
[2021-09-27 01:00] LABS: Alanine Aminotransferase 35 U/L (7-52); Albumin Level 3.1 gm/dl (3.4-5.0); Alkaline Phosphatase 100 U/L (34-104); Anion Gap 6 (3-11); Aspartate Aminotransferase 38 U/L (13-39); BUN Creatinine Ratio 36.1 (10-20); Bilirubin Direct 0.1 mg/dl (0-0.2); Bilirubin,Total 0.4 mg/dl (0.2-1.0); Blood Urea Nitrogen 13 mg/dl (6-23); Calcium 8.2 mg/dl (8.5-10.1); Carbon Dioxide 35 mmol/L (21-32); Chloride 103 mmol/L (98-107); Creatinine Clr Calc Pharmacy 235.3 ml/min; Est GFR (African American) > 150.0 ml/min; Est GFR (Non-African American) 135.8 ml/min; Glucose 227 mg/dl (70-99(Fasting)); Magnesium 1.8 mg/dl (1.7-2.4); Potassium 6.1 mmol/L (3.5-5.1); Sodium 144 mmol/L (136-145); Total Protein 5.5 gm/dl (6.0-8.3)
[2021-09-27 01:02] LABS: Troponin I 0.05 ng/ml (0-0.04)
[2021-09-27] MEDS ORDERED: OPTIRAY 320 125ml IV ONE (01:04)
[2021-09-27] MEDS ORDERED: DEXTROSE 50% 50 ML SYRINGE IV STA (01:10)
[2021-09-27] MEDS ORDERED: CALCIUM GLUCONATE 10% 1,000 MG in DEXTROSE 5% 50 ML IV ONE (01:10)
[2021-09-27] MEDS ORDERED: STAT IV STA (01:10)
[2021-09-27] MEDS ORDERED: STAT IV Infusion **Titration per Protocol STA ×2 (01:26→02:48)
[2021-09-27] MEDS ORDERED: MIDAZOLAM BOLUS FROM BAG IV PRN (01:26)
[2021-09-27] MEDS ORDERED: fentaNYL citrate 2,500 MCG/250 ML BAG IV SCH (01:30)
[2021-09-27] MEDS ORDERED: INSULIN HUMAN REGULAR PER UNIT 10 UNITS in SYRINGE 9.9 ML IV ONE (01:30)
[2021-09-27] MEDS ORDERED: MIDAZOLAM HCL 125 MG/250 ML BAG IV SCH (01:30)
--- NOTE | 2021-09-27 01:35 | Procedure Note ---
Procedure Note Date of Service September 26, 2021 Note Procedure Date: noted above Procedure: Tube thoracostomy Pre-procedure Diagnosis: Pneumothorax Post-procedure Diagnosis: same as above Prior to Procedure: Informed Consent: Emergent Attending Staff: Cass Wall DO Resident/Physician Industrial Engineering Analyst: Alli MARKS Indications: The patient is a 60-year-old male requiring tube thoracostomy for right pneumothorax The identity of the patient was confirmed and a bedside time out was performed. Description of Procedure: Patient positioned, the right mid axillary line was prepped with chlorhexidine and draped in usual sterile fashion. 5 mL of 1% Lidocaine without epinephrine was used to anesthetize the area. A 3 cm incision was made in the mid axillary line. The subcutaneous tissues were bluntly dissected and care was taken to enter the chest cavity superior to the rib with my index finger. Large zaman of air was noted. A 20 Fr chest tube was inserted with care into the apices and secured at approximately 10 cm to the chest wall with 2-0 silk suture. This was connected to a Pleur-evac which did demonstrate a grade 1 air leak. Specimen: Not applicable Complications: None Estimated blood loss: 5 mL Post procedure chest x-ray has been ordered and reviewed Coding CPT Codes Pulmonary/Thoracic - Pulmonary and Thoracic: 68656 Tube thoracostomy ([id number]) [facility] [place] Procedure Codes (Charges) Pulmonary/Thoracic Procedure 1: Pulmonary and Thoracic: 45297 Tube thoracostomy
--- NOTE | 2021-09-27 01:37 | Procedure Note ---
Procedure Note Date of Service September 27, 2021 Note Procedure date: Noted above Procedure: Cardiopulmonary resuscitation Pre-procedure Diagnosis: CODE BLUE, cardiac arrest Post-procedure Diagnosis: same as above Prior to Procedure: Informed Consent: Emergent Attending Staff: Katya Wall DO Please refer to nursing code flowsheet for further details Description of Procedure: ACS protocols were followed for initial ventricular tachycardia which degenerated into ventricular fibrillation. Please refer to code flowsheet for additional details. After initial resuscitation efforts patient did experience pulseless electrical activity and then did regain spontaneous circulation Complications: None apparent immediately after return of spontaneous circulation Coding CPT Codes Resuscitation - Resuscitation: 41306 Heart/lung resuscitation CPR ([id number]) [facility] Procedure Codes (Charges) Resuscitation Resuscitation: 44781 Heart/lung resuscitation CPR
[2021-09-27] MEDS: CLOTRIMAZOLE 1% CR 15 GM TUBE EXT SCH ×2 (02:01→08:33)
[2021-09-27] MEDS: MAGNESIUM SULFATE / D5W 1 GM/100 ML BAG IV SCH ×2 (02:03→04:07)
[2021-09-27] MEDS: NORMOSOL-R 1,000 ML IV SCH ×2 (02:09→09:30)
[2021-09-27] MEDS: DOCUSATE SODIUM/SENNA 50/8.6MG TAB PO SCH (02:14)
[2021-09-27] MEDS: guaiFENesin SUGAR FREE 200 MG/10 ML UDC PO SCH (02:14)
[2021-09-27] MEDS: NOREPINEPHRINE/D5W 8 MG/508 ML BAG IV SCH ×2 (03:00→12:43)
[2021-09-27] MEDS: SODIUM CHLORIDE 0.9% 1000ML 1,000 ML IV SCH (04:09)
[2021-09-27 04:15] LABS: iSTAT Art Bld Gas pCO2 Correct 42 mmHg (35-46); iSTAT Arterial Blood Gas HCO3 32 meg/L (19-24); iSTAT Arterial Blood Gas pCO2 42 mmHg (35-46); iSTAT Arterial Blood Gas pO2 74 mmHg (80-95); iSTAT Arterial Blood Gas pO2 C 75; iSTAT Carbon Dioxide 33 mmol/L (24-31); iSTAT FiO2 90 %; iSTAT Hematocrit 39 % (42-52); iSTAT Hemoglobin 13.3 g/dl (14.0-18.0); iSTAT Potassium 2.7 mmol/L (3.3-5.0); iSTAT Site Art Line; iSTAT Sodium 142 mmol/L (135-144)
[2021-09-27] MEDS ORDERED: GLUCAGON FOR INJ 1 MG VIAL SQ PRN (05:17)
[2021-09-27] MEDS ORDERED: CARBOHYDRATES FOR HYPOGLYCEMIA PO PRN (05:17)
[2021-09-27] MEDS ORDERED: DEXTROSE 50% 50 ML SYRINGE IV PRN (05:17)
[2021-09-27] MEDS ORDERED: GLUCOSE 40% GEL 15 GM TUBE PO PRN (05:17)
[2021-09-27] MEDS ORDERED: PHARMACY GLYCEMIC MGMT CONSULT PRN (05:17)
[2021-09-27] MEDS ORDERED: GLUCOSE 10 TABS/TUBE PO PRN (05:17)
[2021-09-27] MEDS ORDERED: INSULIN GLARGINE SOLOSTAR 100 UNITS/ML 3 ML PEN SC ONE (06:00)
[2021-09-27] MEDS ORDERED: INSULIN ASPART PER UNIT SC SCH (06:00)
--- NOTE | 2021-09-27 07:11 | CT Scan Report ---
CT head/brain wo con CLINICAL HISTORY: cardiac arrest, anoxia COMPARISON STUDY: No previous studies for comparison. CT DOSE: TECHNIQUE: Standard CT of the Brain was performed without IV contrast. A dose lowering technique was utilized adhering to the principles of ALARA. FINDINGS: Extraaxial space: There is no evidence for subdural hematoma. There are no extra-axial fluid collecti ons. Ventricles and cisterns: The ventricles are normal in size and configuration. There is no evidence fo r midline shift or mass effect. Parenchyma: There is no subarachnoid or intraparenchymal hemorrhage. There is no evidence for an acut e infarct or cerebral edema. There is homogeneous attenuation of the brain parenchyma. There are no g ross mass lesions. Osseous structures: There is no evidence for an acute fracture. Minimal mucosal thickening is seen in volving the floor the left maxillary antrum. The remaining visualized paranasal sinuses are clear. Th e mastoid air cells are clear bilaterally. Soft tissues: There is no evidence for focal soft tissue swelling. IMPRESSION: 1. No acute intracerebral pathology. ACT 112: Negative or not required by law. Electronically signed by: Alejandro Jeffery M.D. 09/27/2021 7:09 AM
--- NOTE | 2021-09-27 07:17 | CT Scan Report ---
CT angio neck with con CLINICAL HISTORY: eval for hematoma, cardiac arrest, recent surgery COMPARISON STUDY: No previous studies for comparison. CT DOSE: 2751.90 mGy.cm TECHNIQUE: CT Angio of the neck was performed.followed by image post processing with coronal, and sa gittal MIP reformats.. Stenosis assessment by NASCET criteria. Contrast Volume: Optiray 320, 118 ml FINDINGS: Vascular findings: Right common carotid artery: Patent without significant stenosis. There is minimal atherosclerotic pl aque is present at the carotid bulb. Right internal carotid artery: Patent without significant stenosis. Right vertebral artery: Patent without significant stenosis. Left common carotid artery: Patent without significant stenosis. Mild atherosclerotic plaque is prese nt at the carotid bulb. Left internal carotid artery: Patent without significant stenosis. Left vertebral artery: Patent without significant stenosis. Nonvascular findings: The parotid and submandibular salivary glands appear normal. There is no enlarged cervical adenopathy noted. Endotracheal tube is in place. The thyroid gland appears within normal limits. . Impression: Essentially negative CT angiogram of the neck with contrast. ACT 112: Negative or not required by law. Electronically signed by: Alejandro Jeffery M.D. 09/27/2021 7:14 AM
--- NOTE | 2021-09-27 07:21 | CT Scan Report ---
CT cervical spine wo con CLINICAL HISTORY: s/p ACDF COMPARISON STUDY: No previous studies for comparison. CT DOSE: TECHNIQUE: Standard CT of the Cervical Spine was performed without IV contrast. A dose lowering mary hnique was utilized adhering to the principles of ALARA. FINDINGS: Bones: The patient is again status post anterior plate and screw fixation from C4 through C7 with dis c spacers in place. There is no evidence for an acute fracture or malalignment. The heights of the ve rtebral bodies are maintained. The vertebral bodies are in anatomic alignment. The odontoid is intact and the atlantoaxial articulation is within normal limits. Disc spaces: There is moderate to marked disc space narrowing at C3-4, the disc space level above the spine fusion. There is also moderate to marked disc space narrowing at C7-T1, the disc space level b elow the spine fusion. Endplate sclerosis and osteophyte formation are present. Disc spacers are seen at the remaining disc space levels. Apophyseal joints: Mild degenerative apophyseal joint disease is seen bilaterally. Soft tissues: An endotracheal tube is in place. There is a small pneumothorax at the right lung apex. IMPRESSION: 1. Status post stable internal fixation of the cervical spine with degenerative disc and degenerative apophyseal joint disease. 2. No acute osseous pathology. 3. Endotracheal tube is in place. 4. Small right apical pneumothorax. Please see CTA chest report for further evaluation. ACT 112: Negative or not required by law. Electronically signed by: Alejandro Jeffery M.D. 09/27/2021 7:19 AM
--- NOTE | 2021-09-27 07:25 | Hospitalist Progress Note ---
Date of Service September 27, 2021 Assessment & Plan (1) Acute respiratory failure with hypoxia and hypercapnia: Plan: PT found to have incidental pneumothorax, then decompensated and had cardiac arrest, resuscitated but now intubated and sedated now low grade fever leukocytosis elevated troponin ecg without acute distress right sided chest tube placed (2) Lower extremity weakness: Plan: Progressive lower extremity and then upper extremity weakness, bilateral over the last year Progressive 1-2 years of symptoms. report started in the right leg distally and moved proximally and then involved left leg and now into the arms right greater than left Has had 2 lumbar spinal surgeries at [facility] with Dr. Alvarado, first in April 2020 and second in November 2020. Records pending from [place] CK negative, Lyme, B12, RPR all negative -Aldolase normal - BECKA negative MRI with contrast of brain and C/T/L-spine recommended and had somewhat of a delay as had to arrange for MRIs to be done under anesthesia as patient has had difficulty tolerating this due to cough. MRIbrain/C-spine 09/17-shows significant cervical spine stenosis and myelomalacia which is most likely the cause of his significant quadriparesis [facility] normal -CIDP evaluation/lumbar puncture deferred in the setting of cervical myelopathy and work-up as noted below -Neurology also recommending 4 limb EMG with repetitive stimulation as an outpatient, possible muscle biopsy [facility] consulted. Evidence of cord damage myelomalacia on cervical MRI contributing to his upper and lower extremity weakness. -09/24/21 cervical spine decompression with placement of spiral cage, plate, and screws Lower extremity Doppler: Partially occlusive thrombus of the right mid superficial femoral/popliteal veins with reduced compressibility. Previously with DVT of right SFV 07/2021 for which he was on Eliquis converted to heparin GTT while inpatient., pre op had IVD filter as cannot have AC until heals from Cervical spine surgery -MRI T Spine/L SPine reviewed by ortho. No need for additional intervention at this time. Mild/moderate canal stenosis is noted. (3) Pneumonia: Plan: Most likely aspiration pneumonia dense left lower lobe lesion seen on CTA of chest Patient with history of aspiration pneumonitis requiring hospitalization at outside hospital on 07/2021 on the right side Was evaluated by speech therapy this admission with intact swallow mechanics at this time on bedside evaluation-recommend safe swallowing techniques Started on Zosyn for pneumonia coverage due to dense consolidation,transitioned to Augmentin, but then pulmonology recommending restarting Zosyn for pseudomonal coverage and doxycycline on 09/14 - left subclavian central line as he had no other IV access able to be placed by IV team. Probiotic discontinued as contraindicated in the setting of central line. now sedated on the vent (4) COVID: Plan: Acute hypoxic respiratory failure 2/2 Covid pneumonia with superimposed left lower lobe bacterial pneumonia Covid positive 09/08/2021 First day of symptoms: Approximately 09/01/2021 Vaccination status: Unvaccinated With some mild hypoxia, requiring 2 L nasal cannula With very poor cough effort due to progressive weakness of neurological etiology as below CXR:Layering left pleural effusion with left basilar consolidation. - CTA: There is no evidence of pulmonary embolus in the main, lobar, or segmental pulmonary arteries. Emphysema. There is dense airspace consolidation throughout the left lower lobe with mild volume loss and opacification of the left lower lobe airways. The appearance is typical for pneumonia/aspiration pneumonitis. Clinical correlation will be required and radiographic follow-up to resolution is recommended. Minimal patchy groundglass consolidation is seen at the right lung base, also likely on an infectious/inflammatory basis. No pleural effusion is identified. Advanced coronary artery calcification. Mildly enlarged mediastinal and hilar lymph nodes are likely reactive.. Pneumonia on imaging not secondary to Covid Received dexamethasone x 7 days and then discontinued Remdesivir: Not indicated at this time-outside the window for treatment at the time of admission Baricitinib: Not indicated at this time,not on high flow Continue flutter valve, incentive spirometry, and chest physiotherapy Discussed with infection control. First symptoms 09/01, Covid +09/08. Symptoms reviewed. COVID downgraded 09/23/2021. (5) Cervical myelopathy: Plan: As above (6) Wound of foot: Plan: -Multiple crusted yellow lesions with black necrotic centers on left dorsal foot - With very cold feet bilaterally and barely palpable pulse in the left foot - Arterial Doppler ordered and shows absence of flow distally in the peroneal artery and anterior tibial artery but flow everywhere else, consistent with diffuse PERIPHERAL ARTERY DISEASE -TTE did not show thrombus/valvular vegetation - Blood cultures are no growth to date since 09/08 - Vascular consulted-reports this is diffuse disease and no need for intervention - hep gtt stopped post filter placement -Antiplatelet held for spinal decompression (7) Tinea pedis: Plan: clotrimazole between toes and on toes twice daily (8) Acute DVT (deep venous thrombosis): Plan: With acute extensive proximal to distal DVT of the right SFV found at outside hospital on 07/2021 Had PE at that time current CTA of chest without PE Was on Eliquis which is on hold while on heparin drip in case of LP and now for spine surgery IVC filter R>L pedal edema persists Plan: Full code Admission and Anticipated Discharge Date Admission Date: September 08, 2021 Results & Data Results & Data ([facility]) Vital Signs (Past 12 Hours) Vital Signs Temp Pulse Pulse Resp BP BP Pulse Ox 09/27/21 06:30 99.9 F H 84 24 102/63 98 09/27/21 06:15 99.9 F H 86 24 98 09/27/21 06:00 99.9 F H 88 24 95/60 L 98 09/27/21 05:30 99.9 F H 98 H 24 115/73 98 09/27/21 05:00 99.7 F H 98 H 24 115/72 99 09/27/21 04:30 99.7 F H 104 H 24 118/76 98 09/27/21 04:11 107 H 24 98 09/27/21 04:00 99.1 F 105 H 28 H 136/84 98 09/27/21 03:30 98.8 F 104 H 28 H 91/64 L 100 09/27/21 03:00 98.4 F 115 H 28 H 102/66 99 09/27/21 02:45 98.2 F 114 H 28 H 95/67 L 99 09/27/21 02:30 98.1 F 115 H 28 H 109/77 98 09/27/21 02:15 98.2 F 112 H 28 H 109/77 96 09/27/21 02:00 98.4 F 126 H 28 H 86/61 L 92 09/27/21 01:45 98.4 F 136 H 28 H 76/53 L 89 L 09/27/21 01:41 99 09/27/21 01:30 144 H 28 H 102/78 91 09/27/21 01:15 128 H 28 H 127/95 95 09/27/21 01:05 131 H 29 H 92 09/27/21 01:00 129 H 28 H 136/115 H 93 09/27/21 00:59 123 H 28 H 150/100 H 96 09/27/21 00:15 126 H 28 H 117/82 87 L 09/27/21 00:00 136 H 28 H 135/97 87 L 09/26/21 23:50 141 H 28 H 147/104 H 87 L 09/26/21 23:46 140 H 28 H 154/100 H 86 L 09/26/21 23:44 141 H 28 H 87 L 09/26/21 23:42 133 H 28 H 159/103 H 88 L 09/26/21 23:40 137 H 115/74 09/26/21 23:35 130 H 121/77 09/26/21 23:30 134 H 184/117 H 09/26/21 23:27 89 177/60 H 09/26/21 23:20 127 H 126/79 91 09/26/21 23:15 120 H 173/104 H 96 09/26/21 23:10 123 H 153/93 H 96 09/26/21 23:08 126 H 149/93 H 95 09/26/21 23:07 132 H 157/80 H 83 L 09/26/21 23:05 123 H 159/85 H 73 L 09/26/21 22:40 89 30 H 82 L 09/26/21 20:02 97.5 F L 101 H 24 158/90 H 97 09/26/21 19:33 95 H 24 90 PG Care Time/CCT Total # of Minutes Spent Total Time Spent with Patient: Total time spent is greater than 50% in coordination of care (as documented) at patient's floor/unit and/or counseling patient: Coding Diagnoses Lower extremity weakness R29.898 Pneumonia J18.9 Laterality: left Lung location: lower lobe of lung Pneumonia type: due to unspecified organism COVID U07.1 Cervical myelopathy G95.9 Wound of foot S91.309A Tinea pedis B35.3 Acute DVT (deep venous thrombosis) I82.409 Acute respiratory failure with hypoxia and hypercapnia J96.01; J96.02 (1) Pneumonia Laterality: left Lung location: lower lobe of lung Pneumonia type: due to unspecified organism Qualified Code(s): J18.9 - Pneumonia, unspecified organism
--- NOTE | 2021-09-27 07:25 | XRay Report ---
XR chest 1V portable CLINICAL HISTORY: Pneumothorax COMPARISON STUDY: Chest radiograph September 26, 2021 at 8:16 PM. FINDINGS: A large right basilar pneumothorax has increased in size since prior exam. There is no left pneumothorax. Left lower lobe airspace opacity persists. Left subclavian central line is in place. C ardiac size is stable. IMPRESSION: 1. Increase in size of a large right basilar pneumothorax. 2. Extensive left lower lobe airspace opacity, unchanged. ACT 112: Negative or not required by law. Electronically signed by: Fabian Lackey M.D. 09/27/2021 7:24 AM
--- NOTE | 2021-09-27 07:35 | CT Scan Report ---
CT ANGIOGRAPHY OF THE CHEST, PULMONARY EMBOLUS PROTOCOL CLINICAL HISTORY: cardiac arrest, r/o PE COMPARISON STUDY: Chest CT September 08, 2021. Chest radiograph September 26, 2021. TECHNIQUE: Following IV administration of 118 mL of Optiray, helical axial images of the chest were o btained utilizing the pulmonary embolus protocol. Maximal intensity projections and sagittal and cor onal reformats were viewed on an independent 3D workstation. IV contrast was administered without co mplication. Automated exposure control was utilized for the study. A dose lowering technique was ut ilized adhering to the principles of ALARA. FINDINGS: No pulmonary emboli are identified. There is no thoracic aortic dissection. No pericardial effusion. No thoracic lymphadenopathy. Size of the heart is at the upper limits of normal. Position o f the endotracheal tube is satisfactory. Left subclavian central line is in place. Interval placement of a right-sided chest tube is noted. The right pneumothorax has decreased in size since chest radio graph of September 26, 2021. The chest tube extends along the fissure. The tip may be within the right low er lobe. There is no left pneumothorax. The residual right pneumothorax occupies 25% of the hemithora x. Opacification of the left lower lobe with volume loss has progressed since prior CT. Interval deve lopment of extensive right lower lobe airspace opacity with volume loss is noted. There are extensive secretions within the bilateral lower lobe segmental bronchi. Mild right middle lobe airspace opacit y is present. Numerous acute nondisplaced anterior bilateral rib fractures are noted. Abdomen and pel vis CT will be reported separately. IMPRESSION: 1. No pulmonary emboli identified. 2. Interval placement of a right chest tube with decrease in size of the right pneumothorax. Residual right pneumothorax occupies 25% of the right hemithorax. Tube extends along a fissure. Tip may be wi thin the right lower lobe and could be repositioned if not functioning properly. 3. Complete opacification of the left lower lobe with volume loss which has progressed. Interval deve lopment of extensive right lower lobe airspace opacity with volume loss. These findings could reflect consolidation or atelectasis and aspiration is within the differential, particularly given extensive secretions within the bilateral lower lobe bronchi. 4. Satisfactory positioning of the endotracheal tube. ACT 112: Negative or not required by law. Electronically signed by: Fabian Lackey M.D. 09/27/2021 7:32 AM
--- NOTE | 2021-09-27 07:42 | CT Scan Report ---
CT OF THE ABDOMEN AND PELVIS WITH CONTRAST CLINICAL HISTORY: cardiac arrest, unknown etiology, hypotension COMPARISON STUDY: None. TECHNIQUE: Following IV administration of 118 mL of Optiray, axial images of the abdomen and pelvis w ere obtained from the lung bases to the proximal femurs. Images were reviewed in the axial, sagittal, and coronal planes. IV contrast was administered without complication. Automated exposure control w as utilized for the study. A dose lowering technique was utilized adhering to the principles of DENISA Mojica. FINDINGS: Please note that the chest CT will be reported separately. Right-sided chest tube with righ t pneumothorax as well as extensive bilateral lower lobe airspace opacities are better depicted on th at exam. No pneumatosis, free air or portal venous gas is present. Liver, spleen, adrenal glands and pancreas are unremarkable. IVC filters in place. There is mild left hydronephrosis. There are no uret eral calculi. Hyperdense foci within both kidneys favor calculi although excreted contrast could appe ar similar. Nephrograms are symmetric. There is no evidence for a bowel obstruction. A device within the rectum is present. Appendix is normal. Major vasculature is patent. No pneumatosis, free air or p ortal venous gas is present. Old T12 compression fracture is present. There are postoperative finding s within the spine. No acute fractures within the visualized skeletal structures. No biliary or pancr eatic ductal dilatation is present. IMPRESSION: 1. No acute process within the abdomen or pelvis. 2. Right sided chest tube with right pneumothorax and extensive bilateral lower lobe airspace opaciti es which are better depicted on the chest CT. Please see that report for further description. 3. Hyperdense foci within the bilateral renal sinuses. These favor calculi although excreted contrast could appear similar. Mild left hydronephrosis. No ureteral calculi. ACT 112: Negative or not required by law. Electronically signed by: Fabian Lackey M.D. 09/27/2021 7:39 AM
[2021-09-27 07:50] LABS: Basophils # (auto) 0.02 K/uL (0-0.2); Basophils % (auto) 0.1 %; Eosinophils # (auto) 0.03 K/uL (0-0.5); Eosinophils % (auto) 0.2 %; Hematocrit (blood only) 37.4 % (42-52); Hemoglobin 12.1 g/dL (14.0-18.0); Immature Granulocytes # (auto) 0.06 K/uL (0.00-0.02); Immature Granulocytes % (auto) 0.3 %; Lymphocytes % (auto) 7.6 %; Mean Corpuscular Hemoglobin 28.5 pg (25-34); Mean Corpuscular Hgb Conc 32.4 g/dL (32-36); Mean Platelet Volume 11.6 fL (7.4-10.4); Monocytes # (auto) 1.47 K/uL (0.11-0.59); Monocytes % (auto) 8.6 %; Neutrophils # (auto) 14.29 K/uL (1.4-6.5); Neutrophils % (auto) 83.2 %; Platelet Count 327 K/uL (130-400); RDW Coefficient of Variation 16.1 % (11.5-14.5); RDW Standard Deviation 52.1 fL (36.4-46.3); Red Blood Count 4.25 M/uL (4.7-6.1); White Blood Count 17.17 K/uL (4.8-10.8)
--- NOTE | 2021-09-27 08:12 | XRay Report ---
XR chest 1V portable CLINICAL HISTORY: intubation. Follow-up pneumothorax COMPARISON STUDY: 09/26/2021 TECHNIQUE: 1 view of the chest FINDINGS: Single frontal view of the chest demonstrates the cardiomediastinal silhouette to be within normal li mits. The patient is status post intubation with the tip of the endotracheal tube approximately 2.9 c m above the davin. Compared to previous examination, there is interval decrease in right-sided pneumothorax at the right lung base. There is again right lower lobe atelectasis/collapse. On the left side, there is evidence for pleural effusion with left lower lobe atelectasis/collapse as well. There is no evidence for vas cular congestion. There is no acute osseous pathology. IMPRESSION: 1. Status post intubation with endotracheal tube in anatomic position. 2. Interval decrease in right basilar pneumothorax. 3. Persistent right lower lobe atelectasis/collapse. 4. Left pleural effusion with left lower lobe atelectasis/collapse also present. ACT 112: Negative or not required by law. Electronically signed by: Alejandro Jeffery M.D. 09/27/2021 8:10 AM
[2021-09-27] MEDS: INSULIN ASPART PER UNIT SC SCH ×2 (08:26→12:41)
[2021-09-27 08:45] LABS: Anion Gap 7 (3-11); BUN Creatinine Ratio 40.9 (10-20); Blood Urea Nitrogen 9 mg/dl (6-23); Calcium 8.4 mg/dl (8.5-10.1); Carbon Dioxide 31 mmol/L (21-32); Chloride 101 mmol/L (98-107); Creatinine Clr Calc Pharmacy 379.4 ml/min; Est GFR (African American) > 150.0 ml/min; Est GFR (Non-African American) > 150.0 ml/min; Glucose 144 mg/dl (70-99(Fasting)); Sodium 139 mmol/L (136-145)
--- NOTE | 2021-09-27 08:53 | Pharmacy Report ---
Pharmacy Glycemic Short Note 2 - Date of Service September 27, 2021 - Glycemic Short BSG Results (Last 24 hours): 09/26/21 09/27/21 09/27/21 23:39 05:01 08:14 Glucose 227 H POC Glucose (other) 213 H 131 H OUTPATIENT ANTIDIABETIC REGIMEN: * None * HbA1c ordered for 09/28/21 ASSESSMENT: * 60 yo M with complex recent medical history including PE/DVT Jul 2021 and multiple spinal surgeries in the last 2 years admitted 09/08 with COVID and progressive weakness/quadriparesis. Hospital course pertinent for IVC filter 09/23 and cervical spinal decompression 09/24. Overnight 09/26 to 09/27, pneumothorax noted and code blue with ROSC s/p R chest tube. Intubated and transferred to the ICU. Now requiring pressors as well. * BSG's have not been closely followed earlier this admission as patient does not have a history of diabetes and random BSG's have been good. However, pharmacy was consulted on 09/27 due to elevated BSG's, likely due to acute stressors including cardiac arrest, intubation, and pressor support * Lantus was initiated at 0.27 units/kg - will not increase for now due to NPO and acute stressors / labile BSG's * Novolog weight-based moderate stress estimate is reasonable at this time, currently ordered q4h * Low threshold to initiate insulin drip, but OK for now to attempt basal/bolus PLAN FOR INPATIENT GLYCEMIC CONTROL: * Basal insulin * Lantus 20 units SQ already administered * Bolus insulin * NovoLog per scale Q4H * Goal Range: Low 110 mg/dL - High 160 mg/dL * Correction Factor: 30 mg/dL/unit * Nutritional / Prandial insulin per carb ratio of 1 unit per 11 grams CHO consumed
[2021-09-27] MEDS ORDERED: FAMOTIDINE 20 MG in SYRINGE 3 ML IV SCH (09:00)
[2021-09-27] MEDS ORDERED: FAMOTIDINE 20 MG TAB PO SCH (09:00)
[2021-09-27] MEDS: ATORVASTATIN 20 MG TAB PO SCH (09:26)
--- NOTE | 2021-09-27 09:37 | Critical Care Progress Note ---
Date of Service September 27, 2021 Assessment & Plan (1) Cardiac arrest: Plan: Reason Critically Ill: 60-year-old male with complex medical history of progressive neuromuscular weakness, recent DVT with PE requiring IVC filter secondary to need for cervical decompression given progressive myelopathy with spinal stenosis, and a cardiac arrest PLAN: Neuro: Analgesia: Fentanyl Sedation: Versed Myelopathy concurrent with and due to spinal stenosis of cervical region: - POD#2 #1 anterior cervical discectomy with bilateral foraminotomies C4-C5, C5-C6 and C6-C7. #2 anterior cervical arthrodesis C4-C5, C5-C6 and C6-C7. #3 placement of 8 mm spiral cage at C for C5, 7 mm at C5-C6 and 7 mm at C6-7. All cages filled with I factor. #4 application of allen plate and screws from C4-C7. - D/W spine surgery, OK to remove collar during routine care, could be moved with collar for LP Progressive 1-2 years of symptoms. report started in the right leg distally and moved proximally and then involved left leg and now into the arms right greater than left Has had 2 lumbar spinal surgeries at [facility] with Dr. Alvarado, first in April 2020 and second in November 2020. Records pending from [facility] - CK negative, Lyme, B12, RPR all negative -Aldolase normal - BECKA negative - MRI with contrast of brain and C/T/L-spine done under anesthesia as patient has had difficulty tolerating due to cough. - significant cervical spine stenosis and myelomalacia which is most likely the cause of his significant quadriparesis - VGCC normal - CIDP evaluation/lumbar puncture deferred in the setting of cervical myelopathy - Neurology also recommending 4 limb EMG with repetitive stimulation as an outpatient, possible muscle biopsy - BECKA Screen with reflex - Negative 09/17 - ANCA Screen - Anti-ds-DNA - Smooth Muscle IgG - Lupus Anti-coagulant evaluation - Cardiolipin IgG, IgM - B2 Glycoprotein Antibody, IgG, IgM, IgA - Complement C3,C4,CH50 - CRP - CKP - ESR - Hepatitis Panel - C negative 09/24 - RPR - Nonreactive 09/09 - HIV - Lyme IgG/IgM with reflex western blot - Rheumatoid factor - Cryoglobulin - SPEP/UPEP Resp: Acute hypoxic respiratory failure with hypercapnia -At risk for aspiration - evaluated by speech therapy this admission with intact swallow mechanics at this time on bedside evaluation-recommend safe swallowing techniques - Was tolerating flutter valve, incentive karolyn, and chest PT - NIFs previously normal Recent pneumonia - Initial Acute hypoxic respiratory failure / Covid pneumonia with superimposed left lower lobe bacterial pneumonia history of aspiration pneumonitis requiring hospitalization at outside hospital on 07/2021 on the right side Was on Zosyn for pneumonia coverage due to dense consolidation,transitioned to Augmentin - Was later restarted on Zosyn for pseudomonal coverage and doxycycline on 09/14 -09/16 discontinued all antibiotics as he had received a week of antibiotics and procalcitonin was normal, no leukocytosis or fevers - Bronchoscopy today: Consent from sister Right Sided Pneumothorax (Basilar) - Emergent Chest tube 09/26 - Continue Suction COVID Covid positive 09/08/2021 First day of symptoms: Approximately 09/01/2021 Vaccination status: Unvaccinated Received dexamethasone x 7 days and then discontinued Remdesivir: Not indicated at this time-outside the window for treatment at the time of admission Baricitinib: Not indicated at this time,not on high flow - Per infection control: First symptoms 09/01, Covid +09/08. Symptoms reviewed. COVID downgraded 09/23/2021. 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 -Quit smoking on 07/13 CV: Cardiac Arrest with return of spontaneous circulation -Patient was becoming awake and required sedation, no indication to undergo therapeutic hypothermia Ventricular tachycardia/ventricular fibrillation -Suspect acute metabolic disturbances, possible demand ischemia Peripheral arterial disease -Vascular surgery consulted - Local wound care - Reviewed arterial duplex scan -Repeat limited echo with bubble study, to exclude PFO -Antiplatelet medication on hold until cleared by spine surgery -Atorvastatin 20 mg daily Hypertension - Amlodipine 5mg daily: Hold Fluids/Renal: Hyperkalemia: Resolved Hypokalemia - 40 MeQ Potassium Acetate Normosol 125 mL's per hour ID: Blood Cultures: Negative 09/08 - Repeat surveillance cultures Tinea pedis: -clotrimazole between toes and on toes twice daily GI/Nutrition: NPO Constipation: resolved - last BM 09/26 Pepcid 20mg BID -Previously as needed for dyspepsia now for mechanical ventilation Heme: Acute DVT - Partially occlusive thrombus of the right mid superficial femoral/popliteal veins with reduced compressibility. -Previously with DVT of right SFV 07/2021 for which he was on Eliquis converted to heparin GTT while inpatient. - 09/23 IVC filter as cannot have anticoagulation until heals from Cervical spine surgery Probable pulmonary embolism -Diagnosed as possible/probable pulmonary embolism on imaging obtained at [facility] DVT prophylaxis: - Chemoprophylaxis contraindicated in postoperative period - Mechanical prophylaxis contraindicated his pre-existing VTE in lower extremities - IVC filter present Endocrine: ICU hyperglycemia protocol TSH adequate MSK: Wound of foot - Wound care nurse following Vascular access: - Left Subclavian 09/16/21 - Left radial Aterial Line 09/27/21 - Shea 09/27/21 Code Status: Full Disposition: ICU (2) Progressive focal motor weakness: (3) Myelopathy concurrent with and due to spinal stenosis of cervical region: (4) Pulmonary embolism: (5) Peripheral arterial disease: (6) Acute DVT (deep venous thrombosis): (7) Acute respiratory failure with hypoxia and hypercapnia: (8) Pneumothorax on right: Admission and Anticipated Discharge Date Admission Date: September 08, 2021 Supervising Physician Co-Signing Physician Notes I have personally spent 90 minutes of critical care time in the direct management of this patient. This is a life/limb threatening event. This includes time spent evaluating patient, direct bedside care, chart review, placing orders, interpretation of diagnostic studies, discussion with consultants, patient, and/or family members regarding treatment decisions, as well as other required patient management activities. This time is exclusive of all separately billable procedures, and teaching time and separate from and in addition to any other critical care service time. Subjective No overnight events. Decreasing oxygen requirements Review of Systems Review of Systems: Unobtainable due to endotracheal tube Physical Exam Physical Exam: General: sedated. nontoxic. Sedation scale:-4/-5: Skin: Warm, dry, Head: Atraumatic Ears, nose, mouth and throat: airway patent Cardiovascular: Normal peripheral perfusion Respiratory: no respiratory distress Gastrointestinal: Non distended Musculoskeletal: No deformity Results & Data Results & Data ([facility]) Vital Signs (Past 12 Hours) Vital Signs Temp Pulse Pulse Resp BP BP Pulse Ox 09/27/21 07:25 83 24 98 09/27/21 06:30 37.7 C H 84 24 102/63 98 09/27/21 06:15 37.7 C H 86 24 98 09/27/21 06:00 37.7 C H 88 24 95/60 L 98 09/27/21 05:30 37.7 C H 98 H 24 115/73 98 09/27/21 05:00 37.6 C H 98 H 24 115/72 99 09/27/21 04:30 37.6 C H 104 H 24 118/76 98 09/27/21 04:11 107 H 24 98 09/27/21 04:00 37.3 C 105 H 28 H 136/84 98 09/27/21 03:30 37.1 C 104 H 28 H 91/64 L 100 09/27/21 03:00 36.9 C 115 H 28 H 102/66 99 09/27/21 02:45 36.8 C 114 H 28 H 95/67 L 99 09/27/21 02:30 36.7 C 115 H 28 H 109/77 98 09/27/21 02:15 36.8 C 112 H 28 H 109/77 96 09/27/21 02:00 36.9 C 126 H 28 H 86/61 L 92 09/27/21 01:45 36.9 C 136 H 28 H 76/53 L 89 L 09/27/21 01:41 99 09/27/21 01:30 144 H 28 H 102/78 91 09/27/21 01:15 128 H 28 H 127/95 95 09/27/21 01:05 131 H 29 H 92 09/27/21 01:00 129 H 28 H 136/115 H 93 09/27/21 00:59 123 H 28 H 150/100 H 96 09/27/21 00:15 126 H 28 H 117/82 87 L 09/27/21 00:00 136 H 28 H 135/97 87 L 09/26/21 23:50 141 H 28 H 147/104 H 87 L 09/26/21 23:46 140 H 28 H 154/100 H 86 L 09/26/21 23:44 141 H 28 H 87 L 09/26/21 23:42 133 H 28 H 159/103 H 88 L 09/26/21 23:40 137 H 115/74 09/26/21 23:35 130 H 121/77 09/26/21 23:30 134 H 184/117 H 09/26/21 23:27 89 177/60 H 09/26/21 23:20 127 H 126/79 91 09/26/21 23:15 120 H 173/104 H 96 09/26/21 23:10 123 H 153/93 H 96 09/26/21 23:08 126 H 149/93 H 95 09/26/21 23:07 132 H 157/80 H 83 L 09/26/21 23:05 123 H 159/85 H 73 L 09/26/21 22:40 89 30 H 82 L Coding Level of Care Code Critical Care ea addt'l 30 min Diagnoses Cardiac arrest I46.9 Progressive focal motor weakness R53.1 Myelopathy concurrent with and due to spinal stenosis of cervical region M48.02; G99.2 Pulmonary embolism I26.99 Peripheral arterial disease I73.9 Acute DVT (deep venous thrombosis) I82.409 Acute respiratory failure with hypoxia and hypercapnia J96.01; J96.02 Pneumothorax on right J93.9
--- NOTE | 2021-09-27 10:06 | XCELERA ---
[id number]
[2021-09-27] MEDS: POTASSIUM ACETATE/NSS 20 MEQ/110 ML BAG IV SCH ×2 (10:35→12:41)
--- NOTE | 2021-09-27 11:13 | Procedure Note ---
Procedure Note Date of Service September 27, 2021 Note Procedure date: September 27, 2021 Procedure: fiberoptic bronchoscopy Pre-procedure indication: Acute hypoxic respiratory failure Post-procedure Diagnosis: same as above, mucoid impaction of the bronchi Prior to Procedure: Informed Consent: The risks, benefits, indications, potential complications, and alternatives were explained to the patient's sister and informed consent obtained. Attending Staff: Katya Wall DO Resident/APC: Not applicable Skin Prep: Not applicable Anesthesia: Continuous infusion The identity of the patient was confirmed and a bedside time out was performed. Description of Procedure: Fiberoptic bronchoscopy was performed via endotracheal tube. Bronchioalveolar lavage right middle lobe was performed. Findings included: White thin secretions in the right lower lobe and left posterior lobes which were easily suctioned. No evidence of diffuse alveolar hemorrhage on serial lavage. Complications: None Specimens: Bronchial washings sent for culture and Gram stain, fungal elements, AFB stain and culture, cell count differential. Estimated blood loss: Zero Coding CPT Codes Pulmonary/Thoracic - Pulmonary and Thoracic: 57584 Dx bronchoscopy/BAL ([id number]) [facility] [place] Procedure Codes (Charges) Pulmonary/Thoracic Procedure 1: Pulmonary and Thoracic: 52187 Dx bronchoscopy/BAL
[2021-09-27 11:44] LABS: Lyme Ab IgG w/WB Rflx Negative (Negative); Lyme Ab IgM w/WB Rflx Negative (Negative)
--- NOTE | 2021-09-27 13:23 | Communication Note ---
Date of Service: September 27, 2021 13:15 Notified by case management family declining transfer [place] [facility] [place] issues. I am attempting to facilitate transfer to [facility]. Dr. Aguirre with [facility] anticipated to call back. 14:25 D/[facility] willing to accept in transfer. Dr. Isidro willing to accept, transfer by [facility]. Coding Level of Care Code None
--- NOTE | 2021-09-27 13:32 | Orthopedic Progress Note ---
Date of Service September 27, 2021 Assessment & Plan (1) Myelopathy concurrent with and due to spinal stenosis of cervical region: Plan: Patient is status post multilevel anterior cervical discectomy and fusion. The construct is quite stable. 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 It is reasonable to remove his collar when he is sedated in bed. Collar should be in place if there are any transfers. Certainly may be removed for any bathing or care issues. Drain is to be removed today. Admission and Anticipated Discharge Date Admission Date: September 08, 2021 Subjective Patient is currently intubated Results & Data ([facility]) Vital Signs (Past 12 Hours) Vital Signs Temp Pulse Resp BP Pulse Ox 09/27/21 12:30 37.3 C 80 16 102/59 L 96 09/27/21 12:00 37.4 C 84 18 104/62 95 09/27/21 11:22 81 16 98 09/27/21 11:06 37.7 C H 85 14 100 09/27/21 11:04 37.7 C H 85 26 H 100 09/27/21 11:02 37.7 C H 75 16 100 09/27/21 11:00 37.7 C H 76 16 104/64 100 09/27/21 10:30 37.7 C H 77 16 100/60 100 09/27/21 10:00 37.7 C H 79 16 105/64 100 09/27/21 09:30 37.6 C H 82 24 104/63 99 09/27/21 09:00 37.6 C H 81 24 103/66 99 09/27/21 08:30 37.6 C H 80 24 99/64 L 98 09/27/21 08:00 37.6 C H 84 24 104/63 97 09/27/21 07:30 37.7 C H 85 24 100/60 96 09/27/21 07:25 83 24 98 09/27/21 07:00 37.7 C H 81 24 100/59 L 97 09/27/21 06:58 37.7 C H 83 24 96/61 L 97 09/27/21 06:30 37.7 C H 84 24 102/63 98 09/27/21 06:15 37.7 C H 86 24 98 09/27/21 06:00 37.7 C H 88 24 95/60 L 98 09/27/21 05:30 37.7 C H 98 H 24 115/73 98 09/27/21 05:00 37.6 C H 98 H 24 115/72 99 09/27/21 04:30 37.6 C H 104 H 24 118/76 98 09/27/21 04:11 107 H 24 98 09/27/21 04:00 37.3 C 105 H 28 H 136/84 98 09/27/21 03:30 37.1 C 104 H 28 H 91/64 L 100 09/27/21 03:00 36.9 C 115 H 28 H 102/66 99 09/27/21 02:45 36.8 C 114 H 28 H 95/67 L 99 09/27/21 02:30 36.7 C 115 H 28 H 109/77 98 09/27/21 02:15 36.8 C 112 H 28 H 109/77 96 09/27/21 02:00 36.9 C 126 H 28 H 86/61 L 92 09/27/21 01:45 36.9 C 136 H 28 H 76/53 L 89 L 09/27/21 01:41 99
[2021-09-27 14:50] LABS: Eosinophil Body Fluid Man 0 %; Fluid Mono/Macrophage 4 %; Neutrophil Body Fluid Man 96 %
[2021-09-27] MEDS ORDERED: SODIUM BICARB 8.4% INJ 50 MEQ/50 ML SYR IV ONE (16:49)
[2021-09-27] MEDS ORDERED: SUCCINYLCHOLINE CHLORIDE 20 MG/ML 10 ML VIAL IV ONE (16:49)
[2021-09-27] MEDS ORDERED: MIDAZOLAM HCL 1 MG/ML 2ML VIAL IV ONE (16:49)
[2021-09-27] MEDS ORDERED: fentaNYL citrate 100 MCG/2 ML VIAL IV ONE (16:49)
--- NOTE | 2021-09-27 17:55 | Discharge Summary ---
Date of Service September 27, 2021 Admission HPI Per Admitting Provider 60-year-old male who presents to [facility] with shortness of breath exacerbated over the last week. Found to be Covid positive and the patient has not been vaccinated. Patient was recently discharged from [facility] July 24 after being treated for community-acquired pneumonia possibly aspiration. In our emergency department he has what appears to be a left lower lobe lobar pneumonia despite his Covid positive status. Patient denies any GI symptoms at home loss of taste or smell and denies any recent Covid exposures. During his previous admission he also developed a right superficial femoral v ein DVT and is chronically anticoagulated with Eliquis. The family is present with him and the real concern from the family was progressive neck and back weakness after reportedly having spinal surgery April 2020 and then again in November 2020. Since that time the patient's been wheelchair-bound unable to use his legs to bear weight. Principal Diagnosis cardiac arrest respiratory failure right pneumothorax polyneuropathy or undetermined cause cervical stenosis s/p orhto spine surgery 09/24/21 Discharge Exam The patient appeared chronically ill Vital signs as documented. some levophed support Lungs are clear to auscultation and bs bilaterally Cardiac exam, Rhythm is regular.. No murmurs, rubs or gallops. Abdominal exam reveals normal bowel sounds, soft non tender, no masses left foot with crusted lesions Discharge Data Allergies Allergy/AdvReac Type Severity Reaction Status Date / Time No Known Allergies Allergy Unverified 09/08/21 16:28 Consultations 09/08/21 17:59 ED Decision to Admit Stat 09/27/21 01:02 Consult Radar Signal Processing Engineer Routine 09/27/21 15:06 Burn CD for patient Stat Procedures Performed Operation Date: 09/17/21 12:00 Actual Procedures p MRI with Anesthesia Sedation Brain and Spine with and without - Tyshawn Garcia MD Operation Date: 09/23/21 10:15 Actual Procedures p Insertion of Vena Cava Filter, Right Internal Jugular Approach, Fluoroscopy for Positioning, Moderate Sedation [id number](Right) - Preet Li MD Operation Date: 09/24/21 07:50 Actual Procedures p Anterior Cervical Discectomy and Fusion C4-C7 with Spinal Cord Monitoring(Not Applicable) - Claudio Chávez DO Ordered Studies 09/08/21 15:08 CT angio chest PE protocol Stat 09/14/21 12:57 US arterial duplex LE LT Routine 09/17/21 00:00 MR brain wo/w con Routine MR cervical spine wo/w con Routine 09/18/21 16:51 US venous doppler LE BI Urgent 09/23/21 00:00 MR lumbar spine wo/w con Routine MR thoracic spine wo con Routine 09/23/21 07:14 EV IVC filter placement Routine 09/24/21 07:50 FL cervical 2-3V Routine 09/26/21 23:40 CT abd pelvis IV con only Urgent CT angio chest PE protocol Urgent CT head/brain wo con Urgent 09/26/21 23:55 CT cervical spine wo con Urgent 09/27/21 00:03 CT angio neck with con Urgent Hospital Course (1) Acute respiratory failure with hypoxia and hypercapnia: PT found to have incidental pneumothorax, then decompensated and had cardiac arrest, resuscitated but now intubated and sedated now low grade fever leukocytosis elevated troponin ecg without acute distress right sided chest tube placed (2) Lower extremity weakness: Progressive lower extremity and then upper extremity weakness, bilateral over the last year Progressive 1-2 years of symptoms. report started in the right leg distally and moved proximally and then involved left leg and now into the arms right greater than left Has had 2 lumbar spinal surgeries at [facility] with Dr. Alvarado, first in April 2020 and second in November 2020. Records pending from [place] CK negative, Lyme, B12, RPR all negative -Aldolase normal - BECKA negative MRI with contrast of brain and C/T/L-spine recommended and had somewhat of a delay as had to arrange for MRIs to be done under anesthesia as patient has had difficulty tolerating this due to cough. MRIbrain/C-spine 09/17-shows significant cervical spine stenosis and myelomalacia which is most likely the cause of his significant quadriparesis VGCC normal -CIDP evaluation/lumbar puncture deferred in the setting of cervical myelopathy and work-up as noted below -Neurology also recommending 4 limb EMG with repetitive stimulation as an outpatient, possible muscle biopsy Orthospine consulted. Evidence of cord damage myelomalacia on cervical MRI contributing to his upper and lower extremity weakness. -09/24/21 cervical spine decompression with placement of spiral cage, plate, and screws Lower extremity Doppler: Partially occlusive thrombus of the right mid superficial femoral/popliteal veins with reduced compressibility. Previously with DVT of right SFV 07/2021 for which he was on Eliquis converted to heparin GTT while inpatient., pre op had IVD filter as cannot have AC until heals from Cervical spine surgery -MRI T Spine/L SPine reviewed by ortho. No need for additional intervention at this time. Mild/moderate canal stenosis is noted. (3) Pneumonia: Most likely aspiration pneumonia dense left lower lobe lesion seen on CTA of chest Patient with history of aspiration pneumonitis requiring hospitalization at outside hospital on 07/2021 on the right side Was evaluated by speech therapy this admission with intact swallow mechanics at this time on bedside evaluation-recommend safe swallowing techniques Started on Zosyn for pneumonia coverage due to dense consolidation,transitioned to Augmentin, but then pulmonology recommending restarting Zosyn for pseudomonal coverage and doxycycline on 09/14 - left subclavian central line as he had no other IV access able to be placed by IV team. Probiotic discontinued as contraindicated in the setting of central line. now sedated on the vent (4) COVID: Acute hypoxic respiratory failure 07/24 Covid pneumonia with superimposed left lower lobe bacterial pneumonia Covid positive 09/08/2021 First day of symptoms: Approximately 09/01/2021 Vaccination status: Unvaccinated With some mild hypoxia, requiring 2 L nasal cannula With very poor cough effort due to progressive weakness of neurological etiology as below CXR:Layering left pleural effusion with left basilar consolidation. - CTA: There is no evidence of pulmonary embolus in the main, lobar, or segmental pulmonary arteries. Emphysema. There is dense airspace consolidation throughout the left lower lobe with mild volume loss and opacification of the left lower lobe airways. The appearance is typical for pneumonia/aspiration pneumonitis. Clinical correlation will be required and radiographic follow-up to resolution is recommended. Minimal patchy groundglass consolidation is seen at the right lung base, also likely on an infectious/inflammatory basis. No pleural effusion is identified. Advanced coronary artery calcification. Mildly enlarged mediastinal and hilar lymph nodes are likely reactive.. Pneumonia on imaging not secondary to Covid Received dexamethasone x 7 days and then discontinued Remdesivir: Not indicated at this time-outside the window for treatment at the time of admission Baricitinib: Not indicated at this time,not on high flow Continue flutter valve, incentive spirometry, and chest physiotherapy Discussed with infection control. First symptoms 09/01, Covid +09/08. Symptoms reviewed. COVID downgraded 09/23/2021. (5) Cervical myelopathy: As above (6) Wound of foot: -Multiple crusted yellow lesions with black necrotic centers on left dorsal foot - With very cold feet bilaterally and barely palpable pulse in the left foot - Arterial Doppler ordered and shows absence of flow distally in the peroneal artery and anterior tibial artery but flow everywhere else, consistent with diffuse PERIPHERAL ARTERY DISEASE -TTE did not show thrombus/valvular vegetation - Blood cultures are no growth to date since 09/08 - Vascular consulted-reports this is diffuse disease and no need for intervention - hep gtt stopped post filter placement -Antiplatelet held for spinal decompression (7) Tinea pedis: clotrimazole between toes and on toes twice daily (8) Acute DVT (deep venous thrombosis): With acute extensive proximal to distal DVT of the right SFV found at outside hospital on 07/2021 Had PE at that time current CTA of chest without PE Was on Eliquis which is on hold while on heparin drip in case of LP and now for spine surgery IVC filter R>L pedal edema persists Full code Total Time Total Time Spent Total Time Spent (In Minutes): It required greater than 30 minutes to prepare this patient for discharge Discharge Plan Discharge Items Patient Disposition: Transfer Acute Care Hospital Reason For Visit: ACUTE RESP. FAILRURE, QUADRAPELGIA, COVID PNEUMONI Discharge Diagnosis: Acute respiratory failure requiring ventilation Cardiac arrest pneumothorax polyneuropathy of undetermined cause covid infection cervical stenosis s/p decompressive surgery 09/24/21 Activity: Per Instructions section Non-emergency contact: Primary Care Provider and Neurologist Call non-emergency contact if: your symptoms worsen Follow-up/Referrals: Roberto Carlos Quinonez DO [Primary Care Provider] - Diet: Nothing by Mouth Addtl Attending Provider Instructions: as per tertiary care facility Pending Studies at Discharge: Yes (send out neurologic testing) Stand-Alone Forms: My [facility] Skilled Items Patient informed of condition?: No (not conscious, family informed) DNR: No Discharge Level of Care: Other Communicable Disease: No Discharge Prognosis: Deteriorating Lines: Saline Lock Urinary Catheter: Yes Medications and DC Order Prescriptions: Discontinued Eliquis 5 mg tablet 5 mg PO BID RF: 0 Discharge Orders: Discharge Order (Routine); Ordered 09/27/21 Ordered By: Tyshawn Garcia Admission Data Admit Date/Time: 09/08/21 19:06 Attending Provider: Tyshawn Garcia Admit Provider: Tyshawn Garcia Primary Care Provider: Roberto Carlos Quinonez Other Providers: Tyshawn Garcia ; oRmero Wall Other Interventions: Discharge Summary Assessment (RN) Last Done: 09/27/21 16:30 Coding Level of Care Code D/C DAY MANAGEMENT >30 MINS Diagnoses Acute respiratory failure with hypoxia and hypercapnia J96.01; J96.02 Lower extremity weakness R29.898 Pneumonia J18.9 Laterality: left Lung location: lower lobe of lung Pneumonia type: due to unspecified organism COVID U07.1 Cervical myelopathy G95.9 Wound of foot S91.309A Tinea pedis B35.3 Acute DVT (deep venous thrombosis) I82.409
[2021-09-27] MEDS ORDERED: ICU ELECTROLYTE REPLACEMENT PROTOCOL SCH (18:00)
[2021-09-28 04:25] LABS: HBSAG NON-REACTIVE (NON-REACTIVE); Hepatitis A Antibody IgM NON-REACTIVE (NON-REACTIVE); Hepatitis B Core Antibody IgM NON-REACTIVE (NON-REACTIVE)
--- NOTE | 2021-09-28 12:30 | Electrocardiogram Report ---
Test Reason : Blood Pressure : / mmHG Vent. Rate : 127 BPM Atrial Rate : 127 BPM P-R Int : 168 ms QRS Dur : 112 ms QT Int : 316 ms P-R-T Axes : 052 035 115 degrees QTc Int : 459 ms Sinus tachycardia Cannot rule out Anterior infarct (cited on or before 27-SEP-2021) Abnormal ECG When compared with ECG of 08-SEP-2021 15:25, Questionable change in initial forces of Anteroseptal leads Nonspecific T wave abnormality, worse in Anterolateral leads Confirmed by Yannick Grady ([id number]) on 09/28/2021 12:29:58 PM Referred By: REFERRED SELF Confirmed By:Yannick Grady
[2021-09-29 00:31] LABS: Rapid Plasma Reagin Nonreactive (Nonreactive)
--- NOTE | 2021-10-03 13:16 | Coding Query ---
CODING QUERY To promote full compliance with coding requirements relating to patient care, provider participation is requested in all cases of hcc coders uncertainty. Please assist us with the question(s) below: Coding Question(s): Patient admitted COVID positive with Pneumonia. Seeking to clarify the type of Pneumonia patient was treated for . The Discharge Summary documents COVID 19 Pneumonia and also COVID Pneumonia was ruled out . Please check below the type of pneumonia that was treated. Thanks for your help! JOSÉ LUIS Mays [facility] Physician's Response(s): The patient had COVID 19 Pneumonia POA The patient had Bacterial Pneumonia POA The patient had Aspiration Pneumonia POA Other: please document: Principal Diagnosis: "that condition established after study, to be chiefly responsible for occasioning the admission of the patient to the hospital for care." Co-Existing Principal Diagnosis: "when two or more diagnoses equally meet the criteria for principal diagnosis as determined by the circumstances of admission, diagnostic work up, and/or therapy provided, and the Alphabetic Index, Tabular List, or another coding guideline does not provide sequencing direction, any one of the diagnoses may be sequenced first." "When the physician has documented what appears to be a current diagnosis in the body of the record, but has not included the diagnosis in the final diagnostic statement, the physician should be asked whether the diagnosis should be added." (Source [facility]oding [facility] 2 QTR90. p3-4) ALICIA
[2021-10-04 19:36] LABS: % Cryocrit DNR; ANCA Screen Negative (Negative); Anti Cardiolipin Ab IgG <2.0 GPL-U/mL; Anti Cardiolipin Ab IgM <2.0 MPL-U/mL; Anti Nuclear Antibody Screen NEGATIVE (NEGATIVE); Anti-dsDNA Recombinant <1 IU/mL; B2 Glycoprotein IgA <2.0 U/mL (<20.0); B2 Glycoprotein IgG <2.0 U/mL (<20.0); B2 Glycoprotein IgM <2.0 U/mL (<20.0); Complement C3 122 mg/dL (82-185); Complement Total(CH50) >60 U/mL (31-60); Cryoglobulin, QL Negative (Negative); Myeloperoxidase Ab <1.0 AI (<1.0); Proteinase-3 AB <1.0 AI (<1.0); Rheumatoid Factor <14 IU/mL (<14)
[2021-10-07 13:28] LABS: Lupus Hex Phase (Rflxdonotord) Negative (Negative)
== END 2021-09-27 16:50 | disposition short-term general hospital (02) | DRG 981 ==
LOC: ED 14:36 → SUATTDRO 19:06 → 2S 19:06 → 1E 09-26 22:41